=== PATIENT | female | born 1935 | race Caucasian/White ===

== ENCOUNTER 2019-05-26 07:53 | Observation (INO) | payer MEDICARE, MEDICAID, SELFPAY ==
[2019-05-26] VITALS (9 sets, daily range): BP systolic 138–180; BP diastolic 74–110; PULSE 66–98; RESP 16–22; TEMP 36.3–37.1; O2SAT 94–98; BMI 25.7
--- NOTE | 2019-05-26 08:19 | ED_ITS ---
Documented by User: RISHI Brothers 05/26/19 14:42 HPI - Neuro Symptoms/Deficit General: Chief Complaint: General Medical Stated Complaint: DONT FEEL RIGHT Time Seen by Provider: 05/26/19 08:02 Source: patient and family Mode of arrival: ambulatory Limitations: no limitations History of Present Illness: HPI Narrative: Patient is an 83-year-old female who presents to ED today along with her daughter for complaints of not feeling right ; daughter states around 730 this morning she received a phone call from her mother and reported while on the phone and that her voice sounded odd and a little slurred; patient told daughter that she had trouble putting on her pants which is abnormal for her; she immediately came and grabbed patient and brought her to the ED; it is unknown when symptoms started; upon arrival to the ED daughter again feels patient's speech is slightly slurred and feels she may have some left-sided facial drooping; patient seems convinced that her symptoms are related to a recent change in her diltiazem pill-states the pharmacy was out of her white caps and thus placed her on a color-coded tablet Associated symptoms: Deny chest pain, headache(s), nausea, syncope or vomiting Review of Systems Const: Denies: fever, chills or body aches Eyes: Denies: change in vision or blurry vision Card: Denies: chest pain, palpitations, irregular heart rhythm, edema, lightheadedness, syncope or pre-syncope Resp: Denies: shortness of breath, productive cough, non-productive cough, wheezing, pain on inspiration, change in phlegm color, coughing up blood or chest congestion GI: Denies: abdominal pain, nausea, vomiting or diarrhea : Denies: flank pain, difficulty urinating, urinary frequency, urinary urgency or urinary hesitancy Musc: Denies: neck pain or back pain Skin/Breast: Denies: rash Neuro: Reports: other (generalized weakness ); Denies: headache, numbness in extremities or changes in sensation PFSH ED PFSH: Statuses (acute, chronic, etc) shown below reflect problem list status as previously entered and may not be historically accurate Social History Smoking and tobacco status: never smoked NIH stroke score NIHSS: Level Of Consciousness - 1a: 0 Level Of Consciousness Questions - 1b: Both Correct Level Of Consciousness Commands - 1c: Both Correct Best Gaze - 2: Normal Visual [place] - 3: No Visual Loss Facial Palsy - 4: Minor Paralysis Motor Arm Right - 5: No Drift Motor Arm Left - 5: No Drift Motor Leg Right - 6: No Drift Motor Leg Left - 6: Drift Limb Ataxia - 7: Absent Sensory - 8: Normal Best Language - 9: No Aphasia Dysarthia - 10: Mild/Moderate Dysarthia Extinction And Inattention - 11: 0 Score: Total Score: 3 Physical Exam Const: COMMON NORMALS: no apparent distress, average body habitus, oriented x3, no limitations, healthy appearing, alert and well nourished GENERAL APPEARANCE: cooperative ORIENTATION/CONSCIOUSNESS: Yes oriented to person, Yes oriented to place and Yes oriented to time HENMT: COMMON NORMALS: normocephalic and head/scalp atraumatic HEAD & SCALP: normocephalic and atraumatic Eye: COMMON NORMALS: PERRL, EOMs intact bilaterally and conjunctivae normal CONJUNCTIVA: Yes conjunctivae normal PUPIL: Yes PERRL Neck/C-Spine: COMMON NORMALS: no meningeal signs Resp: COMMON NORMALS: normal respiratory effort and clear to auscultation bilaterally AUSCULTATION: clear to auscultation bilaterally Cardio: COMMON NORMALS: regular rate RATE: regular rate RHYTHM: abnormal rhythm irregularly irregular Neuro: KATE COMA SCALE: document GCS findings [place] coma scale eye opening: Spontaneous Kate coma scale verbal response: Orientated [place] coma scale motor response: Obey commands Kate coma scale total score: 15 COMMON NORMALS: oriented x3 and no sensory deficits noted SENSORIUM/ORIENTATION: Yes alert, Yes oriented to person, Yes oriented to place and Yes oriented to time MENINGEAL SIGNS: Yes no meningeal signs SPEECH: abnormal speech GAIT: Yes normal gait Course ED course: After initial assessment of patient, I elected to call a stroke alert based on her slurred speech, minor left facial drooping, and L LE weakness. Dr. Gan made aware and pt was taken straight to CT. Dr. Lockhart contacted ED after hearing the alert and I spoke to her directly. I did accidentally score pt at a NIH of 12 however I meant a score of 3. Dr. Lockhart came and spoke to Dr. Gan and recommended we call off stroke alert as we do not have a time of onset. Vital Signs: Vital signs: Vital Signs Temperature 98.1 F 05/26/19 12:44 Pulse Rate 80 05/26/19 12:44 Respiratory Rate 16 05/26/19 12:44 Blood Pressure 158/83 05/26/19 12:44 Pulse Oximetry 97 05/26/19 12:44 MDM - Neuro Symptoms/Deficit Lab Data: Labs: Lab Results 05/26/19 05/26/19 05/26/19 Range/Units 08:18 08:28 08:28 WBC 6.2 (4.0-10.0) 10^3/ uL RBC 5.11 (4.1-5.3) 10^6/u L Hgb 13.2 (11.5-15.3) g/dL Hct 44.1 (37.0-47.0) % MCV 86.3 (81-99) fL MCH 25.8 L (28.0-34.0) pg MCHC 29.9 L (30.0-36.0) g/dL RDW 14.6 (12.1-15.1) % Plt Count 214 (130-400) 10^3/c mm MPV 10.8 H (7.4-10.4) fL Neut % (Auto) 54.7 % Lymph % (Auto) 33.0 % [place] % (Auto) 9.1 % Eos % (Auto) 2.3 % Baso % (Auto) 0.6 % Neut # (Auto) 3.4 (1.8-7.7) 10^3/u L Lymph # (Auto) 2.0 (0.8-4.8) 10^3/u L [place] # (Auto) 0.6 (0.2-0.9) 10^3/u L Eos # (Auto) 0.1 (0.0-0.8) 10^3/u L Baso # (Auto) 0.0 (0.0-0.1) 10^3/u L Nucleated RBC % (a uto) 0 % Nucleated RBCs # 0.0 /100WBC PT (10.5-13.3) SECO NDS INR (0.8-1.2) APTT (23.9-36.7) SECO NDS Sodium 142 (136-145) mmol/L Potassium 3.7 (3.5-5.1) mmol/L Chloride 105 (98-107) mmol/L Carbon Dioxide 24 (22-29) mmol/L Anion Gap 16.7 (5-19) BUN 21 (8-23) mg/dL Creatinine 0.8 (0.5-0.9) mg/dL Glucose 116 H (74-106) mg/dL POC Glucose 107 (70-110) mg/dL Calcium 10.7 H (8.5-10.5) mg/dL Magnesium 2.4 H (1.7-2.3) mg/dL Total Bilirubin 0.4 (0.15-1.2) mg/dL AST 19 (0-32) U/L ALT 14 (0-33) U/L Alkaline Phosphata se 124 H (35-105) IU/L Troponin T Baselin e (0-10) ng/mL Troponin T 120 Min [place] (0-10) ng/mL Delta Troponin T (0-10) ABS# Total Protein 8.0 (6.6-8.7) g/dL Albumin 4.6 (3.5-5.2) g/dL Globulin 3.4 (1.3-4.6) g/dL Urine Color (Yellow) Urine Appearance (CLEAR) Urine pH (5-7) Ur Specific Gravit y (1.005-1.030) Urine Protein (Negative) Urine Glucose (UA) (Normal) Urine Ketones (Negative) Urine Occult Blood (Negative) Urine Nitrate (Negative) Urine Bilirubin (NEGATIVE) Urine Urobilinogen (Negative) mg/dL Ur Leukocyte Windy ase (Negative) 05/26/19 05/26/19 05/26/19 Range/Units 08:28 08:28 08:50 WBC (4.0-10.0) 10^3/ uL RBC (4.1-5.3) 10^6/u L Hgb (11.5-15.3) g/dL Hct (37.0-47.0) % MCV (81-99) fL MCH (28.0-34.0) pg MCHC (30.0-36.0) g/dL RDW (12.1-15.1) % Plt Count (130-400) 10^3/c mm MPV (7.4-10.4) fL Neut % (Auto) % Lymph % (Auto) % [place] % (Auto) % Eos % (Auto) % Baso % (Auto) % Neut # (Auto) (1.8-7.7) 10^3/u L Lymph # (Auto) (0.8-4.8) 10^3/u L [place] # (Auto) (0.2-0.9) 10^3/u L Eos # (Auto) (0.0-0.8) 10^3/u L Baso # (Auto) (0.0-0.1) 10^3/u L Nucleated RBC % (a uto) % Nucleated RBCs # /100WBC PT 14.50 H (10.5-13.3) SECO NDS INR 1.09 (0.8-1.2) APTT 28.5 (23.9-36.7) SECO NDS Sodium (136-145) mmol/L Potassium (3.5-5.1) mmol/L Chloride (98-107) mmol/L Carbon Dioxide (22-29) mmol/L Anion Gap (5-19) BUN (8-23) mg/dL Creatinine (0.5-0.9) mg/dL Glucose (74-106) mg/dL POC Glucose (70-110) mg/dL Calcium (8.5-10.5) mg/dL Magnesium (1.7-2.3) mg/dL Total Bilirubin (0.15-1.2) mg/dL AST (0-32) U/L ALT (0-33) U/L Alkaline Phosphata se (35-105) IU/L Troponin T Baselin e 24 H (0-10) ng/mL Troponin T 120 Min [place] (0-10) ng/mL Delta Troponin T (0-10) ABS# Total Protein (6.6-8.7) g/dL Albumin (3.5-5.2) g/dL Globulin (1.3-4.6) g/dL Urine Color Straw (Yellow) Urine Appearance Clear (CLEAR) Urine pH 7 (5-7) Ur Specific Gravit y 1.005 (1.005-1.030) Urine Protein Neg (Negative) Urine Glucose (UA) Norm (Normal) Urine Ketones Negative (Negative) Urine Occult Blood Neg (Negative) Urine Nitrate Negative (Negative) Urine Bilirubin Neg (NEGATIVE) Urine Urobilinogen Norm (Negative) mg/dL Ur Leukocyte Windy ase Negative (Negative) 05/26/19 Range/Units 10:30 WBC (4.0-10.0) 10^3/ uL RBC (4.1-5.3) 10^6/u L Hgb (11.5-15.3) g/dL Hct (37.0-47.0) % MCV (81-99) fL MCH (28.0-34.0) pg MCHC (30.0-36.0) g/dL RDW (12.1-15.1) % Plt Count (130-400) 10^3/c mm MPV (7.4-10.4) fL Neut % (Auto) % Lymph % (Auto) % [place] % (Auto) % Eos % (Auto) % Baso % (Auto) % Neut # (Auto) (1.8-7.7) 10^3/u L Lymph # (Auto) (0.8-4.8) 10^3/u L [place] # (Auto) (0.2-0.9) 10^3/u L Eos # (Auto) (0.0-0.8) 10^3/u L Baso # (Auto) (0.0-0.1) 10^3/u L Nucleated RBC % (a uto) % Nucleated RBCs # /100WBC PT (10.5-13.3) SECO NDS INR (0.8-1.2) APTT (23.9-36.7) SECO NDS Sodium (136-145) mmol/L Potassium (3.5-5.1) mmol/L Chloride (98-107) mmol/L Carbon Dioxide (22-29) mmol/L Anion Gap (5-19) BUN (8-23) mg/dL Creatinine (0.5-0.9) mg/dL Glucose (74-106) mg/dL POC Glucose (70-110) mg/dL Calcium (8.5-10.5) mg/dL Magnesium (1.7-2.3) mg/dL Total Bilirubin (0.15-1.2) mg/dL AST (0-32) U/L ALT (0-33) U/L Alkaline Phosphata se (35-105) IU/L Troponin T Baselin e (0-10) ng/mL Troponin T 120 Min [place] 22.71 H (0-10) ng/mL Delta Troponin T -1.29 L (0-10) ABS# Total Protein (6.6-8.7) g/dL Albumin (3.5-5.2) g/dL Globulin (1.3-4.6) g/dL Urine Color (Yellow) Urine Appearance (CLEAR) Urine pH (5-7) Ur Specific Gravit y (1.005-1.030) Urine Protein (Negative) Urine Glucose (UA) (Normal) Urine Ketones (Negative) Urine Occult Blood (Negative) Urine Nitrate (Negative) Urine Bilirubin (NEGATIVE) Urine Urobilinogen (Negative) mg/dL Ur Leukocyte Windy ase (Negative) Imaging Data^: CT Head: Radiologist's impression: [place] [address] CT Scan Report Signed Patient: Cristel Keating Unit #: [id number] : 1935 Age/Sex: 83 / F ADM Date: 05/26/19 Loc: ER Room/Bed: Attending Dr: Ordering Provider/Ordering MD: Abbey Salazar Date of Service: 05/26/19 Procedure(s): CT head wo con* [id number] Accession Number(s): [id number] Report Number: [id number] WS: [id number] CT scan of the head, 05/26/2019 Clinical Data: neurologic symptoms Comparison: CT head, 07/26/2017 DLP: 756.52 mGy-cm All CT scans at [facility] use at least one of these dose optimization techniques: automated exposure control; mA and/or kV adjustment per patient size (includes targeted exams where dose is matched to clinical indication); or iterative reconstruction. Findings: The ventricular system is widely dilated without shift. 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 No recent infarct or hemorrhage is seen. Calcification of the cavernous carotid arteries is present. There are no abnormal intracerebral masses. The cerebellum and brainstem are not remarkable. Bony windows of the skull and skull base show no fractures or erosions. The mastoid air cells, internal auditory canals, sella turcica, intraorbital contents, and paranasal sinuses are unremarkable. CT/CT head wo con* [id number] Impression: 1. Negative for recent infarct or hemorrhage. 2. 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 Dictated By: Agueda Will MD Signed By: Agueda Will MD Signed Date/Time: 05/26/19 0846 DD/ 0841 CXR: Radiologist's impression: [place] [address] XRay Report Signed Patient: Cristel Keating Unit #: [id number] : 1935 Acct#:[id number] Age/Sex: 83 / F ADM Date: 05/26/19 Loc: ER Room/Bed: Attending Dr: Ordering Provider/Ordering MD: Abbey Salazar Date of Service: 05/26/19 Procedure(s): XR chest 1V portable [id number] Accession Number(s): [id number] Report Number: [id number] WS: [id number] Portable AP upright chest, 05/26/2019 Clinical Data: cough/congestion Comparison: PA and lateral chest, 04/22/2019. Findings: No nodules, masses or effusions are seen. The heart is normal. The pulmonary vascularity is not increased. No pneumonia or pneumothorax is seen. The aortic arch and descending aorta are tortuous. There is a dextroscoliosis of the thoracic spine. A left shoulder prosthesis is in position. XR/XR chest 1V portable [id number] Impression: Atherosclerosis. Dictated By: Agueda Will MD Signed By: Agueda Will MD Signed Date/Time: 05/26/19906 DD/ 09 CTA head/neck: Radiologist's impression: [address] [address] [address] Scan Report Signed Patient: Cristel Keating Unit #: [id number] : 1935 Age/Sex: 83 / F ADM Date: 05/26/19 Loc: ER Room/Bed: Attending Dr: Ordering Provider/Ordering MD: Abbey Salazar Date of Service: 05/26/19 Procedure(s): CT angio headneck* [id number] Accession Number(s): [id number] Report Number: [id number] WS: [id number] CTA scan of the head and neck. Additional two-dimensional coronal and sagittal reconstruction along with MIP images was performed. 05/26/2019 Clinical Data: stroke like symptoms Comparison: CT head, 05/26/2019 DLP: [address] scans at [facility] use at least one of these dose optimization techniques: automated exposure control; mA and/or kV adjustment per patient size (includes targeted exams where dose is matched to clinical indication); or iterative reconstruction. Findings: The carotid arteries bifurcate normally into the internal carotid arteries. There is no lymphadenopathy within the neck. The intracerebral circulation shows that the internal carotid arteries bifurcate into the anterior and middle cerebral arteries. The basilar arterial system is normal. No aneurysms are seen. 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 The bones of the cervical spine and skull demonstrate no erosions. The intraorbital contents, paranasal sinuses, internal auditory canals and sella turcica are normal. The parotid glands are normal. The parapharyngeal areas are unremarkable. The larynx is symmetrical. The thyroid gland shows normal enhancement with a calcification in the central portion of the right thyroid lobe. CT/CT angio headneck* [id number] Impression: 1. Negative for carotid or vertebral artery occlusion or stenoses. 2. Normal intracranial circulation. 3. 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 Dictated By: Agueda Will MD Signed By: Agueda Will MD Signed Date/Time: 05/26/19 1050 DD/ 1043 Discharge Plan Discharge Patient Disposition: Admitted As Inpatient Admit Provider: Kandace Blanco Clinical Impression: Acute CVA (cerebrovascular accident) Condition: Fair Discharge Date/Time: 05/26/19 12:28 Coding Level of Care Code ED Central Sterilization Technician for Chg Fwd Exam Problem Focused Documented by User: Odell Gan DO 05/26/19 11:17 HPI - Neuro Symptoms/Deficit General: Chief Complaint: General Medical Stated Complaint: DONT FEEL RIGHT Time Seen by Provider: 05/26/19 08:02 PFSH ED PFSH: Statuses (acute, chronic, etc) shown below reflect problem list status as previously entered and may not be historically accurate Social History Smoking and tobacco status: never smoked Course Vital Signs: Vital signs: Vital Signs Temperature 98.1 F 05/26/19 12:44 Pulse Rate 80 05/26/19 12:44 Respiratory Rate 16 05/26/19 12:44 Blood Pressure 158/83 05/26/19 12:44 Pulse Oximetry 97 05/26/19 12:44 MDM - Neuro Symptoms/Deficit Lab Data: Labs: Lab Results 05/26/19 05/26/19 05/26/19 Range/Units 08:18 08:28 08:28 WBC 6.2 (4.0-10.0) 10^3/ uL RBC 5.11 (4.1-5.3) 10^6/u L Hgb 13.2 (11.5-15.3) g/dL Hct 44.1 (37.0-47.0) % MCV 86.3 (81-99) fL MCH 25.8 L (28.0-34.0) pg MCHC 29.9 L (30.0-36.0) g/dL RDW 14.6 (12.1-15.1) % Plt Count 214 (130-400) 10^3/c mm MPV 10.8 H (7.4-10.4) fL Neut % (Auto) 54.7 % Lymph % (Auto) 33.0 % [place] % (Auto) 9.1 % Eos % (Auto) 2.3 % Baso % (Auto) 0.6 % Neut # (Auto) 3.4 (1.8-7.7) 10^3/u L Lymph # (Auto) 2.0 (0.8-4.8) 10^3/u L [place] # (Auto) 0.6 (0.2-0.9) 10^3/u L Eos # (Auto) 0.1 (0.0-0.8) 10^3/u L Baso # (Auto) 0.0 (0.0-0.1) 10^3/u L Nucleated RBC % (a uto) 0 % Nucleated RBCs # 0.0 /100WBC PT (10.5-13.3) SECO NDS INR (0.8-1.2) APTT (23.9-36.7) SECO NDS Sodium 142 (136-145) mmol/L Potassium 3.7 (3.5-5.1) mmol/L Chloride 105 (98-107) mmol/L Carbon Dioxide 24 (22-29) mmol/L Anion Gap 16.7 (5-19) BUN 21 (8-23) mg/dL Creatinine 0.8 (0.5-0.9) mg/dL Glucose 116 H (74-106) mg/dL POC Glucose 107 (70-110) mg/dL Calcium 10.7 H (8.5-10.5) mg/dL Magnesium 2.4 H (1.7-2.3) mg/dL Total Bilirubin 0.4 (0.15-1.2) mg/dL AST 19 (0-32) U/L ALT 14 (0-33) U/L Alkaline Phosphata se 124 H (35-105) IU/L Troponin T Baselin e (0-10) ng/mL Troponin T 120 Min [place] (0-10) ng/mL Delta Troponin T (0-10) ABS# Total Protein 8.0 (6.6-8.7) g/dL Albumin 4.6 (3.5-5.2) g/dL Globulin 3.4 (1.3-4.6) g/dL Urine Color (Yellow) Urine Appearance (CLEAR) Urine pH (5-7) Ur Specific Gravit y (1.005-1.030) Urine Protein (Negative) Urine Glucose (UA) (Normal) Urine Ketones (Negative) Urine Occult Blood (Negative) Urine Nitrate (Negative) Urine Bilirubin (NEGATIVE) Urine Urobilinogen (Negative) mg/dL Ur Leukocyte Windy ase (Negative) 05/26/19 05/26/19 05/26/19 Range/Units 08:28 08:28 08:50 WBC (4.0-10.0) 10^3/ uL RBC (4.1-5.3) 10^6/u L Hgb (11.5-15.3) g/dL Hct (37.0-47.0) % MCV (81-99) fL MCH (28.0-34.0) pg MCHC (30.0-36.0) g/dL RDW (12.1-15.1) % Plt Count (130-400) 10^3/c mm MPV (7.4-10.4) fL Neut % (Auto) % Lymph % (Auto) % [place] % (Auto) % Eos % (Auto) % Baso % (Auto) % Neut # (Auto) (1.8-7.7) 10^3/u L Lymph # (Auto) (0.8-4.8) 10^3/u L [place] # (Auto) (0.2-0.9) 10^3/u L Eos # (Auto) (0.0-0.8) 10^3/u L Baso # (Auto) (0.0-0.1) 10^3/u L Nucleated RBC % (a uto) % Nucleated RBCs # /100WBC PT 14.50 H (10.5-13.3) SECO NDS INR 1.09 (0.8-1.2) APTT 28.5 (23.9-36.7) SECO NDS Sodium (136-145) mmol/L Potassium (3.5-5.1) mmol/L Chloride (98-107) mmol/L Carbon Dioxide (22-29) mmol/L Anion Gap (5-19) BUN (8-23) mg/dL Creatinine (0.5-0.9) mg/dL Glucose (74-106) mg/dL POC Glucose (70-110) mg/dL Calcium (8.5-10.5) mg/dL Magnesium (1.7-2.3) mg/dL Total Bilirubin (0.15-1.2) mg/dL AST (0-32) U/L ALT (0-33) U/L Alkaline Phosphata se (35-105) IU/L Troponin T Baselin e 24 H (0-10) ng/mL Troponin T 120 Min [place] (0-10) ng/mL Delta Troponin T (0-10) ABS# Total Protein (6.6-8.7) g/dL Albumin (3.5-5.2) g/dL Globulin (1.3-4.6) g/dL Urine Color Straw (Yellow) Urine Appearance Clear (CLEAR) Urine pH 7 (5-7) Ur Specific Gravit y 1.005 (1.005-1.030) Urine Protein Neg (Negative) Urine Glucose (UA) Norm (Normal) Urine Ketones Negative (Negative) Urine Occult Blood Neg (Negative) Urine Nitrate Negative (Negative) Urine Bilirubin Neg (NEGATIVE) Urine Urobilinogen Norm (Negative) mg/dL Ur Leukocyte Windy ase Negative (Negative) 05/26/19 Range/Units 10:30 WBC (4.0-10.0) 10^3/ uL RBC (4.1-5.3) 10^6/u L Hgb (11.5-15.3) g/dL Hct (37.0-47.0) % MCV (81-99) fL MCH (28.0-34.0) pg MCHC (30.0-36.0) g/dL RDW (12.1-15.1) % Plt Count (130-400) 10^3/c mm MPV (7.4-10.4) fL Neut % (Auto) % Lymph % (Auto) % [place] % (Auto) % Eos % (Auto) % Baso % (Auto) % Neut # (Auto) (1.8-7.7) 10^3/u L Lymph # (Auto) (0.8-4.8) 10^3/u L [place] # (Auto) (0.2-0.9) 10^3/u L Eos # (Auto) (0.0-0.8) 10^3/u L Baso # (Auto) (0.0-0.1) 10^3/u L Nucleated RBC % (a uto) % Nucleated RBCs # /100WBC PT (10.5-13.3) SECO NDS INR (0.8-1.2) APTT (23.9-36.7) SECO NDS Sodium (136-145) mmol/L Potassium (3.5-5.1) mmol/L Chloride (98-107) mmol/L Carbon Dioxide (22-29) mmol/L Anion Gap (5-19) BUN (8-23) mg/dL Creatinine (0.5-0.9) mg/dL Glucose (74-106) mg/dL POC Glucose (70-110) mg/dL Calcium (8.5-10.5) mg/dL Magnesium (1.7-2.3) mg/dL Total Bilirubin (0.15-1.2) mg/dL AST (0-32) U/L ALT (0-33) U/L Alkaline Phosphata se (35-105) IU/L Troponin T Baselin e (0-10) ng/mL Troponin T 120 Min [place] 22.71 H (0-10) ng/mL Delta Troponin T -1.29 L (0-10) ABS# Total Protein (6.6-8.7) g/dL Albumin (3.5-5.2) g/dL Globulin (1.3-4.6) g/dL Urine Color (Yellow) Urine Appearance (CLEAR) Urine pH (5-7) Ur Specific Gravit y (1.005-1.030) Urine Protein (Negative) Urine Glucose (UA) (Normal) Urine Ketones (Negative) Urine Occult Blood (Negative) Urine Nitrate (Negative) Urine Bilirubin (NEGATIVE) Urine Urobilinogen (Negative) mg/dL Ur Leukocyte Windy ase (Negative) Discharge Plan Discharge Patient Disposition: Admitted As Inpatient Admit Provider: Kandace Blanco Clinical Impression: Acute CVA (cerebrovascular accident) Condition: Fair Discharge Date/Time: 05/26/19 12:28 Coding Level of Care Code ED Central Sterilization Technician for Románg Fwd Exam Problem Focused
--- NOTE | 2019-05-26 08:24 | PC.NURSE ---
EkG done at 0822 and shown to ER doctor
--- NOTE | 2019-05-26 08:33 | PC.NURSE ---
please see stroke alert flowsheet for further documentation
--- NOTE | 2019-05-26 08:36 | CT_ITS ---
WS: [id number] CT scan of the head, 05/26/2019 Clinical Data: neurologic symptoms Comparison: CT head, 07/26/2017 DLP: 756.52 mGy-cm All CT scans at [facility] use at least one of these dose optimization techniques: automated exposure control; mA and/or kV adjustment per patient size (includes targeted e xams where dose is matched to clinical indication); or iterative reconstruction. Findings: The ventricular system is widely dilated without shift. There is a 2.4 cm calcified pineal gland unch anged. No recent infarct or hemorrhage is seen. Calcification of the cavernous carotid arteries is pr esent. There are no abnormal intracerebral masses. The cerebellum and brainstem are not remarkable. Bony windows of the skull and skull base show no fractures or erosions. The mastoid air cells, international logistics manager al auditory canals, sella turcica, intraorbital contents, and paranasal sinuses are unremarkable. CT/CT head wo con* [id number] Impression: 1. Negative for recent infarct or hemorrhage. 2. 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
--- NOTE | 2019-05-26 08:36 | XR_ITS ---
WS: [id number] Portable AP upright chest, 05/26/2019 Clinical Data: cough/congestion Comparison: PA and lateral chest, 04/22/2019. Findings: No nodules, masses or effusions are seen. The heart is normal. The pulmonary vascularity is not increased. No pneumonia or pneumothorax is seen. The aortic arch and descending aorta are tortuo us. There is a dextroscoliosis of the thoracic spine. A left shoulder prosthesis is in position. XR/XR chest 1V portable [id number] Impression: Atherosclerosis.
--- NOTE | 2019-05-26 08:37 | ECG_ITS ---
Measurements Intervals [place] Rate: 73 P: RI: 0 QRS: -35 QRSD: 82 T: 12 QT: 373 QTc: 413 Probable aTRIAL FIBRILLATION; significant baseline artifact LEFT AXIS DEVIATION [QRS AXIS < -30] SEPTAL MYOCARDIAL INFARCTION , OF INDETERMINATE AGE [40+ ms Q WAVE IN V1/V2] INFERIOR MYOCARDIAL INFARCTION , OF INDETERMINATE AGE [40+ ms Q WAVE AND/OR ST/T ABNORMALITY IN II/aVF] Compared to ECG 04/22/2019 11:38:41 Myocardial infarct finding now present ST (T wave) deviation no longer present Electronically Signed On 05-26-2019 11:34:31 BREAKER LAYER by Shant Lopez M.D. [email or web address]
[2019-05-26 08:42] LABS: Basophils % 0.6 %; Eosinophils # 0.1 10^3/uL (0.0-0.8); Eosinophils % 2.3 %; Hematocrit 44.1 % (37.0-47.0); Hemoglobin 13.2 g/dL (11.5-15.3); Mean Corpuscular HGB Conc 29.9 g/dL (30.0-36.0); Mean Corpuscular Hemoglobin 25.8 pg (28.0-34.0); Mean Corpuscular Volume 86.3 fL (81-99); Mean Platelet Volume 10.8 fL (7.4-10.4); Monocytes # 0.6 10^3/uL (0.2-0.9); Monocytes % 9.1 %; Neutrophils # 3.4 10^3/uL (1.8-7.7); Neutrophils % 54.7 %; Nucleated Red Blood Cells % 0 %; Platelet Count 214 10^3/cmm (130-400); Red Blood Count 5.11 10^6/uL (4.1-5.3); Red Cell Distribution Width 14.6 % (12.1-15.1); White Blood Count 6.2 10^3/uL (4.0-10.0)
[2019-05-26 08:51] LABS: INR 1.09 (0.8-1.2)
[2019-05-26 08:52] LABS: Partial Thromboplastin Time 28.5 SECONDS (23.9-36.7)
--- NOTE | 2019-05-26 08:55 | P.PNCC_ITS ---
Stroke Alert Activation ED Arrival Date: 05/26/19 Other Last Known Well Infomation: Stroke alert was called for this 83-year-old woman who has no history of stroke. I talked with Abbey Salazar, who evaluated the patient on arrival. She reported an NIH stroke scale score of 13 but described minimal somatic weakness on the right side, trace of facial weakness and trace of slurred speech which would correlate more with a stroke scale score of 2-3. She was not sure of time of onset as the patient called her daughter at 30 complaining of slurred speech. She was sent for a CT scan of the head, which I reviewed and which was unremarkable. Not hearing further from the emergency department, I went to the emergency room where Dr. Maynard reported that he had seen the patient and that her findings were not significant and her time of onset was unknown. He did not realize that he needed to update me on that information and I apprised him of the fact that if the patient is not a TPA candidate based upon ER physician assessment, the stroke alert should be called off and the stroke physician should be apprised. Stroke Alert Data/Treatment tPA Contraindication: tPA Contraindication: Treatment not indcated and Medical contraindication Other Information: Outside of the window for TPA. Stroke scale score too low to consider thrombectomy. Critical Care Time Critical Care Time: less than 30 mins Coding Level of Care Code Acute Clamp Operator for [facility] Time Spent (min) 15
[2019-05-26 08:58] LABS: Troponin(5th) Baseline 24 ng/mL (0-10)
[2019-05-26 08:59] LABS: Add Urine Microscopic? NO
[2019-05-26 09:07] LABS: Bilirubin Urine Neg (NEGATIVE); Blood Urine Neg (Negative); Glucose Urine UA Norm (Normal); Ketones Urine Negative (Negative); Leukocyte Esterase Urine Negative (Negative); Nitrate Urine Negative (Negative); Protein Urine Neg (Negative); Specific Gravity, Urine 1.005 (1.005-1.030); Urine Appearance Clear (CLEAR); Urine Color Straw (Yellow); Urobilinogen Urine Norm (Negative); pH Urine 7 (5-7)
[2019-05-26 09:13] LABS: Alanine Aminotransferase 14 U/L (0-33); Albumin Level 4.6 g/dL (3.5-5.2); Alkaline Phosphatase 124 IU/L (35-105); Anion Gap 16.7 (5-19); Aspartate Amino Transferase 19 U/L (0-32); Blood Urea Nitrogen 21 mg/dL (8-23); Calcium 10.7 mg/dL (8.5-10.5); Carbon Dioxide 24 mmol/L (22-29); Chloride 105 mmol/L (98-107); Globulin 3.4 g/dL (1.3-4.6); Glucose 116 mg/dL (74-106); Magnesium 2.4 mg/dL (1.7-2.3); Potassium 3.7 mmol/L (3.5-5.1); Sodium 142 mmol/L (136-145); Total Bilirubin 0.4 mg/dL (0.15-1.2)
--- NOTE | 2019-05-26 09:16 | CT_ITS ---
WS: [id number] CTA scan of the head and neck. Additional two-dimensional coronal and sagittal reconstruction along w ith MIP images was performed. 05/26/2019 Clinical Data: stroke like symptoms Comparison: CT head, 05/26/2019 DLP: 1894.[address] scans at [facility] use at least one of these dose optimization techniques: automat ed exposure control; mA and/or kV adjustment per patient size (includes targeted exams where dose is matched to clinical indication); or iterative reconstruction. Findings: The carotid arteries bifurcate normally into the internal carotid arteries. There is no lymphadenopat hy within the neck. The intracerebral circulation shows that the internal carotid arteries bifurcate into the anterior and middle cerebral arteries. The basilar arterial system is normal. No aneurysms a re seen. 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 The bones of the cervical spine and skull demonstrate no erosions. The intraorbital contents, paranasal sinuses, internal auditory canals and sella turcica are normal. The parotid glands are normal. The parapharyngeal areas are unremarkable. The larynx is symmetrical. The thyroid gland shows normal enhancement with a calcification in the central portion o f the right thyroid lobe. CT/CT angio headneck* [id number] Impression: 1. Negative for carotid or vertebral artery occlusion or stenoses. 2. Normal intracranial circulation. 3. 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
[2019-05-26] MEDS: iohexol 350 mg/mL 100 mL Btl IV (10:31)
--- NOTE | 2019-05-26 10:37 | ECG_ITS ---
Measurements Intervals [place] Rate: 83 P: MO: 0 QRS: -23 QRSD: 86 T: 46 QT: 367 QTc: 432 ATRIAL FIBRILLATION SEPTAL MYOCARDIAL INFARCTION , PROBABLY OLD [40+ ms Q WAVE IN V1/V2] Compared to ECG 05/26/2019 08:25:46 Left-axis deviation no longer present Myocardial infarct finding still present Electronically Signed On 05-26-2019 17:36:50 VALUE ANALYST by Shant Lopez M.D. [email or web address]
[2019-05-26 11:03] LABS: Troponin 5 2HR 22.71 ng/mL (0-10)
[2019-05-26 11:08] LABS: Troponin 5 2HR Delta -1.29 ABS# (0-10)
[2019-05-26] MEDS: sodium chloride 0.9% 500 ML 999 ML IV (12:57)
[2019-05-26 13:03] LABS: Glucose Point of Care 107 mg/dL (70-110)
--- NOTE | 2019-05-26 13:49 | PM.HP ---
Providers/Chief Complaint Admitting Physician: Kandace Blanco MD Primary Care Provider: Dr. Arias Chief Complaint: CVA History of Present Illness Cristel Keating is a 83 year old female that presented to the emergency department today due to concern for confusion and left-sided facial droop. Unknown last known well, as patient's daughter was only called this morning with the concern. Patient was seen and evaluated in the emergency department noted to have an NIH of 3 with unknown last known well, therefore was not a TPA candidate. Patient reports that she has a history of atrial fibrillation and is only agreed to take baby aspirin in the past. Patient reports that she recently had her cardizem filled by another pharmacy and it was a different color than the medication that she took previously. Patient reports that this episode is secondary to that event. She reported that she can only take Mylan brand Cardizem 90 mg 3 times a day. Her new prescription it was a different color and not white-colored tablets therefore she is refusing to take the medication any further. Discussed with patient and her daughter that this is not likely the cause of this event, likely due to underlying atrial fibrillation along with other risk factors including hypertension. Review of Systems Const: Denies: fever or chills Eyes: Denies: change in vision ENMT: Denies: nasal congestion Card: Denies: chest pain, palpitations or edema Resp: Denies: shortness of breath, productive cough or coughing up blood GI: Denies: abdominal pain, nausea, vomiting, diarrhea, constipation, blood in stool or black tarry stool : Denies: painful urination or blood in urine Musc: Denies: extremity pain or muscle cramps Skin/Breast: Denies: rash or new lesion Neuro: Reports: weakness in extremities, confusion and slurred speech; Denies: headache or dizziness Psych: Denies: anxiety or depression Endo: Denies: excessive urination or hot flashes Niko/Lymph: Denies: easy bruising or easy bleeding Medications/Allergies Home Medications Medication Instructions Recorded Confirmed Last Taken Type aspirin 81 mg PO DAILY 05/26/19 05/26/19 05/26/19 History diltiazem HCl 90 mg PO TID 05/26/19 05/26/19 05/26/19 History olmesartan [Benicar] 40 mg PO DAILY 05/26/19 05/26/19 05/26/19 History Allergies Allergy/AdvReac Type Severity Reaction Status Date / Time No Known Allergies Allergy Verified 05/26/19 08:03 PFSH Acute PFSH: Statuses (acute, chronic, etc) shown below reflect problem list status as previously entered and may not be historically accurate Medical History (Updated 05/26/19 @ 14:57 by Kandace Blanco DO) Atrial fibrillation (Acute) Hypertension (Acute) Surgical History (Updated 05/26/19 @ 14:57 by Kandace Blanco DO) H/O shoulder surgery (Acute) Left History of hip surgery (Acute) Left Family History (Updated 05/26/19 @ 14:58 by Kandace Blanco DO) Mother Hypertension Father Lung disease Social History (Updated 05/26/19 @ 14:58 by Kandace Blanco DO) Smoking and tobacco status: never smoked Alcohol intake: never Substance/Drug Use: never Vitals/I&O/Wt Last Vital Signs Temp 98.1 F 05/26/19 12:44 Pulse 80 05/26/19 12:44 Resp 16 05/26/19 12:44 BP 158/83 05/26/19 12:44 Pulse Ox 97 05/26/19 12:44 Weight last 48 hrs Weight 70.307 kg Physical Exam Const: COMMON NORMALS: oriented x3 and alert GENERAL APPEARANCE: cooperative ORIENTATION/CONSCIOUSNESS: Yes awake, Yes oriented to person, Yes oriented to place and Yes oriented to time HENMT: COMMON NORMALS: normocephalic and head/scalp atraumatic HEAD & SCALP: normocephalic and atraumatic Eye: COMMON NORMALS: PERRL PUPIL: Yes PERRL Neck/C-Spine: COMMON NORMALS: supple GENERAL: Yes normal visual inspection Resp: COMMON NORMALS: normal respiratory effort and clear to auscultation bilaterally EFFORT & INSPECTION: Yes able to speak in complete sentences AUSCULTATION: clear to auscultation bilaterally, no rhonchi and no wheezes Cardio: OTHER: Irregularly irregular GI: COMMON NORMALS: soft to palpation and non-tender INSPECTION: No abdominal distension AUSCULTATION: Yes normoactive bowel sounds PALPATION: Yes soft Back/Pelvis: COMMON NORMALS: no CVA tenderness Extremity: COMMON NORMALS: no clubbing, cyanosis or edema and no calf tenderness Neuro: COMMON NORMALS: oriented x3 and moves all extremities SENSORIUM/ORIENTATION: Yes alert, Yes oriented to person, Yes oriented to place and Yes oriented to time SPEECH: speech normal OTHER: Extraocular muscles intact, minimal facial droop on the left, normal sensation bilaterally, normal strength in the upper and lower extremities bilaterally. Patient does have decreased range of motion in the left shoulder due to prior surgery, strength within normal limits. Speech is clear and appropriate Psych: COMMON NORMALS: mental status grossly normal and cooperative Skin: COMMON NORMALS: no rashes or lesions noted GENERAL SKIN EXAM: no rashes or lesions noted Data : 05/26/19 08:28 05/26/19 08:28 CT Head: Radiologist's impression: Impression: 1. Negative for recent infarct or hemorrhage. 2. 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 Other Imaging: Radiologist's impression: CTA Head and Neck Findings: The carotid arteries bifurcate normally into the internal carotid arteries. There is no lymphadenopathy within the neck. The intracerebral circulation shows that the internal carotid arteries bifurcate into the anterior and middle cerebral arteries. The basilar arterial system is normal. No aneurysms are seen. 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 The bones of the cervical spine and skull demonstrate no erosions. The intraorbital contents, paranasal sinuses, internal auditory canals and sella turcica are normal. The parotid glands are normal. The parapharyngeal areas are unremarkable. The larynx is symmetrical. The thyroid gland shows normal enhancement with a calcification in the central portion of the right thyroid lobe. CT/CT angio headneck* [id number] Impression: 1. Negative for carotid or vertebral artery occlusion or stenoses. 2. Normal intracranial circulation. 3. 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 CXR: Radiologist's impression: Impression: Atherosclerosis. EKG 1: My Interpretation: atrial fibrillation with a rate of 73bpm A&P Assessment and plan (1) Acute CVA (cerebrovascular accident): Patient with underlying atrial fibrillation, however she did declines any anticoagulation. She has been on baby aspirin in the past and previously had declined full-strength aspirin. After much discussion she is agreeable to aspirin 325 mg daily but declines any further anticoagulation. Observation with telemetry Physical therapy, occupational therapy and speech therapy ordered We will check A1c We will check lipid panel Started on atorvastatin daily CT head and CTA of the head and neck performed as above Echocardiogram ordered for further evaluation and treatment Patient was not a TPA candidate due to low NIH and unknown last known well time Status: Acute Code(s): I63.9 - Cerebral infarction, unspecified (2) Hypertension: On home Benicar, will restart tomorrow to allow permissive hypertension Also on Cardizem at home Status: Acute Code(s): I10 - Essential (primary) hypertension (3) Atrial fibrillation: Rate controlled atrial fibrillation. Patient has refused anticoagulation in the past and continues to refuse at this time. She was previously only on aspirin 81 mg daily, now after much discussion she agrees to taking 325 mg aspirin daily but declines any further anticoagulation. Discussed with patient the risk and benefit of anticoagulation including risk of stroke, she verbalized understanding. Patient has been on Cardizem plain 90 mg every 8 hours for several years, she reports that she can only take a specific senior cytogenetics laboratory director brand, Mylan, only taking white tablets. She reported that she recently was given a different brand of this medication that was a different color and it has contributed to her symptoms. Have called and discussed with pharmacy as well as outpatient pharmacy and they have also called many other pharmacies in the area, unable to order the specific brand in color at this time. We will continue to discuss this with patient. Would recommend extended release Cardizem, however she has declined in the past. 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 Expected stay less than 2 midnights Coding Level of Care Code Acute Skidder Loader for [facility] Fw Exam Problem Focused Diagnoses Acute CVA (cerebrovascular accident) I63.9 Hypertension I10 Atrial fibrillation I48.91
[2019-05-26] MEDS: dilTIAZem 60 mg Tablet 90 MG PO ×2 (14:34→23:49)
--- NOTE | 2019-05-26 14:55 | USCV_ITS ---
Cristel Keating Age: 83 Gender: F : 1935 Exam Date: 05/26/2019 16:05 Ordering Phys: Odell Gan DO Technologist: Edith Griffiths [place] [facility] [place]: CVA BP: 158 / 83 HR: 74 Rhythm: Sinus Technical Quality: Adequate MEASUREMENTS (Male / Female) Normal Values 2D ECHO LV Diastolic Diameter PLAX 3.6 cm 4.2 - 5.9 / 3.9 - 5.3 cm LV Systolic Diameter PLAX 1.7 cm LV Chamber Size 3.2 cm IVS Diastolic Thickness 1.0 cm 0.6 - 1.0 / 0.6 - 0.9 cm IVS Systolic Thickness 1.3 cm LVPW Diastolic Thickness 0.8 cm 0.6 - 1.0 / 0.6 - 0.9 cm LVPW Systolic Thickness 1.4 cm RV Chamber Size 1.8 cm LVOT Diameter 1.7 cm LV Ejection Fraction 2D Teich 84.0 % LV Ejection Fraction MOD 2C 72.4 % LV Ejection Fraction 2C AL 78.3 % LA Diameter 6.0 cm LA Width 3.3 cm LA Height 5.8 cm RA Width 3.1 cm RA Height 6.2 cm Aorta at Sinotubular Diameter 2.0 cm M-MODE LV Diastolic Diameter MM 4.7 cm 4.2 - 5.9 / 3.9 - 5.3 cm LV Systolic Diameter MM 2.9 cm LV Ejection Fraction MM Teich 67.6 % IVS Diastolic Thickness MM 0.9 cm 0.6 - 1.0 / 0.6 - 0.9 cm IVS Systolic Thickness MM 1.2 cm LVPW Diastolic Thickness MM 0.9 cm 0.6 - 1.0 / 0.6 - 0.9 cm LVPW Systolic Thickness MM 1.8 cm RV Diastolic Diameter MM 1.5 cm Aortic Annulus Diameter 3.2 cm LA Ao Ratio MM 1.9 MV E Point Septal Separation 0.3 cm DOPPLER AV Peak Velocity 147.0 cm/s LVOT Peak Velocity 84.0 cm/s AV Area Cont Eq vti 1.1 cm squared AV Area Cont Eq pk 1.2 cm squared MV Area PHT 3.9 cm squared MV E' Velocity 11.0 cm/s Mitral E to MV E' Ratio 9.5 Mitral E to LV E' Lateral Ratio 8.6 Mitral E to LV E' Septal Ratio 10.7 TR Peak Velocity 263.0 cm/s TR Peak Gradient 27.6 mmHg TR Mean Velocity 214.9 cm/s TR Mean Gradient 19.0 mmHg TR Velocity Time Integral 84.2 cm TV Peak E Velocity 82.0 cm/s Right Atrial Pressure 8.0 mmHg Pulmonary Artery Systolic Pressu 35.7 mmHg PV Peak Velocity 78.0 cm/s RV Acceleration Time 0.1 s RV Ejection Time 0.3 s RV AcT/ET 0.2 FINDINGS Left Ventricle Normal left ventricular size, systolic function and wall thickness, with no regional wall motion abnormalities. Grade I/IV diastolic dysfunction (abnormal relaxation filling pattern), normal to mildly elevated filling pressures. Grade I/IV diastolic dysfunction (abnormal relaxation filling pattern), normal to mildly elevated filling pressures. Left ventricular ejection fraction is estimated at 65 %. Right Ventricle Normal right ventricular size and systolic function. Mild pulmonary hypertension, RVSP 35.7 mmHg. Right Atrium Moderately increased right atrial size. Left Atrium Severely increased left atrial size. Mitral Valve Structurally normal mitral valve. Mild mitral valve regurgitation. Aortic Valve Structurally normal trileaflet aortic valve. Mild aortic valve calcification. Mild aortic valve stenosis, mean gradient 4.3 mmHg, CARYN 1.1 cm squared. Tricuspid Valve Structurally normal tricuspid valve. Mild tricuspid valve regurgitation. Pulmonic Valve Pulmonic valve not well visualized. Pericardium Normal pericardium without effusion. Aorta Normal ascending aorta dimension. CONCLUSIONS Normal left ventricular size, systolic function and wall thickness, with no regional wall motion abnormalities. Grade I/IV diastolic dysfunction (abnormal relaxation filling pattern), normal to mildly elevated filling pressures. Grade I/IV diastolic dysfunction (abnormal relaxation filling pattern), normal to mildly elevated filling pressures. Left ventricular ejection fraction is estimated at 65 %. Normal right ventricular size and systolic function. Mild pulmonary hypertension, RVSP 35.7 mmHg. Moderately increased right atrial size. Severely increased left atrial size. Structurally normal mitral valve. Mild mitral valve regurgitation. Structurally normal trileaflet aortic valve. Mild aortic valve calcification. Mild aortic valve stenosis, mean gradient 4.3 mmHg, CARYN 1.[address] Shant Lopez MD (Electronically Signed) Final Date: 26 May 2019 17:17 S
[2019-05-26 15:05] LABS: Troponin 5 6HR 22.68 ng/L (0-10)
[2019-05-26 15:08] LABS: Troponin 5 6HR Delta -1.32 ng/L (0-12)
[2019-05-26 16:14] LABS: Thyroid Stimulating Hormone 0.61 uIU/mL (0.27-4.20)
[2019-05-26] MEDS: atorvastatin 40 mg Tablet 20 MG PO (21:05)
[2019-05-26] MEDS: enoxaparin 40 mg/0.4 mL Syringe SUBCUT (21:06)
[2019-05-27] VITALS (8 sets, daily range): BP systolic 138–165; BP diastolic 79–92; PULSE 52–88; RESP 17–20; TEMP 36.4–36.9; O2SAT 94–98
[2019-05-27 05:43] LABS: Cholesterol 189 mg/dL (0-200); HDL Cholesterol 43 mg/dL (60-100); LDL Cholesterol Calculated 130 mg/dL (50-129); LDL HDL Ratio 3.02 RATIO (0.00-3.22); Triglycerides 78 mg/dL (0-150)
[2019-05-27 05:45] LABS: Estmated Average Glucose 120; Hemoglobin A1C 5.8 % (4.0-6.0)
[2019-05-27] MEDS: dilTIAZem 60 mg Tablet 90 MG PO (06:45)
--- NOTE | 2019-05-27 10:05 | PC.NURSE ---
Patient refused to take Aspirin and Losartan, stating that her Aspirin wasn't the same size or color that she is used to taking at home. This nurse attempted to crush Aspirin and administer through applesauce, however patient states she still will not take it. She requested for her daughter to bring her medications from home, stating that she feels safer taking her own medications. Dr. Blanco notified by Ambrosio Barney RN at 1006.
--- NOTE | 2019-05-27 10:11 | P.DS_ITS ---
Discharge Providers Date of Admission: 05/26/19 11:14 Date of Discharge: 05/27/19 Attending Provider at Admission: Kandace Blanco MD Attending Provider at Discharge: Kandace Blanco MD Diagnoses at Discharge Discharge Diagnosis (1) Acute CVA (cerebrovascular accident): Status: Acute Problem details: With improved left-sided weakness and facial droop. Patient reports her symptoms are secondary to her change in parking officer of her diltiazem. Discussed with patient that she has known atrial fibrillation and refuses to take anticoagulation, would recommend at least a full-strength aspirin of which she is refused during her hospital stay. Patient refuses anything more than full-strength aspirin will start on atorvastatin, continue on full-strength aspirin CTA of the head performed on admission, NIH of 3 on admission. Not a candidate for thrombectomy due to low NIH. (2) Hypertension: Status: Acute Problem details: Continue on home Benicar and diltiazem (3) Atrial fibrillation: Status: Acute Problem details: Rate controlled Continue on diltiazem. Patient refuses to take certain manufacturers of Cardizem. She has been doing well with Teva brand diltiazem 30mg, 3 tabs q8H since admission Recommended anticoagulation but she refused anything other than full-strength aspirin. She had previously only been on 81 mg aspirin Reason for Visit Reason for Visit: Reason For Visit: CVA Hospital Course Hospital Course: Patient was seen and evaluated in the emergency department had concern for CVA with left-sided weakness, confusion and left-sided facial droop. Patient symptoms gradually improved and her NIH in the ER was 3. She was noted candidate for TPA as she had an unknown last known well time. She was not a candidate for thrombectomy due to low NIH. Patient has atrial fibrillation that is known, rate controlled on diltiazem, however she reported recent change in the color of her medication and reported that this contributed to her event. Called and discussed with pharmacy as well as with her primary care provider. She was on TEVA brand diltiazem 30 mg tabs, 3 tablets 3 times a day while she was hospitalized and did well with this medication. Recommended for her to be on further anticoagulation but she refused and stated that she would be willing to take full-strength aspirin rather than baby aspirin. On date of discharge she denied any chest pain, no shortness of breath, no abdominal pain. Daughter at bedside reported that her speech seemed to be back to normal, continue to mild facial droop on the left Discharge Summary: Discharge to home with daughter Recommend increasing to full strength aspirin Patient discharged with TEVA brand diltiazem 30mg tablets, 3 tablets q8hr Physical Exam Const: COMMON NORMALS: oriented x3 and alert GENERAL APPEARANCE: cooperative ORIENTATION/CONSCIOUSNESS: Yes awake, Yes oriented to person, Yes oriented to place and Yes oriented to time HENMT: COMMON NORMALS: normocephalic and head/scalp atraumatic HEAD & SCALP: normocephalic and atraumatic Eye: COMMON NORMALS: PERRL PUPIL: Yes PERRL Neck/C-Spine: COMMON NORMALS: supple GENERAL: Yes normal visual inspection Resp: COMMON NORMALS: normal respiratory effort and clear to auscultation bilaterally EFFORT & INSPECTION: Yes able to speak in complete sentences AUSCULTATION: clear to auscultation bilaterally, no rhonchi and no wheezes Cardio: OTHER: Irregularly irregular GI: COMMON NORMALS: soft to palpation and non-tender INSPECTION: No abdominal distension AUSCULTATION: Yes normoactive bowel sounds PALPATION: Yes soft : COMMON NORMALS: Yes no CVA tenderness BLADDER/KIDNEY EXAM: Yes no CVA tenderness Back/Pelvis: COMMON NORMALS: no CVA tenderness Extremity: COMMON NORMALS: no clubbing, cyanosis or edema and no calf tenderness Neuro: COMMON NORMALS: oriented x3 and moves all extremities SENSORIUM/ORIENTATION: Yes alert, Yes oriented to person, Yes oriented to place and Yes oriented to time SPEECH: speech normal OTHER: Extraocular muscles intact, minimal facial droop on the left, normal sensation bilaterally, normal strength in the upper and lower extremities bilaterally. Patient does have decreased range of motion in the left shoulder due to prior surgery, strength within normal limits. Speech is clear and appropriate Psych: COMMON NORMALS: mental status grossly normal and cooperative Skin: COMMON NORMALS: no rashes or lesions noted GENERAL SKIN EXAM: no rashes or lesions noted Discharge Data Data Completed and Pending: Completed Studies During Hospitalization Category Date Time Status CT angio headneck * [id number] Urge nt Cat Scan 05/26/19 09:[address] head wo con* [id number] Urgent Cat Scan 05/26/19 08:36 Completed XR chest 1V johanne ble [id number] Urgent Exams 05/26/19 08:36 Completed CV echo complete* [id number] Routine Ultrasound 05/26/19 14:55 Completed Labs from last 24 hours 05/27/19 05/27/19 05/26/19 04:55 04:55 14:26 POC Glucose Estimat Average Gl ucose 120 Hemoglobin A1c 5.8 Troponin I 6 Hour Troponin I Hi Sens Del Troponin T 120 Min karime Delta Troponin T Triglycerides 78 Cholesterol 189 LDL Cholesterol, C alc 130 H HDL Cholesterol 43 L LDL/HDL Ratio 3.02 Cholesterol/HDL Ra linda 4.40 TSH 0.61 05/26/19 05/26/19 05/26/19 14:26 10:30 08:18 POC Glucose 107 Estimat Average Gl ucose Hemoglobin A1c Troponin I 6 Hour 22.68 H Troponin I Hi Sens Del -1.32 L Troponin T 120 Min karime 22.71 H Delta Troponin T -1.29 L Triglycerides Cholesterol LDL Cholesterol, C alc HDL Cholesterol LDL/HDL Ratio Cholesterol/HDL Ra lidna TSH Vitals: Last Vital Signs Temp 98.3 F 05/27/19 08:56 Pulse 75 05/27/19 08:56 Resp 17 05/27/19 08:56 BP 147/85 05/27/19 08:56 Pulse Ox 95 05/27/19 08:56 Discharge Plan Discharge Patient Disposition: Home, Self-Care Condition: Stable Prescriptions: New atorvastatin 40 mg Tablet 20 mg PO BEDTIME 30 Days Qty: 30 RF: 0 aspirin 325 mg Tablet,Delayed Release (Dr/Ec) 325 mg PO DAILY 30 Days Qty: 30 RF: 0 diltiazem HCl 30 mg tablet 90 mg PO Q8H 30 Days Qty: 270 RF: 0 Continued Benicar 40 mg tablet 40 mg PO DAILY RF: 0 Discontinued aspirin 81 mg Tablet,Chewable 81 mg PO DAILY RF: 0 diltiazem HCl 90 mg Tablet 90 mg PO TID RF: 0 Discharge Orders: Discharge Order (Routine); Ordered 05/27/19 Ordered By: Kandace Blanco Referrals: Jennifer Lockhart MD [Physician] - 2 weeks (CVA) Grant Arias MD [Physician] - 1-3 days Discharge Diet: Advance as tolerated and Low Cholesterol Discharge Activity: Increase activity as tolerated Activity Restrictions/Additional Instructions: Increase activity as tolerated Recommend stopping baby aspirin and starting on aspirin 325 mg daily Recommended stronger dose anticoagulation, however patient is not comfortable with this. Continue further discussion with primary care provider. Continue on diltiazem 90 mg 3 times a day Follow-up with primary care provider in 3 to 5 days Follow-up with neurology in 2 weeks Discharge Attestations Time Spent in Discharge Care*: greater than 30 min Quality Metrics Clinical Quality Measures During this hospital stay, did patient experience: Stroke Contraindication to Antithrombotic: Drug declined by patient Contraindication to Anticoagulation: Drug declined by patient Contraindication to Statin: Statin prescribed Coding Level of Care Code Acute Deli/Bakery Associate for Chg Fwd Diagnoses Acute CVA (cerebrovascular accident) I63.9 Hypertension I10 Atrial fibrillation I48.91
--- NOTE | 2019-05-27 12:49 | PC.CHAP ---
Pastoral Care Encounter/Spiritual Assessment Type of Contact [] Declined railroad commissioner visit [] Patient/Family/Request visit [] Outpatient visit [] Follow-up visit [] Physician referral [] Code/Alert [x] Routine visit [] Staff referral [] Actively dying [] Patient sleeping [] Family support [] [] Out of room [] Palliative care [] [] Receiving care in room [] Pre-surgical visit [] Trauma [] Long length of stay [] ICU visit [] Other: Relational/Emotional Strength [] Patient feels connected with others/family/visitors/staff [] Distress [] Loneliness/isolation [] Abandonment Spirituality of Patient [x] Person of Lorna [] Attends Druze of their Lorna [] Believes in Prayer [] Reads Bible or Latter Day materials [] There are Spiritual issues to be addressed Conduit Helper Interventions [x] Prayer [x] Active listening [x] Non-anxious presence [] Spiritual/emotional support [] Crisis/trauma care [] Spiritual counseling [] Bereavement support [] Provided bereavement packet [] Provided Bible/devotional materials [] Provided toy/stuffed animal, coloring book to patient or family member [] Provided Communion [] Anointing/Higginson [] Salvation [x] Completed spiritual assessment [] Other: Impact on Illness or Injury [] Angry [] Fearful [] Anxious [] Often cries [] Exhaustion [] Unable to work [] Unable to attend quaker [] Unable to walk/stand [] Unable to read [] Unable to drive [] Unable to eat/drink [] Unable to sleep [] Unable to be with family [] Patient intubated [] Other: Summary patient going home feeling much betteer one visitor Pastoral Care Encounter/Spiritual Assessment Type of Contact [] Declined railroad commissioner visit [] Patient/Family/Request visit [] Outpatient visit [] Follow-up visit [] Physician referral [] Code/Alert [x] Routine visit [] Staff referral [] Actively dying [] Patient sleeping [] Family support [] [] Out of room [] Palliative care [] [] Receiving care in room [] Pre-surgical visit [] Trauma [] Long length of stay [] ICU visit [] Other: Relational/Emotional Strength [x] Patient feels connected with others/family/visitors/staff [] Distress [] Loneliness/isolation [] Abandonment Spirituality of Patient [x] Person of Lorna [] Attends Druze of their Lorna [] Believes in Prayer [] Reads Bible or Latter Day materials [] There are Spiritual issues to be addressed Conduit Helper Interventions [x] Prayer [x] Active listening [x] Non-anxious presence [] Spiritual/emotional support [] Crisis/trauma care [] Spiritual counseling [] Bereavement support [] Provided bereavement packet [] Provided Bible/devotional materials [] Provided toy/stuffed animal, coloring book to patient or family member [] Provided Communion [] Anointing/Higginson [] Salvation [x] Completed spiritual assessment [] Other: Impact on Illness or Injury [] Angry [] Fearful [] Anxious [] Often cries [] Exhaustion [] Unable to work [] Unable to attend quaker [] Unable to walk/stand [] Unable to read [] Unable to drive [] Unable to eat/drink [] Unable to sleep [] Unable to be with family [] Patient intubated [] Other: Summary patient feeling better on way home one visitor Time spent with pat 10 min
--- NOTE | 2019-05-27 15:03 | PC.NURSE ---
Refused bath and bed change, discharge 1400 hrs approx
== END 2019-05-27 13:45 | disposition home or self-care (01) ==
LOC: ER 11:13 → MEDSURG 12:09
PROVIDERS: Physician Assistant; Admitting Provider Family Medicine; Emergency Provider Family Medicine; Visit Provider Family Medicine
DX: I63.9 Cerebral infarction, unspecified (principal); R29.703 NIHSS score 3; I10 Essential (primary) hypertension; I48.91 Unspecified atrial fibrillation; Z66 Do not resuscitate; Z82.49 Family history of ischemic heart disease and other diseases of the circulatory system
CPT/HCPCS: 12345; 36415; 36416; 70450; 70496; 70498; 71045; 80053; 80061; 81003; 82962; 83036; 83735; 84443; 84484; 85025; 85610; 85730; 92522; 92610; 93005; 93306; 96105; 96372; 97110; 97162; 99283; 99285; G0378; J1650; J7040; Q9967

== ENCOUNTER 2020-04-19 23:17 | Emergency (ER) | payer MEDICARE, MEDICAID, SELFPAY ==
[2020-04-19 23:18] VITALS: BP 165/101; PULSE 60; RESP 18; TEMP 37.1; O2SAT 95; BMI 25.0
--- NOTE | 2020-04-19 23:27 | CTR_ITS ---
PROCEDURE INFORMATION: Exam: CT Head Without Contrast Exam date and time: 04/19/2020 11:32 PM Age: 84 years old Clinical indication: Altered mental status/memory loss; Additional info: AMS TECHNIQUE: Imaging protocol: Computed tomography of the head without contrast. Radiation optimization: All CT scans at this facility use at least one of these dose optimization techniques: automated exposure control; mA and/or kV adjustment per patient size (includes targeted exams where dose is matched to clinical indication); or iterative reconstruction. COMPARISON: 1. CT head wo con* [id number] 05/26/2019 8:[address] head wo con* [id number] 07/26/2017 1:58:48 PM RADIATION DOSE METRICS: Total DLP (mGy-cm): 1627.39 FINDINGS: Limitations: Study is somewhat limited by patient motion. 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 There is mild cortical atrophy. Low-density changes in the white matter are consistent with nonspecific small vessel chronic ischemic change. There is no intracranial mass, hemorrhage or edema. Cerebral ventricles: No ventriculomegaly. Bones/joints: Unremarkable. No acute fracture. Paranasal sinuses: Visualized sinuses are unremarkable. No fluid levels. Mastoid air cells: Visualized mastoid air cells are well aerated. Soft tissues: Unremarkable. CT/CT head wo con* [id number] IMPRESSION: 1. 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 2. No acute intracranial finding 3. No significant change from previous. Radiation Dose CTDIVOL = (mGy): DLP = 1627.39 (mGy-cm)
--- NOTE | 2020-04-19 23:27 | XRR_ITS ---
PROCEDURE INFORMATION: Exam: XR Chest, 1 View Exam date and time: 04/19/2020 11:32 PM Age: 84 years old Clinical indication: Shortness of breath; Additional info: SOB TECHNIQUE: Imaging protocol: XR of the chest Views: 1 view. COMPARISON: CR XR chest 1V portable [id number] 05/26/2019 9:00 AM FINDINGS: Lungs: There are small calcified granuloma at the left apex. No focal infiltrate is identified. Pleural space: Unremarkable. No pleural effusion. No pneumothorax. Heart/Mediastinum: There is moderate cardiomegaly. Bones/joints: Unremarkable. XR/XR chest 1V portable [id number] IMPRESSION: 1. No acute infiltrate. 2. Moderate cardiomegaly.
--- NOTE | 2020-04-19 23:28 | ECG_ITS ---
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 Measurements Intervals [place] Rate: 59 P: [place]: QRS: -44 QRSD: 86 T: 38 QT: 383 QTc: 382 Interpretive Statements ATRIAL FIBRILLATION WITH SLOW VENTRICULAR RESPONSE LEFT AXIS DEVIATION [QRS AXIS < -30] SEPTAL MYOCARDIAL INFARCTION , OF INDETERMINATE AGE [40+ ms Q WAVE IN V1/V2] Compared to ECG 05/26/2019 10:44:16 Left-axis deviation now present Myocardial infarct finding still present Electronically Signed On 04-20-2020 17:53:16 BEREAVEMENT COORDINATOR by Demetrius Nuno M.D. [id number]
--- NOTE | 2020-04-19 23:28 | PC.NURSE ---
EKG done at 2328 and shown to ER doctor
--- NOTE | 2020-04-19 23:30 | ED_ITS ---
HPI - Altered Mental Status General: Chief Complaint: Altered Mental Status Stated Complaint: ams Time Seen by Provider: 04/19/20 23:18 Source: patient and EMS Mode of arrival: EMS Limitations: no limitations History of Present Illness: HPI narrative: 84-year-old female is here with EMS for confusion. Daughter states she is been having some confusion all day. Patient here is able to tell me the year and her name answer most questions appropriately but does not know her birthday and has some slight confusion. She denies any pain anywhere denies any worsening improving factors. Associated symptoms: Deny depression Review of Systems Const: Denies: fever(s), chills, body aches or change in appetite Eyes: Denies: blurry vision or eye discomfort ENMT: Denies: throat pain or dental pain Card: Denies: chest pain Resp: Denies: dyspnea GI: Denies: abdominal pain, nausea, vomiting or diarrhea : Denies: dysuria Musc: Denies: neck pain or back pain Skin/Breast: Denies: rash Neuro: Reports: confusion; Denies: headache(s) Psych: Denies: depression Niko/Lymph: Denies: easy bruising All/Imm: Denies: urticaria PFSH ED PFSH: Medical History Atrial fibrillation Rate controlled Continue on diltiazem. Patient refuses to take certain manufacturers of Cardizem. She has been doing well with Teva brand diltiazem 30mg, 3 tabs q8H since admission Recommended anticoagulation but she refused anything other than full-strength aspirin. She had previously only been on 81 mg aspirin Hypertension Continue on home Benicar and diltiazem Surgical History H/O shoulder surgery Left History of hip surgery Left Family History Mother Hypertension Father Lung disease Social History Smoking and tobacco status: never smoked Alcohol intake: never Physical Exam Const: COMMON NORMALS: no acute distress, patient oriented x3 and healthy appearing HENMT: COMMON NORMALS: normocephalic and atraumatic HEAD & SCALP: normocephalic and atraumatic Eye: COMMON NORMALS: Equal, round and reactive pupils present and EOMs intact bilaterally PUPIL: Yes Equal, round and reactive pupils present Neck/C-Spine: COMMON NORMALS: full ROM and supple Chest: COMMONS NORMALS: normal inspection of the chest and normal palpation of entire chest wall Resp: COMMON NORMALS: normal respiratory effort, No retractions, No use of accessory muscles and clear to auscultation bilaterally AUSCULTATION: clear to auscultation bilaterally Cardio: COMMON NORMALS: regular rate, regular rhythm and No murmurs present (Cardio) RATE: regular rate RHYTHM: regular rhythm GI: COMMON NORMALS: Normal to inspection, nondistended, normoactive bowel sounds present, Soft to palpation, non-tender and no masses PALPATION: Yes Soft to palpation Extremity: COMMON NORMALS: normal to inspection and full ROM Neuro: COMMON NORMALS: patient oriented x3, moves all extremities and no focal motor deficits Psych: COMMON NORMALS: mental status grossly normal and cooperative THOUGHT PROCESS: confused Skin: COMMON NORMALS: no rashes or lesions noted and no wounds GENERAL SKIN EXAM: no rashes or lesions noted Course Vital Signs: Vital signs: Vital Signs Temperature 98.8 F 04/19/20 23:18 Pulse Rate 87 04/20/20 02:21 Respiratory Rate 16 04/20/20 02:21 Blood Pressure 137/76 04/20/20 02:21 Pulse Oximetry 98 04/20/20 02:21 MDM - Altered Mental Status MDM Narrative: Medical decision making narrative: Patient presents here with some slight confusion. She is able answer all my questions appropriately here and was able to ambulate without any difficulties. Patient's head CT and blood work are normal. I feel she is stable for discharge at this time. She has no signs of an acute stroke. Patient is to return if worsening. Lab Data: Labs: Lab Results 04/19/20 04/19/20 04/19/20 Range/Units 23:19 23:19 23:19 WBC 7.4 (4.0-10.0) 10^3/ uL RBC 4.91 (4.1-5.3) 10^6/u L Hgb 12.7 (11.5-15.3) g/dL Hct 41.3 (37.0-47.0) % MCV 84.1 (81-99) fL MCH 25.9 L (28.0-34.0) pg MCHC 30.8 (30.0-36.0) g/dL RDW 14.5 (12.1-15.1) % Plt Count 200 (130-400) 10^3/c mm MPV 10.9 H (7.4-10.4) fL Neut % (Auto) 72.7 % Lymph % (Auto) 18.6 % [place]morton % (Auto) 6.9 % Eos % (Auto) 1.0 % Baso % (Auto) 0.5 % Neut # (Auto) 5.34 (1.8-7.7) 10^3/u L Lymph # (Auto) 1.4 (0.8-4.8) 10^3/u L [place]morton # (Auto) 0.5 (0.2-0.9) 10^3/u L Eos # (Auto) 0.1 (0.0-0.8) 10^3/u L Baso # (Auto) 0.0 (0.0-0.1) 10^3/u L Nucleated RBC % (a uto) 0 % Nucleated RBCs # 0.0 /100WBC PT 13.70 (12.1-14.9) SECO NDS INR 1.02 (0.8-1.2) Sodium 142 (136-145) mmol/L Potassium 3.8 (3.5-5.1) mmol/L Chloride 107 (98-107) mmol/L Carbon Dioxide 26 (22-29) mmol/L Anion Gap 12.8 (5-19) BUN 16 (8-23) mg/dL Creatinine 0.9 (0.5-0.9) mg/dL GFR Calculation Not Reportable Glucose 136 H (65-115) mg/dL Calculated Osmolal ity 297 H (285-295) mOsm/k g Calcium 9.8 (8.5-10.5) mg/dL Total Bilirubin 0.5 (0.15-1.2) mg/dL AST 18 (0-32) U/L ALT 13 (0-33) U/L Alkaline Phosphata se 127 H (35-105) IU/L Total Protein 7.4 (6.6-8.7) g/dL Albumin 4.5 (3.5-5.2) g/dL Globulin 2.9 (1.3-4.6) g/dL Urine Color (Yellow) Urine Appearance (CLEAR) Urine pH (5-7) Ur Specific Gravit y (1.005-1.030) Urine Protein (Negative) Urine Glucose (UA) (Normal) Urine Ketones (Negative) Urine Blood (Negative) Urine Nitrate (Negative) Urine Bilirubin (Negative) Urine Urobilinogen (Negative) mg/dL Ur Leukocyte Windy ase (Negative) 04/20/20 Range/Units 00:12 WBC (4.0-10.0) 10^3/ uL RBC (4.1-5.3) 10^6/u L Hgb (11.5-15.3) g/dL Hct (37.0-47.0) % MCV (81-99) fL MCH (28.0-34.0) pg MCHC (30.0-36.0) g/dL RDW (12.1-15.1) % Plt Count (130-400) 10^3/c mm MPV (7.4-10.4) fL Neut % (Auto) % Lymph % (Auto) % Throckmort[place] % (Auto) % Eos % (Auto) % Baso % (Auto) % Neut # (Auto) (1.8-7.7) 10^3/u L Lymph # (Auto) (0.8-4.8) 10^3/u L Th[place]morton # (Auto) (0.2-0.9) 10^3/u L Eos # (Auto) (0.0-0.8) 10^3/u L Baso # (Auto) (0.0-0.1) 10^3/u L Nucleated RBC % (a uto) % Nucleated RBCs # /100WBC PT (12.1-14.9) SECO NDS INR (0.8-1.2) Sodium (136-145) mmol/L Potassium (3.5-5.1) mmol/L Chloride (98-107) mmol/L Carbon Dioxide (22-29) mmol/L Anion Gap (5-19) BUN (8-23) mg/dL Creatinine (0.5-0.9) mg/dL GFR Calculation Glucose (65-115) mg/dL Calculated Osmolal ity (285-295) mOsm/k g Calcium (8.5-10.5) mg/dL Total Bilirubin (0.15-1.2) mg/dL AST (0-32) U/L ALT (0-33) U/L Alkaline Phosphata se (35-105) IU/L Total Protein (6.6-8.7) g/dL Albumin (3.5-5.2) g/dL Globulin (1.3-4.6) g/dL Urine Color Yellow (Yellow) Urine Appearance Clear (CLEAR) Urine pH 6 (5-7) Ur Specific Gravit y 1.020 (1.005-1.030) Urine Protein Neg (Negative) Urine Glucose (UA) Norm (Normal) Urine Ketones Negative (Negative) Urine Blood Neg (Negative) Urine Nitrate Negative (Negative) Urine Bilirubin Neg (Negative) Urine Urobilinogen Norm (Negative) mg/dL Ur Leukocyte Windy ase Negative (Negative) Imaging Data^: CXR: Attestation: I personally reviewed and interpreted this imaging study as follows: My impression: no acute abnormalities CT Head: Radiologist's impression: [address] [address] [address] Scan Report Signed Patient: Cristel Keating Unit #: [id number] : 1935 Age/Sex: 84 / F ADM Date: 04/19/20 Loc: ER Room/Bed: Attending Dr: Ordering Provider/Ordering MD: Abhay Qiu MD Date of Service: 04/19/20 Procedure(s): CT head wo con* [id number] Accession Number(s): [id number] Report Number: [id number] PROCEDURE INFORMATION: Exam: CT Head Without Contrast Exam date and time: 04/19/2020 11:32 PM Age: 84 years old Clinical indication: Altered mental status/memory loss; Additional info: AMS TECHNIQUE: Imaging protocol: Computed tomography of the head without contrast. Radiation optimization: All CT scans at this facility use at least one of these dose optimization techniques: automated exposure control; mA and/or kV adjustment per patient size (includes targeted exams where dose is matched to clinical indication); or iterative reconstruction. COMPARISON: 1. CT head wo con* [id number] 05/26/2019 8:[address] head wo con* [id number] 07/26/2017 1:58:48 PM RADIATION DOSE METRICS: Total DLP (mGy-cm): 1627.39 FINDINGS: Limitations: Study is somewhat limited by patient motion. 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 There is mild cortical atrophy. Low-density changes in the white matter are consistent with nonspecific small vessel chronic ischemic change. There is no intracranial mass, hemorrhage or edema. Cerebral ventricles: No ventriculomegaly. Bones/joints: Unremarkable. No acute fracture. Paranasal sinuses: Visualized sinuses are unremarkable. No fluid levels. Mastoid air cells: Visualized mastoid air cells are well aerated. Soft tissues: Unremarkable. CT/CT head wo con* [id number] IMPRESSION: 1. 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 2. No acute intracranial finding 3. No significant change from previous. EKG Data^: EKG 1: Attestation: I personally reviewed and interpreted this EKG as follows: EKG interpretation date: 04/19/20 EKG interpretation time: 23:23 Interpretation: afib hr [address] or t wave abnormalities qrs 86 qtc 383 Discharge Plan Discharge Patient Disposition: Home Clinical Impression: Confusion Condition: Stable Prescriptions: No Action diltiazem HCl 30 mg Tablet 30 mg PO TID RF: 0 Benicar 40 mg Tablet 40 mg PO DAILY RF: 0 Discharge Orders: Discharge ED (Routine); Ordered 04/20/20 Ordered By: Abhay Qiu Referrals: Grant Arias MD [Primary Care Provider] - 1-3 days Discharge Diet: Advance as tolerated Discharge Activity: Resume usual activity Patient Instructions: Confusion Coding Level of Care Code ED Diamond Cleaner for Chg Fwd Exam Comprehensive
[2020-04-19 23:32] LABS: Basophils % 0.5 %; Eosinophils # 0.1 10^3/uL (0.0-0.8); Hematocrit 41.3 % (37.0-47.0); Hemoglobin 12.7 g/dL (11.5-15.3); Lymphocytes # 1.4 10^3/uL (0.8-4.8); Lymphocytes % 18.6 %; Mean Corpuscular HGB Conc 30.8 g/dL (30.0-36.0); Mean Corpuscular Hemoglobin 25.9 pg (28.0-34.0); Mean Corpuscular Volume 84.1 fL (81-99); Mean Platelet Volume 10.9 fL (7.4-10.4); Monocytes # 0.5 10^3/uL (0.2-0.9); Monocytes % 6.9 %; Neutrophils # 5.34 10^3/uL (1.8-7.7); Neutrophils % 72.7 %; Nucleated Red Blood Cells % 0 %; Platelet Count 200 10^3/cmm (130-400); Red Blood Count 4.91 10^6/uL (4.1-5.3); Red Cell Distribution Width 14.5 % (12.1-15.1); White Blood Count 7.4 10^3/uL (4.0-10.0)
[2020-04-19 23:42] LABS: INR 1.02 (0.8-1.2)
[2020-04-19 23:52] LABS: Alanine Aminotransferase 13 U/L (0-33); Albumin Level 4.5 g/dL (3.5-5.2); Alkaline Phosphatase 127 IU/L (35-105); Anion Gap 12.8 (5-19); Aspartate Amino Transferase 18 U/L (0-32); Blood Urea Nitrogen 16 mg/dL (8-23); Calcium 9.8 mg/dL (8.5-10.5); Carbon Dioxide 26 mmol/L (22-29); Chloride 107 mmol/L (98-107); Globulin 2.9 g/dL (1.3-4.6); Glucose 136 mg/dL (65-115); Osmolality Calculated 297 mOsm/kg (285-295); Potassium 3.8 mmol/L (3.5-5.1); Sodium 142 mmol/L (136-145); Total Bilirubin 0.5 mg/dL (0.15-1.2); Total Protein 7.4 g/dL (6.6-8.7)
[2020-04-20 00:36] LABS: Add Urine Microscopic? NO
[2020-04-20 00:43] LABS: Bilirubin Urine Neg (Negative); Blood Urine Neg (Negative); Glucose Urine UA Norm (Normal); Ketones Urine Negative (Negative); Leukocyte Esterase Urine Negative (Negative); Nitrate Urine Negative (Negative); Protein Urine Neg (Negative); Urine Appearance Clear (CLEAR); Urine Color Yellow (Yellow); Urobilinogen Urine Norm (Negative); pH Urine 6 (5-7)
[2020-04-20] MEDS: labetalol 5 mg/mL SDV 20mL 10 MG IVP (01:09)
[2020-04-20 02:21] VITALS: BP 137/76; PULSE 87; RESP 16; O2SAT 98
== END 2020-04-20 02:22 | disposition home or self-care (01) ==
PROVIDERS: Emergency Provider Emergency Medicine; PCP Family Medicine
DX: R41.0 Disorientation, unspecified (principal); I48.91 Unspecified atrial fibrillation; I10 Essential (primary) hypertension
CPT/HCPCS: 12345; 70450; 71045; 80053; 81003; 85025; 85610; 93005; 96374; 99282; 99283; J3490

== ENCOUNTER 2020-08-14 02:36 | Observation (INO) | payer MEDICARE, MEDICAID, SELFPAY ==
[2020-08-14] VITALS (17 sets, daily range): BP systolic 103–179; BP diastolic 71–117; PULSE 72–99; RESP 16–22; TEMP 36.6–37.8; O2SAT 93–98; BMI 25.0
--- NOTE | 2020-08-14 02:49 | XRR_ITS ---
PROCEDURE INFORMATION: Exam: XR Left Hip Exam date and time: 08/14/2020 2:58 AM Age: 84 years old Clinical indication: Pain and injury or trauma; Fall; Blunt trauma (contusions or hematomas); Hip pain; Left hip; Injury date: 08/14/20; Prior surgery; Additional info: Fall, left hip pain TECHNIQUE: Imaging protocol: XR Left hip. Views: 2 or 3 views hip with pelvis when performed. COMPARISON: CR Hip 2-3v LEFT wwo Pelv* [id number] 04/26/2016 10:26 AM FINDINGS: Bones/joints: There is a nondisplaced fracture through the left inferior pubic ramus. A total left hip prosthesis projects in satisfactory position. Soft tissues: Unremarkable. XR/XR hip LT 2-3V wo/w pel* [id number] IMPRESSION: Nondisplaced fracture of the left inferior pubic ramus.
--- NOTE | 2020-08-14 02:49 | XRR_ITS ---
PROCEDURE INFORMATION: Exam: XR Chest Exam date and time: 08/14/2020 2:58 AM Age: 84 years old Clinical indication: Injury or trauma; Fall; Other: Confusion; Blunt trauma (contusions or hematomas); Injury date: 08/14/20; Prior surgery; Surgery type: Left hip TECHNIQUE: Imaging protocol: XR of the chest. Views: 1 view. COMPARISON: CR XR chest 1V portable [id number] 04/19/2020 11:34 PM FINDINGS: Lungs: There is a tiny benign calcified granuloma in the right base. Otherwise lungs are clear with no pneumonia. Pleural spaces: Unremarkable. No pleural effusion. No pneumothorax. Heart/Mediastinum: The cardiac silhouette is enlarged but unchanged. Bones/joints: A left shoulder prosthesis projects in satisfactory position. XR/XR chest 1V portable [id number] IMPRESSION: 1. Stable cardiomegaly. 2. No acute abnormality.
--- NOTE | 2020-08-14 02:50 | ECG_ITS ---
[facility] Test Date: 2020-08-14 Pat Name: Cristel Keating Department: Room: Gender: Female Home Based Assistant: : 1935 Requested By: Shavon Wilkins Order Number: [id number] Reading MD: SÁNCHEZ TAPIA Measurements Intervals [place] Rate: 59 P: SC: QRS: -27 QRSD: 87 T: 55 QT: 402 QTc: 398 Interpretive Statements ATRIAL FIBRILLATION WITH SLOW VENTRICULAR RESPONSE BORDERLINE LEFT AXIS DEVIATION [QRS AXIS < -20] POSSIBLE RIGHT VENTRICULAR CONDUCTION DELAY [RSR (QR) IN V1/V2] NONSPECIFIC T-WAVE ABNORMALITY ABNORMAL RHYTHM ECG Compared to ECG 04/19/2020 23:23:50 T-wave abnormality now present Myocardial infarct finding no longer present Electronically Signed On 08-14-2020 23:43:35 CDT by SÁNCHEZ TAPIA [email or web address]
--- NOTE | 2020-08-14 02:50 | ED_ITS ---
Documented by User: Shavon Wilkins EFREN De Luna 08/14/20 03:46 HPI - Fall General: Chief Complaint: Fall Stated Complaint: FALL/HIP PAIN/Confusion Time Seen by Provider: 08/14/20 02:41 Source: patient, family (daughter) and EMS Mode of arrival: EMS Limitations: no limitations History of Present Illness: HPI Narrative: 84-year-old female patient presents to the emergency department via EMS due to fall. She reports was walking to the bathroom at approximately 1 AM when she feels she may have slipped, she reports was going to the bathroom, was on her way back to her bedroom when she lost her balance and fell on her bottom. She reports called her daughter who came to the house, she is complaining of left hip pain upon exam. Daughter reports previous left shoulder replacement and is wanting her checked out. She has not ambulated since the fall. She has history of left hip replacement. She did not hit her head or lose consciousness. She is able to recall the event. She denies chest pain shortness of breath upon exam. Her daughter reports concern of increased confusion x2 days. She states has noticed that her mother is having difficulty with placing pills in her pillbox, and wants her checked out due to increased confusion. She reports small tasks she is having difficulty doing, she reports her thought process is slower and sometimes difficult. She denies history of dementia, has experienced episodes of similar confusion in the past. Primary care provider is Dr. Arias. She is concerned she may have had a stroke or may have UTI. Ms. Keating reports she is able to ambulate in her own home without assistive devices, is able to cook and clean without difficulty. She reports has a walker at home but does not use it. She lives independently. Her daughter does check on her often. She has history of atrial fibrillation, anticoagulated with aspirin. Atrial fibrillation is monitored with [facility] cardiology. complaint: fall Fall from: standing Fall witnessed: no Place fall occurred: home Loss of consciousness: None Prolonged down time: no Symptoms prior to fall: none Context: tripped/slipped Location of injury: other (She reports left hip pain, denies further pain/injury) Associated symptoms-after fall: Reports confusion; Denies abdominal pain, chest pain, difficulty walking, headache(s) or neck pain Review of Systems General: Reports: 10 or more systems reviewed and unremarkable except in HPI and below Const: Denies: fever(s), chills or diaphoresis Eyes: Denies: blurry vision or eye redness ENMT: Denies: throat pain, dental pain or disequilibrium Card: Denies: chest pain, palpitations or irregular heart rhythm Resp: Denies: dyspnea, productive cough, non-productive cough or wheezing GI: Denies: abdominal pain, nausea or vomiting : Denies: difficulty voiding or dysuria Musc: Reports: joint pain; Denies: neck pain, back pain or joint warmth Skin/Breast: Denies: rash or pruritus Neuro: Reports: confusion; Denies: headache(s), numbness in extremities or difficulty walking Psych: Denies: anxiety or depression Niko/Lymph: Denies: easy bruising PFSH ED PFSH: Medical History Atrial fibrillation Rate controlled Continue on diltiazem. Patient refuses to take certain manufacturers of Cardizem. She has been doing well with Teva brand diltiazem 30mg, 3 tabs q8H since admission Recommended anticoagulation but she refused anything other than full-strength aspirin. She had previously only been on 81 mg aspirin Hypertension Continue on home Benicar and diltiazem Surgical History H/O shoulder surgery Left History of hip surgery Left Family History Mother Hypertension Father Lung disease Social History Smoking and tobacco status: never smoked Alcohol intake: never Physical Exam Const: COMMON NORMALS: no acute distress, patient oriented x3, healthy appearing, alert and well nourished GENERAL APPEARANCE: cooperative, comfortable, well kempt, well developed, frail appearing and well hydrated; not ill appearing NUTRITIONAL APPEARANCE: thin ORIENTATION/CONSCIOUSNESS: Yes awake, Yes oriented to person, Yes oriented to place and Yes oriented to time HENMT: COMMON NORMALS: normocephalic, atraumatic, Normal external nose present and moist oral mucous membranes HEAD & SCALP: normal to inspection, normocephalic and atraumatic FACE & SINUS: normal facial exam, sinuses nontender and face symmetric NOSE: Normal external nose present MOUTH: Normal oral and palatal mucosa present, lip normal and tongue normal THROAT: posterior oropharynx normal, tonsils normal and uvula midline Eye: COMMON NORMALS: Equal, round and reactive pupils present and EOMs intact bilaterally GENERAL EYE: appearance normal, both eyes and all related structures PUPIL: Yes Equal, round and reactive pupils present Neck/C-Spine: COMMON NORMALS: full ROM and no lymphadenopathy GENERAL: Yes normal visual inspection and Yes trachea midline CERVICAL SPINE: Yes cervical ROM normal, No pain with cervical ROM, No Cervical spine tenderness, No Paracerv ical muscle tenderness and No Paracervical spasm Lymph: LYMPHATIC: no lymphadenopathy noted Chest: COMMONS NORMALS: normal inspection of the chest and normal palpation of entire chest wall CHEST: No localized rib tenderness with anteroposterior compression Resp: COMMON NORMALS: normal respiratory effort, No retractions, No use of accessory muscles and clear to auscultation bilaterally EFFORT & INSPECTION: Yes able to speak in complete sentences, No labored and No audible wheezes AUSCULTATION: clear to auscultation bilaterally Cardio: COMMON NORMALS: regular rate, regular rhythm, S1 normal heart sound present, S2 normal heart sound present and Peripheral pulses 2+ throughout RATE: regular rate RHYTHM: regular rhythm HEART SOUNDS: S1 normal heart sound present and S2 normal heart sound present PERIPHERAL PULSES: Peripheral pulses 2+ throughout GI: COMMON NORMALS: Normal to inspection, nondistended, normoactive bowel sounds present, Soft to palpation and non-tender INSPECTION: Yes normal to inspection, No abdominal wall ecchymosis, No abdominal distension and No central obesity PALPATION: Yes Soft to palpation : COMMON NORMALS: Yes no CVA tenderness BLADDER/KIDNEY EXAM: Yes no CVA tenderness Back/Pelvis: COMMON NORMALS: no CVA tenderness, thoracic and lumbar spine normal to inspection, no thoracic nor lumbar tenderness, thoraco-lumbar ROM normal and straight leg raise negative bilaterally Extremity: COMMON NORMALS: normal to inspection, capillary refill normal, no clubbing, cyanosis or edema and no pedal edema GENERAL: Yes normal exam except as noted LEFT LOWER EXTREMITY: Yes hip joint Left hip: Yes inspection (normal), Yes palpation (lateral/posterior tenderness, not externally rotated), Yes ROM (Able to lift left leg off the bed w/o difficulty or reproduction of pain) and Yes neurovascular exam (distally intact) OTHER: Not able to reproduce pain to the bilateral upper extremities, limited range of motion/adduction of the left shoulder which is chronic. Neuro: KATE COMA SCALE: document GCS findings Kate coma scale eye opening: Spontaneous [place] coma scale verbal response: Orientated Kate coma scale motor response: Obey commands [place] coma scale total score: 15 COMMON NORMALS: patient oriented x3 and no focal motor deficits SENSORIUM/ORIENTATION: Yes alert, Yes oriented to person, Yes oriented to place and Yes oriented to time SPEECH: speech normal MOTOR EXAM: 5/5 motor strength present throughout Psych: COMMON NORMALS: mental status grossly normal, Normal thought process pr esent, cooperative, normal affect, speech normal and activity/motor behavior normal APPEARANCE: Yes grossly normal and Yes well kempt ATTITUDE: Yes calm ACTIVITY/MOTOR BEHAVIOR: Yes appropriate eye contact SPEECH: Yes normal speech THOUGHT PROCESS: Normal thought process present INSIGHT: Good insight present (Psych) JUDGEMENT: Good judgement present (Psych) Skin: COMMON NORMALS: no rashes or lesions noted, no wounds, turgor normal, no petechiae and no mottling GENERAL SKIN EXAM: no rashes or lesions noted, elasticity normal and turgor normal Course Vital Signs: Vital signs: Vital Signs Temperature 98.3 F 08/14/20 02:37 Pulse Rate 87 08/14/20 05:23 Respiratory Rate 18 08/14/20 05:23 Blood Pressure 145/79 08/14/20 05:23 Pulse Oximetry 94 08/14/20 05:23 MDM - Fall Lab Data: Labs: Lab Results 08/14/20 08/14/20 08/14/20 Range/Units 02:55 02:55 03:52 WBC 6.2 (4.0-10.0) 10^3/ uL RBC 4.99 (4.1-5.3) 10^6/u L Hgb 13.3 (11.5-15.3) g/dL Hct 42.3 (37.0-47.0) % MCV 84.8 (81-99) fL MCH 26.7 L (28.0-34.0) pg MCHC 31.4 (30.0-36.0) g/dL RDW 13.5 (12.1-15.1) % Plt Count 202 (130-400) 10^3/c mm MPV 11.0 H (7.4-10.4) fL Neut % (Auto) 58.9 % Lymph % (Auto) 29.4 % Nye % (Auto) 6.9 % Eos % (Auto) 2.4 % Baso % (Auto) 0.6 % Neut # (Auto) 3.66 (1.8-7.7) 10^3/u L Lymph # (Auto) 1.8 (0.8-4.8) 10^3/u L Nye # (Auto) 0.4 (0.2-0.9) 10^3/u L Eos # (Auto) 0.2 (0.0-0.8) 10^3/u L Baso # (Auto) 0.0 (0.0-0.1) 10^3/u L Nucleated RBC % (a uto) 0 % Nucleated RBCs # 0.0 /100WBC Sodium 140 (136-145) mmol/L Potassium 3.6 (3.5-5.1) mmol/L Chloride 106 (98-107) mmol/L Carbon Dioxide 26 (22-29) mmol/L Anion Gap 11.6 (5-19) BUN 22 (8-23) mg/dL Creatinine 0.8 (0.5-0.9) mg/dL GFR Calculation Not Reportable Glucose 108 (65-115) mg/dL Calculated Osmolal ity 294 (285-295) mOsm/k g Calcium 9.3 (8.5-10.5) mg/dL Total Bilirubin 0.4 (0.15-1.2) mg/dL AST 22 (0-32) U/L ALT 21 (0-33) U/L Alkaline Phosphata se 109 H (35-105) IU/L Total Protein 6.7 (6.6-8.7) g/dL Albumin 4.1 (3.5-5.2) g/dL Globulin 2.6 (1.3-4.6) g/dL Urine Color Yellow (Yellow) Urine Appearance Clear (CLEAR) Urine pH 7 (5-7) Ur Specific Gravit y 1.010 (1.005-1.030) Urine Protein Neg (Negative) Urine Glucose (UA) Norm (Normal) Urine Ketones Negative (Negative) Urine Blood Neg (Negative) Urine Nitrate Negative (Negative) Urine Bilirubin Neg (Negative) Urine Urobilinogen Norm (Negative) mg/dL Ur Leukocyte Windy ase Negative (Negative) Imaging Data^: Xray Ortho: My impression: Left hip prosthesis intact, no change from x-ray completed 04/26/2016, no acute fracture identified Discharge Plan Discharge Patient Disposition: Placed in Observation Clinical Impression: Transient confusion Closed fracture of left inferior pubic ramus Qualifiers: Encounter type: initial encounter Qualified Code(s): S32.592A - Other specified fracture of left pubis, initial encounter for closed fracture Fall Qualifiers: Encounter type: initial encounter Qualified Code(s): W19.XXXA - Unspecified fall, initial encounter Contusion of hip Qualifiers: Encounter type: initial encounter Laterality: left Qualified Code(s): S70.02XA - Contusion of left hip, initial encounter Discharge Diet: Usual diet Discharge Activity: Resume usual activity Sign Out Sign Out Data: Patient Sign Out occurred on 08/14/20 at 04:25. Patient's care was discussed, and care was transferred from EFREN Ruiz to Kenneth Faye MD. Sign Out Comment: Transfer of care to supervising physician, urinalysis, left femur series, lumbar spine series pending. Patient was not able to ambulate due to left lower extremity pain, left thigh. Tylenol was administered for pain. Last updated by Shavon De Luna ARNP at 08/14/20 03:47 Coding Level of Care Code ED Rougher For Cement for Chg Fwd Exam Comprehensive Documented by User: Kenneth Faye MD 08/14/20 05:44 HPI - Fall General: Chief Complaint: Fall Stated Complaint: FALL/HIP PAIN/Confusion Time Seen by Provider: 08/14/20 02:41 [facility] ED PFSH: Medical History Atrial fibrillation Rate controlled Continue on diltiazem. Patient refuses to take certain manufacturers of Cardizem. She has been doing well with Teva brand diltiazem 30mg, 3 tabs q8H since admission Recommended anticoagulation but she refused anything other than full-strength aspirin. She had previously only been on 81 mg aspirin Hypertension Continue on home Benicar and diltiazem Surgical History H/O shoulder surgery Left History of hip surgery Left Family History Mother Hypertension Father Lung disease Social History Smoking and tobacco status: never smoked Alcohol intake: never Course Vital Signs: Vital signs: Vital Signs Temperature 98.3 F 08/14/20 02:37 Pulse Rate 87 08/14/20 05:23 Respiratory Rate 18 08/14/20 05:23 Blood Pressure 145/79 08/14/20 05:23 Pulse Oximetry 94 08/14/20 05:23 MDM - Fall MDM Narrative: Medical decision making narrative: 0540: d/w dr. macdonald. will observe pt to med surg floor Lab Data: Labs: Lab Results 08/14/20 08/14/20 08/14/20 Range/Units 02:55 02:55 03:52 WBC 6.2 (4.0-10.0) 10^3/ uL RBC 4.99 (4.1-5.3) 10^6/u L Hgb 13.3 (11.5-15.3) g/dL Hct 42.3 (37.0-47.0) % MCV 84.8 (81-99) fL MCH 26.7 L (28.0-34.0) pg MCHC 31.4 (30.0-36.0) g/dL RDW 13.5 (12.1-15.1) % Plt Count 202 (130-400) 10^3/c mm MPV 11.0 H (7.4-10.4) fL Neut % (Auto) 58.9 % Lymph % (Auto) 29.4 % Nye % (Auto) 6.9 % Eos % (Auto) 2.4 % Baso % (Auto) 0.6 % Neut # (Auto) 3.66 (1.8-7.7) 10^3/u L Lymph # (Auto) 1.8 (0.8-4.8) 10^3/u L Nye # (Auto) 0.4 (0.2-0.9) 10^3/u L Eos # (Auto) 0.2 (0.0-0.8) 10^3/u L Baso # (Auto) 0.0 (0.0-0.1) 10^3/u L Nucleated RBC % (a uto) 0 % Nucleated RBCs # 0.0 /100WBC Sodium 140 (136-145) mmol/L Potassium 3.6 (3.5-5.1) mmol/L Chloride 106 (98-107) mmol/L Carbon Dioxide 26 (22-29) mmol/L Anion Gap 11.6 (5-19) BUN 22 (8-23) mg/dL Creatinine 0.8 (0.5-0.9) mg/dL GFR Calculation Not Reportable Glucose 108 (65-115) mg/dL Calculated Osmolal ity 294 (285-295) mOsm/k g Calcium 9.3 (8.5-10.5) mg/dL Total Bilirubin 0.4 (0.15-1.2) mg/dL AST 22 (0-32) U/L ALT 21 (0-33) U/L Alkaline Phosphata se 109 H (35-105) IU/L Total Protein 6.7 (6.6-8.7) g/dL Albumin 4.1 (3.5-5.2) g/dL Globulin 2.6 (1.3-4.6) g/dL Urine Color Yellow (Yellow) Urine Appearance Clear (CLEAR) Urine pH 7 (5-7) Ur Specific Gravit y 1.010 (1.005-1.030) Urine Protein Neg (Negative) Urine Glucose (UA) Norm (Normal) Urine Ketones Negative (Negative) Urine Blood Neg (Negative) Urine Nitrate Negative (Negative) Urine Bilirubin Neg (Negative) Urine Urobilinogen Norm (Negative) mg/dL Ur Leukocyte Windy ase Negative (Negative) Imaging Data^: Xray Ortho: Attestation: I personally reviewed and interpreted this imaging study as follows: My impression: Closed nondisplaced inferior pubic ramus fracture on the left. Left hip replacement appears normal.Left hip and left femur appear normal. Lumbar spine shows degenerative changes and possible compression fracture of L5 but patient has no pain over that area. Osteoporosis CT Head: Radiologist's impression: Cristel Keating 84 F [address] [address] [address] Scan Report Signed Patient: Ricardo Keating #: [id number] : 1935cct#:[id number] Age/Sex: 84 / FADM Date: 08/14/20 Loc: ERRoom/Bed: Attending Dr: Ordering Provider/Ordering MD: Shavon De Luna Date of Service: 08/14/20 Procedure(s): CT head wo con* [id number] Accession Number(s): [id number] Report Number: [id number] PROCEDURE INFORMATION: Exam: CT Head Without Contrast Exam date and time: 08/14/2020 2:58 AM Age: 84 years old Clinical indication: Injury or trauma; Fall; Blunt trauma (contusions or hematomas); Additional info: Confusion, fall TECHNIQUE: Imaging protocol: Computed tomography of the head without contrast. Radiation optimization: All CT scans at this facility use at least one of these dose optimization techniques: automated exposure control; mA and/or kV adjustment per patient size (includes targeted exams where dose is matched to clinical indication); or iterative reconstruction. COMPARISON: CT head wo con* [id number] 04/19/2020 11:39 PM RADIATION DOSE METRICS: Total DLP (mGy-cm): 852.33 FINDINGS: Brain: There is mild parenchymal atrophy and chronic small vessel disease. No acute infarct or hemorrhage. 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 Cerebral ventricles: No ventriculomegaly. Bones/joints: No calvarial or skull base fracture. Paranasal sinuses: Paranasal sinuses are clear. No air-fluid level. Mastoid air cells: Visualized mastoid air cells are clear. Soft tissues: Unremarkable. Other findings: The CT/CT head wo con* [id number] IMPRESSION: 1. No acute infarct or hemorrhage. 2. No calvarial or skull base fracture. 3. Mild parenchymal atrophy and chronic small vessel disease. 4. 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 Radiation Dose CTDIVOL = (mGy): DLP = 852.33 (mGy-cm) Dictated By:Pelon Acosta Signed By:Pelon AcostaSiwang Date/Time:08/14/20 0350 CXR: My impression: Chest x-ray shows nothing acute. Previous left shoulder replacement EKG Data^: EKG 1: Attestation: I personally reviewed and interpreted this EKG as follows: EKG interpretation date: 08/14/20 EKG interpretation time: 03:10 Prior EKG tracings: not available for review Interpretation: ;,Atrial fibrillation rate controlled with heart rate of 59, nonspecific ST-T changes, normal T waves, no P waves, normal QRS, normal QT interval, mild left axis, impression atrial fibrillation rate controlled with mild left axis and nonspecific ST-T changes Discharge Plan Discharge Patient Disposition: Placed in Observation Clinical Impression: Transient confusion Closed fracture of left inferior pubic ramus Qualifiers: Encounter type: initial encounter Qualified Code(s): S32.592A - Other specified fracture of left pubis, initial encounter for closed fracture Fall Qualifiers: Encounter type: initial encounter Qualified Code(s): W19.XXXA - Unspecified fall, initial encounter Contusion of hip Qualifiers: Encounter type: initial encounter Laterality: left Qualified Code(s): S70.02XA - Contusion of left hip, initial encounter Discharge Diet: Usual diet Discharge Activity: Resume usual activity Sign Out Sign Out Data: Patient Sign Out occurred on 08/14/20 at 04:25. Patient's care was discussed, and care was transferred from EFREN Ruiz to Kenneth Faye MD. Sign Out Comment: Transfer of care to supervising physician, urinalysis, left femur series, lumbar spine series pending. Patient was not able to ambulate due to left lower extremity pain, left thigh. Tylenol was administered for pain. Last updated by Shavon De Luna ARNP at 08/14/20 03:47 Coding Level of Care Code ED Rougher For Cement for Chg Fwd Exam Comprehensive
[2020-08-14 03:11] LABS: Basophils % 0.6 %; Eosinophils # 0.2 10^3/uL (0.0-0.8); Eosinophils % 2.4 %; Hematocrit 42.3 % (37.0-47.0); Hemoglobin 13.3 g/dL (11.5-15.3); Lymphocytes # 1.8 10^3/uL (0.8-4.8); Lymphocytes % 29.4 %; Mean Corpuscular HGB Conc 31.4 g/dL (30.0-36.0); Mean Corpuscular Hemoglobin 26.7 pg (28.0-34.0); Mean Corpuscular Volume 84.8 fL (81-99); Monocytes # 0.4 10^3/uL (0.2-0.9); Monocytes % 6.9 %; Neutrophils # 3.66 10^3/uL (1.8-7.7); Neutrophils % 58.9 %; Nucleated Red Blood Cells % 0 %; Platelet Count 202 10^3/cmm (130-400); Red Blood Count 4.99 10^6/uL (4.1-5.3); Red Cell Distribution Width 13.5 % (12.1-15.1); White Blood Count 6.2 10^3/uL (4.0-10.0)
[2020-08-14 03:22] LABS: Alanine Aminotransferase 21 U/L (0-33); Albumin Level 4.1 g/dL (3.5-5.2); Alkaline Phosphatase 109 IU/L (35-105); Anion Gap 11.6 (5-19); Aspartate Amino Transferase 22 U/L (0-32); Blood Urea Nitrogen 22 mg/dL (8-23); Calcium 9.3 mg/dL (8.5-10.5); Carbon Dioxide 26 mmol/L (22-29); Chloride 106 mmol/L (98-107); Creatinine Clr Calc Pharmacy 50.7532; Globulin 2.6 g/dL (1.3-4.6); Glucose 108 mg/dL (65-115); Osmolality Calculated 294 mOsm/kg (285-295); Potassium 3.6 mmol/L (3.5-5.1); Sodium 140 mmol/L (136-145); Total Bilirubin 0.4 mg/dL (0.15-1.2); Total Protein 6.7 g/dL (6.6-8.7)
--- NOTE | 2020-08-14 03:44 | XRR_ITS ---
PROCEDURE INFORMATION: Exam: XR Spine; Lumbar Exam date and time: 08/14/2020 6:12 AM Age: 84 years old Clinical indication: Pain and injury or trauma; Fall; Patient status: Conscious; Pain: Left hip, low back pain; Injury date: 08/14/20; Prior surgery; Additional info: Lbp S/P fall TECHNIQUE: Imaging protocol: XR of the spine. Exam focused on the lumbar spine. Views: 1 view. 1 view. COMPARISON: No relevant prior studies available. FINDINGS: Bones/joints: A single AP view of the lumbar spine shows chronic degenerative changes with osteophytes and sclerosis and facet joint narrowing and hypertrophy. No obvious fractures are seen in the AP projection. Soft tissues: Normal. XR/XR lumbar spine 1V [id number] IMPRESSION: Degenerative disease. There are no obvious fractures identified in the AP projection of the lumbar spine.
--- NOTE | 2020-08-14 03:44 | XRR_ITS ---
PROCEDURE INFORMATION: Exam: XR Left Femur Exam date and time: 08/14/2020 5:01 AM Age: 84 years old Clinical indication: Pain and injury or trauma; Fall; Blunt trauma; Thigh or upper leg; Injury date: 08/14/20; Prior surgery; Surgery type: Left hip; Additional info: Left femur pain S/P fall TECHNIQUE: Imaging protocol: XR Left femur. Views: 2 views. COMPARISON: CR Femur 2 views LEFT* [id number] 04/26/2016 10:24 AM FINDINGS: Bones/joints: A total left hip prosthesis projects in satisfactory position. There is a nondisplaced fracture of the left inferior pubic ramus. No left femur fractures are seen. Soft tissues: Unremarkable. XR/XR femur LT min 2V* [id number] IMPRESSION: 1. Nondisplaced left inferior pubic ramus fracture. 2. The left femur appears intact.
[2020-08-14 03:59] LABS: Add Urine Microscopic? NO; Charge for UA Resulting for Rev
[2020-08-14 04:00] LABS: Bilirubin Urine Neg (Negative); Blood Urine Neg (Negative); Glucose Urine UA Norm (Normal); Ketones Urine Negative (Negative); Leukocyte Esterase Urine Negative (Negative); Nitrate Urine Negative (Negative); Protein Urine Neg (Negative); Urine Appearance Clear (CLEAR); Urine Color Yellow (Yellow); Urobilinogen Urine Norm (Negative); pH Urine 7 (5-7)
[2020-08-14] MEDS: acetaminophen 325 mg Tablet 650 MG PO (04:00)
[2020-08-14] MEDS: HYDROmorphone 1 mg/mL INJ 1 mL 0.5 MG IVP ×2 (04:18→05:48)
--- NOTE | 2020-08-14 05:52 | P.HP_ITS ---
Providers/Chief Complaint Primary Care Provider: Grant Arias MD Chief Complaint: FALL/ HIP PAIN History of Present Illness Cristel Keating is a 84 year old female with past medical history of atrial fibrillation, hypertension, probable dementia, prior falls resulting in hip fracture who was brought to emergency room by her family due to another fall early this morning. The patient fell on the way back from bathroom. She lost her balance in area covered with a rug. No head trauma. No loss of consciousness before or after. She developed left sided pelvic pain. There is no official report but according to ER physician the patient sustained left inferior pubic ramus fracture. CT of the head showed no acute findings. She has atrophy and small vessel disease. The daughter mentions increased forgetfulness, confusion for last several months. The patient denies chest pain, palpitations, focal muscle weakness, problems w ith speech, nausea or vomiting, dysuria, shortness of breath or cough. Review of Systems General: Reports: 10 or more systems reviewed and unremarkable except in HPI and below Medications/Allergies Home Medications Medication Instructions Recorded Confirmed Last Taken Type diltiazem HCl 30 mg PO TID 04/19/20 04/19/20 Unknown History olmesartan [Benicar] 40 mg PO DAILY 04/19/20 04/19/20 Unknown History Allergies Allergy/AdvReac Type Severity Reaction Status Date / Time No Known Allergies Allergy Verified 05/26/19 08:03 PFSH Acute PFSH: Medical History Atrial fibrillation Rate controlled Continue on diltiazem. Patient refuses to take certain manufacturers of Cardizem. She has been doing well with Teva brand diltiazem 30mg, 3 tabs q8H since admission Recommended anticoagulation but she refused anything other than full-strength aspirin. She had previously only been on 81 mg aspirin Hypertension Continue on home Benicar and diltiazem Surgical History H/O shoulder surgery Left History of hip surgery Left Family History Mother Hypertension Father Lung disease Social History Smoking and tobacco status: never smoked Alcohol intake: never Vitals/I&O/Wt Last Vital Signs Temp 98.3 F 08/14/20 02:37 Pulse 97 08/14/20 05:48 Resp 19 H 08/14/20 05:48 BP 179/117 08/14/20 05:48 Pulse Ox 97 08/14/20 05:48 Weight last 48 hrs Weight 68.039 kg Physical Exam Narrative: EXAM NARRATIVE: Patient is awake and alert. In mild to moderate distress secondary to pain. Speech is scant but there is no dysarthria or aphasia. Appropriate mood. Follows instructions appropriately Skin is warm and dry. Moist mucous membranes Eyes PERRL, extraocular muscles are intact No facial asymmetry No focal weakness, moves all extremities Lungs are clear bilaterally. No respiratory distress Heart S1, S2, irregular Abdomen soft, nontender, bowel sounds are present Extremities no calf tenderness or cyanosis. Normal capillary refill Data : 08/14/20 02:55 08/14/20 02:55 Other Labs: Laboratory Results WBC 6.2 10^3/uL (4.0-10.0) 08/14/20 02:55 RBC 4.99 10^6/uL (4.1-5.3) 08/14/20 02:55 Hgb 13.3 g/dL (11.5-15.3) 08/14/20 02:55 Hct 42.3 % (37.0-47.0) 08/14/20 02:55 MCV 84.8 fL (81-99) 08/14/20 02:55 MCH 26.7 pg (28.0-34.0) L 08/14/20 02:55 MCHC 31.4 g/dL (30.0-36.0) 08/14/20 02:55 RDW 13.5 % (12.1-15.1) 08/14/20 02:55 Plt Count 202 10^3/cmm (130-400) 08/14/20 02:55 MPV 11.0 fL (7.4-10.4) H 08/14/20 02:55 Neut % (Auto) 58.9 % 08/14/20 02:55 Lymph % (Auto) 29.4 % 08/14/20 02:55 Antelope % (Auto) 6.9 % 08/14/20 02:55 Eos % (Auto) 2.4 % 08/14/20 02:55 Baso % (Auto) 0.6 % 08/14/20 02:55 Neut # (Auto) 3.66 10^3/uL (1.8-7.7) 08/14/20 02:55 Lymph # (Auto) 1.8 10^3/uL (0.8-4.8) 08/14/20 02:55 Antelope # (Auto) 0.4 10^3/uL (0.2-0.9) 08/14/20 02:55 Eos # (Auto) 0.2 10^3/uL (0.0-0.8) 08/14/20 02:55 Baso # (Auto) 0.0 10^3/uL (0.0-0.1) 08/14/20 02:55 Nucleated RBC % (auto) 0 % 08/14/20 02:55 Nucleated RBCs # 0.0 /100WBC 08/14/20 02:55 Sodium 140 mmol/L (136-145) 08/14/20 02:55 Potassium 3.6 mmol/L (3.5-5.1) 08/14/20 02:55 Chloride 106 mmol/L (98-107) 08/14/20 02:55 Carbon Dioxide 26 mmol/L (22-29) 08/14/20 02:55 Anion Gap 11.6 (5-19) 08/14/20 02:55 BUN 22 mg/dL (8-23) 08/14/20 02:55 Creatinine 0.8 mg/dL (0.5-0.9) 08/14/20 02:55 GFR Calculation Not Reportable 08/14/20 02:55 Glucose 108 mg/dL (65-115) 08/14/20 02:55 Calculated Osmolality 294 mOsm/kg (285-295) 08/14/20 02:55 Calcium 9.3 mg/dL (8.5-10.5) 08/14/20 02:55 Total Bilirubin 0.4 mg/dL (0.15-1.2) 08/14/20 02:55 AST 22 U/L (0-32) 08/14/20 02:55 ALT 21 U/L (0-33) 08/14/20 02:55 Alkaline Phosphatase 109 IU/L (35-105) H 04/20/21 02:55 Total Protein 6.7 g/dL (6.6-8.7) 08/14/20 02:55 Albumin 4.1 g/dL (3.5-5.2) 08/14/20 02:55 Globulin 2.6 g/dL (1.3-4.6) 08/14/20 02:55 Urine Color Yellow (Yellow) 08/14/20 03:52 Urine Appearance Clear (CLEAR) 08/14/20 03:52 Urine pH 7 (5-7) 08/14/20 03:52 Ur Specific Virgie 1.010 (1.005-1.030) 08/14/20 03:52 Urine Protein Neg (Negative) 08/14/20 03:52 Urine Glucose (UA) Norm (Normal) 08/14/20 03:52 Urine Ketones Negative (Negative) 08/14/20 03:52 Urine Blood Neg (Negative) 08/14/20 03:52 Urine Nitrate Negative (Negative) 08/14/20 03:52 Urine Bilirubin Neg (Negative) 08/14/20 03:52 Urine Urobilinogen Norm mg/dL (Negative) 08/14/20 03:52 Ur Leukocyte Esterase Negative (Negative) 08/14/20 03:[address] 08/14/20 02:49 IMPRESSION: 1. No acute infarct or hemorrhage. 2. No calvarial or skull base fracture. 3. Mild parenchymal atrophy and chronic small vessel disease. 4. 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 Radiation Dose CTDIVOL = (mGy): DLP = 852.33 (mGy-cm) A&P Additional A&P Information 84-year-old female with past medical history of hypertension, atrial fibrillation, probable dementia, prior falls who was brought to emergency room due to another fall which unfortunately resulted in left inferior pubic ramus fracture. Left inferior pubic ramus fracture. The fall was mechanical in nature. Conservative management. Pain medications. PT OT. Might need placement. Dementia. Does not have official history of dementia but the symptoms are consistent with dementia. We will check her TSH, B12 level. Probably will need a placement due to recurrent falls. Atrial fibrillation. Rate controlled. Continue medications. Hypertension, uncontrolled probably due to the pain. We will try to stabilize her pain. We will resume her home medications. Will order as needed medications. CODE STATUS. Full code according to her daughter. DVT prophylaxis. Teds and SCDs, Lovenox. The plan of care was discussed with the patient and her daughter. They verbalized understanding and agreement. Attestations Medical Necessity Statement*: Observation Coding Level of Care Code Acute Old Coin Dealer for Calderon Delaney
--- NOTE | 2020-08-14 07:45 | PM.PN ---
Subjective Subjective: Interval history: History and physical was reviewed in detail. Patient reports she fell because she slipped, but really can't give me specific details regarding the event. She does report she has left hip pain. Medications: Reviewed: Yes Vitals/I&O/Wt Last Vital Signs Temp 97.9 F 08/14/20 06:46 Pulse 87 08/14/20 06:47 Resp 18 08/14/20 06:47 BP 157/92 08/14/20 06:47 Pulse Ox 96 08/14/20 06:47 Weight last 48 hrs Weight 68.039 kg Physical Exam Narrative: EXAM NARRATIVE: General exam is no apparent distress Cardiovascular irregular, irregular with a 2/6 systolic murmur Lungs clear Abdomen is soft nontender with positive bowel sounds Extremities no cyanosis clubbing or edema. Perfusion intact distally. Significant pain with any movement of the left lower extremity. Urinary Catheter Management^: Raymond: Cath Placed During This Visit: yes Reason for Continuing Indwelling Catheter: Acute Urinary Retention or Obstruction Urinary Catheter Date of Insertion: 08/14/20 Urinary Catheter Time of Insertion: 06:20 Data : 08/14/20 02:55 08/14/20 02:55 A&P Assessment and plan (1) Fall: Mechanical fall per patient's limited description but she doesn't seem to be able to remember all of the events relating to it. Placed on telemetry secondary to history of atrial fibrillation/arrhythmia Status: Acute Qualifiers: Encounter type: initial encounter Qualified Code(s): W19.XXXA - Unspecified fall, initial encounter (2) Closed fracture of left inferior pubic ramus: Physical therapy evaluation She appears to have some significant discomfort this morning, and I suspect she will need rehabilitation placement. Ketorolac for pain Add OxyIR as needed. Discussed with patient. Await final x-ray reports from radiology Status: Acute Qualifiers: Encounter type: initial encounter Qualified Code(s): S32.592A - Other specified fracture of left pubis, initial encounter for closed fracture (3) Transient confusion: Per description when patient came in daughter has been concerned in the last month or so regarding confusion. On my evaluation short-term recall poor, no focal deficits, long-term recall excellent. I suspect she has mild to moderate dementia. Check B12 and folate. CT head has been performed and no acute changes. Status: Acute (4) Hypertension: Continue home medications Reconcile home medication list Status: Acute (5) Acute CVA (cerebrovascular accident): Continue aspirin 81 mg daily. This is all the patient will take currently. Status: Acute (6) Atrial fibrillation: Rate controlled Continue diltiazem, medicine reconciliation to determine exact dose Note that she had echocardiogram 2019 demonstrating 1/4 diastolic dysfunction, normal LV function, mild pulmonary hypertension, increased left atrial size, mild mitral regurgitation, mild aortic valve stenosis with valve area of 1.1 Telemetry secondary to fall, history of cardiac arrhythmia Status: Acute Additional A&P Information Constipation. Colace started Full code Lovenox for DVT prophylaxis Attestations Medical Necessity Statement*: Needs continued hospitalization for physical therapy evaluation and likely placement. Coding Level of Care Code Acute Tennis Camp Instructor for Calderon Fwd Diagnoses Fall W19.XXXA Encounter type: initial encounter Closed fracture of left inferior pubic ramus S32.592A Encounter type: initial encounter Transient confusion R41.0 Hypertension I10 Acute CVA (cerebrovascular accident) I63.9 Atrial fibrillation I48.91
[2020-08-14 08:28] LABS: Thyroid Stimulating Hormone 4.97 uIU/mL (0.27-4.20); Vitamin B12 442 pg/mL (232-1245)
[2020-08-14] MEDS: oxyCODONE 5 mg IR Tab/Cap PO (09:02)
[2020-08-14] MEDS: losartan 50 mg Tablet 100 MG PO (09:03)
[2020-08-14] MEDS: docusate sodium 100 mg Capsule PO (09:04)
[2020-08-14] MEDS: enoxaparin 30 mg/0.3 mL Syringe SUBCUT (09:04)
[2020-08-14] MEDS: dilTIAZem 30 mg Tablet PO (09:04)
[2020-08-14] MEDS: aspirin 81 mg EC Tablet PO (09:04)
[2020-08-14] MEDS: ketorolac 30 mg/mL INJ 15 MG IVP (10:05)
--- NOTE | 2020-08-14 12:05 | PC.OT ---
OT note: Attempted OT but pt in high level of pain and declined at this time. Pt's nurse reported pt cannot have more pain medication until this afternoon. Will attempt again later as able.
[2020-08-14] MEDS: dilTIAZem 60 mg Tablet PO (12:28)
[2020-08-14] MEDS: dilTIAZem 60 mg Tablet 90 MG PO ×2 (15:59→22:35)
[2020-08-14] MEDS: morphine 4 mg/mL SDV 1 mL 1 MG IVP (16:20)
--- NOTE | 2020-08-14 16:27 | PC.NURSE ---
Patient is c/o increased pain generalized per her movements and FLACC is 8/10 at this time. Patient is agitated during Morphine administration, stating that everything hurts . When I inquired about the location, she doesn't answer. Morphine administered with no complaint. IV to right AC is patent and flushing well. Patient denies further concerns.
--- NOTE | 2020-08-14 17:11 | PC.OT ---
OT note: Attempted evaluation again. Pt declined and was noted to be confused. Pt noted to be slid down in bed and when PT and OT assisted with pulling pt up in bed and adjust bed so she could eat dinner she became upset and told therapists to leave room. Will attempt again tomorrow as able. Nursing given report of this.
--- NOTE | 2020-08-14 17:44 | PC.PT ---
Patient had received all pain medicines possible, this therapist and occupational therapist been approximately 20 minutes trying to convince patient to participate with treatment and out of bed with our assistance; unable to make any progress with this, patient would not agreed to attempt out of bed with our assistance, despite patient education, and need for evaluations to be able to go to [facility]; patient very anxious, talked with nursing afterwards recommending antianxiety medicines, and will discuss same with physician; patient dementia Interferes with understanding need of participation, and need of activity to avoid increasing weakness and pneumonia blood clots etc., which were all discussed with patient as well; will reattempt tomorrow, hoping for improvements then
[2020-08-15] VITALS (12 sets, daily range): BP systolic 132–160; BP diastolic 75–86; PULSE 80–105; RESP 17–19; TEMP 36.3–37.7; O2SAT 90–94
[2020-08-15] MEDS: morphine 4 mg/mL SDV 1 mL 1 MG IVP ×2 (01:45→17:15)
[2020-08-15] MEDS: enoxaparin 30 mg/0.3 mL Syringe SUBCUT (06:04)
[2020-08-15] MEDS: aspirin 81 mg EC Tablet PO (08:50)
[2020-08-15] MEDS: losartan 50 mg Tablet 100 MG PO (08:50)
[2020-08-15] MEDS: dilTIAZem 60 mg Tablet 90 MG PO ×3 (08:53→20:29)
[2020-08-15] MEDS: LORazepam 0.5 mg Tablet 0.25 MG PO (08:54)
[2020-08-15] MEDS: oxyCODONE 5 mg IR Tab/Cap PO (08:54)
--- NOTE | 2020-08-15 10:29 | PC.CHAP ---
Pastoral Care Encounter/Spiritual Assessment Type of Contact [] Declined equipment maintenance supervisor visit [] Patient/Family/Request visit [] Outpatient visit [] Follow-up visit [] Physician referral [] Code/Alert [x] Routine visit [] Staff referral [] Actively dying [] Patient sleeping [] Family support [] [] Out of room [] Palliative care [] [] Receiving care in room [] Pre-surgical visit [] Trauma [] Long length of stay [] ICU visit [] Other: Relational/Emotional Strength [x] Patient feels connected with others/family/visitors/staff [] Distress [] Loneliness/isolation [] Abandonment Spirituality of Patient [x] Person of Lorna x[] Attends Spiritism of their Lorna [x] Believes in Prayer [] Reads Bible or Gnosticist materials [] There are Spiritual issues to be addressed Flamer After Lasting Interventions [x] Prayer [x] Active listening [x] Non-anxious presence [x Spiritual/emotional support [] Crisis/trauma care [] Spiritual counseling [] Bereavement support [] Provided bereavement packet [] Provided Bible/devotional materials [] Provided toy/stuffed animal, coloring book to patient or family member [] Provided Communion [] Anointing/Opp [] Salvation [x] Completed spiritual assessment [] Other: Impact on Illness or Injury [] Angry [] Fearful [] Anxious [] Often cries [] Exhaustion [] Unable to work [] Unable to attend mormonism [] Unable to walk/stand [] Unable to read [] Unable to drive [] Unable to eat/drink [] Unable to sleep [] Unable to be with family [] Patient intubated [] Other: Summary Time spent with patient 15 min
--- NOTE | 2020-08-15 10:45 | P.PN_ITS ---
Subjective Subjective: Interval history: Cristel has still had quite a bit of pain. She required some IV pain medication. It has complicated her ability to work with physical therapy. Medications: Reviewed: Yes Vitals/I&O/Wt Last Vital Signs Temp 98.6 F 08/15/20 07:38 Pulse 102 H 08/15/20 07:38 Resp 17 08/15/20 08:54 BP 149/84 08/15/20 08:50 Pulse Ox 94 08/15/20 07:38 08/14/20 08/15/20 08/15/20 22:59 06:59 14:59 Intake Total 100 / 100 Output Total 800 / 800 Balance -700 / -700 Weight last 48 hrs Weight 68.039 kg Physical Exam Narrative: EXAM NARRATIVE: General exam is no apparent distress Cardiovascular irregular, irregular with a 2/6 systolic murmur Lungs clear Abdomen is soft nontender with positive bowel sounds Extremities no cyanosis clubbing or edema. Still with pain when moving left lower extremity Urinary Catheter Management^: Raymond: Cath Placed During This Visit: yes Reason for Continuing Indwelling Catheter: Other Urinary Catheter Date of Insertion: 08/14/20 Urinary Catheter Time of Insertion: 06:20 Data : 08/14/20 02:55 08/14/20 02:55 A&P Assessment and plan (1) Fall: Mechanical fall per patient's limited description but she doesn't seem to be able to remember all of the events relating to it. Placed on telemetry secondary to history of atrial fibrillation/arrhythmia. Atrial fibrillation noted as expected. No significant pauses. Status: Acute Qualifiers: Encounter type: initial encounter Qualified Code(s): W19.XXXA - Unspecified fall, initial encounter (2) Closed fracture of left inferior pubic ramus: Awaiting complete physical therapy evaluation. This is been complicated secondary to her significant pain. Continue OxyIR as needed for pain Morphine for breakthrough pain Ativan for anxiety related to pain Status: Acute Qualifiers: Encounter type: initial encounter Qualified Code(s): S32.592A - Other specified fracture of left pubis, initial encounter for closed fracture (3) Transient confusion: Per description when patient came in daughter has been concerned in the last month or so regarding confusion. On my evaluation short-term recall poor, no focal deficits, long-term recall excellent. I suspect she has mild to moderate dementia. B12 and folate levels are near normal. CT head has been performed and no acute changes. Status: Acute (4) Hypertension: Continue home medications Reconcile home medication list Status: Acute (5) Acute CVA (cerebrovascular accident): Continue aspirin 81 mg daily. This is all the patient will take curren tly. Status: Acute (6) Atrial fibrillation: Rate controlled Continue diltiazem Note that she had echocardiogram 2019 demonstrating 1/4 diastolic dysfunction, normal LV function, mild pulmonary hypertension, increased left atrial size, mild mitral regurgitation, mild aortic valve stenosis with valve area of 1.1 Telemetry secondary to fall, history of cardiac arrhythmia Status: Acute Additional A&P Information Constipation. Change to docusate so medicine can be crushed Full code Lovenox for DVT prophylaxis Attestations Medical Necessity Statement*: Needs continued observation in the hospital pending placement after therapy evaluation. Coding Level of Care Code Acute Screw Machine Operator Single Spindle for Chg Fwd Diagnoses Fall W19.XXXA Encounter type: initial encounter Closed fracture of left inferior pubic ramus S32.592A Encounter type: initial encounter Transient confusion R41.0 Hypertension I10 Acute CVA (cerebrovascular accident) I63.9 Atrial fibrillation I48.91
[2020-08-15] MEDS: sennosides-docusate Tablet 1 TAB PO (17:15)
[2020-08-16] VITALS (9 sets, daily range): BP systolic 123–148; BP diastolic 83–92; PULSE 82–100; RESP 16–20; TEMP 36.4–37.4; O2SAT 90–94
[2020-08-16] MEDS: enoxaparin 30 mg/0.3 mL Syringe SUBCUT (05:46)
[2020-08-16 06:12] LABS: Basophils # 0.1 10^3/uL (0.0-0.1); Basophils % 0.8 %; Eosinophils # 0.2 10^3/uL (0.0-0.8); Eosinophils % 2.6 %; Hematocrit 43.1 % (37.0-47.0); Hemoglobin 13.2 g/dL (11.5-15.3); Lymphocytes # 1.4 10^3/uL (0.8-4.8); Mean Corpuscular HGB Conc 30.6 g/dL (30.0-36.0); Mean Corpuscular Hemoglobin 26.4 pg (28.0-34.0); Mean Corpuscular Volume 86.2 fL (81-99); Mean Platelet Volume 11.6 fL (7.4-10.4); Monocytes # 0.8 10^3/uL (0.2-0.9); Monocytes % 8.8 %; Neutrophils # 6.32 10^3/uL (1.8-7.7); Neutrophils % 71.5 %; Nucleated Red Blood Cells % 0 %; Platelet Count 177 10^3/cmm (130-400); Red Cell Distribution Width 13.6 % (12.1-15.1); White Blood Count 8.8 10^3/uL (4.0-10.0)
[2020-08-16 06:40] LABS: Alanine Aminotransferase 16 U/L (0-33); Albumin Level 3.9 g/dL (3.5-5.2); Alkaline Phosphatase 97 IU/L (35-105); Anion Gap 14.6 (5-19); Aspartate Amino Transferase 19 U/L (0-32); Blood Urea Nitrogen 26 mg/dL (8-23); Carbon Dioxide 24 mmol/L (22-29); Chloride 104 mmol/L (98-107); Creatinine Clr Calc Pharmacy 50.7532; Globulin 2.7 g/dL (1.3-4.6); Glucose 104 mg/dL (65-115); Osmolality Calculated 293 mOsm/kg (285-295); Potassium 3.6 mmol/L (3.5-5.1); Sodium 139 mmol/L (136-145); Total Bilirubin 0.9 mg/dL (0.15-1.2); Total Protein 6.6 g/dL (6.6-8.7)
[2020-08-16] MEDS: losartan 50 mg Tablet 100 MG PO (08:56)
[2020-08-16] MEDS: dilTIAZem 60 mg Tablet 90 MG PO ×3 (08:57→21:27)
[2020-08-16] MEDS: sennosides-docusate Tablet 1 TAB PO ×2 (08:57→18:26)
[2020-08-16] MEDS: aspirin 81 mg EC Tablet PO (08:57)
[2020-08-16] MEDS: LORazepam 0.5 mg Tablet 0.25 MG PO (10:07)
[2020-08-16] MEDS: oxyCODONE 5 mg IR Tab/Cap PO (10:07)
--- NOTE | 2020-08-16 14:59 | PM.PN ---
Subjective Subjective: Interval history: Cristel reports she feels little bit better today. Less pain in her leg. Medications: Reviewed: Yes Vitals/I&O/Wt Last Vital Signs Temp 97.6 F 08/16/20 11:30 Pulse 82 08/16/20 11:30 Resp 18 08/16/20 11:30 BP 123/84 08/16/20 11:30 Pulse Ox 90 08/16/20 11:30 08/15/20 08/16/20 08/16/20 22:59 06:59 14:59 Intake Total 120 / 240 120 / 120 Output Total 450 / 450 200 / 650 Balance -330 / -210 -200 / -410 120 / 120 Physical Exam Narrative: EXAM NARRATIVE: General exam is no apparent distress Cardiovascular irregular, irregular with a 2/6 systolic murmur Lungs clear Abdomen is soft nontender with positive bowel sounds Extremities no cyanosis clubbing or edema. Less pain with movement of her left lower extremity Urinary Catheter Management^: Raymond: Cath Placed During This Visit: yes Reason for Continuing Indwelling Catheter: Other Urinary Catheter Date of Insertion: 08/14/20 Urinary Catheter Time of Insertion: 06:20 Data : 08/16/20 05:19 08/16/20 05:19 A&P Assessment and plan (1) Fall: Mechanical fall per patient's limited description but she doesn't seem to be able to remember all of the events relating to it. Placed on telemetry secondary to history of atrial fibrillation/arrhythmia. Atrial fibrillation noted as expected. No significant pauses. Status: Acute Qualifiers: Encounter type: initial encounter Qualified Code(s): W19.XXXA - Unspecified fall, initial encounter (2) Closed fracture of left inferior pubic ramus: She was able to work with therapy yesterday Continue OxyIR as needed for pain Morphine for breakthrough pain Ativan for anxiety related to pain Plan discharge to skilled facility when accepted Status: Acute Qualifiers: Encounter type: initial encounter Qualified Code(s): S32.592A - Other specified fracture of left pubis, initial encounter for closed fracture (3) Transient confusion: Per description when patient came in daughter has been concerned in the last month or so regarding confusion. On my evaluation short-term recall poor, no focal deficits, long-term recall excellent. I suspect she has mild to moderate dementia. B12 and folate levels are near normal. CT head has been performed and no acute changes. Status: Acute (4) Hypertension: Continue home medications Reconcile home medication list Status: Acute (5) Acute CVA (cerebrovascular accident): Continue aspirin 81 mg daily. This is all the patient will take currently. Status: Acute (6) Atrial fibrillation: Rate controlled Continue diltiazem Note that she had echocardiogram 2019 demonstrating 1/4 diastolic dysfunction, normal LV function, mild pulmonary hypertension, increased left atrial size, mild mitral regurgitation, mild aortic valve stenosis with valve area of 1.1 Telemetry secondary to fall, history of cardiac arrhythmia Status: Acute Additional A&P Information Constipation. Change to docusate so medicine can be crushed Full code Lovenox for DVT prophylaxis Attestations Medical Necessity Statement*: Awaiting skilled placement Coding Level of Care Code Acute Fire Protection Designer for Chg Fwd Diagnoses Fall W19.XXXA Encounter type: initial encounter Closed fracture of left inferior pubic ramus S32.592A Encounter type: initial encounter Transient confusion R41.0 Hypertension I10 Acute CVA (cerebrovascular accident) I63.9 Atrial fibrillation I48.91
[2020-08-17] VITALS (7 sets, daily range): BP systolic 123–144; BP diastolic 81–97; PULSE 79–98; RESP 18; TEMP 36.6–37; O2SAT 95–96
[2020-08-17] MEDS: enoxaparin 30 mg/0.3 mL Syringe SUBCUT (06:03)
[2020-08-17] MEDS: losartan 50 mg Tablet 100 MG PO (08:21)
[2020-08-17] MEDS: sennosides-docusate Tablet 1 TAB PO (08:22)
[2020-08-17] MEDS: LORazepam 0.5 mg Tablet 0.25 MG PO (08:22)
[2020-08-17] MEDS: aspirin 81 mg EC Tablet PO (08:22)
[2020-08-17] MEDS: dilTIAZem 60 mg Tablet 90 MG PO (08:26)
--- NOTE | 2020-08-17 08:35 | P.DS_ITS ---
Discharge Providers Date of Admission: 08/14/20 05:40 Date of Discharge: August 17, 2020 Attending Provider at Admission: Roman Rasheed Attending Provider at Discharge: René Vega MD Primary Care Provider: Grant Arias MD Diagnoses at Discharge Discharge Diagnosis (1) Fall: Status: Acute Qualifiers: Encounter type: initial encounter Qualified Code(s): W19.XXXA - Unspecified fall, initial encounter (2) Closed fracture of left inferior pubic ramus: Status: Acute Qualifiers: Encounter type: initial encounter Qualified Code(s): S32.592A - Other specified fracture of left pubis, initial encounter for closed fracture (3) Transient confusion: Status: Acute (4) Hypertension: Status: Acute Permanent problem details: Continue on home Benicar and diltiazem (5) Acute CVA (cerebrovascular accident): Status: Acute Permanent problem details: Currently taking only aspirin and has stopped her statin. She reports she does not believe she had a stroke at her previous hospital stay and is not amenable to medication changes regarding this. (6) Atrial fibrillation: Status: Acute Reason for Visit Reason for Visit: FALL/ HIP PAIN Hospital Course Hospital Course Cristel is an 84-year-old white female who presented to the hospital with history of mechanical fall, sustaining a left inferior pubic rami fracture. She was in significant pain, and could not walk on her own and was therefore placed in the hospital under observation. Physical therapy attempted to work with the patient the next day but she was in too much discomfort. She was able to progress some with therapy, and it was determined she would need to skilled treatment to eventually go back home. It was also identified in the hospital that she has at least mild to moderate dementia. B12, folate level were checked and not significantly abnormal. CT head had no acute changes. By August 17 she was ready for discharge to skilled care for continued rehabilitation. She does have underlying atrial fibrillation, controlled on her current medicine regimen. She refuses to take anticoagulation, and will only take antiplatelet(aspirin) Physical Exam Narrative: EXAM NARRATIVE: General exam no apparent distress Cardiovascular irregular, irregular without murmur Lungs clear Abdomen is soft with positive bowel sounds Extremities no cyanosis clubbing or edema Urinary Catheter Management^: Raymond: Cath Placed During This Visit: yes Reason for Continuing Indwelling Catheter: Other Urinary Catheter Date of Insertion: 08/14/20 Urinary Catheter Time of Insertion: 06:20 Discharge Data Data Completed and Pending: Completed Studies During Hospitalization Category Date Time Status CT head wo con* 7 0450 Urgent Cat Scan 08/14/20 02:49 Completed XR chest 1V johanne ble [id number] Stat Exams 08/14/20 02:49 Completed XR femur LT min 2 V* [id number] Urgent Exams 08/14/20 03:44 Completed XR hip LT 2-3V wo /w pel* [id number] Urge nt Exams 08/14/20 02:49 Completed XR lumbar spine 1 V [id number] Urgent Exams 08/14/20 03:44 Completed Vitals: Last Vital Signs Temp 97.8 F 08/17/20 07:31 Pulse 90 08/17/20 07:31 Resp 18 08/17/20 07:31 BP 137/97 08/17/20 08:21 Pulse Ox 96 08/17/20 07:31 Discharge Plan Discharge Patient Disposition: Xfer SNF Condition: Stable Prescriptions: New lorazepam 0.5 mg Tablet 0.25 mg PO TID PRN (Reason: Anxiety) Qty: 20 RF: 0 oxycodone 5 mg Tablet 5 mg PO Q6H PRN (Reason: Moderate Pain) Qty: 20 RF: 0 acetaminophen 325 mg Tablet 650 mg PO Q6H PRN (Reason: Mild/Mod Pain Or Temp >/= 101) Qty: 30 RF: 0 sennosides-docusate sodium [Stool Softener-Laxative] 8.6-50 mg Tablet 1 tab PO BID Qty: 60 RF: 0 Continued diltiazem HCl 30 mg Tablet 90 mg PO TID RF: 0 olmesartan [Benicar] 40 mg Tablet 40 mg PO DAILY RF: 0 aspirin 81 mg Tablet,Chewable 81 mg PO DAILY RF: 0 Discharge Orders: Discharge Order (Routine); Ordered 08/17/20 Ordered By: René Vega Referrals: Grant Arias MD [Primary Care Provider] - 4-7 days Discharge Diet: Usual diet Discharge Activity: Increase activity as tolerated Patient Instructions: Confusion, Fall Prevention (ED), Opioid Safety Activity Restrictions/Additional Instructions: Follow-up with primary care provider at long term facility 3 to 5 days PT and OT services at long term facility Take all medicine as prescribed Please remove patient's Raymond prior to discharge Discharge Attestations Time Spent in Discharge Care*: greater than 30 min Quality Metrics Clinical Quality Measures During this hospital stay, did patient experience: None Coding Level of Care Code Acute Chg FW DC note Diagnoses Fall W19.XXXA Encounter type: initial encounter Closed fracture of left inferior pubic ramus S32.592A Encounter type: initial encounter Transient confusion R41.0 Hypertension I10 Acute CVA (cerebrovascular accident) I63.9 Atrial fibrillation I48.91
--- NOTE | 2020-08-17 08:40 | PC.NURSE ---
Attempted to remove patient's Raymond Catheter at this time. Patient states, Can you wait until I am done with breakfast? Explained to patient that I would be back in after she was finished with breakfast.
--- NOTE | 2020-08-17 09:26 | PC.NURSE ---
Report called to Inocencia at [facility] at this time.
--- NOTE | 2020-08-17 12:43 | PC.NURSE ---
Patient wheel chaired to transport vehicle at this time. Patient is alert to self. Patient's daughter was here and brought patient clothes to take to [facility] with her.
== END 2020-08-17 12:10 | disposition skilled nursing facility (03) ==
LOC: ER 05:41 → MEDSURG 06:15
PROVIDERS: Nurse Practitioner Family; Admitting Provider Internal Medicine; Emergency Provider Family Medicine; PCP Family Medicine; Visit Provider Internal Medicine
DX: S32.592A Other specified fracture of left pubis, initial encounter for closed fracture (principal); W19.XXXA Unspecified fall, initial encounter; R41.0 Disorientation, unspecified; I10 Essential (primary) hypertension; I63.9 Cerebral infarction, unspecified; I48.91 Unspecified atrial fibrillation; Z91.81 History of falling
CPT/HCPCS: 36415; 51702; 70450; 71045; 72020; 72100; 73502; 73552; 80053; 81003; 82607; 84443; 85025; 93005; 96372; 96374; 96375; 96376; 97116; 97161; 97166; 97530; 97535; 99285; G0378; J1170; J1650; J1885; J2270

== ENCOUNTER 2020-09-13 09:50 | Emergency (ER) | payer MEDICARE, MEDICAID, SELFPAY ==
[2020-09-13 09:53] VITALS: BP 148/85; PULSE 95; RESP 20; TEMP 36.4; O2SAT 96; BMI 23.7
--- NOTE | 2020-09-13 10:04 | W.ED.CHESTPA ---
HPI - Chest Pain General: Chief Complaint: Chest Pain Stated Complaint: CHEST PAIN Time Seen by Provider: 09/13/20 09:51 History of Present Illness: HPI narrative: 85-year-old female presents emergency room with a couple of complaints earlier today she had some left-sided chest pain that spine and spontaneously resolved. He denies taking any nitro the ER crew offered her aspirin but she refused that as well in addition to that she has been constipated last few weeks.In July the patient had a fall and had a left inferior pubic rami fracture. She was briefly hospitalized and then discharged to the long-term. Fall was thought to be mechanical. She also has noted that that time to have a history of atrial fibrillation. During hospitalization when there was some mild cognitive difficulties which according to discharge summary was transient although there are comments in the discharge from it she has some mild to moderate dementia. On arrival here she is pleasantly confused MD complaint: chest pain Pertinent past history: other (afib) Onset (ago): unknown Timing of current episode: episodic Onset: during rest Pain location: left chest Pain radiation: left arm Severity: mild Quality: tightness and heaviness Relieving factors: nothing Exacerbating factors: nothing Associated symptoms: Deny abdominal pain, diaphoresis, dyspnea, fever(s), leg edema, nausea, palpitations, sense of impending doom, syncope or vomiting Treatment prior to arrival: none Review of Systems Const: Denies: fever(s) or diaphoresis Card: Denies: palpitations or syncope Resp: Denies: dyspnea GI: Denies: abdominal pain, nausea or vomiting [facility] ED PFSH: Medical History Atrial fibrillation Hypertension Continue on home Benicar and diltiazem Surgical History H/O shoulder surgery Left History of hip surgery Left Family History Mother Hypertension Father Lung disease Social History Smoking and tobacco status: never smoked Alcohol intake: never Physical Exam Const: COMMON NORMALS: no acute distress GENERAL APPEARANCE: cooperative and comfortable ORIENTATION/CONSCIOUSNESS: Yes awake, Yes oriented to person, Yes oriented to place and Yes oriented to time HENMT: COMMON NORMALS: normocephalic, atraumatic and hearing grossly normal bilaterally HEAD & SCALP: normocephalic and atraumatic Neck/C-Spine: COMMON NORMALS: full ROM, no lymphadenopathy, supple and no JVD Resp: COMMON NORMALS: normal respiratory effort, No retractions, No use of accessory muscles and clear to auscultation bilaterally AUSCULTATION: clear to auscultation bilaterally Cardio: COMMON NORMALS: no JVD, regular rate, regular rhythm and No murmurs present (Cardio) RATE: regular rate RHYTHM: regular rhythm GI: COMMON NORMALS: Soft to palpation and No hepatosplenomegaly present AUSCULTATION: Yes normoactive bowel sounds PALPATION: Yes Soft to palpation, No Tenderness to palpation present (GI), No Guarding due to palpation present (GI) and Yes No hepatosplenomegaly present Extremity: COMMON NORMALS: normal to inspection, capillary refill normal, no clubbing, cyanosis or edema, no calf tenderness and no pedal edema Neuro: SENSORIUM/ORIENTATION: Yes oriented to person, Yes oriented to place and Yes oriented to time Skin: COMMON NORMALS: no rashes or lesions noted GENERAL SKIN EXAM: no rashes or lesions noted Course Vital Signs: Vital signs: Vital Signs Temperature 97.6 F 09/13/20 09:53 Pulse Rate 78 09/13/20 13:43 Respiratory Rate 18 09/13/20 12:50 Blood Pressure 151/100 09/13/20 12:05 Pulse Oximetry 96 09/13/20 12:05 MDM - Chest Pain MDM Narrative: Medical decision making narrative: Serial enzymes negative. We will go and discharge the patient home. Mag citrate as needed, return to the ER if has further problems. Lab Data: Attestation: I reviewed the patient's lab results. Labs: Lab Results 09/13/20 09/13/20 09/13/20 Range/Units 10:15 10:15 10:15 WBC 7.7 (4.0-10.0) 10^3/ uL RBC 5.01 (4.1-5.3) 10^6/u L Hgb 13.0 (11.5-15.3) g/dL Hct 41.6 (37.0-47.0) % MCV 83.0 (81-99) fL MCH 25.9 L (28.0-34.0) pg MCHC 31.3 (30.0-36.0) g/dL RDW 13.3 (12.1-15.1) % Plt Count 283 (130-400) 10^3/c mm MPV 11.7 H (7.4-10.4) fL Neut % (Auto) 70.6 % Lymph % (Auto) 17.7 % [place] % (Auto) 7.9 % Eos % (Auto) 2.7 % Baso % (Auto) 0.8 % Neut # (Auto) 5.42 (1.8-7.7) 10^3/u L Lymph # (Auto) 1.4 (0.8-4.8) 10^3/u L [place] # (Auto) 0.6 (0.2-0.9) 10^3/u L Eos # (Auto) 0.2 (0.0-0.8) 10^3/u L Baso # (Auto) 0.1 (0.0-0.1) 10^3/u L Nucleated RBC % (a uto) 0 % Nucleated RBCs # 0.0 /100WBC Sodium 141 (136-145) mmol/L Potassium 3.8 (3.5-5.1) mmol/L Chloride 103 (98-107) mmol/L Carbon Dioxide 25 (22-29) mmol/L Anion Gap 16.8 (5-19) BUN 11 (8-23) mg/dL Creatinine 0.8 (0.5-0.9) mg/dL GFR Calculation Not Reportable Glucose 107 (65-115) mg/dL Calculated Osmolal ity 292 (285-295) mOsm/k g Calcium 9.5 (8.5-10.5) mg/dL Total Bilirubin 0.5 (0.15-1.2) mg/dL AST 21 (0-32) U/L ALT 12 (0-33) U/L Alkaline Phosphata se 206 H (35-105) IU/L Troponin T Baselin e 26 H (0-10) ng/L Troponin T 120 Min [place] (0-10) ng/L Delta Troponin T (0-10) ABS# Total Protein 7.0 (6.6-8.7) g/dL Albumin 4.2 (3.5-5.2) g/dL Globulin 2.8 (1.3-4.6) g/dL 09/13/20 Range/Units 12:12 WBC (4.0-10.0) 10^3/ uL RBC (4.1-5.3) 10^6/u L Hgb (11.5-15.3) g/dL Hct (37.0-47.0) % MCV (81-99) fL MCH (28.0-34.0) pg MCHC (30.0-36.0) g/dL RDW (12.1-15.1) % Plt Count (130-400) 10^3/c mm MPV (7.4-10.4) fL Neut % (Auto) % Lymph % (Auto) % [place] % (Auto) % Eos % (Auto) % Baso % (Auto) % Neut # (Auto) (1.8-7.7) 10^3/u L Lymph # (Auto) (0.8-4.8) 10^3/u L [place] # (Auto) (0.2-0.9) 10^3/u L Eos # (Auto) (0.0-0.8) 10^3/u L Baso # (Auto) (0.0-0.1) 10^3/u L Nucleated RBC % (a uto) % Nucleated RBCs # /100WBC Sodium (136-145) mmol/L Potassium (3.5-5.1) mmol/L Chloride (98-107) mmol/L Carbon Dioxide (22-29) mmol/L Anion Gap (5-19) BUN (8-23) mg/dL Creatinine (0.5-0.9) mg/dL GFR Calculation Glucose (65-115) mg/dL Calculated Osmolal ity (285-295) mOsm/k g Calcium (8.5-10.5) mg/dL Total Bilirubin (0.15-1.2) mg/dL AST (0-32) U/L ALT (0-33) U/L Alkaline Phosphata se (35-105) IU/L Troponin T Baselin e (0-10) ng/L Troponin T 120 Min [place] 20.86 H (0-10) ng/L Delta Troponin T -5.14 L (0-10) ABS# Total Protein (6.6-8.7) g/dL Albumin (3.5-5.2) g/dL Globulin (1.3-4.6) g/dL Discharge Plan Discharge Patient Disposition: Home Clinical Impression: Atypical chest pain, Constipation Condition: Stable Prescriptions: New magnesium citrate Solution 150 ml PO BID PRN (Reason: constipation) Qty: 296 RF: 0 No Action diltiazem HCl 30 mg Tablet 90 mg PO BID@,15 RF: 0 olmesartan [Benicar] 40 mg Tablet 40 mg PO DAILY@0900 RF: 0 aspirin 81 mg Tablet,Chewable 81 mg PO DAILY@0900 RF: 0 acetaminophen 325 mg Tablet 650 mg PO Q6H PRN (Reason: Mild/Mod Pain Or Temp >/= 101) Qty: 30 RF: 0 lorazepam 0.5 mg Tablet 0.25 mg PO TID PRN (Reason: Anxiety) Qty: 20 RF: 0 oxycodone 5 mg Tablet 5 mg PO Q6H PRN (Reason: Moderate Pain) Qty: 20 RF: 0 Stool Softener-Laxative 8.6-50 mg tablet 1 tab PO BID@ RF: 0 Discharge Orders: Discharge ED (Routine); Ordered 09/13/20 Ordered By: Willem Aguilera Referrals: Grant Arias MD [Primary Care Provider] - Discharge Diet: Usual diet Discharge Activity: Resume usual activity Patient Instructions: Opioid Safety Coding Level of Care Code ED National Secretary for Calderon Delaney
--- NOTE | 2020-09-13 10:13 | XRR_ITS ---
PROCEDURE INFORMATION: Exam: XR Chest Exam date and time: 09/13/2020 10:15 AM Age: 85 years old Clinical indication: Chest pressure; Patient HX: Minor chest pain x 2 weeks; Additional info: Atypical chest pain TECHNIQUE: Imaging protocol: XR of the chest. Views: 1 view. COMPARISON: CR XR chest 1V portable [id number] 08/14/2020 3:10 AM FINDINGS: Lungs: No pneumonia or pulmonary edema. Pleural spaces: No pleural effusion or pneumothorax. Heart/Mediastinum: The cardiac silhouette is not enlarged. The mediastinal contours are normal. Bones/joints: Prior left shoulder arthroplasty. No acute osseous abnormality. XR/XR chest 1V portable [id number] IMPRESSION: No acute abnormality.
--- NOTE | 2020-09-13 10:13 | ECG_ITS ---
[facility] Test Date: 2020-09-13 Pat Name: Cristel Keating Department: Room: Gender: Female [employer]: : 1935 Requested By: Willem Dumont Order Number: [id number] Moises MD: Krysten Mack M.D. Measurements Intervals Mccune Rate: 78 P: IN: QRS: -48 QRSD: 79 T: 26 QT: 368 QTc: 421 Interpretive Statements ATRIAL FIBRILLATION MARKED LEFT AXIS DEVIATION [QRS AXIS < -30] POSSIBLE RIGHT VENTRICULAR CONDUCTION DELAY [RSR (QR) IN V1/V2] SEPTAL MYOCARDIAL INFARCTION [40+ ms Q WAVE IN V1/V2], PROBABLY OLD Compared to ECG 08/14/2020 03:08:59 Myocardial infarct finding now present T-wave abnormality no longer present Electronically Signed On 09-13-2020 23:47:03 CDT by Krysten Mack M.D. [id number] f
[2020-09-13 10:22] LABS: Basophils # 0.1 10^3/uL (0.0-0.1); Basophils % 0.8 %; Eosinophils # 0.2 10^3/uL (0.0-0.8); Eosinophils % 2.7 %; Hematocrit 41.6 % (37.0-47.0); Lymphocytes # 1.4 10^3/uL (0.8-4.8); Lymphocytes % 17.7 %; Mean Corpuscular HGB Conc 31.3 g/dL (30.0-36.0); Mean Corpuscular Hemoglobin 25.9 pg (28.0-34.0); Mean Platelet Volume 11.7 fL (7.4-10.4); Monocytes # 0.6 10^3/uL (0.2-0.9); Monocytes % 7.9 %; Neutrophils # 5.42 10^3/uL (1.8-7.7); Neutrophils % 70.6 %; Nucleated Red Blood Cells % 0 %; Platelet Count 283 10^3/cmm (130-400); Red Blood Count 5.01 10^6/uL (4.1-5.3); Red Cell Distribution Width 13.3 % (12.1-15.1); White Blood Count 7.7 10^3/uL (4.0-10.0)
[2020-09-13 10:41] LABS: Alanine Aminotransferase 12 U/L (0-33); Albumin Level 4.2 g/dL (3.5-5.2); Alkaline Phosphatase 206 IU/L (35-105); Anion Gap 16.8 (5-19); Aspartate Amino Transferase 21 U/L (0-32); Blood Urea Nitrogen 11 mg/dL (8-23); Calcium 9.5 mg/dL (8.5-10.5); Carbon Dioxide 25 mmol/L (22-29); Chloride 103 mmol/L (98-107); Creatinine Clr Calc Pharmacy 49.1106; Globulin 2.8 g/dL (1.3-4.6); Glucose 107 mg/dL (65-115); Osmolality Calculated 292 mOsm/kg (285-295); Potassium 3.8 mmol/L (3.5-5.1); Sodium 141 mmol/L (136-145); Total Bilirubin 0.5 mg/dL (0.15-1.2)
[2020-09-13 11:28] LABS: Troponin(5th) Baseline 26 ng/L (0-10)
--- NOTE | 2020-09-13 11:29 | XR_ITS ---
WS: [id number] KUB, AP view, 09/13/2020 Clinical Data: abd pain/constipation Comparison: None. Findings: No abnormal intraabdominal masses or calcifications are seen. There is no dilatated small bowel or ev idence of obstruction. There is air in the small bowel and colon. There is a moderate amount of fecal material present. Ther e is a left hip cup arthroplasty. XR/XR KUB portable [id number] Impression: Moderate amount of fecal material throughout colon.
[2020-09-13 12:05] VITALS: BP 151/100; PULSE 88; RESP 18; O2SAT 96
[2020-09-13 12:42] LABS: Troponin 5 2HR 20.86 ng/L (0-10)
[2020-09-13 12:45] LABS: Troponin 5 2HR Delta -5.14 ABS# (0-10)
[2020-09-13 12:50] VITALS: RESP 18
[2020-09-13 12:52] VITALS: PULSE 78
[2020-09-13 13:43] VITALS: PULSE 78
== END 2020-09-13 13:44 | disposition home or self-care (01) ==
PROVIDERS: Emergency Provider Family Medicine; PCP Family Medicine
DX: R07.89 Other chest pain (principal); K59.00 Constipation, unspecified; Z79.82 Long term (current) use of aspirin; I48.91 Unspecified atrial fibrillation; I10 Essential (primary) hypertension
CPT/HCPCS: 36415; 71045; 74018; 80053; 84484; 85025; 93005; 99284

== ENCOUNTER 2020-10-11 15:40 | Emergency (ER) | payer MEDICARE, MEDICAID, SELFPAY ==
[2020-10-11 15:46] VITALS: BP 153/90; PULSE 87; RESP 16; TEMP 35.9; O2SAT 98; BMI 23.5
--- NOTE | 2020-10-11 16:00 | XRR_ITS ---
PROCEDURE INFORMATION: Exam: XR Abdomen Exam date and time: 10/11/2020 4:00 PM Age: 85 years old Clinical indication: Abdominal pain; Patient HX: Diff swallowing, constipation TECHNIQUE: Imaging protocol: XR of the abdomen. Views: Frontal supine view of the abdomen. 1 View. COMPARISON: CR XR KUB portable [id number] 09/13/2020 11:49 AM FINDINGS: Gastrointestinal tract: Moderate stool in the distal colon and rectum. Scattered gas within the remainder of the colon. No small bowel obstruction. Intraperitoneal space: No pneumoperitoneum. Bones/joints: Left hip arthroplasty. XR/XR KUB portable [id number] IMPRESSION: 1. Nonobstructive bowel gas pattern. 2. Stool burden in the distal colon and rectum could indicate constipation in the right clinical setting.
--- NOTE | 2020-10-11 16:00 | W.ED.GENADLT ---
HPI - General Adult General: Chief complaint: General Medical Stated complaint: DIFF SWALLOWING, CONSTIPATION Time Seen by Provider: 10/11/20 15:57 History of Present Illness: HPI narrative: Patient states constipation is not much better she would like get that rechecked. Then she also had some reflux, upper throat after she ate and that is bothering her. Onset (ago): day(s) Location: abdomen Associated symptoms: Deny chest pain, dyspnea, headache(s), nausea, rash or vomiting Review of Systems Const: Denies: fever(s), chills or body aches Eyes: Denies: change in vision or blurry vision ENMT: Denies: throat pain or nasal congestion Card: Denies: chest pain or dyspnea on exertion Resp: Denies: dyspnea, productive cough or non-productive cough GI: Reports: heartburn and constipation; Denies: abdominal pain, nausea or vomiting Musc: Denies: extremity pain Skin/Breast: Denies: rash Neuro: Denies: headache(s) Psych: Denies: anxiety or depression Niko/Lymph: Denies: easy bruising PFSH ED PFSH: Medical History Atrial fibrillation Hypertension Continue on home Benicar and diltiazem Surgical History H/O shoulder surgery Left History of hip surgery Left Family History Mother Hypertension Father Lung disease Social History Smoking and tobacco status: never smoked Alcohol intake: never Physical Exam Const: COMMON NORMALS: no acute distress, average body habitus and patient oriented x3 HENMT: COMMON NORMALS: normocephalic HEAD & SCALP: normal to inspection and normocephalic FACE & SINUS: normal facial exam Eye: COMMON NORMALS: conjunctivae normal GENERAL EYE: appearance normal, both eyes and all related structures CONJUNCTIVA: Yes conjunctivae normal Neck/C-Spine: COMMON NORMALS: no JVD Chest: COMMONS NORMALS: normal inspection of the chest Resp: COMMON NORMALS: normal respiratory effort and clear to auscultation bilaterally AUSCULTATION: clear to auscultation bilaterally Cardio: COMMON NORMALS: no JVD, regular rate and regular rhythm RATE: regular rate RHYTHM: regular rhythm GI: INSPECTION: Yes normal to inspection AUSCULTATION: Yes Hypoactive bowel sounds present PERCUSSION: dullness to percussion Extremity: COMMON NORMALS: normal to inspection and full ROM Neuro: COMMON NORMALS: patient oriented x3 Course Vital Signs: Vital signs: Vital Signs Temperature 96.6 F L 10/11/20 15:46 Pulse Rate 81 10/11/20 17:12 Respiratory Rate 15 10/11/20 17:12 Blood Pressure 153/90 10/11/20 15:46 Pulse Oximetry 99 10/11/20 17:12 MDM - General Adult MDM Narrative: Medical decision making narrative: Patient presents with mild dementia and also complains of constipation and reflux in her throat. Patient states that the medicine she received in for constipation has not helped her very much she feels like she is that having her bowels move is often as normally. She would like to try some different. X-ray reveals constipation GI cocktail is given for reflux which helped tremendously. Patient had no other complaints problems eating courage follow-up primary care provider and have a high-fiber diet. Discharge Plan Discharge Patient Disposition: Home Clinical Impression: Constipation Qualifiers: Constipation type: slow transit constipation Qualified Code(s): K59.01 - Slow transit constipation Acid reflux Qualifiers: Esophagitis presence: without esophagitis Qualified Code(s): K21.9 - Gastro-esophageal reflux disease without esophagitis Condition: Stable Prescriptions: New lactulose 10 gram/15 mL solution 10 g PO DAILY PRN (Reason: constipation) Qty: 473 RF: 0 No Action diltiazem HCl 30 mg Tablet 90 mg PO BID@09,15 RF: 0 olmesartan [Benicar] 40 mg Tablet 40 mg PO DAILY@0900 RF: 0 aspirin 81 mg Tablet,Chewable 81 mg PO DAILY@0900 RF: 0 acetaminophen 325 mg Tablet 650 mg PO Q6H PRN (Reason: Mild/Mod Pain Or Temp >/= 101) Qty: 30 RF: 0 lorazepam 0.5 mg Tablet 0.25 mg PO TID PRN (Reason: Anxiety) Qty: 20 RF: 0 oxycodone 5 mg Tablet 5 mg PO Q6H PRN (Reason: Moderate Pain) Qty: 20 RF: 0 Stool Softener-Laxative 8.6-50 mg tablet 1 tab PO BID@ RF: 0 magnesium citrate Solution 150 ml PO BID PRN (Reason: constipation) Qty: 296 RF: 0 Discharge Orders: Discharge ED (Routine); Ordered 10/11/20 Ordered By: Norbert De La Fuente Referrals: Grant Arias MD [Primary Care Provider] - Discharge Diet: As Directed Discharge Activity: Resume usual activity Patient Instructions: Constipation (ED) Activity Restrictions/Additional Instructions: Follow-up with medical provider as directed. Take medications as prescribed. Return to the ER or your medical provider if condition worsens. Please read and understand discharge instructions. If any questions ask please. Can take [id number] Prilosec for reflux. Increase fiber in the diet. Coding Level of Care Code ED Continuous Pickling Line Pickler for Románg Fwd Exam Comprehensive
[2020-10-11] MEDS: lidocaine 2% viscous 15 ML, aluminum-mag hydrox-simethicon 30 ML, sucralfate oral liq 1 GM PO (16:34)
[2020-10-11 17:12] VITALS: PULSE 81; RESP 15; O2SAT 99
== END 2020-10-11 17:13 | disposition home or self-care (01) ==
PROVIDERS: Emergency Provider Nurse Practitioner Family; PCP Family Medicine
DX: K59.01 Slow transit constipation (principal); K21.9 Gastro-esophageal reflux disease without esophagitis; Z79.82 Long term (current) use of aspirin; I48.91 Unspecified atrial fibrillation; I10 Essential (primary) hypertension
CPT/HCPCS: 74018; 99283

== ENCOUNTER 2020-10-21 20:58 | Emergency (ER) | payer MEDICARE, MEDICAID, SELFPAY ==
[2020-10-21 21:31] VITALS: BP 160/95; PULSE 83; RESP 18; TEMP 36.4; O2SAT 95; BMI 26.6
--- NOTE | 2020-10-21 23:05 | XRR_ITS ---
PROCEDURE INFORMATION: Exam: XR Abdomen Exam date and time: 10/21/2020 11:05 PM Age: 85 years old Clinical indication: Constipation; Prior surgery; Surgery date: 6+ months; Surgery type: Left hip; Additional info: Pain/constipation TECHNIQUE: Imaging protocol: XR of the abdomen. Views: Frontal supine view of the abdomen. 1 View. COMPARISON: CR XR KUB portable [id number] 10/11/2020 4:09 PM FINDINGS: Tubes, catheters and devices: There is left hip replacement with prosthetic components in anatomic alignment. This is not fully included on this examination. Gastrointestinal tract: Bowel gas pattern is unremarkable. Large amount of stool is seen within the colon consistent with clinical diagnosis of constipation but this is less than on 10/11/2020. Bones/joints: There are healing fractures of the left superior and inferior pubic rami. XR/XR KUB portable [id number] IMPRESSION: Findings suggesting constipation.
[2020-10-22] MEDS: lactulose oral liq 20 gm/30 mL UDC PO (00:06)
[2020-10-22] MEDS: magnesium hydroxide 30 mL UDC PO (00:06)
[2020-10-22] MEDS: mineral oil 30 mL UDC PO (00:06)
[2020-10-22 00:12] VITALS: BP 168/84; PULSE 76; RESP 17; O2SAT 99
--- NOTE | 2020-10-22 07:29 | ED_ITS ---
HPI - Abdominal Pain General: Chief Complaint: Abdominal Pain Stated Complaint: CONSTIPATION Time Seen by Provider: 10/21/20 23:29 History of Present Illness: HPI narrative: 85-year-old female with a history of constipation. She states that she has 2 applied quite a bit of abdominal pressure to go. She has had some blood in the last 24 hours with trying to have a bowel movement. Only small amounts. She denies any fever, vomiting, other problems. MD elicited complaint: abdominal pain Pertinent past history: constipation Onset (ago): day(s) Pain Consistency: intermittent Location: Diffuse Severity: moderate Quality: cramping Radiation: none Migration to: no migration Exacerbating factors: bowel movement Associated Symptoms: Reports bloating, change in stool character, constipation, GI cramping and hematochezia (Small amount); Denies anorexia, belching, diarrhea, dysuria, fever(s), hematuria, nausea and vomiting Review of Systems Const: Denies: fever(s) Card: Denies: chest pain Resp: Denies: dyspnea GI: Reports: constipation, bloating, GI cramping, change in stool character and hematochezia (Small amount); Denies: nausea, vomiting, diarrhea or belching : Denies: dysuria or hematuria PFSH ED PFSH: Medical History Atrial fibrillation Hypertension Continue on home Benicar and diltiazem Surgical History H/O shoulder surgery Left History of hip surgery Left Family History Mother Hypertension Father Lung disease Social History Smoking and tobacco status: never smoked Alcohol intake: never Physical Exam Const: GENERAL APPEARANCE: well developed ORIENTATION/CONSCIOUSNESS: Yes oriented to person, Yes oriented to place and Yes oriented to time HENMT: COMMON NORMALS: normocephalic, external ears normal and Normal external nose present HEAD & SCALP: normocephalic FACE & SINUS: normal facial exam NOSE: Normal external nose present and No nasal discharge present EXTERNAL EAR: Yes external ears normal Eye: COMMON NORMALS: Equal, round and reactive pupils present, EOMs intact bilaterally and conjunctivae normal EYELID: eyelids normal CONJUNCTIVA: Yes conjunctivae normal PUPIL: Yes Equal, round and reactive pupils present Neck/C-Spine: GENERAL: No tracheal deviation Chest: COMMONS NORMALS: normal inspection of the chest CHEST: No tenderness Resp: COMMON NORMALS: clear to auscultation bilaterally EFFORT & INSPECTION: No tachypneic, No respiratory distress, No retractions, No uses accessory muscles and No tracheal deviation AUSCULTATION: clear to auscultation bilaterally, no rhonchi, no wheezes and lung sounds not diminished Cardio: COMMON NORMALS: regular rate and regular rhythm RATE: regular rate RHYTHM: regular rhythm HEART SOUNDS: no murmurs PERIPHERAL PULSES: radial pulses present GI: INSPECTION: No abdominal distension AUSCULTATION: No Hyperactive bowel sounds present and No Hypoactive bowel sounds present PALPATION: Yes Tenderness to palpation present (GI) (Mild diffuse tenderness lower belly), No Guarding due to palpation present (GI) and No Rigid due to palpation PERCUSSION: no dullness to percussion and no tympanic to percussion Neuro: SENSORIUM/ORIENTATION: Yes oriented to person, Yes oriented to place and Yes oriented to time Psych: COMMON NORMALS: mental status grossly normal Skin: COMMON NORMALS: no rashes or lesions noted GENERAL SKIN EXAM: no rashes or lesions noted Course Vital Signs: Vital signs: Vital Signs Temperature 97.5 F L 10/21/20 21:31 Pulse Rate 76 10/22/20 00:12 Respiratory Rate 17 10/22/20 00:12 Blood Pressure 168/84 10/22/20 00:12 Pulse Oximetry 99 10/22/20 00:12 MDM - Abdominal Pain MDM Narrative: Medical decision making narrative: Patient shows no active signs of bleeding on exam. She is not on anticoagulants. KUB shows no obstructive pattern, but does show quite a large stool mass in the rectal vault. This is likely impaction. She will be sent home on a mixture of mineral oil, lactulose, and milk of magnesia, along with maintenance MiraLAX. She knows to return for any continued problems. Discharge Plan Discharge Patient Disposition: Home Clinical Impression: Constipation Qualifiers: Constipation type: other constipation type Qualified Code(s): K59.09 - Other constipation Condition: Stable Prescriptions: New Anusol-HC 25 mg suppository 25 mg OH Q12H 5 Days Qty: 10 RF: 0 Purelax 17 gram/dose powder 17 g PO DAILY Qty: 119 RF: 0 No Action lactulose 10 gram/15 mL solution 10 g PO DAILY PRN (Reason: constipation) Qty: 473 RF: 0 diltiazem HCl 30 mg Tablet 90 mg PO BID@09,15 RF: 0 olmesartan [Benicar] 40 mg Tablet 40 mg PO DAILY@0900 RF: 0 aspirin 81 mg Tablet,Chewable 81 mg PO DAILY@0900 RF: 0 acetaminophen 325 mg Tablet 650 mg PO Q6H PRN (Reason: Mild/Mod Pain Or Temp >/= 101) Qty: 30 RF: 0 lorazepam 0.5 mg Tablet 0.25 mg PO TID PRN (Reason: Anxiety) Qty: 20 RF: 0 oxycodone 5 mg Tablet 5 mg PO Q6H PRN (Reason: Moderate Pain) Qty: 20 RF: 0 Stool Softener-Laxative 8.6-50 mg tablet 1 tab PO BID@, RF: 0 magnesium citrate Solution 150 ml PO BID PRN (Reason: constipation) Qty: 296 RF: 0 Discharge Orders: Discharge ED (Routine); Ordered 10/22/20 Ordered By: Torsten Delatorre Referrals: Grant Arias MD [Primary Care Provider] - 4-7 days Discharge Diet: Advance as tolerated Patient Instructions: Constipation (ED) Activity Restrictions/Additional Instructions: Return for fever greater than 100, worsening abdominal pain, mental status changes, any other concerning symptoms. 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
== END 2020-10-22 00:13 | disposition home or self-care (01) ==
PROVIDERS: Emergency Provider Emergency Medicine; PCP Family Medicine
DX: K59.09 Other constipation (principal); Z79.82 Long term (current) use of aspirin; I10 Essential (primary) hypertension
CPT/HCPCS: 74018; 99283

== ENCOUNTER 2021-07-20 00:29 | Inpatient (IN) | payer MEDICARE, MEDICAID, SELFPAY ==
[2021-07-20] VITALS (19 sets, daily range): BP systolic 135–190; BP diastolic 66–126; PULSE 72–107; RESP 16–80; TEMP 36.6–37.7; O2SAT 92–99; BMI 23.3
--- NOTE | 2021-07-20 | USR_ITS ---
PROCEDURE INFORMATION: Exam: US Duplex Bilateral Extracranial Arteries, Carotid Arteries Exam date and time: 07/20/2021 2:06 PM Age: 85 years old Clinical indication: Altered mental status/memory loss; Age related cognitive decline; Additional info: Dizzy TECHNIQUE: Imaging protocol: Real-time Duplex ultrasound scan of the bilateral carotid and vertebral arteries combining nash scale, color Doppler and spectral waveform analysis. Bilateral exam. Exam focused on the carotid arteries. COMPARISON: CT angio headneck* [id number] 05/26/2019 10:25 AM FINDINGS: Right common carotid artery: Unremarkable. No occlusion or stenosis. Waveforms are normal. Right internal carotid artery: Unremarkable. No occlusion or stenosis. Waveforms are normal. Right ICA/CCA ratio: Within normal limits. Right external carotid artery: No stenosis in the origin. Right vertebral artery: Unremarkable. Antegrade flow. Left common carotid artery: Unremarkable. No occlusion or stenosis. Waveforms are normal. Left internal carotid artery: Unremarkable. No occlusion or stenosis. Waveforms are normal. Left ICA/CCA ratio: Within normal limits. Left external carotid artery: No stenosis in the origin. Left vertebral artery: Unremarkable. Antegrade flow. US/CV carotid duplex BI* [id number] IMPRESSION: No carotid arterial stenosis. REFERENCES: SRU CRITERIA. The degree of internal carotid artery stenosis is based on criteria defined by the Society of Radiologists in Ultrasound (SRU). Normal is no stenosis. Mild is less than 50% stenosis. Moderate is 50-69% stenosis. Severe is greater than 69% stenosis to near occlusion. Near occlusion is a markedly narrowed lumen. Total occlusion is no detectable patent lumen.
--- NOTE | 2021-07-20 00:58 | CTR_ITS ---
PROCEDURE INFORMATION: Exam: CT Head Without Contrast Exam date and time: 07/20/2021 1:23 AM Age: 85 years old Clinical indication: Altered mental status/memory loss; Patient HX: AMS. Patient acting confused. Hypertensive. ; Additional info: HTN confusion TECHNIQUE: Imaging protocol: Computed tomography of the head without contrast. Radiation optimization: All CT scans at this facility use at least one of these dose optimization techniques: automated exposure control; mA and/or kV adjustment per patient size (includes targeted exams where dose is matched to clinical indication); or iterative reconstruction. COMPARISON: CT head wo con* [id number] 08/14/2020 3:42 AM RADIATION DOSE METRICS: Total DLP (mGy-cm): 1359.63 FINDINGS: Brain: No acute intracranial hemorrhage or mass effect. There is decreased attenuation in the periventricular white matter, likely from microvascular disease. No definite acute infarct by CT. MRI could be more sensitive/specific for detection, as clinically directed. 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 No significant interval change in appearance. The appearance is nonspecific. Possible etiologies would include calcified pineal neoplasm versus meningioma. Other etiologies not excluded. MRI could further evaluate/characterize, if not already performed. Cerebral ventricles: Ventricle size is normal for age. Paranasal sinuses: Included paranasal sinuses are essentially clear. Mastoid air cells: No significant acute finding. Vasculature: Vascular calcifications in the internal carotid and vertebral basilar systems. Bones/joints: No definite acute skull fracture. Soft tissues: No significant acute finding. CT/CT head wo con* [id number] IMPRESSION: 1. No acute intracranial hemorrhage or mass effect. 2. No definite acute infarct by CT, see above. 3. 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 4. Other findings discussed above.
--- NOTE | 2021-07-20 01:01 | ECG_ITS ---
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 Measurements Intervals O'Brien Rate: 93 P: NC: QRS: -43 QRSD: 91 T: 64 QT: 355 QTc: 442 Interpretive Statements ATRIAL FIBRILLATION LEFT AXIS DEVIATION [QRS AXIS < -30] Compared to ECG 09/13/2020 10:48:14 Myocardial infarct finding no longer present Electronically Signed On 07-20-2021 9:05:35 CDT by Demetrius Nuno M.D. [id number]
[2021-07-20] MEDS: enalaprilat 1.25 mg/mL Inj IVP (01:59)
[2021-07-20] MEDS: metoprolol tartrate 1 mg/1 mL SDV 5 mL 5 MG IVP (02:02)
[2021-07-20 02:04] LABS: Basophils % 0.6 %; Eosinophils # 0.1 10^3/uL (0.0-0.8); Eosinophils % 1.2 %; Hematocrit 42.6 % (37.0-47.0); Hemoglobin 13.1 g/dL (11.5-15.3); Lymphocytes # 1.2 10^3/uL (0.8-4.8); Lymphocytes % 19.1 %; Mean Corpuscular HGB Conc 30.8 g/dL (30.0-36.0); Mean Corpuscular Hemoglobin 25.2 pg (28.0-34.0); Mean Corpuscular Volume 81.9 fl (81-99); Mean Platelet Volume 11.2 fL (7.4-10.4); Monocytes # 0.4 10^3/uL (0.2-0.9); Monocytes % 5.9 %; Neutrophils # 4.66 10^3/uL (1.8-7.7); Neutrophils % 72.6 %; Nucleated Red Blood Cells % 0 %; Platelet Count 206 10^3/cmm (130-400); Red Cell Distribution Width 15.1 % (12.1-15.1); White Blood Count 6.4 10^3/uL (4.0-10.0)
[2021-07-20 02:05] LABS: Add Urine Microscopic? NO; Charge for UA Resulting for Rev
[2021-07-20 02:19] LABS: Bilirubin Urine Neg (Negative); Blood Urine Neg (Negative); Glucose Urine UA Norm (Normal); Ketones Urine Negative (Negative); Leukocyte Esterase Urine Negative (Negative); Nitrate Urine Negative (Negative); Protein Urine Neg (Negative); Sulfosalicylic Acid Urine Negative (Negative); Urine Appearance Clear (CLEAR); Urine Color Yellow (Yellow); Urobilinogen Urine Norm (Negative); pH Urine 8 (5-7)
[2021-07-20 02:22] LABS: Troponin(5th) Baseline 15 ng/L (0-10)
[2021-07-20 02:30] LABS: Alanine Aminotransferase 13 U/L (0-33); Albumin Level 4.6 g/dL (3.5-5.2); Alkaline Phosphatase 120 IU/L (35-105); Anion Gap 13.7 (5-19); Aspartate Amino Transferase 19 U/L (0-32); Blood Urea Nitrogen 22 mg/dL (8-23); Calcium 10.1 mg/dL (8.5-10.5); Carbon Dioxide 26 mmol/L (22-29); Chloride 103 mmol/L (98-107); Globulin 2.7 g/dL (1.3-4.6); Glucose 133 mg/dL (65-115); Magnesium 2.2 mg/dL (1.7-2.3); NT Pro B Type Natriuretic Pept 1651 pg/mL (0-450); Osmolality Calculated 293 mOsm/kg (285-295); Potassium 3.7 mmol/L (3.5-5.1); Sodium 139 mmol/L (136-145); Total Bilirubin 0.3 mg/dL (0.15-1.2); Total Protein 7.3 g/dL (6.6-8.7)
[2021-07-20] MEDS: LORazepam 2 mg/mL INJ 1 mL 0.5 MG IVP (02:41)
--- NOTE | 2021-07-20 02:56 | W.ED.GENADLT ---
HPI - General Adult General: Chief complaint: General Medical Stated complaint: hypertension Time Seen by Provider: 07/20/21 00:42 Source: patient and family History of Present Illness: 85-year-old lady with a history of atrial fibrillation and hypertension. Family notes that blood pressure has been high last evening and this morning. She has had periods of intermittent mild confusion with this. She denies any chest pain or significant shortness of breath. She took an extra half dose of diltiazem around 10:30 PM without any improvement in her blood pressure. On interview, the patient is mildly anxious, fretting over her blood pressure and any changes that may come to her medication. Onset (ago): hour(s) Radiation: non-radiation Quality: other Pain Consistency: other Relieving factors: none Exacerbating factors: none Associated symptoms: Reports confusion (Mild); Deny chest pain, cough, diaphoresis, decreased appetite, dyspnea, fevers/chills, headache(s), nausea, short of breath, syncope or vomiting Treatments prior to arrival: other Review of Systems Const: Denies: fever(s) or diaphoresis Eyes: Denies: change in vision Card: Denies: chest pain or syncope Resp: Denies: dyspnea GI: Denies: nausea or vomiting Musc: Denies: neck pain Neuro: Reports: confusion (Mild); Denies: headache(s) Psych: Reports: anxiety [facility] ED PFSH: Medical History Atrial fibrillation Hypertension Continue on home Benicar and diltiazem Surgical History H/O shoulder surgery Left History of hip surgery Left Family History Mother Hypertension Father Lung disease Social History Smoking and tobacco status: never smoked Alcohol intake: never Physical Exam Const: GENERAL APPEARANCE: cooperative and anxious; not ill appearing NUTRITIONAL APPEARANCE: thin ORIENTATION/CONSCIOUSNESS: Yes awake, Yes oriented to person, Yes oriented to place and Yes oriented to time HENMT: COMMON NORMALS: normocephalic, atraumatic, hearing grossly normal bilaterally and Normal external nose present HEAD & SCALP: normocephalic and atraumatic FACE & SINUS: normal facial exam and face symmetric NOSE: Normal external nose present and Normal nares present Eye: COMMON NORMALS: Equal, round and reactive pupils present and EOMs intact bilaterally PUPIL: Yes Equal, round and reactive pupils present Chest: COMMONS NORMALS: normal inspection of the chest Resp: COMMON NORMALS: normal respiratory effort, No use of accessory muscles and clear to auscultation bilaterally AUSCULTATION: clear to auscultation bilaterally Cardio: COMMON NORMALS: regular rate and Peripheral pulses 2+ throughout RATE: regular rate RHYTHM: abnormal rhythm irregularly irregular PERIPHERAL PULSES: Peripheral pulses 2+ throughout GI: COMMON NORMALS: Normal to inspection, nondistended, normoactive bowel sounds present, Soft to palpation and non-tender PALPATION: Yes Soft to palpation Neuro: SENSORIUM/ORIENTATION: Yes oriented to person, Yes oriented to place and Yes oriented to time CRANIAL NERVES: Yes CN normal except as noted COORDINATION/BALANCE: saazai-vb-itor test normal and mqgi-[id number]-vyhb test normal SPEECH: speech normal GAIT: Yes Unable to assess gait COORDINATION: [id number]-[id number] test normal and jllx-dl-[id number] test normal Skin: COMMON NORMALS: no rashes or lesions noted GENERAL SKIN EXAM: no rashes or lesions noted Course Vital Signs: Vital signs: Vital Signs Temperature 98.1 F 07/20/21 00:36 Pulse Rate 93 07/20/21 01:18 Respiratory Rate 18 07/20/21 01:18 Blood Pressure 176/118 07/20/21 01:18 Pulse Oximetry 96 07/20/21 01:18 [facility] - General Adult Medical Decision Making Patient significantly hypertensive on arrival. 190/110. Currently after medication heart rate is down to 75, blood pressure 150/81. Patient is less anxious. CBC is normal. BMP is normal. First troponin is 15, which is lower than it has been in the past on presentation for her. Head CT shows a stable appearing calcification, and is otherwise unremarkable. With improvement in her pressure and symptoms, she will be allowed home. Lab Data : 07/20/21 01:45 07/20/21 01:[address] 07/20/21 00:58 IMPRESSION: 1. No acute intracranial hemorrhage or mass effect. 2. No definite acute infarct by CT, see above. 3. 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 4. Other findings discussed above. Laboratory Results WBC 6.4 10^3/uL (4.0-10.0) 07/20/21 01:45 RBC 5.20 10^6/uL (4.1-5.3) 07/20/21 01:45 Hgb 13.1 g/dL (11.5-15.3) 07/20/21 01:45 Hct 42.6 % (37.0-47.0) 07/20/21 01:45 MCV 81.9 fl (81-99) 07/20/21 01:45 MCH 25.2 pg (28.0-34.0) L 07/20/21 01:45 MCHC 30.8 g/dL (30.0-36.0) 07/20/21 01:45 RDW 15.1 % (12.1-15.1) 07/20/21 01:45 Plt Count 206 10^3/cmm (130-400) 07/20/21 01:45 MPV 11.2 fL (7.4-10.4) H 07/20/21 01:45 Neut % (Auto) 72.6 % 07/20/21 01:45 Lymph % (Auto) 19.1 % 07/20/21 01:45 [place] % (Auto) 5.9 % 07/20/21 01:45 Eos % (Auto) 1.2 % 07/20/21 01:45 Baso % (Auto) 0.6 % 07/20/21 01:45 Neut # (Auto) 4.66 10^3/uL (1.8-7.7) 07/20/21 01:45 Lymph # (Auto) 1.2 10^3/uL (0.8-4.8) 07/20/21 01:45 [place] # (Auto) 0.4 10^3/uL (0.2-0.9) 07/20/21 01:45 Eos # (Auto) 0.1 10^3/uL (0.0-0.8) 07/20/21 01:45 Baso # (Auto) 0.0 10^3/uL (0.0-0.1) 07/20/21 01:45 Nucleated RBC % (auto) 0 % 07/20/21 01:45 Nucleated RBCs # 0.0 /100WBC 07/20/21 01:45 Sodium 139 mmol/L (136-145) 07/20/21 01:45 Potassium 3.7 mmol/L (3.5-5.1) 07/20/21 01:45 Chloride 103 mmol/L (98-107) 07/20/21 01:45 Carbon Dioxide 26 mmol/L (22-29) 07/20/21 01:45 Anion Gap 13.7 (5-19) 07/20/21 01:45 BUN 22 mg/dL (8-23) 07/20/21 01:45 Creatinine 0.9 mg/dL (0.5-0.9) 07/20/21 01:45 GFR Calculation Not Reportable 07/20/21 01:45 Glucose 133 mg/dL (65-115) H 07/20/21 01:45 Calculated Osmolality 293 mOsm/kg (285-295) 07/20/21 01:45 Calcium 10.1 mg/dL (8.5-10.5) 07/20/21 01:45 Magnesium 2.2 mg/dL (1.7-2.3) 07/20/21 01:45 Total Bilirubin 0.3 mg/dL (0.15-1.2) 07/20/21 01:45 AST 19 U/L (0-32) 07/20/21 01:45 ALT 13 U/L (0-33) 07/20/21 01:45 Alkaline Phosphatase 120 IU/L (35-105) H 07/20/21 01:45 Troponin T Baseline 15 ng/L (0-10) H 07/20/21 01:45 NT-Pro-B Natriuret Pep 1651 pg/mL (0-450) H 07/20/21 01:45 Total Protein 7.3 g/dL (6.6-8.7) 07/20/21 01:45 Albumin 4.6 g/dL (3.5-5.2) 07/20/21 01:45 Globulin 2.7 g/dL (1.3-4.6) 07/20/21 01:45 Urine Color Yellow (Yellow) 07/20/21 01:45 Urine Appearance Clear (CLEAR) 07/20/21 01:45 Urine pH 8 (5-7) H 07/20/21 01:45 Ur Specific [place] 1.010 (1.005-1.030) 07/20/21 01:45 Urine Protein Neg (Negative) 07/20/21 01:45 Urine Glucose (UA) Norm (Normal) 07/20/21 01:45 Urine Ketones Negative (Negative) 07/20/21 01:45 Urine Blood Neg (Negative) 07/20/21 01:45 Urine Nitrate Negative (Negative) 07/20/21 01:45 Urine Bilirubin Neg (Negative) 07/20/21 01:45 Prot Sulfosalicylic Acd Negative (Negative) 07/20/21 01:45 Urine Urobilinogen Norm mg/dL (Negative) 07/20/21 01:45 Ur Leukocyte Esterase Negative (Negative) 07/20/21 01:45 Discharge Plan Discharge Patient Disposition: Home Clinical Impression: Hypertensive urgency Condition: Stable Prescriptions: No Action lactulose 10 gram/15 mL solution 10 g PO DAILY PRN (Reason: constipation) Qty: 473 0RF diltiazem HCl 30 mg Tablet 90 mg PO BID@09,15 0RF olmesartan [Benicar] 40 mg Tablet 40 mg PO DAILY@0900 0RF aspirin 81 mg Tablet,Chewable 81 mg PO DAILY@0900 0RF acetaminophen 325 mg Tablet 650 mg PO Q6H PRN (Reason: Mild/Mod Pain Or Temp >/= 101) Qty: 30 0RF lorazepam 0.5 mg Tablet 0.25 mg PO TID PRN (Reason: Anxiety) Qty: 20 0RF oxycodone 5 mg Tablet 5 mg PO Q6H PRN (Reason: Moderate Pain) Qty: 20 0RF Stool Softener-Laxative 8.6-50 mg tablet 1 tab PO BID@09,21 0RF magnesium citrate Solution 150 ml PO BID PRN (Reason: constipation) Qty: 296 0RF Purelax 17 gram/dose powder 17 g PO DAILY Qty: 119 0RF Discharge Orders: Discharge ED (Routine); Ordered 07/20/21 Ordered By: Torsten Delatorre Referrals: Grant Arias MD [Primary Care Provider] - 4-7 days Discharge Diet: Advance as tolerated Discharge Activity: Increase activity as tolerated Patient Instructions: Hypertension (ED) Activity Restrictions/Additional Instructions: Return for worsening mental status, worsening weakness, inability to control blood pressure, any other concerning symptoms. Take blood pressures twice daily. Report numbers to your physician next week. 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
--- NOTE | 2021-07-20 05:21 | PC.NURSE ---
0340 Pt discharged to home per ERP. Assisted pt getting dress, pt very sleepy and unstable on feet without assist. By the time we got pt to car via WC pt unable to stand on her own and having diff staying awake. The dtr voiced concerns about her mother going home by herself. She felt that she should be admitted that it was not safe for her to go home. Pt was brought back into ER room 16. Dr Delatorre updated and will speak to pt and dtr.
--- NOTE | 2021-07-20 05:51 | P.HP_ITS ---
Providers/Chief Complaint Admitting Physician: Sammy Sesay MD Primary Care Provider: Grant Arias MD Chief Complaint: hypertension History of Present Illness Cristel Keating is a 85 year old female with a past medical history of CVA, hypertension, history of atrial fibrillation not on anticoagulation, who presents to [facility] due to unsteadiness, near falls, and inability to balance herself. Patient has received lorazepam, is a drowsy during my examination she is also received multiple blood pressure medications I was called for evaluation, daughter is at bedside. Patient tells me that she lives by herself, she is able to take care of herself, but early this morning, she was suddenly not able to balance her self, she felt very unsteady on her feet. No facial droop no slurring her words no paresthesias, she does not describe any weakness, more of an unsteadiness. No changes in her vision. No dysuria. No cough. No fevers. She tells me that she has not been feeling well for the last few days. She tells me she does not know why she is not on any blood thinners for her atrial fibrillation. She only takes aspirin 81 at one point she was on aspirin 325 but then her doctor lowered her dose to 81 perhaps due to bleeding risk. Currently alert and oriented to person, to place, not to time, her NIH stroke scale on evaluation was 0, she her blood pressure 170s over 80s, EKG showing atrial fibrillation, saturating in the high 90s on room air. Review of Systems Const: Denies: fever(s) Eyes: Denies: change in vision or blurry vision Resp: Denies: dyspnea, productive cough, non-productive cough or wheezing GI: Denies: abdominal pain, nausea, vomiting or melena : Denies: dysuria Musc: Denies: neck pain or back pain Skin/Breast: Denies: rash Medications/Allergies Home Medications Medication Instructions Recorded Confirmed Last Taken Type diltiazem HCl 30 mg tablet 90 mg PO BID@04/19/20 09/13/20 09/13/20 History olmesartan 40 mg tablet (Benicar) 40 mg PO DAILY@0900 04/19/20 09/13/20 09/13/20 History aspirin 81 mg chewable tablet 81 mg PO DAILY@89908/14/20 09/13/2020/21 History acetaminophen 325 mg tablet 650 mg PO Q6H PRN #30 tab 08/16/20 09/13/20 Unknown Rx lorazepam 0.5 mg tablet 0.25 mg PO TID PRN #20 tab 08/16/20 09/13/20 09/13/20 Rx oxycodone 5 mg tablet 5 mg PO Q6H PRN #20 tab 08/16/20 09/13/20 09/13/20 Rx 1.25 mg TODAY magnesium citrate 150 ml PO BID PRN #296 ml 09/13/20 Unknown Rx sennosides 8.6 mg-docusate sodium 1 tab PO BID@09/13/20 09/13/20 09/13/20 History 50 mg tablet (Stool Softener-Laxative) lactulose 10 gram/15 mL oral 10 g (15 mL) PO DAILY PRN #473 ml 10/11/20 Unknown Rx solution polyethylene glycol 3350 17 17 g PO DAILY #119 g 10/22/20 Unknown Rx gram/dose oral powder (Purelax) Allergies Allergy/AdvReac Type Severity Reaction Status Date / Time No Known Allergies Allergy Verified 05/26/19 08:03 PFSH Acute PFSH: Medical History Atrial fibrillation Hypertension Continue on home Benicar and diltiazem Surgical History H/O shoulder surgery Left History of hip surgery Left Family History Mother Hypertension Father Lung disease Social History Smoking and tobacco status: never smoked Alcohol intake: never Vitals/I&O/Wt Last Vital Signs Temp 98.1 F 07/20/21 00:36 Pulse 72 07/20/21 05:00 Resp 16 07/20/21 05:00 BP 178/98 07/20/21 05:00 Pulse Ox 94 07/20/21 05:00 Weight last 48 hrs Weight 63.503 kg Physical Exam Const: COMMON NORMALS: no acute distress and patient oriented x3 HENMT: COMMON NORMALS: normocephalic HEAD & SCALP: normocephalic Neck/C-Spine: COMMON NORMALS: no JVD Resp: COMMON NORMALS: normal respiratory effort, No retractions, No use of accessory muscles and clear to auscultation bilaterally AUSCULTATION: clear to auscultation bilaterally Cardio: COMMON NORMALS: no JVD, regular rate, regular rhythm, S1 normal heart sound present and S2 normal heart sound present RATE: regular rate RHYTHM: regular rhythm HEART SOUNDS: S1 normal heart sound present and S2 normal heart sound present GI: COMMON NORMALS: Normal to inspection, nondistended, normoactive bowel sounds present, Soft to palpation, non-tender, No hepatosplenomegaly present, no masses and no bruits PALPATION: Yes Soft to palpation and Yes No hepatosplenomegaly present Extremity: COMMON NORMALS: capillary refill normal, no clubbing, cyanosis or edema, no calf tenderness and no pedal edema Neuro: COMMON NORMALS: patient oriented x3, CN's II-XII intact bilaterally, moves all extremities, no focal motor deficits and no sensory deficits noted OTHER: [id number] grossly abnormal, [id number] grossly abnormal, according to nursing staff when they got her up to the side of the bed she was very unsteady Psych: COMMON NORMALS: mental status grossly normal Data : 07/20/21 01:45 07/20/21 01:45 A&P Assessment and plan (1) Hypertensive urgency: Status: Acute (2) Atrial fibrillation: Status: Acute (3) Hypertension: Status: Acute (4) Posterior circulation stroke: Status: Acute Plan Posterior circulation stroke -Patient symptomatology sound highly suspicious for cerebellar stroke -Currently in A. fib -She is suddenly more unsteady on her feet, grossly abnormal [id number] and [id number] -CT of the head negative for acute bleed, negative for acute stroke Plan -Admit to general medical floors -Neurochecks, aspiration precautions, NIH stroke scale -For now continue aspirin 81 mg, statin 40 mg -I have held off on therapeutic anticoagulation, due to risk of hemorrhagic conversion, will wait until MRI is back -Telemetry monitoring -Gentle IV hydration -Allow for permissive hypertension -Treat systolic of greater than 220 diastolic of is greater than 120 -I have ordered a MRI of the brain -Cardiac echo carotid ultrasound -PT OT -Full code -Lovenox for DVT prophylaxis Atrial fibrillation, rate controlled, continue diltiazem Hypertensive urgency, allow for permissive hypertension due to concerns for CVA Patient does take lorazepam, oxycodone at home, this possibly also could be a component of why she is unsteady, will consider cutting back on the dose Attestations Medical Necessity Statement*: Patient requires hospitalization, outpatient with observation for posterior circulation stroke Coding Level of Care Code Acute Poultry Farmer Egg for Calderon Delaney Diagnoses Hypertensive urgency I16.0 Atrial fibrillation I48.91 Hypertension I10 Posterior circulation stroke I63.50
[2021-07-20 06:23] LABS: Troponin 5 6HR 12.98 ng/L (0-10)
--- NOTE | 2021-07-20 06:28 | USCV_ITS ---
Cristel Keating Age: 85 Gender: F : 1935 Exam Date: 07/20/2021 13:54 Ordering Phys: Sammy Sesay MD Technologist: [place] [facility] [place]: chf BP: 134 / 74 HR: 99 Rhythm: Sinus Technical Quality: Adequate MEASUREMENTS (Male / Female) Normal Values 2D ECHO LV Diastolic Diameter PLAX 3.1 cm 4.2 - 5.9 / 3.9 - 5.3 cm LV Systolic Diameter PLAX 1.7 cm IVS Diastolic Thickness 1.1 cm 0.6 - 1.0 / 0.6 - 0.9 cm IVS Systolic Thickness 1.0 cm LVPW Diastolic Thickness 0.9 cm 0.6 - 1.0 / 0.6 - 0.9 cm LVPW Systolic Thickness 1.0 cm LVOT Diameter 2.1 cm LV Ejection Fraction 2D Teich 78.2 % LV Ejection Fraction MOD 2C 72.6 % LV Ejection Fraction 2C AL 71.7 % LA Diameter 4.9 cm M-MODE LV Diastolic Diameter MM 5.2 cm 4.2 - 5.9 / 3.9 - 5.3 cm LV Systolic Diameter MM 3.7 cm LV Ejection Fraction MM Teich 54.9 % IVS Diastolic Thickness MM 0.9 cm 0.6 - 1.0 / 0.6 - 0.9 cm IVS Systolic Thickness MM 1.2 cm LVPW Diastolic Thickness MM 1.3 cm 0.6 - 1.0 / 0.6 - 0.9 cm LVPW Systolic Thickness MM 1.5 cm RV Diastolic Diameter MM 1.4 cm Aortic Annulus Diameter 2.2 cm LA Ao Ratio MM 2.6 MV E Point Septal Separation 0.6 cm DOPPLER AV Peak Velocity 142.7 cm/s LVOT Peak Velocity 80.0 cm/s AV Area Cont Eq vti 2.1 cm squared AV Area Cont Eq pk 2.0 cm squared MV Area PHT 5.1 cm squared Mitral E to A Ratio 3.9 MV E' Velocity 59.0 cm/s Mitral E to MV E' Ratio 8.5 Mitral E to LV E' Lateral Ratio 8.2 Mitral E to LV E' Septal Ratio 8.8 TR Peak Velocity 286.7 cm/s TR Peak Gradient 32.9 mmHg TV Peak E Velocity 98.0 cm/s Right Atrial Pressure 3.0 mmHg Pulmonary Artery Systolic Pressu 35.9 mmHg PV Peak Velocity 85.0 cm/s FINDINGS Left Ventricle Moderately increased left ventricular mass. Mildly increased septal wall thickness. Mildly increased posterior wall thickness. Mildly decreased midwall fractional shortening. Right Ventricle The right ventricle is normal in size and function. Right Atrium The right atrium is normal in size. Left Atrium Severely increased left atrial area. Mitral Valve Structurally normal mitral valve without significant stenosis or prolapse. There is mild mitral regurgitation. Aortic Valve Aortic valve sclerosis with no significant stenosis. There is no aortic regurgitation. Tricuspid Valve Tricuspid valve not well visualized. Mild tricuspid valve regurgitation. Mild to moderate elevation in RV systolic pressure with estimated RV systolic pressure of 50 to 55 mmHg. Pulmonic Valve PV not well visualized No significant PV stenosis. There is trace pulmonic regurgitation. Pericardium Normal pericardium without effusion. Aorta Normal ascending aorta dimension. CONCLUSIONS Moderately increased left ventricular mass. Mildly increased septal wall thickness. Mildly increased posterior wall thickness. Mildly decreased midwall fractional shortening. Severely increased left atrial area. Mild to moderate elevation in RV systolic pressure with estimated RV systolic pressure of 50 to 55 mmHg. There is mild mitral regurgitation. Lefty Mccauley MD (Electronically Signed) Final Date: 21 July 2021 12:27 S
[2021-07-20 06:32] LABS: NT Pro B Type Natriuretic Pept 1998 pg/mL (0-450)
[2021-07-20 06:42] LABS: Troponin 5 6HR Delta -2.02 ng/L (0-12)
[2021-07-20] MEDS: sodium chloride 0.9% 1,000 ML 50 ML IV (06:49)
[2021-07-20] MEDS: enoxaparin 40 mg/0.4 mL Syringe SUBCUT (06:49)
[2021-07-20] MEDS: ondansetron 2 mg/ML SDV 2 mL 4 MG IVP (06:49)
--- NOTE | 2021-07-20 07:01 | ECG_ITS ---
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 Measurements Intervals Bivalve Rate: 78 P: ME: QRS: -44 QRSD: 85 T: 49 QT: 383 QTc: 437 Interpretive Statements ATRIAL FIBRILLATION LEFT AXIS DEVIATION [QRS AXIS < -30] POSSIBLE RIGHT VENTRICULAR CONDUCTION DELAY [RSR (QR) IN V1/V2] Compared to ECG 07/20/2021 01:41:12 No significant changes Electronically Signed On 07-22-2021 9:08:21 CDT by Demetrius Nuno M.D. [email or web address]
[2021-07-20 07:31] LABS: Thyroid Stimulating Hormone 3.75 uIU/mL (0.27-4.20)
[2021-07-20] MEDS: labetalol 5 mg/mL SDV 20mL 10 MG IVP (08:34)
[2021-07-20] MEDS: dilTIAZem 60 mg Tablet 90 MG PO ×2 (08:37→18:10)
[2021-07-20] MEDS: famotidine 20 mg Tablet PO ×2 (08:37→18:11)
[2021-07-20] MEDS: aspirin 81 mg EC Tablet PO (08:37)
--- NOTE | 2021-07-20 11:48 | PC.CHAP ---
Pastoral Care Encounter/Spiritual Assessment Type of Contact [] Declined airfield engineer officer visit [] Patient/Family/Request visit [] Outpatient visit [] Follow-up visit [] Physician referral [] Code/Alert [X] Routine visit [] Staff referral [] Actively dying [] Patient sleeping [] Family support [] [] Out of room [] Palliative care [] [X] Receiving care in room [] Pre-surgical visit [] Trauma [] Long length of stay [] ICU visit [] Other: Relational/Emotional Strength [] Patient feels connected with others/family/visitors/staff [] Distress [] Loneliness/isolation [] Abandonment Spirituality of Patient [] Person of Lorna [] Attends Rastafari of their Lorna [] Believes in Prayer [] Reads Bible or Episcopalian materials [] There are Spiritual issues to be addressed Continuity Director Interventions [] Prayer [] Active listening [] Non-anxious presence [] Spiritual/emotional support [] Crisis/trauma care [] Spiritual counseling [] Bereavement support [] Provided bereavement packet [] Provided Bible/devotional materials [] Provided toy/stuffed animal, coloring book to patient or family member [] Provided Communion [] Anointing/[place] [] Salvation [] Completed spiritual assessment [] Other: Impact on Illness or Injury [] Angry [] Fearful [] Anxious [] Often cries [] Exhaustion [] Unable to work [] Unable to attend caodaism [] Unable to walk/stand [] Unable to read [] Unable to drive [] Unable to eat/drink [] Unable to sleep [] Unable to be with family [] Patient intubated [] Other: Summary Time spent with patient
[2021-07-20] MEDS: atorvastatin 40 mg Tablet PO (20:49)
[2021-07-21] MEDS: sodium chloride 0.9% 1,000 ML 50 ML IV ×2 (02:38→22:30)
[2021-07-21 04:00] VITALS: BP 145/78; PULSE 108; RESP 17; TEMP 36.9; O2SAT 98
[2021-07-21] MEDS: enoxaparin 40 mg/0.4 mL Syringe SUBCUT (06:15)
[2021-07-21 07:20] VITALS: BP 149/92; PULSE 80; RESP 14; TEMP 36.8; O2SAT 94
[2021-07-21] MEDS: dilTIAZem 60 mg Tablet 90 MG PO ×2 (09:11→18:10)
[2021-07-21] MEDS: famotidine 20 mg Tablet PO ×2 (09:14→18:10)
[2021-07-21] MEDS: aspirin 81 mg EC Tablet PO (09:14)
--- NOTE | 2021-07-21 10:20 | P.PN_ITS ---
Subjective Subjective: This morning patient is more awake and alert She was very concerned when I told her about her left-sided neglect due to possible CVA, MRI is pending on Thursday Otherwise able to move her upper and lower extremities She was not hungry at all however her breakfast tray was in front of her Vitals/I&O/Wt Last Vital Signs Temp 98.3 F 07/21/21 07:20 Pulse 80 07/21/21 07:20 Resp 14 07/21/21 07:20 BP 149/92 07/21/21 07:20 Pulse Ox 94 07/21/21 07:20 07/20/21 07/21/21 07/21/21 22:59 06:59 14:59 Intake Total 120 / 120 990.833 / 1110.833 Balance 120 / 120 990.833 / 1110.833 Weight last 48 hrs Weight 63.503 kg Physical Exam Narrative: This morning patient is awake and alert She is able to move her extremities She has left-sided neglect Lethargic weak Endorsing anorexia clinical signs of dehydration S1, S2 No audible stridor or wheezing She seems anxious Saturating well on room air Abdomen soft Data : 07/20/21 01:45 07/20/21 01:45 A&P Assessment and plan (1) Posterior circulation stroke: Status: Acute (2) Hypertensive urgency: Status: Acute (3) Weakness: Status: Acute (4) Atrial fibrillation: Status: Acute Plan Patient has significant left-sided neglect Unsteady gait PT recommended rehab Check B12 levels MRI Thursday pending Hypertensive urgency: Currently blood pressure 149/92 mmHg Patient is full code Endorsing anorexia A. fib without RVR, not a good candidate for anticoagulation Attestations Medical Necessity Statement*: discharge to rehab Time Spent in Patient Care: 25mins Coding Level of Care Code Acute Farm Worker for g Fwd Diagnoses Posterior circulation stroke I63.50 Hypertensive urgency I16.0 Weakness R53.1 Atrial fibrillation I48.91
[2021-07-21 12:00] VITALS: BP 119/77; PULSE 72; RESP 18; TEMP 36.3; O2SAT 95
[2021-07-21 13:46] LABS: Vitamin B12 219 pg/mL (232-1245)
[2021-07-21 14:00] VITALS: PULSE 69
[2021-07-21 15:33] VITALS: BP 165/71; PULSE 90; RESP 16; TEMP 36.4; O2SAT 98
[2021-07-21 20:00] VITALS: BP 135/84; PULSE 80; RESP 17; TEMP 36.9; O2SAT 93
[2021-07-21] MEDS: atorvastatin 40 mg Tablet PO (20:14)
[2021-07-22] VITALS (10 sets, daily range): BP systolic 145–172; BP diastolic 70–94; PULSE 64–84; RESP 18–19; TEMP 36.4–37.2; O2SAT 90–97
--- NOTE | 2021-07-22 08:47 | PC.NURSE ---
Dr. Gillette shut fluids off on patient. This nurse DC'd fluids in chart
--- NOTE | 2021-07-22 08:51 | PC.NURSE ---
Dr. Gillette stated to stop 1:1 sitter for this patient
[2021-07-22] MEDS: dilTIAZem 60 mg Tablet 90 MG PO ×2 (08:57→17:49)
[2021-07-22] MEDS: famotidine 20 mg Tablet PO ×2 (09:00→17:51)
[2021-07-22] MEDS: aspirin 81 mg EC Tablet PO (09:00)
--- NOTE | 2021-07-22 10:30 | MR_ITS ---
WS: [id number] MRI HEAD WITHOUT CONTRAST TECHNIQUE: Sagittal T1, T2 axial, T2 axial FLAIR, axial and coronal T1 images, axial susceptibility w eighted imaging, axial diffusion weighted images, and coronal T2 images were obtained. CLINICAL INFORMATION: posterior circulation stroke COMPARISON: CT July 20, 2021 FINDINGS: Large region of restricted diffusion involving the RIGHT PIGMENT SUPPLIER territory with involvement of the RIGHT mid and posterior temporal lobe. This measures approximately 6.2 x 2.9 cm consistent with acute ische shirley. This extends into the RIGHT perihippocampal gyrus. Moderate associated edema. Mild mass effect on the RIGHT occipital and posterior temporal horn. No hy drocephalus. No acute hemorrhage. Additional focus of acute ischemia involving the RIGHT thalamus soy suring 6 mm. Moderate small vessel changes. Moderate parenchymal volume loss. Small vessel changes in the nicole. No rmal vascular flow voids at the skull base. No extra-axial fluid collections. Normal optic chiasm and pituitary infundibulum. 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 MR/MR head wo con* [id number] IMPRESSION: 1. Acute ischemia involving the RIGHT PIGMENT SUPPLIER territory measuring 6.2 x 2.9 cm wit h mild localized mass effect and edema. Partial effacement of the RIGHT occipit al and temporal horns. No hydrocephalus. 2. Additional focus of acute ischemia in the RIGHT thalamus measuring 6 mm. 3. Moderate small vessel changes with moderate parenchymal volume loss. 4. 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 This appears relatively unchanged since the [place] [address] Nain MD at 07/22/2021 2:04 PM.
--- NOTE | 2021-07-22 11:39 | PM.PN ---
Subjective Subjective: MRI head is pending Awaiting residential placement This morning she is awake and alert Overnight required one-to-one supervision as she was try to get out of bed and required some assistance for ambulation Vitals/I&O/Wt Last Vital Signs Temp 98.2 F 07/22/21 08:00 Pulse 79 07/22/21 08:00 Resp 18 07/22/21 08:00 BP 172/94 07/22/21 08:00 Pulse Ox 96 07/22/21 08:00 07/21/21 07/22/21 07/22/21 22:59 06:59 14:59 Intake Total 1233.333 / 1473.333 360 / 360 Balance 1233.333 / 1473.333 360 / 360 Physical Exam Narrative: Patient is very pleasant and cooperative this morning Discontinue one-to-one supervision Nonfocal neuro exam Left-sided neglect Looks euvolemic No active complaints S1, S2 variable Abdomen is soft Saturating well on room air Needs two-person assist for ambulation Data : 07/20/21 01:45 07/20/21 01:45 A&P Assessment and plan (1) Posterior circulation stroke: Status: Acute (2) Hypertensive urgency: Status: Acute (3) Weakness: Status: Acute (4) Atrial fibrillation: Status: Acute Plan Posterior circulation stroke Left-sided neglect Awaiting residential placement MRI head pending today Risk factor modification, medical management Family updated Optimize antihypertensive regimen A. fib without RVR Not a good candidate for anticoagulation Full code DVT prophylaxis on board Currently on cardiac diet Attestations Medical Necessity Statement*: Awaiting placement Time Spent in Patient Care: 20mins Coding Level of Care Code Acute Service Station Manager for Románg Fwd Diagnoses Posterior circulation stroke I63.50 Hypertensive urgency I16.0 Weakness R53.1 Atrial fibrillation I48.91
[2021-07-22] MEDS: lisinopril 10 mg Tablet PO (14:15)
[2021-07-22] MEDS: LORazepam 0.5 mg Tablet 0.25 MG PO (20:30)
[2021-07-22] MEDS: atorvastatin 40 mg Tablet PO (20:31)
[2021-07-23] VITALS: BP 129/77; PULSE 77; RESP 17; TEMP 36.5; O2SAT 97
[2021-07-23] MEDS: enoxaparin 40 mg/0.4 mL Syringe SUBCUT (06:06)
[2021-07-23 07:29] VITALS: BP 165/90; PULSE 75; RESP 18; TEMP 36.6; O2SAT 97
[2021-07-23] MEDS: dilTIAZem 60 mg Tablet 90 MG PO ×2 (08:56→17:16)
[2021-07-23] MEDS: lisinopril 10 mg Tablet PO (08:56)
[2021-07-23] MEDS: amlodipine 5 mg Tablet PO (08:56)
[2021-07-23] MEDS: aspirin 81 mg EC Tablet PO (08:56)
[2021-07-23] MEDS: famotidine 20 mg Tablet PO ×2 (08:56→17:16)
[2021-07-23] MEDS: dexamethasone 4 mg Tablet PO ×3 (08:56→17:16)
[2021-07-23] MEDS: LORazepam 0.5 mg Tablet 0.25 MG PO (08:58)
--- NOTE | 2021-07-23 11:34 | PM.PN ---
Subjective Subjective: This morning patient was told about her MRI results She is awake and alert Present to communicate Vitals/I&O/Wt Last Vital Signs Temp 97.8 F 07/23/21 07:29 Pulse 75 07/23/21 07:29 Resp 18 07/23/21 07:29 BP 165/90 07/23/21 07:29 Pulse Ox 97 07/23/21 07:29 07/22/21 07/23/21 07/23/21 22:59 06:59 14:59 Intake Total 360 / 840 Balance 360 / 840 Physical Exam Narrative: Left-sided neglect Weakness and lethargy however she is coherent awake and alert Moving all of her extremities Tolerating her diet S1, S2 Abdomen soft No signs of edema Saturating well on room air Data : 07/20/21 01:45 07/20/21 01:45 A&P Assessment and plan (1) CVA (cerebral vascular accident): Status: Acute (2) Hypertensive urgency: Status: Acute (3) Closed fracture of left inferior pubic ramus: Status: Acute Qualifiers: Encounter type: initial encounter Qualified Code(s): S32.592A - Other specified fracture of left pubis, initial encounter for closed fracture (4) Atrial fibrillation: Status: Acute Plan Ischemic stroke Cerebral edema Start Decadron No signs of respiratory distress, Left-sided neglect Awaiting placement Had MRI reviewed Daughter updated A. fib without RVR not a good candidate for anticoagulation for risk of falls Currently on lisinopril, amlodipine, will escalate the dose of lisinopril to 20 mg daily Full code Cardiac diet Attestations Medical Necessity Statement*: awaiting placement Time Spent in Patient Care: 20mins Coding Level of Care Code Acute Director Database for Chg Fwd Diagnoses CVA (cerebral vascular accident) I63.9 Hypertensive urgency I16.0 Closed fracture of left inferior pubic ramus S32.592A Encounter type: initial encounter Atrial fibrillation I48.91
[2021-07-23 11:55] VITALS: BP 133/73; PULSE 67; RESP 18; TEMP 36.8; O2SAT 97
[2021-07-23] MEDS: metoprolol tartrate 25 mg Tablet PO (14:14)
[2021-07-23 15:25] VITALS: BP 142/93; PULSE 98; RESP 18; TEMP 36.6; O2SAT 96
[2021-07-23 20:00] VITALS: BP 159/83; PULSE 97; RESP 17; TEMP 36.5; O2SAT 96
--- NOTE | 2021-07-23 20:02 | PC.NURSE ---
PATIENT VERY ANXIOUS AT THIS TIME DAUGHTER CAME INTO ROOM AND PATIENT DID NOT RECOGINIZE HER. PATIENT STATES THAT SHE IS LEAVING THE HOSPITAL AND THAT WE ARE TRYING TO ILL HER PRN ATIVAN TRIED TO BE GIVEN AT THIS TIME, PATIENT REFUSED TO TAKE MEDICATION STATING THAT SHE WILL NOT HAVE ANY MEDICINE. DOCTOR NOTIFIED AND NEW ORDER RECIEVED. REFER TO ORDERS FOR MORE INFORMATION.
[2021-07-23] MEDS: haloperidol inj 5 mg/mL INJ 1 mL 1 MG IM (20:08)
[2021-07-24 08:00] VITALS: BP 133/95; PULSE 79; RESP 18; TEMP 36.5; O2SAT 93
--- NOTE | 2021-07-24 08:53 | PC.SOCIAL ---
IMM Update pg 2 of IMM updated and reviewed w/ Florence Abbott # provided. Copy placed in chart and Copy left in rm for patient.
[2021-07-24] MEDS: dilTIAZem 60 mg Tablet 90 MG PO (09:37)
[2021-07-24] MEDS: aspirin 81 mg EC Tablet PO (09:37)
[2021-07-24] MEDS: metoprolol tartrate 25 mg Tablet PO (09:38)
[2021-07-24] MEDS: enoxaparin 40 mg/0.4 mL Syringe SUBCUT (09:38)
[2021-07-24] MEDS: amlodipine 5 mg Tablet PO (09:38)
[2021-07-24] MEDS: famotidine 20 mg Tablet PO (09:38)
[2021-07-24] MEDS: lisinopril 20 mg Tablet PO (09:38)
[2021-07-24] MEDS: dexamethasone 4 mg Tablet PO (09:38)
[2021-07-24 11:32] VITALS: BP 113/73; PULSE 62; RESP 18; TEMP 36.6; O2SAT 93
--- NOTE | 2021-07-24 11:59 | P.DS_ITS ---
Discharge Providers Date of Admission: 07/21/21 17:30 Date of Discharge: July 24, 2021 Attending Provider at Admission: Sammy Sesay MD Attending Provider at Discharge: Adrianna Gillette MD Primary Care Provider: Grant Arias MD Diagnoses at Discharge Discharge Diagnosis (1) CVA (cerebral vascular accident): Status: Acute (2) Hypertensive urgency: Status: Acute (3) Closed fracture of left inferior pubic ramus: Status: Acute Qualifiers: Encounter type: initial encounter Qualified Code(s): S32.592A - Other specified fracture of left pubis, initial encounter for closed fracture (4) Atrial fibrillation: Status: Acute Reason for Visit Reason for Visit: hypertension Discharge Data Studies Completed and Pending Completed Studies During Hospitalization Category Date Time Status CT head wo con* [id number] Urgent Cat Scan 07/20/21 00:58 Completed MR head wo con* [id number] Routine MRI 07/22/21 10:30 Completed CV carotid duplex BI* [id number] Routine Ultrasound 07/20/21 Completed CV. echo complete* [id number] Routine Ultrasound 07/20/21 06:28 Completed Radiology Impressions Carotid Doppler Study 07/20/21 00:00 IMPRESSION: No carotid arterial stenosis. REFERENCES: SRU CRITERIA. The degree of internal carotid artery stenosis is based on criteria defined by the Society of Radiologists in Ultrasound (SRU). Normal is no stenosis. Mild is less than 50% stenosis. Moderate is 50-69% stenosis. Severe is greater than 69% stenosis to near occlusion. Near occlusion is a markedly narrowed lumen. Total occlusion is no detectable patent lumen. Head CT 07/20/21 00:58 IMPRESSION: 1. No acute intracranial hemorrhage or mass effect. 2. No definite acute infarct by CT, see above. 3. 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 4. Other findings discussed above. Head MRI 07/22/21 10:30 IMPRESSION: 1. Acute ischemia involving the RIGHT RODDING ANODE WORKER territory measuring 6.2 x 2.9 cm with mild localized mass effect and edema. Partial effacement of the RIGHT occipital and temporal horns. No hydrocephalus. 2. Additional focus of acute ischemia in the RIGHT thalamus measuring 6 mm. 3. Moderate small vessel changes with moderate parenchymal volume loss. 4. 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 This appears relatively unchanged since the [place] [address] Nain MD at 07/22/2021 2:04 PM. Laboratory Results WBC 6.4 10^3/uL (4.0-10.0) 07/20/21 01:45 RBC 5.20 10^6/uL (4.1-5.3) 07/20/21 01:45 Hgb 13.1 g/dL (11.5-15.3) 07/20/21 01:45 Hct 42.6 % (37.0-47.0) 07/20/21 01:45 MCV 81.9 fl (81-99) 07/20/21 01:45 MCH 25.2 pg (28.0-34.0) L 07/20/21 01:45 MCHC 30.8 g/dL (30.0-36.0) 07/20/21 01:45 RDW 15.1 % (12.1-15.1) 07/20/21 01:45 Plt Count 206 10^3/cmm (130-400) 07/20/21 01:45 MPV 11.2 fL (7.4-10.4) H 07/20/21 01:45 Neut % (Auto) 72.6 % 07/20/21 01:45 Lymph % (Auto) 19.1 % 07/20/21 01:45 [place] % (Auto) 5.9 % 07/20/21 01:45 Eos % (Auto) 1.2 % 07/20/21 01:45 Baso % (Auto) 0.6 % 07/20/21 01:45 Neut # (Auto) 4.66 10^3/uL (1.8-7.7) 07/20/21 01:45 Lymph # (Auto) 1.2 10^3/uL (0.8-4.8) 07/20/21 01:45 [place] # (Auto) 0.4 10^3/uL (0.2-0.9) 07/20/21 01:45 Eos # (Auto) 0.1 10^3/uL (0.0-0.8) 07/20/21 01:45 Baso # (Auto) 0.0 10^3/uL (0.0-0.1) 07/20/21 01:45 Nucleated RBC % (auto) 0 % 07/20/21 01:45 Nucleated RBCs # 0.0 /100WBC 07/20/21 01:45 Sodium 139 mmol/L (136-145) 07/20/21 01:45 Potassium 3.7 mmol/L (3.5-5.1) 07/20/21 01:45 Chloride 103 mmol/L (98-107) 07/20/21 01:45 Carbon Dioxide 26 mmol/L (22-29) 07/20/21 01:45 Anion Gap 13.7 (5-19) 07/20/21 01:45 BUN 22 mg/dL (8-23) 07/20/21 01:45 Creatinine 0.9 mg/dL (0.5-0.9) 07/20/21 01:45 GFR Calculation Not Reportable 07/20/21 01:45 Glucose 133 mg/dL (65-115) H 07/20/21 01:45 Calculated Osmolality 293 mOsm/kg (285-295) 07/20/21 01:45 Calcium 10.1 mg/dL (8.5-10.5) 07/20/21 01:45 Magnesium 2.2 mg/dL (1.7-2.3) 07/20/21 01:45 Total Bilirubin 0.3 mg/dL (0.15-1.2) 07/20/21 01:45 AST 19 U/L (0-32) 07/20/21 01:45 ALT 13 U/L (0-33) 07/20/21 01:45 Alkaline Phosphatase 120 IU/L (35-105) H 07/20/21 01:45 Troponin T Baseline 15 ng/L (0-10) H 07/20/21 01:45 Troponin T Hi Sens 6Hr 12.98 ng/L (0-10) H 07/20/21 05:45 Troponin T Hi Sens 6Hr Delta -2.02 ng/L (0-12) L 07/20/21 05:45 NT-Pro-B Natriuret Pep 1998 pg/mL (0-450) H 07/20/21 05:45 Total Protein 7.3 g/dL (6.6-8.7) 07/20/21 01:45 Albumin 4.6 g/dL (3.5-5.2) 07/20/21 01:45 Globulin 2.7 g/dL (1.3-4.6) 07/20/21 01:45 Vitamin B12 219 pg/mL (232-1245) L 07/21/21 04:54 TSH 3.75 uIU/mL (0.27-4.20) 07/20/21 04:54 Urine Color Yellow (Yellow) 07/20/21 01:45 Urine Appearance Clear (CLEAR) 07/20/21 01:45 Urine pH 8 (5-7) H 07/20/21 01:45 Ur Specific [place] 1.010 (1.005-1.030) 07/20/21 01:45 Urine Protein Neg (Negative) 07/20/21 01:45 Urine Glucose (UA) Norm (Normal) 07/20/21 01:45 Urine Ketones Negative (Negative) 07/20/21 01:45 Urine Blood Neg (Negative) 07/20/21 01:45 Urine Nitrate Negative (Negative) 07/20/21 01:45 Urine Bilirubin Neg (Negative) 07/20/21 01:45 Prot Sulfosalicylic Acd Negative (Negative) 07/20/21 01:45 Urine Urobilinogen Norm mg/dL (Negative) 07/20/21 01:45 Ur Leukocyte Esterase Negative (Negative) 07/20/21 01:45 Vitals Last Vital Signs Temp 97.8 F 07/24/21 11:32 Pulse 62 07/24/21 11:32 Resp 18 07/24/21 11:32 BP 113/73 07/24/21 11:32 Pulse Ox 93 07/24/21 11:32 Discharge Plan Discharge Patient Disposition: Xfer SNF Condition: Stable Prescriptions: New lisinopril 20 mg Tablet 20 mg PO DAILY Qty: 30 0RF metoprolol tartrate 25 mg Tablet 25 mg PO BID@0900,2100 Qty: 60 0RF Plavix 75 mg tablet 75 mg PO DAILY Qty: 20 0RF aspirin 325 mg capsule 325 mg PO DAILY Qty: 30 0RF Continued lactulose 10 gram/15 mL solution 10 g PO DAILY PRN (Reason: constipation) Qty: 473 0RF diltiazem HCl 30 mg Tablet 90 mg PO BID@09,15 0RF olmesartan [Benicar] 40 mg Tablet 40 mg PO DAILY@0900 0RF acetaminophen 325 mg Tablet 650 mg PO Q6H PRN (Reason: Mild/Mod Pain Or Temp >/= 101) Qty: 30 0RF lorazepam 0.5 mg Tablet 0.25 mg PO TID PRN (Reason: Anxiety) Qty: 20 0RF oxycodone 5 mg Tablet 5 mg PO Q6H PRN (Reason: Moderate Pain) Qty: 20 0RF sennosides-docusate sodium [Stool Softener-Laxative] 8.6-50 mg tablet 1 tab PO BID@09,21 0RF magnesium citrate Solution 150 ml PO BID PRN (Reason: constipation) Qty: 296 0RF polyethylene glycol 3350 [Purelax] 17 gram/dose powder 17 g PO DAILY Qty: 119 0RF Discontinued aspirin 81 mg Tablet,Chewable 81 mg PO DAILY@0900 0RF Discharge Orders: Discharge Order (Routine); Ordered 07/24/21 Ordered By: Adrianna Gillette Referrals: [facility] [Outside] Grant Arias MD [Primary Care Provider] - 2 weeks Discharge Diet: Advance as tolerated Discharge Activity: Increase activity as tolerated Patient Instructions: Hypertension (ED) Coding Level of Care Code Acute [facility] FW DC note Diagnoses CVA (cerebral vascular accident) I63.9 Hypertensive urgency I16.0 Closed fracture of left inferior pubic ramus S32.592A Encounter type: initial encounter Atrial fibrillation I48.91
--- NOTE | 2021-07-24 19:28 | P.PN_ITS ---
Subjective Subjective: Patient was discharged from the hospital today however when she reached at her residential she panicked and she became very aggressive, residential did not accept her and she was directed back to the hospital as direct admit At the time of my evaluation in the evening patient was very pleasant and cooperative, she was able to move all 4 extremities, I did not appreciate any aggressive behavior, she asked about the medication that I am using for her stroke, she keeps repeating if she would get better, repeat vitals are normal, I do not appreciate any new focal deficit, Did update charge nurse to see if we can watch her here has one-to-one supervision I do not appreciate any psychiatric symptoms at this point Vitals/I&O/Wt Last Vital Signs Temp 97.8 F 07/24/21 11:32 Pulse 62 07/24/21 11:32 Resp 18 07/24/21 11:32 BP 113/73 07/24/21 11:32 Pulse Ox 93 07/24/21 11:32 07/24/21 07/24/21 07/24/21 06:59 14:59 22:59 Intake Total 600 / 600 Balance 600 / 600 Physical Exam Narrative: No new focal deficit She is awake and alert Pleasant and cooperative during my evaluation Normal hemodynamics Clinically looks dehydrated S1, S2 variable Abdomen is soft No signs of edema of lower extremities No psychiatric symptoms at the time of my evaluation LYLYMIJOSE Data : 07/20/21 01:45 07/20/21 01:45 A&P Assessment and plan (1) CVA (cerebral vascular accident): Status: Acute (2) Hypertensive urgency: Status: Acute (3) Weakness: Status: Acute (4) Atrial fibrillation: Status: Acute (5) Cerebral edema: Status: Acute Plan I do believe patient symptoms are because of unfamiliar environment, she was complaining about not knowing the services delivery driver already at the time of discharge However at the time my evaluation I do not appreciate any psychiatric signs She is very pleasant and cooperative She is asking appropriate questions however she tends to have short attention span and memory loss Considering her cerebral edema I do not appreciate any new focal deficits, she was given Decadron for about a day, will repeat CT scan, right now there is no plan to use mannitol, we will keep her head end of the bed elevated, target bloo d pressure between 120 mmHg to 140 mm hg A. fib without RVR she is not an ideal candidate for anticoagulation, her daughter is on board and agreed with high-dose aspirin and use of Plavix for next 3 weeks No carotid disease I will add Seroquel for tonight repeat CT scan Cardiac diet Encourage patient to increase p.o. intake She looks clinically dehydrated Currently on one-to-one supervision Aby psych placement?, Will talk with case consultant in the morning Attestations Medical Necessity Statement*: Continue medical management Time Spent in Patient Care: 40mins Coding Level of Care Code Acute Crane Helper for Chg Fwd Diagnoses CVA (cerebral vascular accident) I63.9 Hypertensive urgency I16.0 Weakness R53.1 Atrial fibrillation I48.91 Cerebral edema G93.6
[2021-07-24] MEDS: quetiapine 25 mg Tablet PO (20:30)
[2021-07-24] MEDS: atorvastatin 40 mg Tablet PO (20:30)
[2021-07-25] VITALS: BP 108/68; PULSE 60; RESP 17; TEMP 36.6; O2SAT 91
[2021-07-25 07:44] LABS: Add Urine Microscopic? YES; Bilirubin Urine Neg (Negative); Blood Urine 2+ (Negative); Glucose Urine UA Norm (Normal); Ketones Urine 1+ (Negative); Leukocyte Esterase Urine Trace (Negative); Nitrate Urine Positive (Negative); Protein Urine 1+ (Negative); Specific Gravity, Urine 1.025 (1.005-1.030); Urine Appearance SL Hazy (CLEAR); Urine Color Yellow (Yellow); Urobilinogen Urine Norm (Negative); pH Urine 5 (5-7)
[2021-07-25 07:52] LABS: Add Urine Culture? Yes; Bacteria Urine 3+ /hpf; Squamous Epithelial Cell Urine 0-4 /hpf (0-5); WBC Urine 40-55 /hpf (0-5)
[2021-07-25 08:00] VITALS: BP 172/101; PULSE 85; RESP 15; TEMP 36.3; O2SAT 99
--- NOTE | 2021-07-25 09:18 | PC.NURSE ---
RN took report on patient, around 0730, RN spoke with pt, at this time pt was alert and orientated to self, place, and situation. Pt would get confused at times. The physician came in and was talking with pt, she was alert and was answering questions appropriately. Pt talked on the phone and visited with daughter. Pt was not combative, aggressive, nor inappropriate. Pt went in and out of confusion throughout the day. Pt was discharged to facility. RN called report, Rn spoke on confusion through out the day. The Mid Level Project Manager took pt downstairs to van for transport, at this time pt become very agitated and did not want to go with the gentleman driving the van, the Mid Level Project Manager rode with pt to have pt feel safe, pt was very uneasy at the time pt left for facility. The facility did not accept pt, so pt was brought back to hospital, pt called and spoke with daughter upon arrival and shortly after that nurses took her to her room. Pt was confused. At the end of shift pt was alert to self and place.
[2021-07-25] MEDS: cefTRIAXone 1,000 MG in sodium chloride 0.9% (plus) 50 ML 100 MG IV (10:31)
[2021-07-25] MEDS: aspirin 81 mg EC Tablet PO (10:33)
[2021-07-25] MEDS: sodium chloride 0.9% 1,000 ML 75 ML IV (10:33)
[2021-07-25] MEDS: famotidine 20 mg Tablet PO (10:33)
[2021-07-25] MEDS: cyanocobalamin 1,000 mcg/mL SDV 1000 MCG IM (10:33)
--- NOTE | 2021-07-25 11:22 | PM.PN ---
Subjective Subjective: Patient is not hysterical Very pleasant cooperative since yesterday Started Seroquel, abnormal UA, consistent with UTI, question urine culture, start ceftriaxone I do not see any focal deficit She has not been hypoxic, saturating well on room air Afebrile for now Started ceftriaxone this morning Added Seroquel, discontinue one-to-one supervision, case therapist updated We can try to touch base with retirement again tomorrow as a causes UTI related metabolic encephalopathy/delirium she does not need Aby psych for now Vitals/I&O/Wt Last Vital Signs Temp 97.4 F L 07/25/21 08:00 Pulse 85 07/25/21 08:00 Resp 15 07/25/21 08:00 BP 172/101 07/25/21 08:00 Pulse Ox 99 07/25/21 08:00 07/24/21 07/25/21 07/25/21 22:59 06:59 14:59 Intake Total 100 / 700 Balance 100 / 700 Physical Exam Narrative: Patient is very pleasant cooperative Moving all 4 extremities Looks dehydrated Endorsing anorexia Not eating much food, dehydrated Abdomen is soft No audible stridor or wheezing Nonfocal neuro exam Left-sided neglect Memory loss Abdomen is soft not endorsing dysuria Data : 07/20/21 01:45 07/20/21 01:45 A&P Assessment and plan (1) Cerebral edema: Status: Acute (2) CVA (cerebral vascular accident): Status: Acute (3) Hypertensive urgency: Status: Acute (4) Weakness: Status: Acute (5) UTI (urinary tract infection): Status: Acute (6) Delirium: Status: Acute (7) Atrial fibrillation: Status: Acute Plan Acute CVA Aspirin Plavix and statin Cerebral edema, NIH 0-1 She does not need hypertonic saline, Decadron discontinued A. fib without RVR, not a candidate for anticoagulation Delirium related to UTI Patient is very pleasant and cooperative during my evaluation Verbally redirectable /Ceftriaxone Obtain urine culture I do not think patient will need Aby psych for now, will touch base with retirement as her cause of confusion is reversible which is UTI, will touch base with retirement again today and see if we can discharge in next 48 hours Full code Cardiac diet DVT prophylaxis on board Attestations Medical Necessity Statement*: Treat UTI, then retirement placement Time Spent in Patient Care: 20mins Coding Level of Care Code Acute Internet Developer for Chg Fwd Diagnoses Cerebral edema G93.6 CVA (cerebral vascular accident) I63.9 Hypertensive urgency I16.0 Weakness R53.1 UTI (urinary tract infection) N39.0 Delirium R41.0 Atrial fibrillation I48.91
[2021-07-25] MEDS: LORazepam 0.5 mg Tablet 0.25 MG PO ×2 (12:19→20:31)
[2021-07-25 14:18] VITALS: BP 177/91; PULSE 93; O2SAT 95
--- NOTE | 2021-07-25 15:35 | PC.OT ---
OT tx attempted at this time. Pt sitting in chair at the nurses station. Pt is confused and does not recognize this therapist from yesterday. She thinks my student is a friend of her granddaughter and gets upset telling us that she didn't mean to get anyone in trouble yesterday and rambles on and becomes tearful. Pt declines to be distracted by UE exercise at this time. OT tx to be attempted again tomorrow.
--- NOTE | 2021-07-25 19:35 | CT_ITS ---
WS: [id number] CT HEAD NONCONTRAST HISTORY: confusion TECHNIQUE: Contiguous axial imaging performed through the brain in 2.5 mm imaging. Bone and soft tiss ue windows. Sagittal and coronal reformats reviewed. All CT scans at [facility] use at least one of these dose optimization techniques: automated exposure control; mA and/or kV adjustment per pa tient size (includes targeted exams where dose is matched to clinical indication); or iterative recon struction. DLP: 891.43 mGy.cm COMPARISON: 07/20/2021, 04/19/2020, Recent MRI 07/22/2021. No acute intracranial hemorrhage. Acute evolving infarct involving the RIGHT HOTEL ASSISTANT MANAGER territory. This infa rct has developed since 07/20/2021. Corresponds to the acute infarct described by recent MRI. There is significant loss of the nash-white matter and edema in the RIGHT occipital and medial RIGHT temporal lobes. The distal smaller infarct in the RIGHT thalamus is very difficult to visualize by CT. Moderate atrophy and chronic ischemic disease otherwise. No midline shift. 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 This is slightly greater to the LEFT RIGHT of midline. Ventricles: Ventricles are mildly dilated. No ventricular hemorrhage. Paranasal sinuses: As visualized are clear. Mastoid air cells: Well pneumatized. Calvarium and scalp: Skull is intact with no soft tissue edema or swelling. CT/CT head wo con* [id number] IMPRESSION: 1. No hemorrhagic transformation of the involving acute infarct involving the RIGHT HOTEL ASSISTANT MANAGER territory as described on a recent MRI. 2. Small infarct in the RIGHT thalamus is difficult to visualize by CT. 3. 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
[2021-07-25] MEDS: atorvastatin 40 mg Tablet PO (20:31)
[2021-07-25] MEDS: quetiapine 25 mg Tablet PO (20:31)
[2021-07-25] MEDS: metoprolol tartrate 25 mg Tablet PO (20:33)
[2021-07-25 20:39] VITALS: BP 166/98; PULSE 90; RESP 16; O2SAT 97
[2021-07-26 06:33] VITALS: BP 160/94; PULSE 89; RESP 17; TEMP 36.4; O2SAT 96
[2021-07-26 07:55] LABS: Basophils % 0.1 %; Hematocrit 41.1 % (37.0-47.0); Hemoglobin 12.6 g/dL (11.5-15.3); Lymphocytes # 1.2 10^3/uL (0.8-4.8); Lymphocytes % 16.4 %; Mean Corpuscular HGB Conc 30.7 g/dL (30.0-36.0); Mean Corpuscular Volume 84.7 fl (81-99); Mean Platelet Volume 11.2 fL (7.4-10.4); Monocytes # 0.8 10^3/uL (0.2-0.9); Monocytes % 10.8 %; Neutrophils # 5.41 10^3/uL (1.8-7.7); Neutrophils % 72.3 %; Nucleated Red Blood Cells % 0 %; Platelet Count 220 10^3/cmm (130-400); Red Blood Count 4.85 10^6/uL (4.1-5.3); Red Cell Distribution Width 15.4 % (12.1-15.1); White Blood Count 7.5 10^3/uL (4.0-10.0)
[2021-07-26 08:00] VITALS: BP 146/101; PULSE 87; RESP 16; TEMP 36.6; O2SAT 98
[2021-07-26] MEDS: cefTRIAXone 1,000 MG in sodium chloride 0.9% (plus) 50 ML 100 MG IV (09:05)
[2021-07-26] MEDS: famotidine 20 mg Tablet PO ×2 (09:20→17:24)
[2021-07-26] MEDS: cyanocobalamin 1,000 mcg/mL SDV 1000 MCG IM (09:20)
[2021-07-26] MEDS: aspirin 81 mg EC Tablet PO (09:20)
[2021-07-26] MEDS: lisinopril 20 mg Tablet PO (09:20)
[2021-07-26] MEDS: metoprolol tartrate 25 mg Tablet PO ×2 (09:27→21:13)
--- NOTE | 2021-07-26 11:16 | PC.SOCIAL ---
IMM update IMM updated with patient and daughter. Copy Pg 2 provided. Verbalized an understanding. Initialled, dated, timed, and placed in chart.
--- NOTE | 2021-07-26 12:04 | P.PN_ITS ---
Subjective Subjective: Patient was sitting at the nursing station Very pleasant and cooperative Today she is getting evaluated by the sales solutions representative from the care home again She did not require any sedatives, She is pleasantly confused Currently being treated for UTI Repeat CT head did not show worsening, no midline defect, Vitals/I&O/Wt Last Vital Signs Temp 97.9 F 07/26/21 08:00 Pulse 87 07/26/21 08:00 Resp 16 07/26/21 08:00 BP 146/101 07/26/21 08:00 Pulse Ox 98 07/26/21 08:00 07/25/21 07/26/21 07/26/21 22:59 06:59 14:59 Intake Total 100 / 370 170 / 170 Balance 100 / 370 170 / 170 Physical Exam Narrative: Patient is pleasantly confused At the nursing station Able to move all of her extremities Awake and alert Oriented to herself No slurring of speech Left-sided neglect Dehydrated, malnourished Repeat questions several times Appears anxious S1, S2 Abdomen is soft No active stridor or wheezing Saturating well on room air Data : 07/26/21 07:39 07/20/21 01:45 A&P Assessment and plan (1) Delirium: Status: Acute (2) UTI (urinary tract infection): Status: Acute (3) Cerebral edema: Status: Acute (4) CVA (cerebral vascular accident): Status: Acute (5) Hypertensive urgency: Status: Acute (6) Weakness: Status: Acute (7) Atrial fibrillation: Status: Acute Plan Delirium related to UTI Metabolic encephalopathy: Improving No aggressive or psychiatric symptoms I will keep her on Seroquel as scheduled dose for now She is not requiring one-to-one supervision Pleasantly confused Afebrile Continue IV antibiotics No leukocytosis Repeat CT head did not show any worsening of edema, no mass-effect or midline shift, NIH 0-1 for left-sided neglect Attestations Medical Necessity Statement*: Awaiting placement, prior Auth has been initiated again Time Spent in Patient Care: 20min Coding Level of Care Code Acute Medical Coding Auditor for Calderon Delaney Diagnoses Delirium R41.0 UTI (urinary tract infection) N39.0 Cerebral edema G93.6 CVA (cerebral vascular accident) I63.9 Hypertensive urgency I16.0 Weakness R53.1 Atrial fibrillation I48.91
[2021-07-26] MEDS: hyDRALAzine 20 mg/mL INJ 1 mL 5 MG IVP (13:11)
[2021-07-26 13:13] VITALS: BP 157/106; PULSE 77; RESP 18
[2021-07-26 16:00] VITALS: BP 166/106; PULSE 105; RESP 17; TEMP 36.6; O2SAT 97
[2021-07-26] MEDS: hyDRALAzine 10 mg Tablet PO ×2 (17:24→21:14)
[2021-07-26 19:58] VITALS: BP 164/85; PULSE 91; RESP 20; TEMP 36.8; O2SAT 97
[2021-07-26] MEDS: atorvastatin 40 mg Tablet PO (21:13)
[2021-07-26] MEDS: quetiapine 25 mg Tablet PO (21:14)
[2021-07-27 04:00] VITALS: BP 128/87; PULSE 82; RESP 16; TEMP 37; O2SAT 96
[2021-07-27 07:22] VITALS: BP 123/79; PULSE 81; RESP 16; TEMP 36.7; O2SAT 95
[2021-07-27] MEDS: cyanocobalamin 1,000 mcg/mL SDV 1000 MCG IM (07:46)
[2021-07-27] MEDS: aspirin 81 mg EC Tablet PO (07:47)
[2021-07-27] MEDS: metoprolol tartrate 25 mg Tablet PO ×2 (07:47→20:16)
[2021-07-27] MEDS: famotidine 20 mg Tablet PO (07:47)
[2021-07-27] MEDS: hyDRALAzine 10 mg Tablet PO ×3 (07:47→20:17)
[2021-07-27] MEDS: lisinopril 20 mg Tablet PO (07:48)
[2021-07-27] MEDS: cefTRIAXone 1,000 MG in sodium chloride 0.9% (plus) 50 ML 100 MG IV (07:48)
[2021-07-27 11:33] VITALS: BP 124/78; PULSE 68; RESP 18; TEMP 36.8; O2SAT 96
--- NOTE | 2021-07-27 12:02 | PM.PN ---
Subjective Subjective: Patient was very pleasant cooperative and much more awake and alert today as compared to yesterday Daughter at the bedside Care plan discussed with her and her daughter Patient has asked very intelligent questions She has not been drinking or eating very much Vitals/I&O/Wt Last Vital Signs Temp 98.2 F 07/27/21 11:33 Pulse 68 07/27/21 11:33 Resp 18 07/27/21 11:33 BP 124/78 07/27/21 11:33 Pulse Ox 96 07/27/21 11:33 07/26/21 07/27/21 07/27/21 22:59 06:59 14:59 Intake Total 120 / 410 180 / 590 290 / 290 Output Total 450 / 450 Balance 120 / 410 180 / 590 -160 / -160 Physical Exam Narrative: Very pleasant cooperative Nonfocal neuro exam Left-sided neglect Nonlabored breathing Saturating well on room air Looks slightly well hydrated as compared to yesterday Abdomen soft No signs of edema of legs Daughter at the bedside Data : 07/26/21 07:39 07/20/21 01:45 Micro: Microbiology 07/25/21 06:00 Urine Culture - Preliminary Urine,Voided Gram Negative Rods A&P Assessment and plan (1) Delirium: Status: Acute (2) UTI (urinary tract infection): Status: Acute (3) Cerebral edema: Status: Acute (4) CVA (cerebral vascular accident): Status: Acute (5) Hypertensive urgency: Status: Acute (6) Weakness: Status: Acute Plan Delirium related to UTI: Resolved Patient is not aggressive not showing any psychiatric signs or symptoms However she has been kept on Seroquel along antibiotics Gram-negative tutu in urine culture Afebrile Not requiring one-to-one supervision Daughter at the bedside She has poor p.o. intake Encouraged her to have more dietary intake Cerebral edema related to ischemic stroke, conservative management Blood pressure is stable now continue current antihypertensive regimen She is full code Continue cardiac diet DVT prophylaxis on board Anticipating discharge on Thursday Attestations Medical Necessity Statement*: Awaiting placement Time Spent in Patient Care: 30min Coding Level of Care Code Acute Wood Pile Driver Operator for g Fwd Diagnoses Delirium R41.0 UTI (urinary tract infection) N39.0 Cerebral edema G93.6 CVA (cerebral vascular accident) I63.9 Hypertensive urgency I16.0 Weakness R53.1
[2021-07-27 15:39] VITALS: BP 164/73; PULSE 81; RESP 18; TEMP 36.8; O2SAT 97
[2021-07-27 19:52] VITALS: BP 134/85; PULSE 82; RESP 17; TEMP 37.2; O2SAT 96
[2021-07-27] MEDS: atorvastatin 40 mg Tablet PO (20:16)
[2021-07-27] MEDS: quetiapine 25 mg Tablet PO (20:17)
[2021-07-28] VITALS (7 sets, daily range): BP systolic 120–173; BP diastolic 71–97; PULSE 80–93; RESP 17–18; TEMP 36.6–37.1; O2SAT 95–97
--- NOTE | 2021-07-28 05:50 | PC.NURSE ---
Patient AAOx1, no c/o pain, wants to keep talking to daughter Florence and was able to get daughter on phone at bedtime for a visit. VSS, sitting in chair all night and repositions self. OOC to bathroom with walker and standby assist. Good UOP, no new events or needs. Will report to oncoming nurse at shift change.
[2021-07-28] MEDS: enoxaparin 40 mg/0.4 mL Syringe SUBCUT (05:58)
[2021-07-28] MEDS: famotidine 20 mg Tablet PO ×2 (08:44→17:49)
[2021-07-28] MEDS: metoprolol tartrate 25 mg Tablet PO ×2 (08:44→20:12)
[2021-07-28] MEDS: aspirin 81 mg EC Tablet PO (08:44)
[2021-07-28] MEDS: hyDRALAzine 10 mg Tablet PO ×3 (08:44→20:11)
[2021-07-28] MEDS: cefTRIAXone 1,000 MG in sodium chloride 0.9% (plus) 50 ML 100 MG IV (08:45)
[2021-07-28] MEDS: lisinopril 20 mg Tablet PO (08:45)
--- NOTE | 2021-07-28 10:21 | PC.SOCIAL ---
IMM Update Pg. 2 of IMM updated. Initialed, dated, and timed. Copy left at bedside.
--- NOTE | 2021-07-28 12:31 | P.PN_ITS ---
Subjective Subjective: Patient is much more awake alert cooperative, daughter at the bedside Patient is endorsing feeling better as well, p.o. intake has not been great but she likes her daughter's food who has been bringing her something from home on daily basis Change IV antibiotics to p.o. nitrofurantoin for E. coli UTI Vitals/I&O/Wt Last Vital Signs Temp 98.1 F 07/28/21 11:51 Pulse 84 07/28/21 11:51 Resp 18 07/28/21 11:51 BP 129/71 07/28/21 11:51 Pulse Ox 97 07/28/21 11:51 07/27/21 07/28/21 07/28/21 22:59 06:59 14:59 Intake Total 340 / 1110 290 / 290 Output Total 450 / 450 Balance 340 / 660 -160 / -160 Physical Exam Narrative: Patient is very pleasant cooperative Nonfocal neuro exam No sign of psychiatric abnormalities No signs of hyperkalemia No abdominal pain No audible stridor or wheezing Saturating well on room air No signs of edema of legs Daughter at the bedside Data : 07/26/21 07:39 07/20/21 01:45 Micro: Microbiology 07/25/21 06:00 Urine Culture - Final Urine,Voided Escherichia coli A&P Assessment and plan (1) Delirium: Status: Acute (2) UTI (urinary tract infection): Status: Acute (3) Cerebral edema: Status: Acute (4) CVA (cerebral vascular accident): Status: Acute (5) Posterior circulation stroke: Status: Acute (6) Hypertensive urgency: Status: Acute (7) Weakness: Status: Acute (8) Atrial fibrillation: Status: Acute Plan Delirium related to UTI: Resolved UTI: E. coli: Change IV ceftriaxone to nitrofurantoin p.o. regimen Awaiting retirement placement Continue cardiac diet DVT prophylaxis with Lovenox For hypertensive urgency continue hydralazine, lisinopril and metoprolol A. 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
[2021-07-28] MEDS: nitrofurantoin SR (BID) 100 mg Capsule PO (17:49)
[2021-07-28] MEDS: quetiapine 25 mg Tablet PO (20:11)
[2021-07-28] MEDS: atorvastatin 40 mg Tablet PO (20:11)
[2021-07-29 04:00] VITALS: BP 149/89; PULSE 77; RESP 16; TEMP 36.9; O2SAT 97
[2021-07-29] MEDS: enoxaparin 40 mg/0.4 mL Syringe SUBCUT (06:32)
[2021-07-29 07:20] VITALS: BP 142/96; PULSE 88; RESP 18; TEMP 36.9; O2SAT 98
[2021-07-29] MEDS: nitrofurantoin SR (BID) 100 mg Capsule PO (08:33)
--- NOTE | 2021-07-29 09:24 | P.DS_ITS ---
Discharge Providers Date of Admission: 07/21/21 17:30 Date of Discharge: July 29, 2021 Attending Provider at Admission: Sammy Sesay MD Attending Provider at Discharge: Adrianna Gillette MD Primary Care Provider: Grant Arias MD Diagnoses at Discharge Discharge Diagnosis (1) Delirium: Status: Acute (2) UTI (urinary tract infection): Status: Acute (3) Cerebral edema: Status: Acute (4) CVA (cerebral vascular accident): Status: Acute (5) Posterior circulation stroke: Status: Acute (6) Hypertensive urgency: Status: Acute (7) Weakness: Status: Acute (8) Atrial fibrillation: Status: Acute Reason for Visit Reason for Visit: hypertension Hospital Course Hospital Course This is admitting note of Dr. Candido Fam Zuri is a 85 year old female with a past medical history of CVA, hypertension, history of atrial fibrillation not on anticoagulation, who presents to [facility] due to unsteadiness, near falls, and inability to balance herself.? Patient has received lorazepam, is a drowsy during my examination she is also received multiple blood pressure medications I was called for evaluation, daughter is at bedside.? Patient tells me that she lives by herself, she is able to take care of herself, but early this morning, she was suddenly not able to balance her self, she felt very unsteady on her feet.? No facial droop no slurring her words no paresthesias, she does not describe any weakness, more of an unsteadiness.? No changes in her vision.? No dysuria.? No cough.? No fevers.? She tells me that she has not been feeling well for the last few days.? She tells me she does not know why she is not on any blood thinners for her atrial fibrillation.? She only takes aspirin 81 at one point she was on aspirin 325 but then her doctor lowered her dose to 81 perhaps due to bleeding risk.? Currently alert and oriented to person, to place, not to time, her NIH stroke scale on evaluation was 0, she her blood pressure 170s over 80s, EKG s howing atrial fibrillation, saturating in the high 90s on room air Hospital course Patient was admitted for management and evaluation of stroke. MRI head showed acute ischemia of the right PHARMACY CLERK territory with mild localized mass-effect and edema however no signs of hydrocephalus, additional foci of acute ischemia right thalamic area, pineal gland classification, patient's only symptom was left-si ded neglect otherwise she was able to walk around on her own, PT recommended rehab, her hospitalization was complicated secondary to UTI. She suffered from acute hyperactive delirium related to UTI which resolved as soon as we started on ceftriaxone. Urine culture positive for E. coli which is pansensitive. She has been switched to Macrobid. She was not accepted at long-term a few days back because of her hyper active delirium. Her p.o. intake has been poor, however when her daughter is at the bedside she is at her best behavior and eat some of homemade food. She was diagnosed with A. fib, however she is not a good candidate for anticoagulation for risk of falls. She will be discharged on aspirin, Plavix, atorvastatin and Macrobid. Her daughter has been updated on daily basis. Echo revealed EF 50 to 55%. Concerning cerebral edema which is cytotoxic related to ischemic CVA. Decadron was only used for 1 day which is not really beneficial for such kind of edema. She did not exhibit any signs of intracranial hypertension, repeat CT scan did not show any worsening. Carotid Doppler unremarkable She is being discharged on Seroquel and Macrobid. Physical Exam Narrative: Patient is very pleasant cooperative Nonfocal neuro exam No sign of psychiatric abnormalities No signs of hyperkalemia No abdominal pain No audible stridor or wheezing Saturating well on room air No signs of edema of legs Discharge Data Studies Completed and Pending Completed Studies During Hospitalization Category Date Time Status CT head wo con* [id number] Routine Cat Scan 07/25/21 19:[address] head wo con* [id number] Urgent Cat Scan 07/20/21 00:58 Completed MR head wo con* [id number] Routine MRI 07/22/21 10:30 Completed CV carotid duplex BI* [id number] Routine Ultrasound 07/20/21 Completed CV. echo complete* [id number] Routine Ultrasound 07/20/21 06:28 Completed Pending at discharge Category Date Time Status Urine Culture Stat Lab 07/25/21 08:11 Uncollected Radiology Impressions Carotid Doppler Study 07/20/21 00:00 IMPRESSION: No carotid arterial stenosis. REFERENCES: SRU CRITERIA. The degree of internal carotid artery stenosis is based on criteria defined by the Society of Radiologists in Ultrasound (SRU). Normal is no stenosis. Mild is less than 50% stenosis. Moderate is 50-69% stenosis. Severe is greater than 69% stenosis to near occlusion. Near occlusion is a markedly narrowed lumen. Total occlusion is no detectable patent lumen. Head MRI 07/22/21 10:30 IMPRESSION: 1. Acute ischemia involving the RIGHT PHARMACY CLERK territory measuring 6.2 x 2.9 cm with mild localized mass effect and edema. Partial effacement of the RIGHT occipital and temporal horns. No hydrocephalus. 2. Additional focus of acute ischemia in the RIGHT thalamus measuring 6 mm. 3. Moderate small vessel changes with moderate parenchymal volume loss. 4. 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 This appears relatively unchanged since the [place] [address] Nain MD at 07/22/2021 2:[address] 07/25/21 19:35 IMPRESSION: 1. No hemorrhagic transformation of the involving acute infarct involving the RIGHT PHARMACY CLERK territory as described on a recent MRI. 2. Small infarct in the RIGHT thalamus is difficult to visualize by CT. 3. 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 Laboratory Results WBC 7.5 10^3/uL (4.0-10.0) 07/26/21 07:39 RBC 4.85 10^6/uL (4.1-5.3) 07/26/21 07:39 Hgb 12.6 g/dL (11.5-15.3) 07/26/21 07:39 Hct 41.1 % (37.0-47.0) 07/26/21 07:39 MCV 84.7 fl (81-99) 07/26/21 07:39 MCH 26.0 pg (28.0-34.0) L 07/26/21 07:39 MCHC 30.7 g/dL (30.0-36.0) 07/26/21 07:39 RDW 15.4 % (12.1-15.1) H 07/26/21 07:39 Plt Count 220 10^3/cmm (130-400) 07/26/21 07:39 MPV 11.2 fL (7.4-10.4) H 07/26/21 07:39 Neut % (Auto) 72.3 % 07/26/21 07:39 Lymph % (Auto) 16.4 % 07/26/21 07:39 [place] % (Auto) 10.8 % 07/26/21 07:39 Eos % (Auto) 0.0 % 07/26/21 07:39 Baso % (Auto) 0.1 % 07/26/21 07:39 Neut # (Auto) 5.41 10^3/uL (1.8-7.7) 07/26/21 07:39 Lymph # (Auto) 1.2 10^3/uL (0.8-4.8) 07/26/21 07:39 [place] # (Auto) 0.8 10^3/uL (0.2-0.9) 07/26/21 07:39 Eos # (Auto) 0.0 10^3/uL (0.0-0.8) 07/26/21 07:39 Baso # (Auto) 0.0 10^3/uL (0.0-0.1) 07/26/21 07:39 Nucleated RBC % (auto) 0 % 07/26/21 07:39 Nucleated RBCs # 0.0 /100WBC 07/26/21 07:39 Sodium 139 mmol/L (136-145) 07/20/21 01:45 Potassium 3.7 mmol/L (3.5-5.1) 07/20/21 01:45 Chloride 103 mmol/L (98-107) 07/20/21 01:45 Carbon Dioxide 26 mmol/L (22-29) 07/20/21 01:45 Anion Gap 13.7 (5-19) 07/20/21 01:45 BUN 22 mg/dL (8-23) 07/20/21 01:45 Creatinine 0.9 mg/dL (0.5-0.9) 07/20/21 01:45 GFR Calculation Not Reportable 07/20/21 01:45 Glucose 133 mg/dL (65-115) H 07/20/21 01:45 Calculated Osmolality 293 mOsm/kg (285-295) 07/20/21 01:45 Calcium 10.1 mg/dL (8.5-10.5) 07/20/21 01:45 Magnesium 2.2 mg/dL (1.7-2.3) 07/20/21 01:45 Total Bilirubin 0.3 mg/dL (0.15-1.2) 07/20/21 01:45 AST 19 U/L (0-32) 07/20/21 01:45 ALT 13 U/L (0-33) 07/20/21 01:45 Alkaline Phosphatase 120 IU/L (35-105) H 07/20/21 01:45 Troponin T Baseline 15 ng/L (0-10) H 07/20/21 01:45 Troponin T Hi Sens 6Hr 12.98 ng/L (0-10) H 07/20/21 05:45 Troponin T Hi Sens 6Hr Delta -2.02 ng/L (0-12) L 07/20/21 05:45 NT-Pro-B Natriuret Pep 1998 pg/mL (0-450) H 07/20/21 05:45 Total Protein 7.3 g/dL (6.6-8.7) 07/20/21 01:45 Albumin 4.6 g/dL (3.5-5.2) 07/20/21 01:45 Globulin 2.7 g/dL (1.3-4.6) 07/20/21 01:45 Vitamin B12 219 pg/mL (232-1245) L 07/21/21 04:54 TSH 3.75 uIU/mL (0.27-4.20) 07/20/21 04:54 Urine Color Yellow (Yellow) 07/25/21 06:00 Urine Appearance Sl hazy (CLEAR) 07/25/21 06:00 Urine pH 5 (5-7) 07/25/21 06:00 Ur Specific [place] 1.025 (1.005-1.030) 07/25/21 06:00 Urine Protein 1+ (Negative) H 07/25/21 06:00 Urine Glucose (UA) Norm (Normal) 07/25/21 06:00 Urine Ketones 1+ (Negative) H 07/25/21 06:00 Urine Blood 2+ (Negative) H 07/25/21 06:00 Urine Nitrate Positive (Negative) H 07/25/21 06:00 Urine Bilirubin Neg (Negative) 07/25/21 06:00 Prot Sulfosalicylic Acd Negative (Negative) 07/20/21 01:45 Urine Urobilinogen Norm mg/dL (Negative) 07/25/21 06:00 Ur Leukocyte Esterase Trace (Negative) H 07/25/21 06:00 Urine RBC 10-15 /hpf (0-2) H 07/25/21 06:00 Urine WBC 40-55 /hpf (0-5) H 07/25/21 06:00 Ur Squamous Epith Cells 0-4 /hpf (0-5) H 07/25/21 06:00 Amorphous Sediment Not Reportable 07/25/21 06:00 Urine Bacteria 3+ /hpf (NONE) H 07/25/21 06:00 Vitals Last Vital Signs Temp 98.4 F 07/29/21 07:20 Pulse 88 07/29/21 07:20 Resp 18 07/29/21 07:20 BP 142/96 07/29/21 07:20 Pulse Ox 98 07/29/21 07:20 Discharge Plan Discharge Patient Disposition: Xfer [facility] Condition: Stable Prescriptions: New lisinopril 20 mg Tablet 20 mg PO DAILY Qty: 30 0RF metoprolol tartrate 25 mg Tablet 25 mg PO BID@0900,2100 Qty: 60 0RF Plavix 75 mg tablet 75 mg PO DAILY Qty: 20 0RF aspirin 325 mg capsule 325 mg PO DAILY Qty: 30 0RF Macrobid 100 mg capsule 100 mg PO BID 5 Days Qty: 10 0RF Rx Instructions: must administer with a meal/food Seroquel 25 mg tablet 25 mg PO BEDTIME Qty: 30 0RF Continued lactulose 10 gram/15 mL solution 10 g PO DAILY PRN (Reason: constipation) Qty: 473 0RF diltiazem HCl 30 mg Tablet 90 mg PO BID@09,15 0RF olmesartan [Benicar] 40 mg Tablet 40 mg PO DAILY@0900 0RF acetaminophen 325 mg Tablet 650 mg PO Q6H PRN (Reason: Mild/Mod Pain Or Temp >/= 101) Qty: 30 0RF lorazepam 0.5 mg Tablet 0.25 mg PO TID PRN (Reason: Anxiety) Qty: 20 0RF oxycodone 5 mg Tablet 5 mg PO Q6H PRN (Reason: Moderate Pain) Qty: 20 0RF sennosides-docusate sodium [Stool Softener-Laxative] 8.6-50 mg tablet 1 tab PO BID@09,21 0RF magnesium citrate Solution 150 ml PO BID PRN (Reason: constipation) Qty: 296 0RF polyethylene glycol 3350 [Purelax] 17 gram/dose powder 17 g PO DAILY Qty: 119 0RF Discontinued aspirin 81 mg Tablet,Chewable 81 mg PO DAILY@0900 0RF Discharge Orders: Discharge Order (Routine); Ordered 07/29/21 Ordered By: Adrianna Gillette Referrals: [facility] [Outside] Grant Arias MD [Primary Care Provider] - 2 weeks Discharge Diet: Advance as tolerated and Cardiac Discharge Activity: Increase activity as tolerated Patient Instructions: Hypertension (ED) Discharge Attestations Time Spent in Discharge Care*: less than 30 min Quality Metrics Clinical Quality Measures [ No reported AMI, CVA or VTE this stay] Coding Level of Care Code Acute Chg FW DC note Diagnoses Delirium R41.0 UTI (urinary tract infection) N39.0 Cerebral edema G93.6 CVA (cerebral vascular accident) I63.9 Posterior circulation stroke I63.50 Hypertensive urgency I16.0 Weakness R53.1 Atrial fibrillation I48.91
[2021-07-29 09:56] VITALS: BP 142/96; PULSE 88; RESP 18; TEMP 36.9
--- NOTE | 2021-07-29 11:29 | PC.OT ---
OT TREATMENT HELD TODAY DUE TO SCHEDULED PATIENT DISCHARGE
[2021-07-29 11:48] VITALS: BP 171/74; PULSE 95; RESP 18; TEMP 36.8; O2SAT 95
--- NOTE | 2021-07-29 13:05 | PC.NURSE ---
Report called to Cyndy at this time. [place] stated that nurse was busy at this time. Took this nurses name and number.
--- NOTE | 2021-07-29 14:01 | PC.NURSE ---
This nurse called Cyndy to give report on patient. Support Specialist told this nurse that nurse was busy.
--- NOTE | 2021-07-29 14:57 | PC.NURSE ---
report called to nurse Mcduffie at [facility] at this time.
[2021-07-29 15:53] VITALS: BP 171/74; PULSE 95; RESP 18; TEMP 36.8; O2SAT 95
== END 2021-07-29 15:54 | disposition skilled nursing facility (03) | DRG 64 ==
LOC: ER 05:00 → MEDSURG 05:22
PROVIDERS: Admitting Provider Family Medicine; Emergency Provider Emergency Medicine; PCP Family Medicine; Visit Provider Internal Medicine
DX: I63.50 Cerebral infarction due to unspecified occlusion or stenosis of unspecified cerebral artery (principal); G93.6 Cerebral edema; G93.41 Metabolic encephalopathy; G81.94 Hemiplegia, unspecified affecting left nondominant side; N39.0 Urinary tract infection, site not specified; B96.20 Unspecified Escherichia coli [E. coli] as the cause of diseases classified elsewhere; I48.91 Unspecified atrial fibrillation; Z91.81 History of falling; I16.0 Hypertensive urgency; Z79.82 Long term (current) use of aspirin; I10 Essential (primary) hypertension; R41.0 Disorientation, unspecified
CPT/HCPCS: 36415; 70450; 70551; 80053; 81001; 81003; 82607; 83735; 83880; 84443; 84484; 85025; 87077; 87086; 87186; 92507; 92523; 92526; 92610; 93005; 93306; 93880; 96372; 96374; 96375; 97110; 97116; 97161; 97167; 97530; 97535; 99285; G0378; J0360; J0696; J1630; J1650; J2060; J2405; J3420; J3490; J7030; J8540

== ENCOUNTER 2021-09-18 17:19 | Observation (INO) | payer MEDICARE, MEDICAID, SELFPAY ==
[2021-09-18 17:33] VITALS: BP 183/127; PULSE 96; RESP 16; TEMP 36.4; O2SAT 96; BMI 23.3
--- NOTE | 2021-09-18 17:35 | PC.NURSE ---
Pt placed on bedside monitor
--- NOTE | 2021-09-18 17:36 | ECG_ITS ---
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 Measurements Intervals [place] Rate: 100 P: MT: QRS: -42 QRSD: 82 T: 0 QT: 356 QTc: 459 Interpretive Statements ATRIAL FIBRILLATION WITH RAPID VENTRICULAR RESPONSE LEFT AXIS DEVIATION [QRS AXIS < -30] POSSIBLE RIGHT VENTRICULAR CONDUCTION DELAY [RSR (QR) IN V1/V2] SEPTAL MYOCARDIAL INFARCTION , PROBABLY OLD [40+ ms Q WAVE IN V1/V2] ST DEVIATION AND MODERATE T-WAVE ABNORMALITY, CONSIDER LATERAL ISCHEMIA [-0.1+ mV T-WAVE IN I/aVL/V5/V6] Compared to ECG 07/20/2021 09:28:27 Myocardial infarct finding now present T-wave abnormality now present Possible ischemia now present Electronically Signed On 09-18-2021 21:19:35 CDT by Mayuri Manuel M.D. [email or web address] regional medical centerPinnacle Biologicsmercy health st[facility] [id number]
--- NOTE | 2021-09-18 17:36 | XRR_ITS ---
PROCEDURE INFORMATION: Exam: XR Chest Exam date and time: 09/18/2021 6:08 PM Age: 86 years old Clinical indication: Other: Palpitations TECHNIQUE: Imaging protocol: XR of the chest. Views: 1 view. COMPARISON: CR XR chest 1V portable [id number] 09/13/2020 10:14 AM FINDINGS: Lungs: Visualized portions of the lungs are clear. There is no pulmonary venous congestion. Pleural spaces: Unremarkable. No pleural effusion. No pneumothorax. Heart/Mediastinum: The heart is mildly enlarged. Bones/joints: Unremarkable. XR/XR chest 1V portable [id number] IMPRESSION: No acute infiltrate.
[2021-09-18 17:49] LABS: Basophils # 0.1 10^3/uL (0.0-0.1); Basophils % 0.9 %; Eosinophils # 0.1 10^3/uL (0.0-0.8); Eosinophils % 0.9 %; Hemoglobin 13.3 g/dL (11.5-15.3); Lymphocytes # 2.2 10^3/uL (0.8-4.8); Lymphocytes % 36.6 %; Mean Corpuscular HGB Conc 30.9 g/dL (30.0-36.0); Mean Corpuscular Volume 84.1 fl (81-99); Mean Platelet Volume 11.4 fL (7.4-10.4); Monocytes # 0.5 10^3/uL (0.2-0.9); Monocytes % 8.9 %; Neutrophils # 3.07 10^3/uL (1.8-7.7); Neutrophils % 52.2 %; Nucleated Red Blood Cells % 0 %; Platelet Count 225 10^3/cmm (130-400); Red Blood Count 5.11 10^6/uL (4.1-5.3); Red Cell Distribution Width 15.1 % (12.1-15.1); White Blood Count 5.9 10^3/uL (4.0-10.0)
--- NOTE | 2021-09-18 18:06 | W.ED.GENADLT ---
HPI - General Adult General: Chief complaint: Arrhythmia/Palpitations Stated complaint: PALPITATIONS Time Seen by Provider: 09/18/21 17:36 History of Present Illness: Patient is an 86-year-old female with history of atrial fibrillation not on any anticoagulation who presents the emergency room for new onset of palpitation and light-headedness since 2:00 today. Patient tells me that she noticed that her heart rate was intermittent fast since 2:00pm. Patient denies any syncope, chest pain or shortness of breath. Patient also denies any leg swelling, recent travel or immobilization for denies any pleuritic chest pain. Patient tells me in the past she was offered anticoagulation not been taking any anticoagulation because blood thinners are not safe due to her fall risks. Patient denies any history of prior GI bleeding or renal issues. Patient also denies any recurrent falls. Patient denies any fever/chills cough, runny nose, sore throat, abdominal complaints nausea/vomiting, diarrhea, melena/hematochezia. Onset:2pm Duration:intermittent for the last 4 hrs Location:home Severity:moderate Associated symptoms: Reports palpitations; Deny chest pain, dyspnea, nausea, rash or vomiting Review of Systems Const: Denies: fever(s) or chills Eyes: Denies: change in vision ENMT: Denies: mouth pain Card: Reports: palpitations; Denies: chest pain Resp: Denies: dyspnea or non-productive cough GI: Denies: abdominal pain, nausea, vomiting or diarrhea : Denies: dysuria Musc: Denies: extremity pain Skin/Breast: Denies: rash or new lesions Neuro: Denies: weakness in extremities Psych: Reports: other (Normal mood) Niko/Lymph: Denies: easy bruising PFS ED PFSH: Medical History Atrial fibrillation Closed fracture of left inferior pubic ramus Hypertension Continue on home Benicar and diltiazem Palpitation Posterior circulation stroke Weakness Surgical History H/O shoulder surgery Left History of hip surgery Left Family History Mother Hypertension Father Lung disease Social History (Reviewed 09/18/21 @ 22:17 by SUSSY Sun Smoking and tobacco status: never smoked Alcohol intake: never Physical Exam Const: COMMON NORMALS: alert HENMT: COMMON NORMALS: atraumatic HEAD & SCALP: atraumatic MOUTH: moist mucous membranes not abnormal Eye: COMMON NORMALS: EOMs intact bilaterally and conjunctivae normal CONJUNCTIVA: Yes conjunctivae normal Neck/C-Spine: COMMON NORMALS: full ROM and supple Resp: COMMON NORMALS: normal respiratory effort and clear to auscultation bilaterally AUSCULTATION: clear to auscultation bilaterally Cardio: OTHER: +irregular irregular hr GI: COMMON NORMALS: Soft to palpation and non-tender PALPATION: Yes Soft to palpation Extremity: COMMON NORMALS: full ROM Neuro: SENSORIUM/ORIENTATION: Yes alert MOTOR EXAM: No Abnormal motor strength present and Other motor observations present (no focal motor deficits) Psych: COMMON NORMALS: speech normal SPEECH: Yes normal speech MOOD & AFFECT: Yes euthymic mood Course Vital Signs: Vital signs: Vital Signs Temperature 97.6 F 09/18/21 17:33 Pulse Rate 96 09/18/21 19:46 Respiratory Rate 18 09/18/21 19:46 Blood Pressure 159/114 09/18/21 19:46 Pulse Oximetry 95 09/18/21 19:46 MDM - General Adult Medical Decision Making 86-year-old female presenting to the emergency room for evaluation of palpitation. Patient has a history of atrial fibrillation. Patient is noted to be irregular irregular heart rate. Patient's heart rate is between 90-120. Patient did not complain of any lightheadedness syncope or chest pain any point time. TSH/T4 within normal limit. D-dimer appears to be elevated. CTA negative for PE. Patient received 500 cc of fluids and 50 mg metoprolol with improvement heart rate still low 90s. Troponin x 2 similar with delta < 5, EKG is nonischemic. Continues to have intermittent palpitation lightheadedness while observed in the emergency room. Discussed case with patient's family who tells me that they would like patient to be observed overnight and to be evaluated for structural cardiac abnormality. Disposition: admission Lab Data : 09/18/21 17:02 09/18/21 17:02 Radiology Impressions Chest X-Ray 09/18/21 17:36 IMPRESSION: No acute infiltrate. Chest CTA 09/18/21 18:45 IMPRESSION: Limited study. No gross evidence pulmonary embolism. Laboratory Results WBC 5.9 10^3/uL (4.0-10.0) 09/18/21 17: RBC 5.11 10^6/uL (4.1-5.3) 09/18/21 17: Hgb 13.3 g/dL (11.5-15.3) 09/18/21 17: Hct 43.0 % (37.0-47.0) 09/18/21 17: MCV 84.1 fl (81-99) 09/18/21 17: MCH 26.0 pg (28.0-34.0) L 09/18/21 17: MCHC 30.9 g/dL (30.0-36.0) 09/18/21: RDW 15.1 % (12.1-15.1) 09/18/21 17: Plt Count 225 10^3/cmm (130-400) 09/18/21 17: MPV 11.4 fL (7.4-10.4) H 09/18/21 17: Neut % (Auto) 52.2 % 09/18/21 17: Lymph % (Auto) 36.6 % 09/18/21 17: [place] % (Auto) 8.9 % 09/18/21 17: Eos % (Auto) 0.9 % 09/18/21 17: Baso % (Auto) 0.9 % 09/18/21 17: Neut # (Auto) 3.07 10^3/uL (1.8-7.7) 09/18/21 17: Lymph # (Auto) 2.2 10^3/uL (0.8-4.8) 09/18/21 17:02 [place] # (Auto) 0.5 10^3/uL (0.2-0.9) 09/18/21 17: Eos # (Auto) 0.1 10^3/uL (0.0-0.8) 09/18/21 17: Baso # (Auto) 0.1 10^3/uL (0.0-0.1) 09/18/21 17: Nucleated RBC % (auto) 0 % 09/18/21 17: Nucleated RBCs # 0.0 /100WBC 09/18/21 17:02 D-Dimer 2.23 ug/mIFEU (0-0.59) H 09/18/21 17:02 Sodium 140 mmol/L (136-145) 09/18/21 17:02 Potassium 3.7 mmol/L (3.5-5.1) 09/18/21 17:02 Chloride 101 mmol/L (98-107) 09/18/21 17:02 Carbon Dioxide 24 mmol/L (22-29) 09/18/21 17:02 Anion Gap 18.7 (5-19) 09/18/21 17:02 BUN 15 mg/dL (8-23) 09/18/21 17:02 Creatinine 0.8 mg/dL (0.5-0.9) 09/18/21 17:02 GFR Calculation Not Reportable 09/18/21 17:02 Glucose 78 mg/dL (65-115) 09/18/21 17:02 Calculated Osmolality 290 mOsm/kg (285-295) 09/18/21 17:02 Calcium 10.1 mg/dL (8.5-10.5) 09/18/21 17:02 Magnesium 2.0 mg/dL (1.7-2.3) 09/18/21 17:02 Total Bilirubin 0.5 mg/dL (0.15-1.2) 09/18/21 17:02 AST 18 U/L (0-32) 09/18/21 17:02 ALT 10 U/L (0-33) 09/18/21 17:02 Alkaline Phosphatase 89 IU/L (35-105) 09/18/21 17:02 Troponin T Baseline 24 ng/L (0-10) H 09/18/21 17:02 Troponin T 120 Minute 22.23 ng/L (0-10) H 09/18/21 18:55 Delta Troponin T -1.77 ABS# (0-10) L 09/18/21 18:55 Total Protein 6.6 g/dL (6.6-8.7) 09/18/21 17:02 Albumin 4.5 g/dL (3.5-5.2) 09/18/21 17:02 Globulin 2.1 g/dL (1.3-4.6) 09/18/21 17:02 Lipase 26 U/L (13-60) 09/18/21 17:02 Imaging Data Other Imaging: Radiologist's impression: [id number] [place] [address] CT Scan Report Signed Patient: Cristel Keating Unit #: [id number] : 1935 Age/Sex: 86 / F ADM Date: 09/18/21 Loc: ER Room/Bed: Attending Dr: Ordering Provider/Ordering MD: Blas Parker MD Date of Service: 09/18/21 Procedure(s): CT angio chest PE protcl [id number] Accession Number(s): [id number] Report Number: [id number] PROCEDURE INFORMATION: Exam: CTA Chest With Contrast Exam date and time: 09/18/2021 7:42 PM Age: 86 years old Clinical indication: Shortness of breath and other: HX of a fib; Additional info: Chest pain, possible pe TECHNIQUE: Imaging protocol: Computed tomographic angiography of the chest with contrast. 3D rendering (Not supervised by radiologist): MIP and/or 3D reconstructed images were created by the technologist. Radiation optimization: All CT scans at this facility use at least one of these dose optimization techniques: automated exposure control; mA and/or kV adjustment per patient size (includes targeted exams where dose is matched to clinical indication); or iterative reconstruction. Contrast material: OMNI 300; Contrast volume: 50 ml; Contrast route: INTRAVENOUS (IV);? COMPARISON: CR (CHEST, ) 09/18/2021 6:08 PM RADIATION DOSE METRICS: Total DLP (mGy-cm): 570.46 FINDINGS: Limitations: Study is limited by patient respiratory motion. Pulmonary arteries: Allowing for the presence of motion related artifact which obscures visualization of smaller pulmonary artery branches especially in the lung bases, no definite large or central pulmonary emboli are noted. Aorta: There is no thoracic aortic aneurysm or dissection. Lungs: There is some mild linear atelectasis in the lung bases. There is calcified granuloma in the right lower lobe. Pleural spaces: Unremarkable. No pneumothorax. No pleural effusion. Heart: The heart is mildly enlarged. Heart RV/LV ratio: 0.95 Lymph nodes: Unremarkable. No enlarged lymph nodes. Bones/joints: There are mild chronic appearing compression deformities of T7, T11, L1 and L4. Soft tissues: Unremarkable. CT/CT angio chest PE protcl [id number] IMPRESSION: Limited study. No gross evidence pulmonary embolism. ? Dictated By: Nathen Krishnamurthy Signed By: Nathen Krishnamurthy Signed Date/Time: 09/18/212028 DD/ [address] [address] XRay Report Signed Patient: Cristel Keating Unit #: [id number] : 1935 Age/Sex: 86 / F ADM Date: 09/18/21 Loc: ER Room/Bed: Attending Dr: Ordering Provider/Ordering MD: Blas Parker MD Date of Service: 09/18/21 Procedure(s): XR chest 1V portable [id number] Accession Number(s): [id number] Report Number: [id number] PROCEDURE INFORMATION: Exam: XR Chest Exam date and time: 09/18/2021 6:08 PM Age: 86 years old Clinical indication: Other: Palpitations TECHNIQUE: Imaging protocol: XR of the chest. Views: 1 view. COMPARISON: CR XR chest 1V portable [id number] 09/13/2020 10:14 AM FINDINGS: Lungs: Visualized portions of the lungs are clear. There is no pulmonary venous congestion. Pleural spaces: Unremarkable. No pleural effusion. No pneumothorax. Heart/Mediastinum: The heart is mildly enlarged. Bones/joints: Unremarkable. XR/XR chest 1V portable [id number] IMPRESSION: No acute infiltrate. ? Dictated By: Nathen Krishnamurthy Signed By: Nathen Krishnamurthy Signed Date/Time: 09/18/211855 DD/ 07 Discharge Plan Discharge Patient Disposition: Admitted As Inpatient Clinical Impression: Heart palpitations, Atrial fibrillation, Light headedness Condition: Stable Discharge Diet: Advance as tolerated Discharge Activity: Increase activity as tolerated Coding Level of Care Code ED Wheel Alignment Mechanic for Románg Fwd Exam Comprehensive
[2021-09-18] MEDS: metoprolol succinate ER (24 HR) 50 mg Tablet PO (18:26)
[2021-09-18] MEDS: sodium chloride 0.9% 500 ML IV (18:26)
[2021-09-18 18:40] LABS: D Dimer 2.23 ug/mIFEU (0-0.59)
--- NOTE | 2021-09-18 18:45 | CTR_ITS ---
PROCEDURE INFORMATION: Exam: CTA Chest With Contrast Exam date and time: 09/18/2021 7:42 PM Age: 86 years old Clinical indication: Shortness of breath and other: HX of a fib; Additional info: Chest pain, possible pe TECHNIQUE: Imaging protocol: Computed tomographic angiography of the chest with contrast. 3D rendering (Not supervised by radiologist): MIP and/or 3D reconstructed images were created by the technologist. Radiation optimization: All CT scans at this facility use at least one of these dose optimization techniques: automated exposure control; mA and/or kV adjustment per patient size (includes targeted exams where dose is matched to clinical indication); or iterative reconstruction. Contrast material: OMNI 300; Contrast volume: 50 ml; Contrast route: INTRAVENOUS (IV); COMPARISON: CR (CHEST, ) 09/18/2021 6:08 PM RADIATION DOSE METRICS: Total DLP (mGy-cm): 570.46 FINDINGS: Limitations: Study is limited by patient respiratory motion. Pulmonary arteries: Allowing for the presence of motion related artifact which obscures visualization of smaller pulmonary artery branches especially in the lung bases, no definite large or central pulmonary emboli are noted. Aorta: There is no thoracic aortic aneurysm or dissection. Lungs: There is some mild linear atelectasis in the lung bases. There is calcified granuloma in the right lower lobe. Pleural spaces: Unremarkable. No pneumothorax. No pleural effusion. Heart: The heart is mildly enlarged. Heart RV/LV ratio: 0.95 Lymph nodes: Unremarkable. No enlarged lymph nodes. Bones/joints: There are mild chronic appearing compression deformities of T7, T11, L1 and L4. Soft tissues: Unremarkable. CT/CT angio chest PE protcl [id number] IMPRESSION: Limited study. No gross evidence pulmonary embolism.
[2021-09-18 18:47] LABS: Alanine Aminotransferase 10 U/L (0-33); Albumin Level 4.5 g/dL (3.5-5.2); Alkaline Phosphatase 89 IU/L (35-105); Anion Gap 18.7 (5-19); Aspartate Amino Transferase 18 U/L (0-32); Blood Urea Nitrogen 15 mg/dL (8-23); Calcium 10.1 mg/dL (8.5-10.5); Carbon Dioxide 24 mmol/L (22-29); Chloride 101 mmol/L (98-107); Globulin 2.1 g/dL (1.3-4.6); Glucose 78 mg/dL (65-115); Lipase 26 U/L (13-60); Osmolality Calculated 290 mOsm/kg (285-295); Potassium 3.7 mmol/L (3.5-5.1); Sodium 140 mmol/L (136-145); Total Bilirubin 0.5 mg/dL (0.15-1.2); Total Protein 6.6 g/dL (6.6-8.7)
[2021-09-18 18:48] LABS: Troponin(5th) Baseline 24 ng/L (0-10)
[2021-09-18 19:03] LABS: Free T4 Free Thyroxine 1.33 ng/dL (0.82-1.77); Thyroid Stimulating Hormone 3.02 uIU/mL (0.27-4.20)
--- NOTE | 2021-09-18 19:36 | ECG_ITS ---
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 Measurements Intervals [place] Rate: 103 P: [place]: QRS: -44 QRSD: 74 T: 43 QT: 307 QTc: 403 Interpretive Statements ATRIAL FIBRILLATION WITH RAPID VENTRICULAR RESPONSE LEFT AXIS DEVIATION [QRS AXIS < -30] SEPTAL MYOCARDIAL INFARCTION , PROBABLY OLD [40+ ms Q WAVE IN V1/V2] ST DEVIATION AND MODERATE T-WAVE ABNORMALITY, CONSIDER LATERAL ISCHEMIA [-0.1+ mV T-WAVE IN I/aVL/V5/V6] Compared to ECG 09/18/2021 18:39:26 No significant changes Electronically Signed On 09-18-2021 22:03:46 CDT by Mayuri Manuel M.D. [id number]
[2021-09-18 19:46] VITALS: BP 159/114; PULSE 96; RESP 18; O2SAT 95
[2021-09-18 19:50] LABS: Troponin 5 2HR 22.23 ng/L (0-10); Troponin 5 2HR Delta -1.77 ABS# (0-10)
[2021-09-18] MEDS: iohexol 300 mg/mL 100 mL Btl IV (20:05)
--- NOTE | 2021-09-18 21:07 | PC.NURSE ---
Pt ambulated to the bathroom, tolerated well, also taking PO without problems.
--- NOTE | 2021-09-18 22:14 | ECG_ITS ---
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 Measurements Intervals [place] Rate: 96 P: [place]: QRS: -58 QRSD: 82 T: 0 QT: 338 QTc: 427 Interpretive Statements ATRIAL FIBRILLATION POSSIBLE RIGHT VENTRICULAR CONDUCTION DELAY [RSR (QR) IN V1/V2] LEFT ANTERIOR FASCICULAR BLOCK [QRS AXIS <= -45, QR IN I, RS IN II] SEPTAL MYOCARDIAL INFARCTION , PROBABLY OLD [40+ ms Q WAVE IN V1/V2] ST DEVIATION AND MODERATE T-WAVE ABNORMALITY, CONSIDER LATERAL ISCHEMIA [-0.1+ mV T-WAVE IN I/aVL/V5/V6] Compared to ECG 09/18/2021 21:35:29 Left anterior fascicular block now present Left-axis deviation no longer present Myocardial infarct finding still present T-wave abnormality still present Possible ischemia still present Electronically Signed On 09-19-2021 22:26:02 CDT by Demetrius Nuno M.D. [id number]
--- NOTE | 2021-09-18 22:16 | P.HP_ITS ---
Providers/Chief Complaint Primary Care Provider: Grant Arias MD Chief Complaint: PALPITATIONS History of Present Illness The patient is an 86-year-old female who with a known history of atrial fibrillation who presents with chest pain accompanying atrial fibrillation with rapid ventricular response.? She indicates that her symptoms started approximately 2 PM on September 18, 2021.? Please note that the patient is a fair historian at best and it appears that there is some element of dementia present.? She states the symptoms started suddenly at that time.? Upon further questioning, she admits to a sensation of rapid heartbeat.? She denies dyspnea, lightheaded, dizziness, diaphoresis, palpitations, sensation knee regular heartbeat.? She denies peripheral edema.? In the emergency department she is found to be in atrial fibrillation with rapid ventricular response.? She presents for further evaluation Review of Systems General: Reports: 10 or more systems reviewed and unremarkable except in HPI and below Medications/Allergies Home Medications Medication Instructions Recorded Confirmed Last Taken Type diltiazem HCl 30 mg tablet 90 mg PO BID@04/19/20 07/20/21 09/13/20 History olmesartan 40 mg tablet (Benicar) 40 mg PO DAILY@0900 04/19/20 07/20/21 09/13/20 History acetaminophen 325 mg tablet 650 mg PO Q6H PRN #30 tab 08/16/20 07/20/21 Unknown Rx lorazepam 0.5 mg tablet 0.25 mg PO TID PRN #20 tab 08/16/20 07/20/21 09/13/20 Rx oxycodone 5 mg tablet 5 mg PO Q6H PRN #20 tab 08/16/20 07/20/21 09/13/20 Rx 1.25 mg TODAY magnesium citrate 150 ml PO BID PRN #296 ml 09/13/20 07/20/21 Unknown Rx sennosides 8.6 mg-docusate sodium 1 tab PO BID@09/13/20 07/20/21 09/13/20 History 50 mg tablet (Stool Softener-Laxative) lactulose 10 gram/15 mL oral 10 g (15 mL) PO DAILY PRN #473 ml 10/11/20 07/20/21 Unknown Rx solution polyethylene glycol 3350 17 17 g PO DAILY #119 g 10/22/20 07/20/21 Unknown Rx gram/dose oral powder (Purelax) aspirin 325 mg capsule 325 mg PO DAILY #30 cap 07/24/21 Unknown Rx clopidogrel 75 mg tablet (Plavix) 75 mg PO DAILY #20 tab 07/24/21 Unknown Rx lisinopril 20 mg tablet 20 mg PO DAILY #30 tab 07/24/21 Unknown Rx metoprolol tartrate 25 mg tablet 25 mg PO BID@0900,2100 #60 tab 07/24/21 Unknown Rx quetiapine 25 mg tablet (Seroquel) 25 mg PO BEDTIME #30 tab 07/29/21 Unknown Rx Allergies Allergy/AdvReac Type Severity Reaction Status Date / Time No Known Allergies Allergy Verified 05/26/19 08:03 PFSH Acute PFSH: Medical History Atrial fibrillation Closed fracture of left inferior pubic ramus Hypertension Continue on home Benicar and diltiazem Palpitation Posterior circulation stroke Weakness Surgical History H/O shoulder surgery Left History of hip surgery Left Family History Mother Hypertension Father Lung disease Social History Smoking and tobacco status: never smoked Alcohol intake: never Vitals/I&O/Wt Last Vital Signs Temp 97.6 F 09/18/21 17:33 Pulse 96 09/18/21 19:46 Resp 18 09/18/21 19:46 BP 159/114 09/18/21 19:46 Pulse Ox 95 09/18/21 19:46 Weight last 48 hrs Weight 63.503 kg Physical Exam Narrative: General: -Alert -No acute distress -No dyspnea -No tachypnea Head: -Atraumatic -Normocephalic Eyes: -Pupils equally round and reactive to light and accommodation -Extraocular muscles intact Neurological: -Cranial nerves II-XII intact Neck: -No jugular venous distention -No thyromegaly -No cervical lymphadenopathy Heart: -Regular rate -Regular rhythm -No murmurs -No gallops -No rubs Lungs: -No wheeze -No rhonchi -No rales ? Abdomen: -Normal bowel sounds in all four quadrants -No rebound -No guarding -No tenderness Extremities: -2/4 pulse in all four extremities -No clubbing -No cyanosis -No edema -No calf tenderness present bilaterally -Negative Liz?s sign bilaterally Musculoskeletal: -5/5 bilateral upper extremity strength -5/5 bilateral lower extremity strength -Sensorium of bilateral upper extremities are equal and intact -Sensorium of bilateral lower extremities are equal and intact ? Additional Details / Additional Findings / Exceptions / Miscellaneous: Data : 09/18/21 17:02 09/18/21 17:02 A&P Assessment and plan (1) Heart palpitations: Status: Acute Plan Atrial fibrillation with rapid ventricular response with known history of atrial for ablation. Will monitor patient on telemetry and checks her cardiac enzymes. TSH pending, free T4 pending. Magnesium level within normal limits. Will recheck EKG on the morning of September 19, 2021. Patient had echocardiogram performed on AugustJuly 20, 2021 which overall was unremarkable and thus will not be reordered. In the past patient has refused anticoagulate coagulation. Eliquis 2.5 Mill grams by mouth twice a day plus Cardizem CD 2 140 Mill grams by mouth daily History of hypothyroidism. TSH, free T4 pending History of vitamin B12 deficiency Query dementia. Outpatient follow-up with urology upon discharge History of CVA Constipation Anxiety Grade 1 diastolic dysfunction Hypertension. Cardizem CD 2 140 Mill cans by mouth daily DVT Proflex is. 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
[2021-09-18 22:46] VITALS: BP 157/100; PULSE 101; RESP 18; O2SAT 97
--- NOTE | 2021-09-18 23:22 | PC.NURSE ---
ADMIT NOTE Pt received to floor from ER via wheelchair. Immediately started c/o that she cannot be in this room because it is too cold and the bed is cold. Is oriented to person and place but keeps repeating things. Denies pain. Did not want to change out of clothes yet because is too cold in here . Telemetry applied and is showing A-fib. Ambulated to bathroom and bed alarm on when returned to bed. RN to complete admission assessment.
[2021-09-18 23:32] VITALS: BP 150/115; PULSE 91; RESP 14; TEMP 36.9; O2SAT 90
[2021-09-19] MEDS: dilTIAZem ER (24HR) 240 mg Capsule PO ×2 (00:10→08:52)
--- NOTE | 2021-09-19 00:14 | ECG_ITS ---
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 Measurements Intervals [place] Rate: 66 P: [place]: QRS: -43 QRSD: 87 T: 29 QT: 400 QTc: 421 Interpretive Statements ATRIAL FIBRILLATION LEFT AXIS DEVIATION [QRS AXIS < -30] SEPTAL MYOCARDIAL INFARCTION , PROBABLY OLD [40+ ms Q WAVE IN V1/V2] MODERATE T-WAVE ABNORMALITY, CONSIDER LATERAL ISCHEMIA [-0.1+ mV T-WAVE IN I/aVL/V5/V6] Compared to ECG 09/18/2021 22:47:06 Left-axis deviation now present Left anterior fascicular block no longer present Myocardial infarct finding still present T-wave abnormality still present Possible ischemia still present Electronically Signed On 09-19-2021 22:28:00 CDT by Demetrius Nuno M.D. [id number]
[2021-09-19 00:57] VITALS: BP 184/111; PULSE 62; RESP 16; TEMP 36.9; O2SAT 90
[2021-09-19 02:00] VITALS: BMI 23.3
[2021-09-19 04:00] VITALS: BP 145/80; PULSE 83; RESP 18; TEMP 36.6; O2SAT 92
--- NOTE | 2021-09-19 04:14 | ECG_ITS ---
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 Measurements Intervals [place] Rate: 76 P: [place]: QRS: -44 QRSD: 83 T: -89 QT: 397 QTc: 449 Interpretive Statements ATRIAL FIBRILLATION LEFT AXIS DEVIATION [QRS AXIS < -30] ST DEVIATION AND MODERATE T-WAVE ABNORMALITY, CONSIDER LATERAL ISCHEMIA [-0.1+ mV T-WAVE IN I/aVL/V5/V6] Compared to ECG 09/19/2021 05:14:50 Myocardial infarct finding no longer present T-wave abnormality still present Possible ischemia still present Electronically Signed On 09-19-2021 22:27:56 CDT by Demetrius Nuno M.D. [id number]
[2021-09-19 07:40] VITALS: BP 147/70; PULSE 79; RESP 18; TEMP 36.5; O2SAT 94
[2021-09-19] MEDS: apixaban 5 mg Tablet 2.5 MG PO (08:52)
--- NOTE | 2021-09-19 10:27 | PM.DCS ---
Discharge Providers Date of Admission: 09/18/21 22:14 Date of Discharge: September 19, 2021 Attending Provider at Admission: Antonio Salvador DO Attending Provider at Discharge: Luis Gonzales MD Primary Care Provider: Grant Arias MD Diagnoses at Discharge Discharge Diagnosis (1) Heart palpitations: Status: Acute (2) Atrial fibrillation: Status: Acute (3) Light headedness: Status: Acute (4) Myocardial injury: Status: Acute Reason for Visit Reason for Visit: PALPITATIONS Hospital Course Hospital Course Cristel Keating is an 86-year-old female with a past medical history significant for atrial fibrillation, hypertension, and CVA who presented to emergency department complaining of heart palpitations and rapid heart rate. She was found to have atrial fibrillation with rapid ventricular rate. She was treated with beta-catherine and calcium channel catherine with resolution of the rapid ventricular rate. Patient on both NABEEL inhibitor and ARB, for which ARB was discontinued at discharge. Her diltiazem was changed from short acting to long-acting diltiazem at increased total daily dosing to 240 mg daily. Event monitor was ordered by the emergency department which patient should wear for 21 days. She is on aspirin and Plavix. Anticoagulation was discussed with patient for which she refused. She is to follow-up with cardiology and her primary care physician as outpatient. Physical Exam Narrative: General: Patient is awake and alert. Head: Normocephalic. Atraumatic. EOM intact. Neck: No JVD. Cardiovascular: No gallops. No murmurs. No peripheral edema. Lungs: Clear to auscultation, no use of accessory muscles, no crackles or wheezes. Skin: No jaundice. No rashes. Abdomen: Normal bowel sounds, abdomen soft and nontender. Genito Urinary: Genital exam not performed since complaints not related. Rectal: Rectal exam not performed since no symptoms indicated blood loss. Extremeties: No cyanosis or clubbing. Musculoskeletal:No swollen or erythematous joints. Neurological: Moves all 4 extremities. No myoclonus. Discharge Data Studies Completed and Pending Completed Studies During Hospitalization Category Date Time Status CTA chest [CT angio chest PE protcl [id number]] Urgent Cat Scan 09/18/21 18:45 Completed XR chest 1V portable [id number] Stat Exams 09/18/21 17:36 Completed Pending at discharge Category Date Time Status Free T4 Free Thyroxine Stat Lab 09/18/21 17:02 Received TSH [Thyroid Stimulating Hormone] Stat Lab 09/18/21 17:02 Received Radiology Impressions Chest X-Ray 09/18/21 17:36 IMPRESSION: No acute infiltrate. Chest CTA 09/18/21 18:45 IMPRESSION: Limited study. No gross evidence pulmonary embolism. Laboratory Results WBC 5.9 10^3/uL (4.0-10.0) 09/18/21 17: RBC 5.11 10^6/uL (4.1-5.3) 09/18/21 17: Hgb 13.3 g/dL (11.5-15.3) 09/18/21 17: Hct 43.0 % (37.0-47.0) 09/18/21 17: MCV 84.1 fl (81-99) 09/18/21 17: MCH 26.0 pg (28.0-34.0) L 09/18/21 17: MCHC 30.9 g/dL (30.0-36.0) 09/18/21 17: RDW 15.1 % (12.1-15.1) 09/18/21 17: Plt Count 225 10^3/cmm (130-400) 09/18/21 17:02 MPV 11.4 fL (7.4-10.4) H 09/18/21 17:02 Neut % (Auto) 52.2 % 09/18/21 17:02 Lymph % (Auto) 36.6 % 09/18/21 17:02 [place] % (Auto) 8.9 % 09/18/21 17:02 Eos % (Auto) 0.9 % 09/18/21 17:02 Baso % (Auto) 0.9 % 09/18/21 17:02 Neut # (Auto) 3.07 10^3/uL (1.8-7.7) 09/18/21 17:02 Lymph # (Auto) 2.2 10^3/uL (0.8-4.8) 09/18/21 17:02 [place] # (Auto) 0.5 10^3/uL (0.2-0.9) 09/18/21 17:02 Eos # (Auto) 0.1 10^3/uL (0.0-0.8) 09/18/21 17:02 Baso # (Auto) 0.1 10^3/uL (0.0-0.1) 09/18/21 17:02 Nucleated RBC % (auto) 0 % 09/18/21 17:02 Nucleated RBCs # 0.0 /100WBC 09/18/21 17:02 D-Dimer 2.23 ug/mIFEU (0-0.59) H 09/18/21 17:02 Sodium 140 mmol/L (136-145) 09/18/21 17:02 Potassium 3.7 mmol/L (3.5-5.1) 09/18/21 17:02 Chloride 101 mmol/L (98-107) 09/18/21 17:02 Carbon Dioxide 24 mmol/L (22-29) 09/18/21 17:02 Anion Gap 18.7 (5-19) 09/18/21 17:02 BUN 15 mg/dL (8-23) 09/18/21 17:02 Creatinine 0.8 mg/dL (0.5-0.9) 09/18/21 17:02 GFR Calculation Not Reportable 09/18/21 17:02 Glucose 78 mg/dL (65-115) 09/18/21 17:02 Calculated Osmolality 290 mOsm/kg (285-295) 09/18/21 17:02 Calcium 10.1 mg/dL (8.5-10.5) 09/18/21 17:02 Magnesium 2.0 mg/dL (1.7-2.3) 09/18/21 17:02 Total Bilirubin 0.5 mg/dL (0.15-1.2) 09/18/21 17:02 AST 18 U/L (0-32) 09/18/21 17:02 ALT 10 U/L (0-33) 09/18/21 17:02 Alkaline Phosphatase 89 IU/L (35-105) 09/18/21 17:02 Troponin T Baseline 24 ng/L (0-10) H 09/18/21 17:02 Troponin T 120 Minute 22.23 ng/L (0-10) H 09/18/21 18:55 Delta Troponin T -1.77 ABS# (0-10) L 09/18/21 18:55 Total Protein 6.6 g/dL (6.6-8.7) 09/18/21 17:02 Albumin 4.5 g/dL (3.5-5.2) 09/18/21 17:02 Globulin 2.1 g/dL (1.3-4.6) 09/18/21 17:02 Lipase 26 U/L (13-60) 09/18/21 17:02 Vitals Last Vital Signs Temp 97.7 F 09/19/21 07:40 Pulse 79 09/19/21 07:40 Resp 18 09/19/21 07:40 BP 147/70 09/19/21 07:40 Pulse Ox 94 09/19/21 07:40 Discharge Plan Discharge Patient Disposition: Home Condition: Stable Prescriptions: New diltiazem HCl 240 mg Capsule,Extended Release 24hr 240 mg PO DAILY 30 Days Qty: 30 0RF Continued lactulose 10 gram/15 mL solution 10 g PO DAILY PRN (Reason: constipation) Qty: 473 0RF acetaminophen 325 mg Tablet 650 mg PO Q6H PRN (Reason: Mild/Mod Pain Or Temp >/= 101) Qty: 30 0RF lorazepam 0.5 mg Tablet 0.25 mg PO TID PRN (Reason: Anxiety) Qty: 20 0RF oxycodone 5 mg Tablet 5 mg PO Q6H PRN (Reason: Moderate Pain) Qty: 20 0RF sennosides-docusate sodium [Stool Softener-Laxative] 8.6-50 mg tablet 1 tab PO BID@09,21 0RF magnesium citrate Solution 150 ml PO BID PRN (Reason: constipation) Qty: 296 0RF polyethylene glycol 3350 [Purelax] 17 gram/dose powder 17 g PO DAILY Qty: 119 0RF lisinopril 20 mg Tablet 20 mg PO DAILY Qty: 30 0RF metoprolol tartrate 25 mg Tablet 25 mg PO BID@0900,2100 Qty: 60 0RF Plavix 75 mg tablet 75 mg PO DAILY Qty: 20 0RF aspirin 325 mg capsule 325 mg PO DAILY Qty: 30 0RF Seroquel 25 mg tablet 25 mg PO BEDTIME Qty: 30 0RF Discontinued diltiazem HCl 30 mg Tablet 90 mg PO BID@09,15 0RF olmesartan [Benicar] 40 mg Tablet 40 mg PO DAILY@0900 0RF Discharge Orders: Discharge Order (Routine); Ordered 09/19/21 Ordered By: Luis Gonzales Other Ambulatory Orders: MCT/Event Monitor 21 Days (Routine) Timeframe: 3 Weeks Facility: [facility] - Location: Radiology Ordered By: Blas Parker Referrals: CARDIOLOGY [Provider Group] - 1 week rGant Arias MD [Primary Care Provider] - 4-7 days Discharge Diet: Cardiac Discharge Activity: Increase activity as tolerated Patient Instructions: Diltiazem (By mouth), Heart Palpitations (ED), Opioid Safety Activity Restrictions/Additional Instructions: Please wear an event monitor. Come back to the emergency room have any more palpitation, lightheadedness, chest pain, shortness breath, or any new external complaints. Our casework supervisor will have you follow-up with Cardiology in the next few days for evaluation of palpitations. You would be expected to have a phone call with our casework supervisor who will put you on the schedule. You can expect a call from us in the next 2-3 days. If you don't hear from us, call us back in the emergency room at [phone]. Discharge Attestations Time Spent in Discharge Care*: greater than 30 min Quality Metrics Clinical Quality Measures [ No reported AMI, CVA or VTE this stay] Coding Level of Care Code Acute Chg FW DC note Diagnoses Heart palpitations R00.2 Atrial fibrillation I48.91 Light headedness R42 Myocardial injury I5A
[2021-09-19 11:21] VITALS: BP 147/70; PULSE 79; RESP 18; TEMP 36.5; O2SAT 94
== END 2021-09-19 11:21 | disposition home or self-care (01) ==
LOC: ER 21:51 → MEDSURG 22:40
PROVIDERS: Admitting Provider Internal Medicine; Emergency Provider Emergency Medicine; PCP Family Medicine; Visit Provider Internal Medicine
DX: R00.2 Palpitations (principal); I48.91 Unspecified atrial fibrillation; R42 Dizziness and giddiness; I5A Non-ischemic myocardial injury (non-traumatic); I10 Essential (primary) hypertension; Z82.49 Family history of ischemic heart disease and other diseases of the circulatory system; I25.2 Old myocardial infarction
CPT/HCPCS: 71045; 71275; 80053; 83690; 83735; 84439; 84443; 84484; 85025; 85378; 93005; 96360; 99285; G0378; J7040; Q9967

== ENCOUNTER 2021-09-30 12:28 | Emergency (ER) | payer MEDICARE, MEDICAID, SELFPAY ==
--- NOTE | 2021-09-30 12:29 | CT_ITS ---
WS: [id number] CT HEAD TECHNIQUE: Noncontrast CT of the head obtained from the skullbase to the vertex. CLINICAL INFORMATION: ams COMPARISON: July 25, 2021 and MRI July 22, 2021 DLP: 838.[address] scans at [facility] use at least one of these dose optimization techniques: automated e xposure control; mA and/or kV adjustment per patient size (includes targeted exams where dose is matc hed to clinical indication); or iterative reconstruction. 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 Chronic encephalomalaci a in the RIGHT LINSEED OIL PRESS TENDER territory corresponding to the area of prior ischemia seen on the MRI July 22 22. Intracranial vascular calcification. Chronic lacunar infarcts in the bilateral basal ganglia and RIGHT thalamus. Mild small vessel changes. Moderate parenchymal volume loss. Chronic infarct in the L EFT posterior temporal lobe is stable. Paranasal sinuses and mastoid air cells well aerated. Normal visualized soft tissues. CT/CT head wo con* [id number] IMPRESSION: 1. No evidence of intracranial hemorrhage. 2. Stable calcified long-standing pineal mass. 3. Chronic infarct with encephalomalacia RIGHT LINSEED OIL PRESS TENDER territory compatible with p reviously described ischemia. 4. Chronic lacunar infarcts in the basal ganglia and RIGHT thalamus. 5. No other acute findings and no significant changes from July 25, 2021
--- NOTE | 2021-09-30 12:29 | ECG_ITS ---
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 Measurements Intervals [place] Rate: 62 P: [place]: QRS: -60 QRSD: 86 T: 41 QT: 414 QTc: 422 Interpretive Statements ATRIAL FIBRILLATION INDETERMINATE AXIS ST DEVIATION AND MODERATE T-WAVE ABNORMALITY, CONSIDER LATERAL ISCHEMIA [-0.1+ mV T-WAVE IN I/aVL/V5/V6] Compared to ECG 09/19/2021 06:32:49 Indeterminate axis now present Left-axis deviation no longer present T-wave abnormality still present Possible ischemia still present Electronically Signed On 09-30-2021 16:24:51 CDT by Shant Lopez M.D. [id number]
--- NOTE | 2021-09-30 12:29 | XRR_ITS ---
PROCEDURE INFORMATION: Exam: XR Chest Exam date and time: 09/30/2021 12:45 PM Age: 86 years old Clinical indication: Other: AMS TECHNIQUE: Imaging protocol: XR of the chest. Views: 1 view. COMPARISON: CR (CHEST, ) 09/18/2021 6:08 PM FINDINGS: Lungs: Minimal linear streaking in each lung consistent with stable mild scarring. Pleural spaces: Unremarkable. No pleural effusion. No pneumothorax. Heart/Mediastinum: Cardiomegaly. Bones/joints: Again there is a left humeral head replacement. XR/XR chest 1V portable [id number] IMPRESSION: No acute findings.
[2021-09-30 12:33] VITALS: BP 151/97; PULSE 65; RESP 16; TEMP 36.8; O2SAT 97; BMI 23.3
--- NOTE | 2021-09-30 13:04 | W.ED.GENADLT ---
HPI - General Adult General: Chief complaint: Altered Mental Status Stated complaint: WEAKNESS, CONFUSION Time Seen by Provider: 09/30/21 12:28 History of Present Illness: Patient is an 86-year-old female with history of atrial fibrillation not on anticoagulation, CAD, prior stroke without any residual neurodeficit presenting to the emergency room for evaluation of new onset altered mental status and increased confusion for the last 3 days. Per family, patient has not been acting right. Patient normally is able to perform her function and walk with a walker. However patient has been more confused per daughter. Patient has no other focal complaints at this time today including chest pain, shortness breath, palpitation, nausea/vomiting diarrhea, melena/hematochezia, complaints Onset: 3 days ago Duration:3 days Location:home Severity: moderate Associated symptoms: Deny chest pain, dyspnea, nausea, rash, palpitations or vomiting Review of Systems Const: Denies: fever(s) or chills Eyes: Denies: change in vision ENMT: Denies: mouth pain Card: Denies: chest pain or palpitations Resp: Denies: dyspnea or non-productive cough GI: Denies: abdominal pain, nausea, vomiting or diarrhea : Denies: dysuria Musc: Denies: extremity pain Skin/Breast: Denies: rash or new lesions Neuro: Reports: other (+increased confusion per family); Denies: weakness in extremities Psych: Reports: other (Normal mood) Niko/Lymph: Denies: easy bruising [facility] PFSH: Medical History Atrial fibrillation Closed fracture of left inferior pubic ramus Hypertension Continue on home Benicar and diltiazem Palpitation Posterior circulation stroke Weakness Surgical History H/O shoulder surgery Left History of hip surgery Left Family History Mother Hypertension Father Lung disease Social History Smoking and tobacco status: never smoked Alcohol intake: never Physical Exam Const: COMMON NORMALS: alert HENMT: COMMON NORMALS: atraumatic HEAD & SCALP: atraumatic MOUTH: moist mucous membranes not abnormal Eye: COMMON NORMALS: EOMs intact bilaterally and conjunctivae normal CONJUNCTIVA: Yes conjunctivae normal Neck/C-Spine: COMMON NORMALS: full ROM and supple Resp: COMMON NORMALS: normal respiratory effort and clear to auscultation bilaterally AUSCULTATION: clear to auscultation bilaterally Cardio: COMMON NORMALS: regular rate RATE: regular rate GI: COMMON NORMALS: Soft to palpation and non-tender PALPATION: Yes Soft to palpation Extremity: COMMON NORMALS: full ROM Neuro: SENSORIUM/ORIENTATION: Yes alert MOTOR EXAM: No Abnormal motor strength present and Other motor observations present (no focal motor deficits) OTHER: +mild confusion, AAOx3, moving all extremities, following commands, sensation grossly intact in all extremities, CN2-12 grossly intact, patient ambulated with a walker Psych: COMMON NORMALS: speech normal SPEECH: Yes normal speech MOOD & AFFECT: Yes euthymic mood Course Vital Signs: Vital signs: Vital Signs Temperature 98.4 F 09/30/21 16:32 Pulse Rate 81 09/30/21 16:32 Respiratory Rate 18 09/30/21 16:32 Blood Pressure 161/89 09/30/21 16:32 Pulse Oximetry 100 09/30/21 16:32 MDM - General Adult Medical Decision Making 86-year-old female with history of atrial fibrillation not on anticoagulation, hypertension, CAD, prior stroke last month presenting to the emergency room for evaluation of worsening altered mental status x3 days. On physical exam, he is patient is hemodynamically stable and neuro exam is at baseline. No other focal findings. CT head negative for any acute pathology. Her chest did not show any pneumonia. Blood work largely within normal limit. Patient received IVF, is able to tolerate p.o. patient is ambulating without difficulty. Patient is in stable answer all my questions without difficulty. Disposition: Discharge. Family counseled regarding diagnostic impression, treatment plan. Family given ED strict return precautions to return for continuation, worsening, or development of new symptoms. Instructed to f/u w/ PCP regarding symptoms today. Family verbalized understanding. Lab Data : 09/30/21 13:20 09/30/21 13:20 Radiology Impressions Chest X-Ray 09/30/21 12:29 IMPRESSION: No acute findings. Head CT 09/30/21 12:29 IMPRESSION: 1. No evidence of intracranial hemorrhage. 2. Stable calcified long-standing pineal mass. 3. Chronic infarct with encephalomalacia RIGHT BARREL HANDLER territory compatible with previously described ischemia. 4. Chronic lacunar infarcts in the basal ganglia and RIGHT thalamus. 5. No other acute findings and no significant changes from July 25, 2021 Laboratory Results WBC 6.1 10^3/uL (4.0-10.0) 09/30/21 13:20 RBC 5.00 10^6/uL (4.1-5.3) 09/30/21 13:20 Hgb 13.0 g/dL (11.5-15.3) 09/30/21 13:20 Hct 41.9 % (37.0-47.0) 09/30/21 13:20 MCV 83.8 fl (81-99) 09/30/21 13:20 MCH 26.0 pg (28.0-34.0) L 09/30/21 13:20 MCHC 31.0 g/dL (30.0-36.0) 09/30/21 13:20 RDW 15.0 % (12.1-15.1) 09/30/21 13:20 Plt Count 178 10^3/cmm (130-400) 09/30/21 13:20 MPV 11.7 fL (7.4-10.4) H 09/30/21 13:20 Neut % (Auto) 59.8 % 09/30/21 13:20 Lymph % (Auto) 28.9 % 09/30/21 13:20 [place] % (Auto) 8.7 % 09/30/21 13:20 Eos % (Auto) 1.6 % 09/30/21 13:20 Baso % (Auto) 0.7 % 09/30/21 13:20 Neut # (Auto) 3.64 10^3/uL (1.8-7.7) 09/30/21 13:20 Lymph # (Auto) 1.8 10^3/uL (0.8-4.8) 09/30/21 13:20 [place] # (Auto) 0.5 10^3/uL (0.2-0.9) 09/30/21 13:20 Eos # (Auto) 0.1 10^3/uL (0.0-0.8) 09/30/21 13:20 Baso # (Auto) 0.0 10^3/uL (0.0-0.1) 09/30/21 13:20 Nucleated RBC % (auto) 0 % 09/30/21 13:20 Nucleated RBCs # 0.0 /100WBC 09/30/21 13:20 Sodium 140 mmol/L (136-145) 09/30/21 13:20 Potassium 3.9 mmol/L (3.5-5.1) 09/30/21 13:20 Chloride 104 mmol/L (98-107) 09/30/21 13:20 Carbon Dioxide 27 mmol/L (22-29) 09/30/21 13:20 Anion Gap 12.9 (5-19) 09/30/21 13:20 BUN 12 mg/dL (8-23) 09/30/21 13:20 Creatinine 0.9 mg/dL (0.5-0.9) 09/30/21 13:20 GFR Calculation Not Reportable 09/30/21 13:20 Glucose 95 mg/dL (65-115) 09/30/21 13:20 Calculated Osmolality 290 mOsm/kg (285-295) 09/30/21 13:20 Calcium 9.8 mg/dL (8.5-10.5) 09/30/21 13:20 Total Bilirubin 0.4 mg/dL (0.15-1.2) 09/30/21 13:20 AST 18 U/L (0-32) 09/30/21 13:20 ALT 11 U/L (0-33) 09/30/21 13:20 Alkaline Phosphatase 87 IU/L (35-105) 09/30/21 13:20 Troponin T Baseline 26 ng/L (0-10) H 09/30/21 13:20 Troponin T 120 Minute 22.67 ng/L (0-10) H 09/30/21 15:17 Delta Troponin T -3.33 ABS# (0-10) L 09/30/21 15:17 Total Protein 6.6 g/dL (6.6-8.7) 09/30/21 13:20 Albumin 4.1 g/dL (3.5-5.2) 09/30/21 13:20 Globulin 2.5 g/dL (1.3-4.6) 09/30/21 13:20 Lipase 21 U/L (13-60) 09/30/21 13:20 Urine Color Yellow (Yellow) 09/30/21 14:02 Urine Appearance Sl hazy (CLEAR) 09/30/21 14:02 Urine pH 7 (5-7) 09/30/21 14:02 Ur Specific Victor 1.015 (1.005-1.030) 09/30/21 14:02 Urine Protein Neg (Negative) 09/30/21 14:02 Urine Glucose (UA) Norm (Normal) 09/30/21 14:02 Urine Ketones Negative (Negative) 09/30/21 14:02 Urine Blood Neg (Negative) 09/30/21 14:02 Urine Nitrate Negative (Negative) 09/30/21 14:02 Urine Bilirubin Neg (Negative) 09/30/21 14:02 Urine Urobilinogen Norm mg/dL (Negative) 09/30/21 14:02 Ur Leukocyte Esterase Negative (Negative) 09/30/21 14:02 Discharge Plan Discharge Patient Disposition: Home Clinical Impression: Altered mental status, Dementia Condition: Stable Prescriptions: No Action lactulose 10 gram/15 mL solution 10 g PO DAILY PRN (Reason: constipation) Qty: 473 0RF acetaminophen 325 mg Tablet 650 mg PO Q6H PRN (Reason: Mild/Mod Pain Or Temp >/= 101) Qty: 30 0RF lorazepam 0.5 mg Tablet 0.25 mg PO TID PRN (Reason: Anxiety) Qty: 20 0RF sennosides-docusate sodium [Stool Softener-Laxative] 8.6-50 mg tablet 1 tab PO BID@09,21 0RF magnesium citrate Solution 150 ml PO BID PRN (Reason: constipation) Qty: 296 0RF polyethylene glycol 3350 [Purelax] 17 gram/dose powder 17 g PO DAILY Qty: 119 0RF diltiazem HCl 90 mg Tablet 90 mg PO BID 0RF vitamin Y86-ourdy acid 0.5-1 mg Tablet 1 tab PO EVERY OTHER DAY 0RF lisinopril 20 mg Tablet 20 mg PO DAILY Qty: 30 0RF metoprolol tartrate 25 mg Tablet 25 mg PO BID@0900,2100 Qty: 60 0RF aspirin 325 mg capsule 325 mg PO DAILY Qty: 30 0RF quetiapine [Seroquel] 25 mg tablet 25 mg PO BEDTIME Qty: 30 0RF Discharge Orders: Discharge ED (Routine); Ordered 09/30/21 Ordered By: Blas Parker Referrals: Grant Arias MD [Primary Care Provider] - Discharge Diet: Soft Mechanical Discharge Activity: Increase activity as tolerated Patient Instructions: Altered Mental Status (ED) Activity Restrictions/Additional Instructions: Come back if you have any new or concerning issues. Coding Level of Care Code ED Trash Hauler for Chg Fwd Exam Comprehensive
[2021-09-30 13:31] LABS: Basophils % 0.7 %; Eosinophils # 0.1 10^3/uL (0.0-0.8); Eosinophils % 1.6 %; Hematocrit 41.9 % (37.0-47.0); Lymphocytes # 1.8 10^3/uL (0.8-4.8); Lymphocytes % 28.9 %; Mean Corpuscular Volume 83.8 fl (81-99); Mean Platelet Volume 11.7 fL (7.4-10.4); Monocytes # 0.5 10^3/uL (0.2-0.9); Monocytes % 8.7 %; Neutrophils # 3.64 10^3/uL (1.8-7.7); Neutrophils % 59.8 %; Nucleated Red Blood Cells % 0 %; Platelet Count 178 10^3/cmm (130-400); White Blood Count 6.1 10^3/uL (4.0-10.0)
[2021-09-30 13:54] LABS: Alanine Aminotransferase 11 U/L (0-33); Albumin Level 4.1 g/dL (3.5-5.2); Alkaline Phosphatase 87 IU/L (35-105); Anion Gap 12.9 (5-19); Aspartate Amino Transferase 18 U/L (0-32); Blood Urea Nitrogen 12 mg/dL (8-23); Calcium 9.8 mg/dL (8.5-10.5); Carbon Dioxide 27 mmol/L (22-29); Chloride 104 mmol/L (98-107); Creatinine Clr Calc Pharmacy 42.2175; Globulin 2.5 g/dL (1.3-4.6); Glucose 95 mg/dL (65-115); Lipase 21 U/L (13-60); Osmolality Calculated 290 mOsm/kg (285-295); Potassium 3.9 mmol/L (3.5-5.1); Sodium 140 mmol/L (136-145); Total Bilirubin 0.4 mg/dL (0.15-1.2); Total Protein 6.6 g/dL (6.6-8.7)
[2021-09-30 13:56] LABS: Troponin(5th) Baseline 26 ng/L (0-10)
[2021-09-30 14:18] LABS: Add Urine Microscopic? NO; Charge for UA Resulting for Rev
--- NOTE | 2021-09-30 14:29 | ECG_ITS ---
[facility] Test Date: 2021-09-30 Pat Name: Cristel Keating Department: Room: Gender: Female Teacher: : 1935 Requested By: Blas Parker Order Number: [id number] Moises MD: Shant Lopez M.D. Measurements Intervals Pender Rate: 74 P: NH: QRS: -61 QRSD: 86 T: 63 QT: 390 QTc: 434 Interpretive Statements ATRIAL FIBRILLATION INDETERMINATE AXIS POSSIBLE RIGHT VENTRICULAR CONDUCTION DELAY [RSR (QR) IN V1/V2] SEPTAL MYOCARDIAL INFARCTION , PROBABLY OLD [40+ ms Q WAVE IN V1/V2] Compared to ECG 09/30/2021 12:40:32 Myocardial infarct finding now present T-wave abnormality no longer present Possible ischemia no longer present Electronically Signed On 09-30-2021 16:34:55 CDT by Shant Lopez M.D. [id number]
[2021-09-30 15:04] LABS: Bilirubin Urine Neg (Negative); Blood Urine Neg (Negative); Glucose Urine UA Norm (Normal); Ketones Urine Negative (Negative); Leukocyte Esterase Urine Negative (Negative); Nitrate Urine Negative (Negative); Protein Urine Neg (Negative); Specific Gravity, Urine 1.015 (1.005-1.030); Urine Appearance SL Hazy (CLEAR); Urine Color Yellow (Yellow); Urobilinogen Urine Norm (Negative); pH Urine 7 (5-7)
[2021-09-30 15:06] VITALS: BP 169/98; PULSE 70; RESP 18; TEMP 36.6; O2SAT 100
[2021-09-30 16:27] LABS: Troponin 5 2HR 22.67 ng/L (0-10)
[2021-09-30 16:28] LABS: Troponin 5 2HR Delta -3.33 ABS# (0-10)
[2021-09-30 16:32] VITALS: BP 161/89; PULSE 81; RESP 18; TEMP 36.9; O2SAT 100
--- NOTE | 2021-09-30 16:43 | DCPLANNER ---
se barn manager was asked to help find [facility] placement for patient. manager cash spoke with patients daughter and [facility] choice is [facility], and then [facility]. manager cash explained that patient would need use her medicaid to go to the [facility], and patients daughter stated that patient can use her medicaid. manager cash called [facility], was told that they did not have any medicaid beds at this time. manager cash then called [facility] and was told that they would accept patient, but would not be able to take her until tomorrow, 10.01.21. manager cash informed the ER physician of this and informed patients daughter that [facility] would take patient, but that they would have to wait until tomorrow. manager cash faxed patients paperwork to [facility].
== END 2021-09-30 16:49 | disposition home or self-care (01) ==
PROVIDERS: Emergency Provider Emergency Medicine; PCP Family Medicine
DX: R41.82 Altered mental status, unspecified (principal); F03.90 Unspecified dementia, unspecified severity, without behavioral disturbance, psychotic disturbance, mood disturbance, and anxiety; I10 Essential (primary) hypertension; I25.10 Atherosclerotic heart disease of native coronary artery without angina pectoris; Z79.01 Long term (current) use of anticoagulants; Z86.73 Personal history of transient ischemic attack (TIA), and cerebral infarction without residual deficits
CPT/HCPCS: 70450; 71045; 80053; 81003; 83690; 84484; 85025; 93005; 99284

== ENCOUNTER 2021-10-01 21:26 | Emergency (ER) | payer MEDICARE, MEDICAID, SELFPAY ==
[2021-10-01 21:27] VITALS: BMI 18.6
--- NOTE | 2021-10-01 22:39 | CTR_ITS ---
PROCEDURE INFORMATION: Exam: CT Cervical Spine Without Contrast Exam date and time: 10/01/2021 10:55 PM Age: 86 years old Clinical indication: Injury or trauma; Concussion/head injury; Injury details: -fall, hit head. Bruising to right cheek with swelling and also to chin. No loc; Additional info: Fall and hit head. TECHNIQUE: Imaging protocol: Computed tomography images of the cervical spine without contrast. Radiation optimization: All CT scans at this facility use at least one of these dose optimization techniques: automated exposure control; mA and/or kV adjustment per patient size (includes targeted exams where dose is matched to clinical indication); or iterative reconstruction. COMPARISON: CT angio headneck* [id number] 05/26/2019 10:25 AM RADIATION DOSE METRICS: Total DLP (mGy-cm): 272.53 FINDINGS: Bones/joints: On axial CT images, no definite acute fracture is visible. Sagittal and coronal reconstructions show no acute fracture or subluxation. Mild to moderate degenerative disc changes and facet joint arthritis at multiple levels. Discs/Spinal canal/Neural foramina: No definite/significant disc herniation by CT, MRI could be more sensitive if clinically indicated. Lungs: No significant acute finding in the upper lungs. Thyroid: 10 mm partially calcified right thyroid nodule. CT/CT cervical spin wo con* [id number] IMPRESSION: 1. No definite acute fracture or subluxation by CT. 2. Other findings discussed above. COMMENTS: Consistent with the [employer]'s Incidental Findings Committee white paper (J Am Dimas Radiol 2015): In patients aged 35 years and older with an incidental thyroid nodule equal to or greater than 1.[address], MRI or extrathyroidal US, further evaluation with dedicated thyroid US is recommended for patients with normal life expectancy and without comorbidities. For smaller nodules without suspicious features, no further evaluation or follow up is recommended.
--- NOTE | 2021-10-01 22:39 | CTR_ITS ---
PROCEDURE INFORMATION: Exam: CT Head Without Contrast Exam date and time: 10/01/2021 10:50 PM Age: 86 years old Clinical indication: Injury or trauma; Blunt trauma (contusions or hematomas); Injury details: -fall, hit head. Bruising to left cheek with swelling and also to chin. No loc; Additional info: Fall and hit head, no loc TECHNIQUE: Imaging protocol: Computed tomography of the head without contrast. Radiation optimization: All CT scans at this facility use at least one of these dose optimization techniques: automated exposure control; mA and/or kV adjustment per patient size (includes targeted exams where dose is matched to clinical indication); or iterative reconstruction. COMPARISON: CT head wo con* [id number] 09/30/2021 1:01 PM RADIATION DOSE METRICS: Total DLP (mGy-cm): 886.66 FINDINGS: Brain: No acute intracranial hemorrhage or mass effect. There is decreased attenuation in the periventricular white matter, likely from microvascular disease. There are small old lacunar infarcts in the basal ganglia/internal capsule regions bilaterally, and right thalamus. Larger old infarct involves the right occipital and posterior temporal regions. No definite acute infarct by CT. As before, 2.4 cm densely calcified mass just to the right of the midline, and adjacent/possibly contiguous with the calcified pineal gland. 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 No significant change. Cerebral ventricles: Ventricle size is normal for age. Paranasal sinuses: Included paranasal sinuses are essentially clear. Mastoid air cells: No significant acute finding. Bones/joints: No definite acute skull fracture. Soft tissues: Left facial soft tissue swelling. Vasculature: Vascular calcifications in the internal carotid and vertebral basilar systems. CT/CT head wo con* [id number] IMPRESSION: 1. No acute intracranial hemorrhage or mass effect. 2. Changes of microvascular disease, and old infarcts, details above. 3. Other findings discussed above. 4. Please see subsequent CT Facial Bone report for complete evaluation of the facial bones.
--- NOTE | 2021-10-01 22:39 | CTR_ITS ---
PROCEDURE INFORMATION: Exam: CT Maxillofacial Without Contrast Exam date and time: 10/01/2021 10:52 PM Age: 86 years old Clinical indication: Injury or trauma; Blunt trauma (contusions or hematomas); Cheek bone and jaw; Not specified; Patient HX: -fall, hit head. Bruising to left cheek with swelling and also to chin. No loc; Additional info: Fall and hit head-bruising and swelling to left side of face TECHNIQUE: Imaging protocol: Computed tomography images of the face without contrast. Radiation optimization: All CT scans at this facility use at least one of these dose optimization techniques: automated exposure control; mA and/or kV adjustment per patient size (includes targeted exams where dose is matched to clinical indication); or iterative reconstruction. COMPARISON: No relevant prior studies available. RADIATION DOSE METRICS: Total DLP (mGy-cm): 1484.69 FINDINGS: Orbital cavities: Orbital contents appear intact/unremarkable Bones/joints: No definite evidence of acute facial bone fracture. Paranasal sinuses: Included paranasal sinuses appear essentially clear. Soft tissues: Prominent left facial soft tissue swelling. CT/CT facial bones wo con* [id number] IMPRESSION: 1. No definite acute facial bone/orbital fracture by CT. 2. Other findings discussed above.
[2021-10-01 22:40] VITALS: BP 169/129; PULSE 98; RESP 16; TEMP 37; O2SAT 96
--- NOTE | 2021-10-01 22:41 | W.ED.TRAUMA ---
HPI - Trauma General: Chief Complaint: Trauma Stated Complaint: FALL Time Seen by Provider: 10/01/21 22:30 History of Present Illness: Patient is an 86-year-old female comes to the ED via EMS after witnessed fall. Patient has dementia and is currently residing in a retirement. Patient fell right next to the nurses station and fall was witnessed. Patient did not have any loss of consciousness. She is a poor historian due to dementia. She is unaware of what happened and states she is unsure if she fell or not. Patient is alert and interactive and responds to my questions. Associated symptoms: Denies abdominal pain, back pain, chest pain, chills, fever(s), headache(s), nausea or vomiting Review of Systems Const: Denies: fever(s), chills or fatigue Eyes: Denies: change in vision or eye discomfort ENMT: Reports: other (Left side facial swelling, contusion and ecchymosis that worked); Denies: throat pain, odynophagia, nasal discharge or nasal congestion Card: Denies: chest pain, palpitations, edema, swelling of feet/ankles, dyspnea on exertion or orthopnea Resp: Denies: dyspnea, productive cough or non-productive cough GI: Denies: abdominal pain, nausea, vomiting, diarrhea, constipation or hematochezia : Denies: flank pain, dysuria or hematuria Musc: Denies: neck pain, back pain or extremity swelling Skin/Breast: Denies: rash or new lesions Neuro: Denies: headache(s), numbness in extremities or weakness in extremities CR[facility]ICAL ACCESS [facility] ED PFSH: Medical History Atrial fibrillation Closed fracture of left inferior pubic ramus Hypertension Continue on home Benicar and diltiazem Palpitation Posterior circulation stroke Weakness Surgical History H/O shoulder surgery Left History of hip surgery Left Family History Mother Hypertension Father Lung disease Social History Smoking and tobacco status: never smoked Alcohol intake: never Physical Exam Const: COMMON NORMALS: alert HENMT: COMMON NORMALS: normocephalic HEAD & SCALP: normocephalic; no Taylor's sign, no laceration and no raccoon eyes FACE & SINUS: ecchymosis on the left periorbital, forehead, mandible and chin and edema on the left periorbital, forehead, mandible and chin MOUTH: Normal oral and palatal mucosa present and lip abnormal (Left upper and lower lip swelling with dried blood noted) left swelling THROAT: posterior oropharynx normal and uvula midline OTHER: Patient has some left sided facial ecchymosis, contusion and edema around the periorbital region, chin and mandible. Eye: COMMON NORMALS: Equal, round and reactive pupils present and conjunctivae normal PERIORBITAL: periorbital findings abnormal positive left periorbital swelling and periorbital ecchymosis CONJUNCTIVA: Yes conjunctivae normal PUPIL: Yes Equal, round and reactive pupils present Neck/C-Spine: COMMON NORMALS: supple GENERAL: Yes normal visual inspection Resp: COMMON NORMALS: normal respiratory effort, No retractions, No use of accessory muscles and clear to auscultation bilaterally AUSCULTATION: clear to auscultation bilaterally Cardio: COMMON NORMALS: regular rate, regular rhythm, S1 normal heart sound present, S2 normal heart sound present, No gallops present (Cardio), No clicks present (Cardio), No murmurs present (Cardio) and Peripheral pulses 2+ throughout RATE: regular rate RHYTHM: regular rhythm HEART SOUNDS: S1 normal heart sound present and S2 normal heart sound present PERIPHERAL PULSES: Peripheral pulses 2+ throughout GI: COMMON NORMALS: Normal to inspection, nondistended, normoactive bowel sounds present, Soft to palpation, non-tender and no masses PALPATION: Yes Soft to palpation : COMMON NORMALS: Yes no CVA tenderness BLADDER/KIDNEY EXAM: Yes no CVA tenderness Back/Pelvis: COMMON NORMALS: no CVA tenderness Extremity: COMMON NORMALS: no pedal edema Neuro: COMMON NORMALS: moves all extremities SENSORIUM/ORIENTATION: Yes alert Skin: GENERAL SKIN EXAM: dry skin Course Vital Signs: Vital signs: Vital Signs Temperature 98.6 F 10/01/21 22:40 Pulse Rate 109 H 10/01/21 23:16 Respiratory Rate 12 10/01/21 23:16 Blood Pressure 157/114 10/01/21 23:16 Pulse Oximetry 95 10/01/21 23:16 MDM - Trauma Medical Decision Making Patient is an 86-year-old female comes to the ED via EMS after witnessed fall. Patient has dementia and is currently residing in a retirement. Patient fell right next to the nurses station and fall was witnessed. Patient did not have any loss of consciousness. She is a poor historian due to dementia. Vitals are stable. Patient has some swelling and bruising on the left side of face around left periorbital, chin and mandible. CT of cervical spine, head and face showed no acute fractures or findings. Patient was diagnosed with facial contusion and was discharged back to retirement. Follow-up with PCP within the next 3 to 5 days for reevaluation. Return to ED precautions given. Lab Data I reviewed the patient's lab results. : 10/01/21 21:17 10/01/21 21:17 Radiology Impressions Cervical Spine CT 10/01/21 22:39 IMPRESSION: 1. No definite acute fracture or subluxation by CT. 2. Other findings discussed above. COMMENTS: Consistent with the [employer]'s Incidental Findings Committee white paper (J Am Dimas Radiol 2015): In patients aged 35 years and older with an incidental thyroid nodule equal to or greater than 1.[address], MRI or extrathyroidal US, further evaluation with dedicated thyroid US is recommended for patients with normal life expectancy and without comorbidities. For smaller nodules without suspicious features, no further evaluation or follow up is recommended. Face CT 10/01/21 22:39 IMPRESSION: 1. No definite acute facial bone/orbital fracture by CT. 2. Other findings discussed above. Head CT 10/01/21 22:39 IMPRESSION: 1. No acute intracranial hemorrhage or mass effect. 2. Changes of microvascular disease, and old infarcts, details above. 3. Other findings discussed above. 4. Please see subsequent CT Facial Bone report for complete evaluation of the facial bones. Laboratory Results WBC 6.9 10^3/uL (4.0-10.0) 10/01/21 21:17 RBC 5.38 10^6/uL (4.1-5.3) H 10/01/21 21:17 Hgb 14.0 g/dL (11.5-15.3) 10/01/21 21:17 Hct 44.5 % (37.0-47.0) 10/01/21 21:17 MCV 82.7 fl (81-99) 10/01/21 21:17 MCH 26.0 pg (28.0-34.0) L 10/01/21 21:17 MCHC 31.5 g/dL (30.0-36.0) 10/01/21 21:17 RDW 15.0 % (12.1-15.1) 10/01/21 21:17 Plt Count 206 10^3/cmm (130-400) 10/01/21 21:17 MPV 12.9 fL (7.4-10.4) H 10/01/21 21:17 Neut % (Auto) 56.2 % 10/01/21 21:17 Lymph % (Auto) 32.4 % 10/01/21 21:17 Hale % (Auto) 8.5 % 10/01/21 21:17 Eos % (Auto) 1.5 % 10/01/21 21:17 Baso % (Auto) 0.7 % 10/01/21 21:17 Neut # (Auto) 3.85 10^3/uL (1.8-7.7) 10/01/21 21:17 Lymph # (Auto) 2.2 10^3/uL (0.8-4.8) 10/01/21 21:17 Hale # (Auto) 0.6 10^3/uL (0.2-0.9) 10/01/21 21:17 Eos # (Auto) 0.1 10^3/uL (0.0-0.8) 10/01/21 21:17 Baso # (Auto) 0.1 10^3/uL (0.0-0.1) 10/01/21 21:17 Nucleated RBC % (auto) 0 % 10/01/21 21:17 Nucleated RBCs # 0.0 /100WBC 10/01/21 21:17 Sodium 141 mmol/L (136-145) 10/01/21 21:17 Potassium 3.6 mmol/L (3.5-5.1) 10/01/21 21:17 Chloride 102 mmol/L (98-107) 10/01/21 21:17 Carbon Dioxide 27 mmol/L (22-29) 10/01/21 21:17 Anion Gap 15.6 (5-19) 10/01/21 21:17 BUN 17 mg/dL (8-23) 10/01/21 21:17 Creatinine 1.0 mg/dL (0.5-0.9) H 10/01/21 21:17 GFR Calculation Not Reportable 10/01/21 21:17 Glucose 89 mg/dL (65-115) 10/01/21 21:17 Calculated Osmolality 293 mOsm/kg (285-295) 10/01/21 21:17 Calcium 10.6 mg/dL (8.5-10.5) H 10/01/21 21:17 Discharge Plan Discharge Patient Disposition: Home Clinical Impression: Contusion of face Qualifiers: Encounter type: initial encounter Qualified Code(s): S00.83XA - Contusion of other part of head, initial encounter Fall Qualifiers: Encounter type: initial encounter Qualified Code(s): W19.XXXA - Unspecified fall, initial encounter Minor head injury without loss of consciousness Qualifiers: Encounter type: initial encounter Qualified Code(s): S09.90XA - Unspecified injury of head, initial encounter Condition: Stable Prescriptions: No Action lactulose 10 gram/15 mL solution 10 g PO DAILY PRN (Reason: constipation) Qty: 473 0RF acetaminophen 325 mg Tablet 650 mg PO Q6H PRN (Reason: Mild/Mod Pain Or Temp >/= 101) Qty: 30 0RF lorazepam 0.5 mg Tablet 0.25 mg PO TID PRN (Reason: Anxiety) Qty: 20 0RF sennosides-docusate sodium [Stool Softener-Laxative] 8.6-50 mg tablet 1 tab PO BID@09,21 0RF magnesium citrate Solution 150 ml PO BID PRN (Reason: constipation) Qty: 296 0RF polyethylene glycol 3350 [Purelax] 17 gram/dose powder 17 g PO DAILY Qty: 119 0RF diltiazem HCl 90 mg Tablet 90 mg PO BID 0RF vitamin K20-atxzm acid 0.5-1 mg Tablet 1 tab PO EVERY OTHER DAY 0RF lisinopril 20 mg Tablet 20 mg PO DAILY Qty: 30 0RF metoprolol tartrate 25 mg Tablet 25 mg PO BID@0900,2100 Qty: 60 0RF aspirin 325 mg capsule 325 mg PO DAILY Qty: 30 0RF quetiapine [Seroquel] 25 mg tablet 25 mg PO BEDTIME Qty: 30 0RF Discharge Orders: Discharge ED (Routine); Ordered 10/01/21 Ordered By: Luis Robertson Referrals: Grant Arias MD [Primary Care Provider] - Discharge Diet: Regular Discharge Activity: Increase activity as tolerated Activity Restrictions/Additional Instructions: Follow-up with medical provider as directed in the next 3 to 5 days for reevaluation. Continue taking all home medications as previously prescribed. Return to the ER or your medical provider if condition worsens. Please read and understand discharge instructions. Thank you for choosing [facility] for your healthcare needs today. Please realize this is an emergency room and that we are providing you with a medical screening exam and this may not be complete and all inclusive of all the testing and or work up that you may need to determine your ailment or severity of your illness. It is very important that you follow up as instructed or that you return to the Emergency Department should you have concerns or if your condition changes or worsens in any way. 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
[2021-10-01 23:16] VITALS: BP 157/114; PULSE 109; RESP 12; O2SAT 95
[2021-10-01 23:40] LABS: Anion Gap 15.6 (5-19); Blood Urea Nitrogen 17 mg/dL (8-23); Calcium 10.6 mg/dL (8.5-10.5); Carbon Dioxide 27 mmol/L (22-29); Chloride 102 mmol/L (98-107); Glucose 89 mg/dL (65-115); Osmolality Calculated 293 mOsm/kg (285-295); Potassium 3.6 mmol/L (3.5-5.1); Sodium 141 mmol/L (136-145)
[2021-10-01 23:54] LABS: Basophils # 0.1 10^3/uL (0.0-0.1); Basophils % 0.7 %; Eosinophils # 0.1 10^3/uL (0.0-0.8); Eosinophils % 1.5 %; Hematocrit 44.5 % (37.0-47.0); Lymphocytes # 2.2 10^3/uL (0.8-4.8); Lymphocytes % 32.4 %; Mean Corpuscular HGB Conc 31.5 g/dL (30.0-36.0); Mean Corpuscular Volume 82.7 fl (81-99); Mean Platelet Volume 12.9 fL (7.4-10.4); Monocytes # 0.6 10^3/uL (0.2-0.9); Monocytes % 8.5 %; Neutrophils # 3.85 10^3/uL (1.8-7.7); Neutrophils % 56.2 %; Nucleated Red Blood Cells % 0 %; Platelet Count 206 10^3/cmm (130-400); Red Blood Count 5.38 10^6/uL (4.1-5.3); White Blood Count 6.9 10^3/uL (4.0-10.0)
[2021-10-02 02:29] VITALS: BP 154/110; PULSE 112; RESP 17; O2SAT 94
[2021-10-02 02:39] VITALS: BP 154/110; PULSE 112; RESP 17; O2SAT 94
== END 2021-10-02 02:30 | disposition home or self-care (01) ==
PROVIDERS: Emergency Provider Physician Assistant; PCP Family Medicine
DX: S00.83XA Contusion of other part of head, initial encounter (principal); S09.90XA Unspecified injury of head, initial encounter; W19.XXXA Unspecified fall, initial encounter; Y92.128 Other place in nursing home as the place of occurrence of the external cause; F03.90 Unspecified dementia, unspecified severity, without behavioral disturbance, psychotic disturbance, mood disturbance, and anxiety; Z79.82 Long term (current) use of aspirin
CPT/HCPCS: 70450; 70486; 72125; 80048; 85025; 99283

== ENCOUNTER 2022-01-12 09:06 | Observation (INO) | payer MEDICARE, MEDICAID, SELFPAY ==
[2022-01-12] VITALS (24 sets, daily range): BP systolic 117–182; BP diastolic 69–118; PULSE 40–114; RESP 11–21; TEMP 36.8–36.9; O2SAT 87–100; BMI 20.9; BMI 21.9
--- NOTE | 2022-01-12 09:07 | CTR_ITS ---
PROCEDURE INFORMATION: Exam: CT Head Without Contrast Exam date and time: 01/12/2022 9:09 AM Age: 86 years old Clinical indication: Stroke-like symptoms; Altered mental status/memory loss and drowsines/somnolence TECHNIQUE: Imaging protocol: Computed tomography of the head without contrast. Radiation optimization: All CT scans at this facility use at least one of these dose optimization techniques: automated exposure control; mA and/or kV adjustment per patient size (includes targeted exams where dose is matched to clinical indication); or iterative reconstruction. Other technique: STROKE PROTOCOL was implemented. COMPARISON: CT head wo con* [id number] 10/01/2021 10:50 PM RADIATION DOSE METRICS: Total DLP (mGy-cm): 976.88 FINDINGS: Brain: Severe central and cortical atrophy. 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 No intracranial blood. Cerebral ventricles: No ventriculomegaly. Paranasal sinuses: Visualized sinuses are unremarkable. No fluid levels. Mastoid air cells: Visualized mastoid air cells are well aerated. Bones/joints: Unremarkable. No acute fracture. Soft tissues: Unremarkable. CT/CT head wo con* [id number] IMPRESSION: No change. No acute abnormality. ASSESSMENT: ASPECTS ([place] Stroke Program Early CT Score) is 10.
[2022-01-12 09:22] LABS: Glucose Point of Care 109 mg/dL (70-110)
[2022-01-12 09:26] LABS: Basophils % 0.6 %; Eosinophils # 0.1 10^3/uL (0.0-0.8); Eosinophils % 2.8 %; Hematocrit 37.3 % (37.0-47.0); Hemoglobin 11.2 g/dL (11.5-15.3); Lymphocytes # 1.6 10^3/uL (0.8-4.8); Lymphocytes % 32.3 %; Mean Corpuscular Hemoglobin 26.1 pg (28.0-34.0); Mean Corpuscular Volume 86.9 fl (81-99); Mean Platelet Volume 11.9 fL (7.4-10.4); Monocytes # 0.4 10^3/uL (0.2-0.9); Monocytes % 8.7 %; Neutrophils # 2.74 10^3/uL (1.8-7.7); Neutrophils % 55.4 %; Nucleated Red Blood Cells % 0 %; Platelet Count 159 10^3/cmm (130-400); Red Blood Count 4.29 10^6/uL (4.1-5.3)
--- NOTE | 2022-01-12 09:28 | XRR_ITS ---
PROCEDURE INFORMATION: Exam: XR Chest Exam date and time: 01/12/2022 9:42 AM Age: 86 years old Clinical indication: Dyspnea; Additional info: Weakness TECHNIQUE: Imaging protocol: Radiologic exam of the chest. Views: 1 view. COMPARISON: CR XR chest 1V portable [id number] 09/30/2021 12:45 PM FINDINGS: Lungs: Unremarkable. No consolidation. Stable right lower lobe granuloma. Pleural spaces: Unremarkable. No pleural effusion. No pneumothorax. Heart/Mediastinum: Stable cardiomegaly. Bones/joints: Left humeral head replacement is stable. XR/XR chest 1V portable [id number] IMPRESSION: No acute findings.
--- NOTE | 2022-01-12 09:28 | CTR_ITS ---
PROCEDURE INFORMATION: Exam: CTA Head With Contrast, Arteriography Exam date and time: 01/12/2022 10:22 AM Age: 86 years old Clinical indication: Stroke-like symptoms; Altered mental status/memory loss and drowsines/somnolence; Additional info: AMS TECHNIQUE: Imaging protocol: Computed tomographic angiography of the head with contrast. Exam focused on the arteries. 3D rendering (Not supervised by radiologist): MIP and/or 3D reconstructed images were created by the technologist. Radiation optimization: All CT scans at this facility use at least one of these dose optimization techniques: automated exposure control; mA and/or kV adjustment per patient size (includes targeted exams where dose is matched to clinical indication); or iterative reconstruction. Contrast material: OMNI 350; Contrast volume: 95 ml; Contrast route: INTRAVENOUS (IV); COMPARISON: CT angio headneck* [id number] 05/26/2019 10:25 AM RADIATION DOSE METRICS: Total DLP (mGy-cm): 338.22 FINDINGS: ANTERIOR CIRCULATION: Right internal carotid artery: Intracranial segment is patent with no significant stenosis. No aneurysm. Right middle cerebral artery: No occlusion or significant stenosis. No aneurysm. Right anterior cerebral artery: No occlusion or significant stenosis. No aneurysm. Left internal carotid artery: Intracranial segment is patent with no significant stenosis. No aneurysm. Left middle cerebral artery: No occlusion or significant stenosis. No aneurysm. Left anterior cerebral artery: No occlusion or significant stenosis. No aneurysm. POSTERIOR CIRCULATION: Right vertebral artery: No occlusion or significant stenosis. No aneurysm. Left vertebral artery: No occlusion or significant stenosis. No aneurysm. Basilar artery: No occlusion or significant stenosis. No aneurysm. Right posterior cerebral artery: No occlusion or significant stenosis. No aneurysm. Left posterior cerebral artery: No occlusion or significant stenosis. No aneurysm. Brain: Discussed in CT brain dictation. Other findings: There is an area of at least moderate stenosis involving the mid posterior cerebral artery image 5/213. PROCEDURE INFORMATION: Exam: CTA Neck With Contrast Exam date and time: 01/12/2022 10:22 AM Age: 86 years old Clinical indication: Stroke-like symptoms; Altered mental status/memory loss and drowsines/somnolence; Additional info: AMS TECHNIQUE: Imaging protocol: Computed tomographic angiography of the neck with contrast. 3D rendering (Not supervised by radiologist): MIP and/or 3D reconstructed images were created by the technologist. Radiation optimization: All CT scans at this facility use at least one of these dose optimization techniques: automated exposure control; mA and/or kV adjustment per patient size (includes targeted exams where dose is matched to clinical indication); or iterative reconstruction. Contrast material: OMNI 350; Contrast volume: 95 ml; Contrast route: INTRAVENOUS (IV); COMPARISON: CT angio headneck* [id number] 05/26/2019 10:25 AM RADIATION DOSE METRICS: Total DLP (mGy-cm): 338.22 FINDINGS: Right common carotid artery: No stenosis. No dissection or occlusion. Right internal carotid artery: No stenosis of the extracranial segment. No dissection or occlusion. Right external carotid artery: No occlusion or stenosis of the origin. Left common carotid artery: No stenosis. No dissection or occlusion. Left internal carotid artery: No stenosis of the extracranial segment. No dissection or occlusion. Left external carotid artery: No occlusion or stenosis of the origin. Right vertebral artery: No stenosis. No dissection or occlusion. Left vertebral artery: Small left vertebral artery but otherwise homogeneous. Thyroid: Heterogeneous thyroid without distinct mass or nodule. Soft tissues: Normal. No significant soft tissue swelling. Bones/joints: There is a shoulder replacement on the left. Pleural spaces: Apical heterogenicity seen likely emphysema with mild areas of pleural thickening. 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 No evidence of large vessel occlusion. IMPRESSION: 1. No evidence of hemodynamically significant stenosis. 2. Heterogeneous thyroid and heterogeneous lung apices. REFERENCES: NASCET CRITERIA. The degree of stenosis in the cervical segment of the internal carotid artery is based on NASCET criteria. Normal is no stenosis. Mild is less than 50% stenosis. Moderate is 50-69% stenosis. Severe is 70% to 99% stenosis. Total occlusion is no detectable patent lumen.
[2022-01-12 09:37] LABS: INR 1.07 (0.8-1.2)
[2022-01-12] MEDS: sodium chloride 0.9% 1,000 ML 999 ML IV (09:37)
[2022-01-12 09:38] LABS: Partial Thromboplastin Time 26.9 SECONDS (23.9-36.7)
[2022-01-12] MEDS: atropine 0.1 mg/mL Syr 10 mL 0.5 MG IVP (09:40)
[2022-01-12 09:44] LABS: Alanine Aminotransferase 9 U/L (0-33); Albumin Level 3.7 g/dL (3.5-5.2); Alkaline Phosphatase 105 U/L (35-105); Anion Gap 15.1 (5-19); Aspartate Amino Transferase 15 U/L (0-32); Blood Urea Nitrogen 16 mg/dL (8-23); Calcium 9.8 mg/dL (8.5-10.5); Carbon Dioxide 24 mmol/L (22-29); Chloride 107 mmol/L (98-107); Creatinine Clr Calc Pharmacy 37.7188; Globulin 2.4 g/dL (1.3-4.6); Glucose 115 mg/dL (65-115); Osmolality Calculated 296 mOsm/kg (285-295); Potassium 4.1 mmol/L (3.5-5.1); Sodium 142 mmol/L (136-145); Total Bilirubin 0.4 mg/dL (0.15-1.2); Total Protein 6.1 g/dL (6.6-8.7)
[2022-01-12 09:45] LABS: Troponin(5th) Baseline 29 ng/L (0-10)
--- NOTE | 2022-01-12 10:12 | W.ED.NEUROSD ---
HPI - Neuro Symptoms/Deficit General: Chief Complaint: Neuro Symptoms/Deficit Stated Complaint: STROKE LIKE SYMPTOMS Time Seen by Provider: 01/12/22 09:08 Source: patient and EMS Mode of arrival: EMS Limitations: altered mental status History of Present Illness: 86-year-old female who is here from residential EMS states she woke up at 730 this morning also spoke to residential nurse states that she was eating breakfast and became very weak had a near syncopal event started to slur her speech she does have a history of stroke with a concern of stroke. She has A. fib as well as on metoprolol residential states her heart rate was in the 30s and blood pressure in the 80s there EMS has her heart rate at 29-35. Patient here will answer my questions but is lethargic at this time. Associated symptoms: Deny chest pain, nausea or vomiting Review of Systems Const: Denies: fever(s), chills, body aches or change in appetite Eyes: Denies: blurry vision or eye discomfort ENMT: Denies: throat pain or dental pain Card: Denies: chest pain Resp: Denies: dyspnea GI: Denies: abdominal pain, nausea, vomiting or diarrhea : Denies: dysuria Musc: Denies: neck pain or back pain Skin/Breast: Denies: rash Neuro: Reports: weakness in extremities and Slurred speech present Psych: Denies: depression Niko/Lymph: Denies: easy bruising All/Imm: Denies: urticaria PFSH ED PFSH: Medical History Atrial fibrillation Closed fracture of left inferior pubic ramus Hypertension Continue on home Benicar and diltiazem Palpitation Posterior circulation stroke Weakness Surgical History H/O shoulder surgery Left History of hip surgery Left Family History Mother Hypertension Father Lung disease Social History Smoking and tobacco status: never smoked Alcohol intake: never Physical Exam Const: COMMON NORMALS: negative for patient oriented x3 GENERAL APPEARANCE: ill appearing and frail appearing ORIENTATION/CONSCIOUSNESS: Yes oriented to person; not oriented to time HENMT: COMMON NORMALS: normocephalic and atraumatic HEAD & SCALP: normocephalic and atraumatic Eye: COMMON NORMALS: Equal, round and reactive pupils present and EOMs intact bilaterally PUPIL: Yes Equal, round and reactive pupils present Neck/C-Spine: COMMON NORMALS: full ROM and supple Chest: COMMONS NORMALS: normal inspection of the chest and normal palpation of entire chest wall Resp: COMMON NORMALS: normal respiratory effort, No retractions, No use of accessory muscles and clear to auscultation bilaterally AUSCULTATION: clear to auscultation bilaterally Cardio: COMMON NORMALS: regular rate, regular rhythm and No murmurs present (Cardio) RATE: regular rate RHYTHM: regular rhythm GI: COMMON NORMALS: Normal to inspection, nondistended, normoactive bowel sounds present, Soft to palpation, non-tender and no masses PALPATION: Yes Soft to palpation Extremity: COMMON NORMALS: normal to inspection and full ROM Neuro: COMMON NORMALS: moves all extremities and no focal motor deficits; negative for patient oriented x3 SENSORIUM/ORIENTATION: Yes oriented to person and No oriented to time CRANIAL NERVES: Yes CN normal except as noted GAIT: Yes Normal gait present Psych: COMMON NORMALS: mental status grossly normal, Normal thought process present and cooperative THOUGHT PROCESS: Normal thought process present Skin: COMMON NORMALS: no rashes or lesions noted and no wounds GENERAL SKIN EXAM: no rashes or lesions noted Course Vital Signs: Vital signs: Vital Signs Pulse Rate 58 L 01/12/22 10:00 Respiratory Rate 17 01/12/22 10:00 Blood Pressure 126/87 01/12/22 10:00 Pulse Oximetry 96 01/12/22 10:00 Oxygen Delivery Me thod 01/12/22 09:29 MDM - Neuro Symptoms/Deficit Medical Decision Making Patient presents here with slurred speech along with altered male status her head CT CTA here normal she is now at her baseline I believe that this all stemmed from severe bradycardia causing hypotension causing the symptoms patient was bradycardic into the 30s when she arrived did give her atropine her heart rates now in the 60s family is at bedside and she is at her baseline currently she able answer most my questions has no slurred speech will admit at this time for observation make sure she has no more bradycardia since she is on a beta-catherine. Lab Data : 01/12/22 09:20 01/12/22 09:[address] 01/12/22 09:07 IMPRESSION: No change. No acute abnormality. ASSESSMENT: ASPECTS ([place] Stroke Program Early CT Score) is 10. Chest X-Ray 01/12/22 09:28 IMPRESSION: No acute findings. 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 No evidence of large vessel occlusion. IMPRESSION: 1. No evidence of hemodynamically significant stenosis. 2. Heterogeneous thyroid and heterogeneous lung apices. REFERENCES: NASCET CRITERIA. The degree of stenosis in the cervical segment of the internal carotid artery is based on NASCET criteria. Normal is no stenosis. Mild is less than 50% stenosis. Moderate is 50-69% stenosis. Severe is 70% to 99% stenosis. Total occlusion is no detectable patent lumen. Laboratory Results WBC 5.0 10^3/uL (4.0-10.0) 01/12/22 09:20 RBC 4.29 10^6/uL (4.1-5.3) 01/12/22 09:20 Hgb 11.2 g/dL (11.5-15.3) L 01/12/22 09:20 Hct 37.3 % (37.0-47.0) 01/12/22 09:20 MCV 86.9 fl (81-99) 01/12/22 09:20 MCH 26.1 pg (28.0-34.0) L 01/12/22 09:20 MCHC 30.0 g/dL (30.0-36.0) 01/12/22 09:20 RDW 16.0 % (12.1-15.1) H 01/12/22 09:20 Plt Count 159 10^3/cmm (130-400) 01/12/22 09:20 MPV 11.9 fL (7.4-10.4) H 01/12/22 09:20 Neut % (Auto) 55.4 % 01/12/22 09:20 Lymph % (Auto) 32.3 % 01/12/22 09:20 [place] % (Auto) 8.7 % 01/12/22 09:20 Eos % (Auto) 2.8 % 01/12/22 09:20 Baso % (Auto) 0.6 % 01/12/22 09:20 Neut # (Auto) 2.74 10^3/uL (1.8-7.7) 01/12/22 09:20 Lymph # (Auto) 1.6 10^3/uL (0.8-4.8) 01/12/22 09:20 [place] # (Auto) 0.4 10^3/uL (0.2-0.9) 01/12/22 09:20 Eos # (Auto) 0.1 10^3/uL (0.0-0.8) 01/12/22 09:20 Baso # (Auto) 0.0 10^3/uL (0.0-0.1) 01/12/22 09:20 Nucleated RBC % (auto) 0 % 01/12/22 09:20 Nucleated RBCs # 0.0 /100WBC 01/12/22 09:20 PT 14.20 SECONDS (12.1-14.9) 01/12/22 09:20 INR 1.07 (0.8-1.2) 01/12/22 09:20 APTT 26.9 SECONDS (23.9-36.7) 01/12/22 09:20 Sodium 142 mmol/L (136-145) 01/12/22 09:20 Potassium 4.1 mmol/L (3.5-5.1) 01/12/22 09:20 Chloride 107 mmol/L (98-107) 01/12/22 09:20 Carbon Dioxide 24 mmol/L (22-29) 01/12/22 09:20 Anion Gap 15.1 (5-19) 01/12/22 09:20 BUN 16 mg/dL (8-23) 01/12/22 09:20 Creatinine 1.0 mg/dL (0.5-0.9) H 01/12/22 09:20 GFR Calculation Not Reportable 01/12/22 09:20 Glucose 115 mg/dL (65-115) 01/12/22 09:20 POC Glucose 109 mg/dL (70-110) 01/12/22 09:19 Calculated Osmolality 296 mOsm/kg (285-295) H 01/12/22 09:20 Calcium 9.8 mg/dL (8.5-10.5) 01/12/22 09:20 Total Bilirubin 0.4 mg/dL (0.15-1.2) 01/12/22 09:20 AST 15 U/L (0-32) 01/12/22 09:20 ALT 9 U/L (0-33) 01/12/22 09:20 Alkaline Phosphatase 105 U/L (35-105) 01/12/22 09:20 Troponin T Baseline 29 ng/L (0-10) H 01/12/22 09:20 Total Protein 6.1 g/dL (6.6-8.7) L 01/12/22 09:20 Albumin 3.7 g/dL (3.5-5.2) 01/12/22 09:20 Globulin 2.4 g/dL (1.3-4.6) 01/12/22 09:20 EKG Data EKG 1: I personally reviewed and interpreted this EKG as follows: EKG interpretation date: 01/12/22 EKG interpretation time: :24 Interpretation: afib with slow rvr hr [address] or t wave abnormalities qrs 77 qtc 477 Critical Care Time Critical Care Time: Critical Care Time: Yes Total Critical Care Time: 40 Attestation: The high probability of a clinically significant, sudden or life threatening deterioration of the patient's cv system(s) required my full and direct attention, intervention and personal management. The critical care time is as shown. This time is in addition to time spent performing any reported procedures but includes the following: [x] Data and vital sign review and interpretation [x] Patient assessment, examination and intervention [x] Documentation [x] Medication orders and management Discharge Plan Discharge Patient Disposition: Admitted As Inpatient Clinical Impression: Bradycardia, Weakness Condition: Stable Prescriptions: No Action lactulose 10 gram/15 mL solution 10 g PO DAILY PRN (Reason: constipation) Qty: 473 0RF acetaminophen 325 mg Tablet 650 mg PO Q6H PRN (Reason: Mild/Mod Pain Or Temp >/= 101) Qty: 30 0RF lorazepam 0.5 mg Tablet 0.25 mg PO TID PRN (Reason: Anxiety) Qty: 20 0RF sennosides-docusate sodium [Stool Softener-Laxative] 8.6-50 mg tablet 1 tab PO BID@ magnesium citrate Solution 150 ml PO BID PRN (Reason: constipation) Qty: 296 0RF polyethylene glycol 3350 [Purelax] 17 gram/dose powder 17 g PO DAILY Qty: 119 0RF diltiazem HCl 90 mg Tablet 90 mg PO BID vitamin O12-wuiwu acid 0.5-1 mg Tablet 1 tab PO EVERY OTHER DAY lisinopril 20 mg Tablet 20 mg PO DAILY Qty: 30 0RF metoprolol tartrate 25 mg Tablet 25 mg PO BID@0900,2100 Qty: 60 0RF aspirin 325 mg capsule 325 mg PO DAILY Qty: 30 0RF quetiapine [Seroquel] 25 mg tablet 25 mg PO BEDTIME Qty: 30 0RF Referrals: Grant Arias MD [Primary Care Provider] - Coding Level of Care Code ED It Quality Analyst for Chg Fwd Exam Comprehensive
[2022-01-12] MEDS: iohexol 350 mg/mL 100 mL Btl IV (10:38)
--- NOTE | 2022-01-12 11:10 | ECG_ITS ---
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 Measurements Intervals [place] Rate: 66 P: AL: QRS: -48 QRSD: 76 T: 32 QT: 403 QTc: 425 Interpretive Statements ATRIAL FIBRILLATION LEFT AXIS DEVIATION [QRS AXIS < -30] SEPTAL MYOCARDIAL INFARCTION , PROBABLY OLD [40+ ms Q WAVE IN V1/V2] Compared to ECG 09/30/2021 14:35:57 Left-axis deviation now present Indeterminate axis no longer present Myocardial infarct finding still present Electronically Signed On 01-12-2022 17:38:30 CDT by Shant Lopez M.D. [id number]
[2022-01-12 11:41] LABS: Troponin 5 2HR 22.57 ng/L (0-10)
[2022-01-12 12:05] LABS: Troponin 5 2HR Delta -6.43 ABS# (0-10)
[2022-01-12 12:18] LABS: Amphetamines Screen Urine Negative (Negative); Barbiturates Screen Urine Negative (Negative); Benzodiazepines Screen Urine Negative (Negative); Cocaine Screen Urine Negative (Negative); Opiate Screen Urine Negative (Negative); PCP Screen Urine Negative (Negative); THC Screen Urine Negative (Negative)
[2022-01-12 12:28] LABS: Add Urine Microscopic? YES; Bilirubin Urine Neg (Negative); Blood Urine Neg (Negative); Glucose Urine UA Norm (Normal); Ketones Urine Negative (Negative); Leukocyte Esterase Urine Trace (Negative); Nitrate Urine Positive (Negative); Protein Urine Neg (Negative); Specific Gravity, Urine 1.005 (1.005-1.030); Urine Appearance Hazy (CLEAR); Urine Color Yellow (Yellow); Urobilinogen Urine Norm (Negative); pH Urine 7 (5-7)
[2022-01-12 12:29] LABS: WBC Urine 40-55 /hpf (0-5)
[2022-01-12 12:30] LABS: Add Urine Culture? Yes; Bacteria Urine 4+ /hpf; Mucus Urine TRACE /hpf; Squamous Epithelial Cell Urine RARE /hpf (0-5)
--- NOTE | 2022-01-12 13:09 | PM.HP ---
Providers/Chief Complaint Primary Care Provider: Grant Arias MD Chief Complaint: STROKE LIKE SYMPTOMS History of Present Illness Cristel Keating is a 86 year old female with past medical history of hypertension atrial fibrillation CVA, dementia, currently halfway resident, was brought in from the halfway with chief complaint of near syncopal episode this morning, patient is a poor historian, history taking has been done with ER chart review , per the halfway staff patient was eating her breakfast this morning when she became very weak, likely also had some slurred speech, and had a presyncopal episode, vitals done at that time showed heart rate into the 30s and systolic blood pressure in 80s. On arrival in the ER patient heart rate was in 30s and sinus bradycardia, she received a dose of atropine, which helped to improve her heart rate. When I was interacting with the patient, she was answering question appropriately. Heart rate has been in 60s. Pertinent imaging studies done in the ER: CT head without contrast: No acute intracranial pathology CTA head and neck: No flow-limiting stenosis. EKG: Atrial fibrillation with well-controlled heart rate Pertinent labs: And other vitals have been noted. Review of Systems General: Reports: 10 or more systems reviewed and unremarkable except in HPI and below Const: Denies: fever(s), chills, body aches, change in appetite or diaphoresis Card: Denies: palpitations, edema, swelling of feet/ankles, dyspnea on exertion, orthopnea or leg pain with exertion Resp: Denies: dyspnea, productive cough, wheezing or pain on inspiration GI: Denies: abdominal pain, nausea, vomiting, diarrhea or constipation : Denies: flank pain Musc: Denies: back pain, extremity pain or extremity swelling Medications/Allergies Home Medications Medication Instructions Recorded Confirmed Last Taken Type acetaminophen 325 mg tablet 650 mg PO Q6H PRN Mild/Mod Pain Or 08/16/20 01/12/22 Unknown Rx Temp >/= 101 #30 tabs magnesium citrate 150 ml PO BID PRN constipation 09/13/20 01/12/22 Unknown Rx #296 mL sennosides 8.6 mg-docusate sodium 1 tab PO BID@09/13/20 01/12/22 09/13/20 History 50 mg tablet (Stool Softener-Laxative) lactulose 10 gram/15 mL oral 10 g (15 mL) PO DAILY PRN 10/11/20 01/12/22 Unknown Rx solution constipation #473 mL polyethylene glycol 3350 17 17 g PO DAILY #119 grams 10/22/20 01/12/22 Unknown Rx gram/dose oral powder (Purelax) aspirin 325 mg capsule 325 mg PO DAILY #30 caps 07/24/21 01/12/22 09/30/21 Rx lisinopril 20 mg tablet 20 mg PO DAILY #30 tabs 07/24/21 01/12/22 09/30/21 Rx metoprolol tartrate 25 mg tablet 25 mg PO BID@0900,2100 #60 tabs 07/24/21 01/12/22 09/30/21 Rx diltiazem HCl 90 mg tablet 90 mg PO BID 09/30/21 01/12/22 09/30/21 History vitamin B12 0.5 mg-folic acid 1 mg See Rx Instructions .Route .COMPLEX 09/30/21 01/12/22 Unknown History tablet bisacodyl 10 mg rectal suppository 10 mg ID DAILY PRN Constipation 01/12/22 01/12/22 Unknown History (Dulcolax (bisacodyl)) escitalopram oxalate 10 mg tablet 10 mg PO DAILY 01/12/22 01/12/22 Unknown History (Lexapro) lorazepam 0.5 mg tablet 0.5 mg PO TID PRN Anxiety 01/12/22 01/12/22 Unknown History magnesium hydroxide 400 mg/5 mL 30 ml PO DAILY PRN Constipation 01/12/22 01/12/22 Unknown History oral suspension (Milk of Magnesia) memantine 5 mg tablet (Namenda) 5 mg PO DAILY 01/12/22 01/12/22 Unknown History nut. tx, spec. form, 30 ea PO BID 01/12/22 01/12/22 Unknown History lac-free,iron-fos 0.08 gram-2 kcal/mL oral liquid (TwoCal HN) potassium chloride 20 mEq 20 meq PO DAILY 01/12/22 01/12/22 Unknown History tablet,extended release quetiapine 25 mg tablet (Seroquel) 25 mg PO BID 01/12/22 01/12/22 Unknown History Allergies Allergy/AdvReac Type Severity Reaction Status Date / Time No Known Allergies Allergy Verified 09/30/21 13:50 PFSH Acute PFSH: Medical History Atrial fibrillation Closed fracture of left inferior pubic ramus Hypertension Continue on home Benicar and diltiazem Palpitation Posterior circulation stroke Weakness Surgical History H/O shoulder surgery Left History of hip surgery Left Family History Mother Hypertension Father Lung disease Social History Smoking and tobacco status: never smoked Alcohol intake: never Vitals/I&O/Wt Last Vital Signs Pulse 68 01/12/22 11:15 Resp 18 01/12/22 11:15 BP 142/76 01/12/22 11:15 Pulse Ox 99 01/12/22 11:15 O2 Del Method 01/12/22 09:29 01/11/22 01/12/22 01/12/22 22:59 06:59 14:59 Intake Total 1000 / 1000 Balance 1000 / 1000 Weight last 48 hrs Weight 58.967 kg Physical Exam Narrative: Patient has underlying dementia, but she does responds to questions appropriately Resp: COMMON NORMALS: normal respiratory effort, No retractions, No use of accessory muscles and clear to auscultation bilaterally EFFORT & INSPECTION: Yes symmetric chest movement AUSCULTATION: clear to auscultation bilaterally Cardio: COMMON NORMALS: regular rate, regular rhythm, S1 normal heart sound present, S2 normal heart sound present, No gallops present (Cardio), No murmurs present (Cardio), No rub (Cardio) and Peripheral pulses 2+ throughout RATE: regular rate RHYTHM: regular rhythm HEART SOUNDS: S1 normal heart sound present and S2 normal heart sound present PERIPHERAL PULSES: Peripheral pulses 2+ throughout GI: COMMON NORMALS: Normal to inspection, nondistended, normoactive bowel sounds present, Soft to palpation, non-tender, No hepatosplenomegaly present and no masses AUSCULTATION: Yes normoactive bowel sounds PALPATION: Yes Soft to palpation and Yes No hepatosplenomegaly present RECTAL EXAM: deferred Extremity: COMMON NORMALS: no clubbing, cyanosis or edema and no pedal edema Data : 01/12/22 09:20 01/12/22 09:20 A&P Assessment and plan (1) Bradycardia: Status: Acute (2) Atrial fibrillation: Status: Acute (3) CVA (cerebral vascular accident): Status: Acute Plan 86 year old female with past medical history of hypertension atrial fibrillation CVA, dementia, currently halfway resident, was brought in from the halfway with chief complaint of near syncopal episode this morning, patient is a poor historian, history taking has been done with ER chart review , per the halfway staff patient was eating her breakfast this morning when she became very weak, likely also had some slurred speech, and had a presyncopal episode, vitals done at that time showed heart rate into the 30s and systolic blood pressure in 80s. On arrival in the ER patient heart rate was in 30s and sinus bradycardia, she received a dose of atropine, which helped to improve her heart rate. When I was interacting with the patient, she was answering question appropriately. Heart rate has been in 60s. Assessment: Presyncope: Likely precipitated by hypotension associated with severe bradycardia, Hypertension History of atrial fibrillation not on anticoagulation probably due to high risk of fall Possible sick sinus syndrome History of recent CVA UTI Plan: CT head without contrast: No acute intracranial pathology CTA head and neck: No flow-limiting stenosis. Monitor EKG: Continue telemetry monitoring For now we will hold marek blocking agents she is on metoprolol 2D echo done in June: Moderately increased left ventricular mass. Mildly increased?septal wall thickness. Mildly increased posterior wall ?thickness. Mildly decreased midwall fractional shortening. ?Severely increased left atrial area. ?Mild to moderate elevation in RV systolic pressure with ?estimated RV systolic pressure of 50 to 55 mmHg. ?There is mild mitral regurgitation. Orthostatic vitals check Patient may need event monitor on discharge Continue ceftriaxone for UTI CODE STATUS: Full code DVT prophylaxis on Lovenox: Attestations Medical Necessity Statement*: Patient in hospital for presyncope, bradycardia, telemetry monitoring. Time Spent in Patient Care: Greater than 35 minutes (>than 50% of time spent in counselling and/or direct pt care on unit). Coding Level of Care Code Acute District Agent for Románg Fwd Exam Expanded Problem Focused Diagnoses Bradycardia R00.1 Atrial fibrillation I48.91 CVA (cerebral vascular accident) I63.9
--- NOTE | 2022-01-12 14:50 | PC.NURSE ---
at approx. 1445 pt arrived in rm 252-2. pts bp was 185/141 auto and 182/[address] fox notified and aware. ordered orthostatic bps on this pt.
[2022-01-12 16:37] LABS: Troponin 5 6HR 20.62 ng/L (0-10)
[2022-01-12] MEDS: cefTRIAXone 1,000 MG in sodium chloride 0.9% (plus) 50 ML 100 MG IV (16:41)
[2022-01-12] MEDS: enoxaparin 40 mg/0.4 mL Syringe SUBCUT (16:42)
[2022-01-12 16:43] LABS: Troponin 5 6HR Delta -8.38 ng/L (0-12)
--- NOTE | 2022-01-12 18:11 | ECG_ITS ---
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 Measurements Intervals [place] Rate: 80 P: NE: QRS: -30 QRSD: 78 T: 17 QT: 376 QTc: 436 Interpretive Statements ATRIAL FIBRILLATION SEPTAL MYOCARDIAL INFARCTION , PROBABLY OLD [40+ ms Q WAVE IN V1/V2] Compared to ECG 01/12/2022 14:11:44 Left-axis deviation no longer present Myocardial infarct finding still present Electronically Signed On 01-13-2022 7:38:10 CDT by Shant Lopez M.D. [id number]
[2022-01-13] VITALS (7 sets, daily range): BP systolic 153–183; BP diastolic 79–118; PULSE 79–108; RESP 17–18; TEMP 36.4–36.8; O2SAT 94–97
[2022-01-13 05:08] LABS: Basophils % 0.6 %; Eosinophils # 0.1 10^3/uL (0.0-0.8); Eosinophils % 2.3 %; Hematocrit 35.3 % (37.0-47.0); Hemoglobin 10.8 g/dL (11.5-15.3); Lymphocytes # 1.3 10^3/uL (0.8-4.8); Lymphocytes % 23.7 %; Mean Corpuscular HGB Conc 30.6 g/dL (30.0-36.0); Mean Corpuscular Hemoglobin 26.1 pg (28.0-34.0); Mean Corpuscular Volume 85.3 fl (81-99); Mean Platelet Volume 11.4 fL (7.4-10.4); Monocytes # 0.6 10^3/uL (0.2-0.9); Monocytes % 10.8 %; Neutrophils # 3.29 10^3/uL (1.8-7.7); Neutrophils % 62.4 %; Nucleated Red Blood Cells % 0 %; Platelet Count 178 10^3/cmm (130-400); Red Blood Count 4.14 10^6/uL (4.1-5.3); Red Cell Distribution Width 15.9 % (12.1-15.1); White Blood Count 5.3 10^3/uL (4.0-10.0)
[2022-01-13 05:26] LABS: Anion Gap 10.7 (5-19); Blood Urea Nitrogen 14 mg/dL (8-23); Calcium 9.5 mg/dL (8.5-10.5); Carbon Dioxide 26 mmol/L (22-29); Chloride 108 mmol/L (98-107); Creatinine Clr Calc Pharmacy 42.6167; Glucose 90 mg/dL (65-115); Magnesium 2.1 mg/dL (1.7-2.3); Osmolality Calculated 292 mOsm/kg (285-295); Potassium 3.7 mmol/L (3.5-5.1); Sodium 141 mmol/L (136-145)
[2022-01-13] MEDS: memantine 5 mg tablet PO (09:48)
[2022-01-13] MEDS: aspirin 325 mg Tablet PO (09:48)
[2022-01-13] MEDS: lisinopril 20 mg Tablet PO (09:48)
[2022-01-13] MEDS: cefTRIAXone 1,000 MG in sodium chloride 0.9% (plus) 50 ML 100 MG IV (13:59)
[2022-01-13] MEDS: enoxaparin 40 mg/0.4 mL Syringe SUBCUT (13:59)
--- NOTE | 2022-01-13 16:18 | P.PN_ITS ---
Subjective Subjective: Patient took off her telemetry overnight therefore I do not have an estimate of whether she was bradycardic overnight. She has not had any recurrence of her symptoms. Reports that she was able to ambulate, confirmed by nurses. She is hard of hearing and demented which makes it hard to get an exact history from her. However denies any chest pain or dyspnea at this time. Medications: Reviewed: Yes Vitals/I&O/Wt Last Vital Signs Temp 98.0 F 01/13/22 12:00 Pulse 79 01/13/22 12:00 Resp 18 01/13/22 12:00 BP 167/99 01/13/22 12:00 Pulse Ox 96 01/13/22 12:00 O2 Del Method 01/13/22 12:00 01/13/22 01/13/22 01/13/22 06:59 14:59 22:59 Intake Total 290 / 290 Balance 290 / 290 Weight last 48 hrs Weight 61.462 kg Weight 58.967 kg Physical Exam Narrative: General: No acute distress, AO x2 HEENT: PERRLA, pupils bilaterally equal and reactive, pallors not present Chest: Normal vesicular breath sounds, no added sounds, equal good air entry bilaterally CVS: S1-S2 regular, no murmurs, no tachycardia, no gallops, no rubs Abdomen: Soft, nontender, no organomegaly, bowel sounds present Neuro: No focal deficits, no facial deformity, AO x2, power 5/5 in all limbs Data : 01/13/22 04:58 01/13/22 04:58 Micro: Microbiology 01/12/22 11:26 Urine Culture - Preliminary Urine,Clean Catch Gram Negative Rods A&P Assessment and plan (1) Bradycardia: Status: Acute (2) Atrial fibrillation: Status: Acute (3) CVA (cerebral vascular accident): Status: Acute Plan 86 year old female with past medical history of hypertension atrial fibrillation CVA, dementia, currently correction resident, was brought in from the correction with chief complaint of near syncopal episode this morning, patient is a poor historian, history taking has been done with ER chart review , per the correction staff patient was eating her breakfast this morning when she became very weak, likely also had some slurred speech, and had a presyncopal episode, vitals done at that time showed heart rate into the 30s and systolic blood pressure in 80s. On arrival in the ER patient heart rate was in 30s and sinus bradycardia, she received a dose of atropine, which helped to improve her heart rate. Unfortunately patient took off her telemetry overnight. We will place this back on and evaluate for any underlying bradycardia. On spot checks her heart rate has been noted to be well controlled. No episodes of presyncope. She is ambulating within the room. Assessment: Presyncope: Likely precipitated by hypotension associated with severe bradycardia, Hypertension History of atrial fibrillation not on anticoagulation probably due to high risk of fall Possible sick sinus syndrome History of recent CVA UTI, currently on ceftriaxone 1g iv q24h. GNR on prelim urine cx Attestations Medical Necessity Statement*: place on telemetry, evelaute for any bradycardic episodes Coding Level of Care Code Acute Performance Improvement Analyst for Calderon Delaney Diagnoses Bradycardia R00.1 Atrial fibrillation I48.91 CVA (cerebral vascular accident) I63.9
[2022-01-13] MEDS: LORazepam 0.5 mg Tablet 0.25 MG PO (20:59)
[2022-01-14] VITALS: BP 206/112; PULSE 96; RESP 17; TEMP 36.6; O2SAT 97
[2022-01-14 06:08] LABS: Basophils # 0.1 10^3/uL (0.0-0.1); Basophils % 1.2 %; Eosinophils # 0.2 10^3/uL (0.0-0.8); Eosinophils % 3.6 %; Hematocrit 38.5 % (37.0-47.0); Hemoglobin 11.3 g/dL (11.5-15.3); Lymphocytes # 1.5 10^3/uL (0.8-4.8); Lymphocytes % 30.1 %; Mean Corpuscular HGB Conc 29.4 g/dL (30.0-36.0); Mean Corpuscular Hemoglobin 26.3 pg (28.0-34.0); Mean Corpuscular Volume 89.7 fl (81-99); Mean Platelet Volume 11.9 fL (7.4-10.4); Monocytes # 0.6 10^3/uL (0.2-0.9); Monocytes % 11.4 %; Neutrophils # 2.67 10^3/uL (1.8-7.7); Neutrophils % 53.3 %; Nucleated Red Blood Cells % 0 %; Platelet Count 171 10^3/cmm (130-400); Red Blood Count 4.29 10^6/uL (4.1-5.3); Red Cell Distribution Width 15.9 % (12.1-15.1)
[2022-01-14 06:09] VITALS: PULSE 89
[2022-01-14 06:28] LABS: Blood Urea Nitrogen 12 mg/dL (8-23); Calcium 9.8 mg/dL (8.5-10.5); Carbon Dioxide 22 mmol/L (22-29); Chloride 102 mmol/L (98-107); Creatinine Clr Calc Pharmacy 42.6167; Glucose 93 mg/dL (65-115); Osmolality Calculated 283 mOsm/kg (285-295); Sodium 137 mmol/L (136-145)
[2022-01-14 06:29] LABS: Anion Gap 16.6 (5-19); Potassium 3.6 mmol/L (3.5-5.1)
[2022-01-14 08:00] VITALS: BP 172/93; PULSE 87; RESP 17; TEMP 36.4; O2SAT 95
[2022-01-14] MEDS: lisinopril 20 mg Tablet PO (08:34)
[2022-01-14] MEDS: aspirin 325 mg Tablet PO (08:34)
[2022-01-14] MEDS: memantine 5 mg tablet PO (08:34)
--- NOTE | 2022-01-14 08:40 | PM.DCS ---
Discharge Providers Date of Admission: 01/12/22 11:13 Date of Discharge: January 14, 2022 Attending Provider at Admission: Nestor Cortes MD Attending Provider at Discharge: Sonja Knox MD Primary Care Provider: Grant Arias MD Diagnoses at Discharge Discharge Diagnosis (1) Bradycardia: Status: Acute (2) Atrial fibrillation: Status: Acute (3) CVA (cerebral vascular accident): Status: Acute Reason for Visit Reason for Visit: STROKE LIKE SYMPTOMS Hospital Course Hospital Course Cristel Keating is a 86 year old female with past medical history of hypertension atrial fibrillation CVA, dementia, currently longterm resident, was brought in from the longterm with chief complaint of near syncopal episode. Patient is a very poor historian and does not remember any events leading up to the syncopal episode. She additionally was noted to have some slurred speech at the longterm. Upon arrival at the ER she was noted to be bradycardic with heart rates in 30s, sinus bradycardia on EKG, systolic blood pressure was in the 80s. She received atropine which improved her heart rate in the 60s. Her medications were adjusted while here in the hospital. Beta-blockers and Cardizem were discontinued. With these changes in her medications, her heart rate is now ranging between 89-1 1 4. She had a short run of atrial fibrillation on the night of 919 with heart rate in the 120s which resolved. She has had no recurrence of syncope while in the hospital. At the time of discharge her Cardizem has been placed on hold. Metoprolol has been resumed, however at a lower dose of 12.5 mg p.o. twice daily, which may be titrated up if tolerated at the discretion of the longterm physician. She was also noted to have a positive UA with positive leukoesterase and positive nitrate 40-55 WBCs.Urine culture is preliminarily growing gram-negative rods pending further identification. Review of prior culture shows that patient has had infection with E. coli which was susceptible to fluoroquinolones. She is being discharged today with recommendations to complete 2 days of levofloxacin. She received 3 days of ceftriaxone while in the hospital. CT head did not show any acute intracranial abnormalities.CTA of the head and neck was without evidence of any hemodynamically significant stenosis. Physical Exam Narrative: General: No acute distress, AO x2, at baseline HEENT: PERRLA, pupils bilaterally equal and reactive, pallors not present Chest: Normal vesicular breath sounds, no added sounds, equal good air entry bilaterally CVS: S1-S2 regular, no murmurs, no tachycardia, no gallops, no rubs Abdomen: Soft, nontender, no organomegaly, bowel sounds present Neuro: No focal deficits, no facial deformity, AO x2, power 5/5 in all limbs Discharge Data Studies Completed and Pending Completed Studies During Hospitalization Category Date Time Status CT head wo con* [id number] Stat Cat Scan 01/12/22 09:07 Completed CTA head neck [CT angio headneck* [id number]] Stat Cat Scan 01/12/22 09:28 Completed CXRP [XR chest 1V portable [id number]] Stat Exams 01/12/22 09:28 Completed Pending at discharge Category Date Time Status Basic Metabolic Panel AM LABS Lab 01/15/22 04:00 Ordered Complete Blood Count w/Auto AM LABS Lab 01/15/22 04:00 Ordered Urine Culture Stat Lab 01/12/22 11:26 Results Radiology Impressions Head CT 01/12/22 09:07 IMPRESSION: No change. No acute abnormality. ASSESSMENT: ASPECTS ([place] Stroke Program Early CT Score) is 10. Chest X-Ray 01/12/22 09:28 IMPRESSION: No acute findings. 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 No evidence of large vessel occlusion. IMPRESSION: 1. No evidence of hemodynamically significant stenosis. 2. Heterogeneous thyroid and heterogeneous lung apices. REFERENCES: NASCET CRITERIA. The degree of stenosis in the cervical segment of the internal carotid artery is based on NASCET criteria. Normal is no stenosis. Mild is less than 50% stenosis. Moderate is 50-69% stenosis. Severe is 70% to 99% stenosis. Total occlusion is no detectable patent lumen. Laboratory Results WBC 5.0 10^3/uL (4.0-10.0) 01/14/22 05:40 RBC 4.29 10^6/uL (4.1-5.3) 01/14/22 05:40 Hgb 11.3 g/dL (11.5-15.3) L 01/14/22 05:40 Hct 38.5 % (37.0-47.0) 01/14/22 05:40 MCV 89.7 fl (81-99) D 01/14/22 05:40 MCH 26.3 pg (28.0-34.0) L 01/14/22 05:40 MCHC 29.4 g/dL (30.0-36.0) L 01/14/22 05:40 RDW 15.9 % (12.1-15.1) H 01/14/22 05:40 Plt Count 171 10^3/cmm (130-400) 01/14/22 05:40 MPV 11.9 fL (7.4-10.4) H 01/14/22 05:40 Neut % (Auto) 53.3 % 01/14/22 05:40 Lymph % (Auto) 30.1 % 01/14/22 05:40 [place] % (Auto) 11.4 % 01/14/22 05:40 Eos % (Auto) 3.6 % 01/14/22 05:40 Baso % (Auto) 1.2 % 01/14/22 05:40 Neut # (Auto) 2.67 10^3/uL (1.8-7.7) 01/14/22 05:40 Lymph # (Auto) 1.5 10^3/uL (0.8-4.8) 01/14/22 05:40 [place] # (Auto) 0.6 10^3/uL (0.2-0.9) 01/14/22 05:40 Eos # (Auto) 0.2 10^3/uL (0.0-0.8) 01/14/22 05:40 Baso # (Auto) 0.1 10^3/uL (0.0-0.1) 01/14/22 05:40 Nucleated RBC % (auto) 0 % 01/14/22 05:40 Nucleated RBCs # 0.0 /100WBC 01/14/22 05:40 PT 14.20 SECONDS (12.1-14.9) 01/12/22 09:20 INR 1.07 (0.8-1.2) 01/12/22 09:20 APTT 26.9 SECONDS (23.9-36.7) 01/12/22 09:20 Sodium 137 mmol/L (136-145) 01/14/22 05:40 Potassium 3.6 mmol/L (3.5-5.1) 01/14/22 05:40 Chloride 102 mmol/L (98-107) 01/14/22 05:40 Carbon Dioxide 22 mmol/L (22-29) 01/14/22 05:40 Anion Gap 16.6 (5-19) 01/14/22 05:40 BUN 12 mg/dL (8-23) 01/14/22 05:40 Creatinine 0.9 mg/dL (0.5-0.9) 01/14/22 05:40 GFR Calculation Not Reportable 01/14/22 05:40 Glucose 93 mg/dL (65-115) 01/14/22 05:40 POC Glucose 109 mg/dL (70-110) 01/12/22 09:19 Calculated Osmolality 283 mOsm/kg (285-295) L 01/14/22 05:40 Calcium 9.8 mg/dL (8.5-10.5) 01/14/22 05:40 Magnesium 2.1 mg/dL (1.7-2.3) 01/13/22 04:58 Total Bilirubin 0.4 mg/dL (0.15-1.2) 01/12/22 09:20 AST 15 U/L (0-32) 01/12/22 09:20 ALT 9 U/L (0-33) 01/12/22 09:20 Alkaline Phosphatase 105 U/L (35-105) 01/12/22 09:20 Troponin T Baseline 29 ng/L (0-10) H 01/12/22 09:20 Troponin T 120 Minute 22.57 ng/L (0-10) H 01/12/22 11:13 Delta Troponin T -6.43 ABS# (0-10) L 01/12/22 11:13 Troponin T Hi Sens 6Hr 20.62 ng/L (0-10) H 01/12/22 13:55 Troponin T Hi Sens 6Hr Delta -8.38 ng/L (0-12) L 01/12/22 13:55 Total Protein 6.1 g/dL (6.6-8.7) L 01/12/22 09:20 Albumin 3.7 g/dL (3.5-5.2) 01/12/22 09:20 Globulin 2.4 g/dL (1.3-4.6) 01/12/22 09:20 Urine Color Yellow (Yellow) 01/12/22 11:26 Urine Appearance Hazy (CLEAR) A 01/12/22 11:26 Urine pH 7 (5-7) 01/12/22 11:26 Ur Specific [place] 1.005 (1.005-1.030) 01/12/22 11:26 Urine Protein Neg (Negative) 01/12/22 11:26 Urine Glucose (UA) Norm (Normal) 01/12/22 11:26 Urine Ketones Negative (Negative) 01/12/22 11:26 Urine Blood Neg (Negative) 01/12/22 11:26 Urine Nitrate Positive (Negative) H 01/12/22 11:26 Urine Bilirubin Neg (Negative) 01/12/22 11:26 Urine Urobilinogen Norm mg/dL (Negative) 01/12/22 11:26 Ur Leukocyte Esterase Trace (Negative) H 01/12/22 11:26 Urine RBC None /hpf (0-2) 01/12/22 11:26 Urine WBC 40-55 /hpf (0-5) H 01/12/22 11:26 Ur Squamous Epith Cells Rare /hpf (0-5) 01/12/22 11:26 Amorphous Sediment Not Reportable 01/12/22 11:26 Urine Bacteria 4+ /hpf (NONE) H 01/12/22 11:26 Urine Mucus Trace /hpf 01/12/22 11:26 Urine Opiates Screen Negative ng/mL (Negative) 01/12/22 11:26 Ur Barbiturates Screen Negative ng/mL (Negative) 01/12/22 11:26 Ur Phencyclidine Scrn Negative ng/mL (Negative) 01/12/22 11:26 Ur Amphetamines Screen Negative ng/mL (Negative) 01/12/22 11:26 U Benzodiazepines Scrn Negative ng/mL (Negative) 01/12/22 11:26 Urine Cocaine Screen Negative ng/mL (Negative) 01/12/22 11:26 U Marijuana (THC) Screen Negative ng/mL (Negative) 01/12/22 11:26 Vitals Last Vital Signs Temp 97.5 F L 01/14/22 08:00 Pulse 87 01/14/22 08:00 Resp 17 01/14/22 08:00 BP 172/93 01/14/22 08:00 Pulse Ox 95 01/14/22 08:00 O2 Del Method 01/14/22 08:00 Discharge Plan Discharge Patient Disposition: Xfer SNF Condition: Stable Prescriptions: New levofloxacin 500 mg tablet 500 mg PO DAILY 2 Days Qty: 2 0RF Continued lactulose 10 gram/15 mL solution 10 g PO DAILY PRN (Reason: constipation) Qty: 473 0RF acetaminophen 325 mg Tablet 650 mg PO Q6H PRN (Reason: Mild/Mod Pain Or Temp >/= 101) Qty: 30 0RF sennosides-docusate sodium [Stool Softener-Laxative] 8.6-50 mg tablet 1 tab PO BID@ magnesium citrate Solution 150 ml PO BID PRN (Reason: constipation) Qty: 296 0RF polyethylene glycol 3350 [Purelax] 17 gram/dose powder 17 g PO DAILY Qty: 119 0RF vitamin [id number] acid 0.5-1 mg Tablet See Rx Instructions .ROUTE .COMPLEX Rx Instructions: 1 tab orally THU, , THURSDAY lisinopril 20 mg Tablet 20 mg PO DAILY Qty: 30 0RF aspirin 325 mg capsule 325 mg PO DAILY Qty: 30 0RF Milk of Magnesia 400 mg/5 mL Suspension 30 ml PO DAILY PRN (Reason: Constipation) Dulcolax (bisacodyl) 10 mg Suppository 10 mg MA DAILY PRN (Reason: Constipation) Lexapro 10 mg Tablet 10 mg PO DAILY Namenda 5 mg Tablet 5 mg PO DAILY TwoCal HN 0.08-2 gram-kcal/mL Liquid 30 ea PO BID potassium chloride 20 mEq Tablet Extended Release 20 meq PO DAILY Seroquel 25 mg tablet 25 mg PO BID lorazepam 0.5 mg Tablet 0.5 mg PO TID PRN (Reason: Anxiety) Changed metoprolol tartrate 25 mg Tablet 12.5 mg PO BID@0900,2100 Qty: 60 0RF Discontinued diltiazem HCl 90 mg Tablet 90 mg PO BID Discharge Orders: Discharge Order (Routine); Ordered 01/14/22 Ordered By: Sonja Knox Referrals: Grant Arias MD [Primary Care Provider] - Discharge Diet: Usual diet Discharge Activity: Resume usual activity Discharge Attestations Time Spent in Discharge Care*: greater than 30 min Quality Metrics Clinical Quality Measures [ No reported AMI, CVA or VTE this stay] Coding Level of Care Code Acute Chg FW DC note Diagnoses Bradycardia R00.1 Atrial fibrillation I48.91 CVA (cerebral vascular accident) I63.9
[2022-01-14] MEDS: cefTRIAXone 1,000 MG in sodium chloride 0.9% (plus) 50 ML 100 MG IV (10:25)
[2022-01-14 11:00] VITALS: BP 168/101; PULSE 103; RESP 17; TEMP 36.4
[2022-01-14 11:36] LABS: SARS Covid-2 Antigen Negative (Negative)
[2022-01-14 12:00] VITALS: BP 168/101; PULSE 103; RESP 17; TEMP 36.4; O2SAT 93
[2022-01-14 12:52] VITALS: BP 168/101; PULSE 103; RESP 17; TEMP 36.4; O2SAT 93
--- NOTE | 2022-01-14 12:52 | PC.NURSE ---
Report called to HERMINIA Fagan at [facility].
== END 2022-01-14 12:52 | disposition skilled nursing facility (03) ==
LOC: ER 11:17 → MEDSURG 13:27
PROVIDERS: Admitting Provider Internal Medicine; Emergency Provider Emergency Medicine; PCP Family Medicine; Visit Provider Student in an Organized Health Care Education/Training Program
DX: R00.1 Bradycardia, unspecified (principal); I48.91 Unspecified atrial fibrillation; I63.9 Cerebral infarction, unspecified; I10 Essential (primary) hypertension; F03.90 Unspecified dementia, unspecified severity, without behavioral disturbance, psychotic disturbance, mood disturbance, and anxiety; N39.0 Urinary tract infection, site not specified
CPT/HCPCS: 36415; 36416; 70450; 70496; 70498; 71045; 80048; 80053; 80306; 81001; 82962; 83735; 84484; 85025; 85610; 85730; 87077; 87086; 87186; 87426; 93005; 96365; 96372; 96375; 99285; G0378; J0461; J0696; J1650; J7030; Q9967

== ENCOUNTER 2022-04-06 08:46 | Emergency (ER) | payer MEDICARE, MEDICAID, SELFPAY ==
[2022-04-06] VITALS (7 sets, daily range): BP systolic 145–172; BP diastolic 81–105; PULSE 110–113; RESP 16–18; O2SAT 95–100
--- NOTE | 2022-04-06 08:47 | ED_ITS ---
HPI - Altered Mental Status General: Chief Complaint: Altered Mental Status Stated Complaint: AMS Time Seen by Provider: 04/06/22 08:47 Limitations: altered mental status History of Present Illness: Ms. Keating is an 86-year-old lady with history of stroke, atrial fibrillation, apparent history of dementia presenting to the emergency department due to altered mental status. Apparently she was more agitated 2 days ago and received Haldol. She slept most of the day yesterday and this morning was noted to be altered. Exact time of onset is somewhat un clear. Patient is unable to provide meaningful history though does not appear to endorse pain. Review of Systems General: Reports: ROS unobtainable due to mental status PFSH ED PFSH: Medical History Atrial fibrillation Closed fracture of left inferior pubic ramus Hypertension Continue on home Benicar and diltiazem Palpitation Posterior circulation stroke Weakness Surgical History H/O shoulder surgery Left History of hip surgery Left Family History Mother Hypertension Father Lung disease Social History Smoking and tobacco status: never smoked Alcohol intake: never Physical Exam Const: COMMON NORMALS: alert GENERAL APPEARANCE: anxious (Tearful) HENMT: COMMON NORMALS: normocephalic and atraumatic HEAD & SCALP: normocephalic and atraumatic Eye: COMMON NORMALS: conjunctivae normal CONJUNCTIVA: Yes conjunctivae normal SCLERA: sclerae normal Neck/C-Spine: COMMON NORMALS: supple GENERAL: Yes trachea midline Resp: COMMON NORMALS: clear to auscultation bilaterally EFFORT & INSPECTION: Yes able to speak in complete sentences AUSCULTATION: clear to auscultation bilaterally Cardio: COMMON NORMALS: regular rate RATE: regular rate RHYTHM: abnormal rhythm irregularly irregular GI: COMMON NORMALS: Soft to palpation PALPATION: Yes Soft to palpation and No Tenderness to palpation present (GI) Extremity: GENERAL: Yes normal exam except as noted and No edema Neuro: COMMON NORMALS: moves all extremities SENSORIUM/ORIENTATION: Yes alert and Yes Orientation impaired OTHER: Severely limited neurologic exam secondary to patient participation in exam. No obvious focal neurologic deficits. Psych: MEMORY/COGNITION: Yes memory grossly impaired and Yes cognition grossly impaired Course Vital Signs: Vital signs: Vital Signs Pulse Rate 110 H 04/06/22 20:25 Respiratory Rate 16 04/06/22 20:25 Blood Pressure 163/105 04/06/22 20:25 Pulse Oximetry 98 04/06/22 20:25 Oxygen Delivery Me thod 04/06/22 20:25 MDM - Altered Mental Status Medical Decision Making 86-year-old lady presenting with altered mental status, limited exam as above with no obvious focal neurologic deficits. Head to toe exam without focal point of pain identified. EKG shows atrial fibrillation, no STEMI. Labs with no leukocytosis, normal hemoglobin, metabolic panel without acute derangement to explain symptoms. 2-hour delta troponin is negative. TSH is normal. No evidence of urinary tract infection. Chest x-ray with no lobar consolidation or pneumothorax. CT head negative for acute intracranial pathology to explain symptoms. Patient did receive analgesia and anxiolysis as well as medication for hypertension. The exact etiology of patient's symptoms is unclear. I am not entirely convinced that this is different from the patient's baseline within the context of variation. Patient is reasonable for return to nursing facility with strict return precautions given. Medical Records I reviewed the patient's medical records. Lab Data I reviewed the patient's lab results. 04/06/22 09:30 04/06/22 09:30 Radiology Impressions Chest X-Ray 04/06/22 08:51 IMPRESSION: 1. No confluent infiltrates in the lungs. 2. Unchanged mild cardiomegaly. Head CT 04/06/22 08:51 IMPRESSION: 1. No non-contrast CT evidence of intracranial hemorrhage or definite subacute stroke. 2. Atrophic changes, as noted above. Unchanged old right occipital region stroke with encephalomalacia. 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 Laboratory Results WBC 6.3 10^3/uL (4.0-10.0) 04/06/22 09:30 RBC 5.16 10^6/uL (4.1-5.3) 04/06/22 09:30 Hgb 13.5 g/dL (11.5-15.3) 04/06/22 09:30 Hct 44.5 % (37.0-47.0) 04/06/22 09:30 MCV 86.2 fl (81-99) 04/06/22 09:30 MCH 26.2 pg (28.0-34.0) L 04/06/22 09:30 MCHC 30.3 g/dL (30.0-36.0) 04/06/22 09:30 RDW 15.9 % (12.1-15.1) H 04/06/22 09:30 Plt Count 209 10^3/cmm (130-400) 04/06/22 09:30 MPV 12.2 fL (7.4-10.4) H 04/06/22 09:30 Neut % (Auto) 56.5 % 04/06/22 09:30 Lymph % (Auto) 33.4 % 04/06/22:30 [place] % (Auto) 8.2 % 04/06/22 09:30 Eos % (Auto) 1.1 % 04/06/22 09:30 Baso % (Auto) 0.6 % 04/06/22 09:30 Neut # (Auto) 3.53 10^3/uL (1.8-7.7) 04/06/22 09:30 Lymph # (Auto) 2.1 10^3/uL (0.8-4.8) 04/06/22 09:30 [place] # (Auto) 0.5 10^3/uL (0.2-0.9) 04/06/22 09:30 Eos # (Auto) 0.1 10^3/uL (0.0-0.8) 04/06/22 09:30 Baso # (Auto) 0.0 10^3/uL (0.0-0.1) 04/06/22 09:30 Nucleated RBC % (auto) 0 % 04/06/22 09:30 Nucleated RBCs # 0.0 /100WBC 04/06/22 09:30 Sodium 140 mmol/L (136-145) 04/06/22 09:30 Potassium 4.6 mmol/L (3.5-5.1) 04/06/22 09:30 Chloride 104 mmol/L (98-107) 04/06/22 09:30 Carbon Dioxide 23 mmol/L (22-29) 04/06/22 09:30 Anion Gap 17.6 (5-19) 04/06/22 09:30 BUN 17 mg/dL (8-23) 04/06/22 09:30 Creatinine 1.0 mg/dL (0.5-0.9) H 04/06/22 09:30 GFR Calculation Not Reportable 04/06/22 09:30 Glucose 87 mg/dL (65-115) 04/06/22 09:30 POC Glucose 72 mg/dL (70-110) 04/06/22 10:31 Calculated Osmolality 291 mOsm/kg (285-295) 04/06/22 09:30 Calcium 10.3 mg/dL (8.5-10.5) 04/06/22 09:30 Total Bilirubin 0.6 mg/dL (0.15-1.2) 04/06/22 09:30 AST 18 U/L (0-32) 04/06/22 09:30 ALT 9 U/L (0-33) 04/06/22 09:30 Alkaline Phosphatase 96 U/L (35-105) 04/06/22 09:30 Troponin T Baseline 33 ng/L (0-10) H 04/06/22 09:30 Troponin T 120 Minute 28.23 ng/L (0-10) H 04/06/22 12:19 Delta Troponin T -4.77 ABS# (0-10) L 04/06/22 12:19 Total Protein 6.4 g/dL (6.6-8.7) L 04/06/22 09:30 Albumin 4.2 g/dL (3.5-5.2) 04/06/22 09:30 Globulin 2.2 g/dL (1.3-4.6) 04/06/22 09:30 Procalcitonin 0.05 ng/mL (0-0.5) 04/06/22 09:30 TSH 3.80 uIU/mL (0.27-4.20) 04/06/22 09:30 Urine Color Yellow (Yellow) 04/06/22 13:42 Urine Appearance Clear (CLEAR) 04/06/22 13:42 Urine pH 5 (5-7) 04/06/22 13:42 Ur Specific [place] 1.025 (1.005-1.030) 04/06/22 13:42 Urine Protein Trace (Negative) 04/06/22 13:42 Urine Glucose (UA) Norm (Normal) 04/06/22 13:42 Urine Ketones 2+ (Negative) H 04/06/22 13:42 Urine Blood Neg (Negative) 04/06/22 13:42 Urine Nitrate Negative (Negative) 04/06/22 13:42 Urine Bilirubin 1+ (Negative) H 04/06/22 13:42 Urine Urobilinogen 1 mg/dL (Negative) H 04/06/22 13:42 Ur Leukocyte Esterase Negative (Negative) 04/06/22 13:42 Urine RBC None /hpf (0-2) 04/06/22 13:42 Urine WBC None /hpf (0-5) 04/06/22 13:42 Ur Squamous Epith Cells None /hpf (0-5) 04/06/22 13:42 Amorphous Sediment Not Reportable 04/06/22 13:42 Urine Bacteria Trace /hpf (NONE) 04/06/22 13:42 Discharge Plan Discharge Patient Disposition: [facility] Clinical Impression: Altered mental status, Dementia Condition: Stable Discharge Orders: Discharge ED (Routine); Ordered 04/06/22 Ordered By: Alvin Acevedo Referrals: Grant Arias MD [Primary Care Provider] - Discharge Diet: Usual diet Discharge Activity: Increase activity as tolerated Patient Instructions: Dementia (ED), Altered Mental Status (ED) Activity Restrictions/Additional Instructions: Thank you for visiting the emergency department. You were seen at about end for mental status change. The exact cause of the symptoms is unclear though it does not appear to need inpatient management at this time. I recommend continuing your medication regimen and being evaluated by your primary care provider this week for possible further adjustments. For discomfort you may use acetaminophen or ibuprofen (or other NSAID) however please do not exceed the daily recommended dosage. Please keep in mind that many namebrand medications contain the same active ingredients. Return to the emergency department for anything that you are concerned about a feel needs emergency department evaluation. Coding Level of Care Code ED Forest Ecologist for [place] Fwd Exam Comprehensive
--- NOTE | 2022-04-06 08:51 | CTR_ITS ---
PROCEDURE INFORMATION: Exam: CT Head Without Contrast Exam date and time: 04/06/2022 9:15 AM Age: 86 years old Clinical indication: Altered mental status/memory loss; Additional info: AMS TECHNIQUE: Imaging protocol: Computed tomography of the head without contrast. Radiation optimization: All CT scans at this facility use at least one of these dose optimization techniques: automated exposure control; mA and/or kV adjustment per patient size (includes targeted exams where dose is matched to clinical indication); or iterative reconstruction. COMPARISON: CT head wo con* [id number] 01/12/2022 9:09 AM RADIATION DOSE METRICS: Total DLP (mGy-cm): 633.45 FINDINGS: Brain: There is unchanged brain parenchymal atrophy, related to the patient's age. Unchanged moderate to severe nonspecific white matter changes are seen. Unchanged encephalomalacia is seen in the right occipital region, related to old stroke. 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 There is no midline shift. There is no cerebral edema. There is no subarachnoid hemorrhage. There are no intra-or extra-axial fluid collections, intraventricular or intraparenchymal hemorrhage. No definite areas of low attenuation or nash-white matter junction obscuration seen on the noncontrast CT to suggest a subacute stroke - although the underlying white matter changes limit assessment. Cerebral ventricles: The lateral, third and fourth ventricles appear unremarkable. The suprasellar and basilar cisterns appear unremarkable. Paranasal sinuses: The visualized sinuses are unremarkable. Mastoid air cells: The visualized mastoids are unremarkable. Orbital cavities: The visualized orbits are unremarkable. Bones/joints: No definite acute osseous or skull abnormalities seen. Soft tissues: Unremarkable. Notes: If there is further clinical concern for intracranial pathology, MRI of the brain may be performed for further assessment. CT/CT head wo con* [id number] IMPRESSION: 1. No non-contrast CT evidence of intracranial hemorrhage or definite subacute stroke. 2. Atrophic changes, as noted above. Unchanged old right occipital region stroke with encephalomalacia. 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
--- NOTE | 2022-04-06 08:51 | XRR_ITS ---
PROCEDURE INFORMATION: Exam: XR Chest Exam date and time: 04/06/2022 8:54 AM Age: 86 years old Clinical indication: Other: AMS TECHNIQUE: Imaging protocol: Radiologic exam of the chest. Views: 1 view. COMPARISON: CR (CHEST, ) 01/12/2022 9:42 AM FINDINGS: Lungs: Normal lung volumes. No confluent interstitial or airspace opacities. Age-related interstitial prominence is seen in the lungs. Unchanged 0.4 x 0.4 cm right lower lung zone peripheral calcified granuloma is seen. Pleural spaces: No pleural effusion. No pneumothorax. Heart/Mediastinum: Unchanged mild cardiomegaly. There is a mildly tortuous thoracic aorta. Midline trachea. Bones/joints: No acute abnormalities. The patient is status post prior left humeral arthroplasty. [id number] right shoulder degenerative changes are seen. XR/XR chest 1V portable [id number] IMPRESSION: 1. No confluent infiltrates in the lungs. 2. Unchanged mild cardiomegaly.
--- NOTE | 2022-04-06 08:52 | ECG_ITS ---
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 Measurements Intervals [place] Rate: 105 P: 0 [place]: 0 QRS: -54 QRSD: 76 T: 67 QT: 338 QTc: 447 Interpretive Statements ATRIAL FIBRILLATION WITH RAPID VENTRICULAR RESPONSE LEFT AXIS DEVIATION [QRS AXIS < -30] ANTEROSEPTAL MYOCARDIAL INFARCTION , OF INDETERMINATE AGE [40+ ms Q WAVE IN V1-V4] MODERATE T-WAVE ABNORMALITY, CONSIDER LATERAL ISCHEMIA [-0.1+ mV T-WAVE IN I/aVL/V5/V6] Compared to ECG 01/12/2022 18:11:42 Left-axis deviation now present T-wave abnormality now present Possible ischemia now present Myocardial infarct finding still present Electronically Signed On 04-06-2022 12:53:36 REFRACTORY SPECIALIST by Shant Lopez M.D. [id number]
[2022-04-06] MEDS: diphenhydrAMINE 50 mg/mL SDV 1mL 12.5 MG IVP (09:41)
[2022-04-06] MEDS: morphine 4 mg/mL SDV 1 mL 2 MG IVP ×2 (09:41→14:38)
[2022-04-06 09:53] LABS: Basophils % 0.6 %; Eosinophils # 0.1 10^3/uL (0.0-0.8); Eosinophils % 1.1 %; Hematocrit 44.5 % (37.0-47.0); Hemoglobin 13.5 g/dL (11.5-15.3); Lymphocytes # 2.1 10^3/uL (0.8-4.8); Lymphocytes % 33.4 %; Mean Corpuscular HGB Conc 30.3 g/dL (30.0-36.0); Mean Corpuscular Hemoglobin 26.2 pg (28.0-34.0); Mean Corpuscular Volume 86.2 fl (81-99); Mean Platelet Volume 12.2 fL (7.4-10.4); Monocytes # 0.5 10^3/uL (0.2-0.9); Monocytes % 8.2 %; Neutrophils # 3.53 10^3/uL (1.8-7.7); Neutrophils % 56.5 %; Nucleated Red Blood Cells % 0 %; Platelet Count 209 10^3/cmm (130-400); Red Blood Count 5.16 10^6/uL (4.1-5.3); Red Cell Distribution Width 15.9 % (12.1-15.1); White Blood Count 6.3 10^3/uL (4.0-10.0)
[2022-04-06 10:24] LABS: Troponin(5th) Baseline 33 ng/L (0-10)
[2022-04-06 10:34] LABS: Glucose Point of Care 72 mg/dL (70-110)
[2022-04-06 10:35] LABS: Procalcitonin 0.05 ng/mL (0-0.5)
[2022-04-06 10:47] LABS: Alanine Aminotransferase 9 U/L (0-33); Albumin Level 4.2 g/dL (3.5-5.2); Alkaline Phosphatase 96 U/L (35-105); Anion Gap 17.6 (5-19); Aspartate Amino Transferase 18 U/L (0-32); Blood Urea Nitrogen 17 mg/dL (8-23); Calcium 10.3 mg/dL (8.5-10.5); Carbon Dioxide 23 mmol/L (22-29); Chloride 104 mmol/L (98-107); Globulin 2.2 g/dL (1.3-4.6); Glucose 87 mg/dL (65-115); Osmolality Calculated 291 mOsm/kg (285-295); Potassium 4.6 mmol/L (3.5-5.1); Sodium 140 mmol/L (136-145); Total Bilirubin 0.6 mg/dL (0.15-1.2); Total Protein 6.4 g/dL (6.6-8.7)
--- NOTE | 2022-04-06 12:21 | ECG_ITS ---
[facility] Test Date: 2022-04-06 Pat Name: Cristel Keating Department: Room: Gender: Female Sign Language Teacher: : 1935 Requested By: Alvin Acevedo Order Number: [id number] Moises MD: Shant Lopez M.D. Measurements Intervals [place] Rate: 101 P: 0 CT: 0 QRS: -54 QRSD: 80 T: 71 QT: 345 QTc: 448 Interpretive Statements ATRIAL FIBRILLATION WITH RAPID VENTRICULAR RESPONSE LEFT AXIS DEVIATION [QRS AXIS < -30] ANTEROSEPTAL MYOCARDIAL INFARCTION , PROBABLY OLD [40+ ms Q WAVE IN V1-V4] Compared to ECG 04/06/2022 09:04:01 T-wave abnormality no longer present Possible ischemia no longer present Myocardial infarct finding still present Electronically Signed On 04-06-2022 12:55:51 MAINTENANCE TEAM MEMBER by Shant Lopez M.D. [id number]
[2022-04-06 13:08] LABS: Troponin 5 2HR 28.23 ng/L (0-10)
[2022-04-06 13:11] LABS: Troponin 5 2HR Delta -4.77 ABS# (0-10)
[2022-04-06 14:03] LABS: Bilirubin Urine 1+ (Negative); Blood Urine Neg (Negative); Glucose Urine UA Norm (Normal); Ketones Urine 2+ (Negative); Nitrate Urine Negative (Negative); Protein Urine Trace (Negative); Specific Gravity, Urine 1.025 (1.005-1.030); Urine Appearance Clear (CLEAR); Urine Color Yellow (Yellow); pH Urine 5 (5-7)
[2022-04-06 14:04] LABS: Add Urine Culture? No; Add Urine Microscopic? YES; Bacteria Urine TRACE /hpf; Leukocyte Esterase Urine Negative (Negative); Urobilinogen Urine 1 mg/dL (Negative)
== END 2022-04-06 20:26 ==
PROVIDERS: Emergency Provider Emergency Medicine; PCP Family Medicine
DX: R41.82 Altered mental status, unspecified (principal); F03.90 Unspecified dementia, unspecified severity, without behavioral disturbance, psychotic disturbance, mood disturbance, and anxiety; I10 Essential (primary) hypertension
CPT/HCPCS: 36416; 51701; 70450; 71045; 80053; 81001; 82962; 84145; 84443; 84484; 85025; 93005; 96374; 96375; 96376; 99285; J1200; J2270

== ENCOUNTER 2022-05-12 13:38 | Inpatient (IN) | payer MEDICARE, MEDICAID, SELFPAY ==
[2022-05-12] VITALS (29 sets, daily range): BP systolic 101–200; BP diastolic 2–161; PULSE 80–111; RESP 14–28; TEMP 37.8–39.3; O2SAT 89–95
--- NOTE | 2022-05-12 13:45 | CT_ITS ---
WS: [id number] CT HEAD NONCONTRAST HISTORY: Symptoms of acute stroke, left-sided weakness. TECHNIQUE: Contiguous axial imaging performed through the brain in 2.5 mm imaging. Bone and soft tiss ue windows. Sagittal and coronal reformats reviewed. All CT scans at [facility] use at least one of these dose optimization techniques: automated exposure control; mA and/or kV adjustment per pa tient size (includes targeted exams where dose is matched to clinical indication); or iterative recon struction. DLP: 1885.69 mGy-cm. COMPARISON: 04/06/2022, 08/14/2020 No acute hemorrhage identified. No midline shift. Marked atrophy. Areas of decreased attenuation in the white matter, greater on the RIGHT from prior m icrovascular ischemic disease. Large prior RIGHT occipital lobe infarct. Densely calcified mass is re identified centered near the pineal gland. Ventricles: Ventricles are diffusely increased in size probably related to the atrophy. There may be a small obstructive component of a calcified mass in the pineal gland. Paranasal sinuses: As visualized are clear. Mastoid air cells: Well pneumatized. Calvarium and scalp: Skull is intact with no soft tissue edema or swelling. CT/CT head thrombolytic 61053 IMPRESSION: 1. Quality is degraded by motion artifact. 2. No area of acute intracranial hemorrhage. 3. Atrophy and moderate chronic small vessel ischemic changes. Acute infarct n ot visualized. 4. Large calcified pineal mass, chronic. 5. Remote infarct with encephalomalacia RIGHT occipital lobe. Notified Willem Aguilera DO at 05/12/2022 2:11 PM.
--- NOTE | 2022-05-12 13:57 | ED_ITS ---
HPI - Neuro Symptoms/Deficit General: Chief Complaint: Altered Mental Status Stated Complaint: STROKE ALERT Source: patient Mode of arrival: EMS History of Present Illness: 86-year-old female presents emergency room from senior care. They are reporting that she has a change in her baseline mental status she does have significant dementia but normally she can converse. She is not following commands or responding. She does react to painful stimuli however she is symmetrical she moves all extremities and has symmetrical facial movements. Her last known well was reported to be at 1245 patient arrives in the emergency room at 1338 Onset (ago): minute(s) Last Observed Normal: 12:45 Timing confirmed by: caregiver Location: speech Severity: mild Quality: weak Relieving factors: none Exacerbating factors: none Context: sudden onset Associated symptoms: Reports weakness; Deny chest pain, cough, diaphoresis, fevers/chills, headache(s), short of breath, syncope or vomiting Review of Systems General: Reports: Other (Minimal ROS due to patient's dementia and condition, from family & NH staff) Const: Denies: fever(s), chills or diaphoresis Card: Denies: chest pain or syncope GI: Denies: abdominal pain or vomiting Skin/Breast: Denies: rash Neuro: Denies: headache(s) PFSH ED PFSH: Medical History Acute CVA (cerebrovascular accident) Currently taking only aspirin and has stopped her statin. She reports she does not believe she had a stroke at her previous hospital stay and is not amenable to medication changes regarding this. Acute encephalopathy Atrial fibrillation Atrial fibrillation Closed fracture of left inferior pubic ramus Hypertension Continue on home Benicar and diltiazem Hypertension Palpitation Posterior circulation stroke Stroke-like symptoms Weakness Surgical History H/O shoulder surgery Left History of hip surgery Left Family History Mother Hypertension Father Lung disease Social History Smoking and tobacco status: never smoked Alcohol intake: never NIH stroke score NIHSS: Level Of Consciousness - 1a: 3 Level Of Consciousness Questions - 1b: Neither Correct Level Of Consciousness Commands - 1c: Neither Correct Best Gaze - 2: Normal Visual [place] - 3: No Visual Loss Facial Palsy - 4: Minor Paralysis Motor Arm Right - 5: No Drift Motor Arm Left - 5: No Drift Motor Leg Right - 6: No Drift Motor Leg Left - 6: No Drift Limb Ataxia - 7: Absent Sensory - 8: Normal Best Language - 9: No Aphasia Dysarthia - 10: Severe Dysarthia Extinction And Inattention - 11: 0 Score: Total Score: 10 Physical Exam Const: GENERAL APPEARANCE: cooperative and comfortable HENMT: COMMON NORMALS: normocephalic and atraumatic HEAD & SCALP: normocephalic and atraumatic Resp: COMMON NORMALS: normal respiratory effort, No retractions, No use of accessory muscles and clear to auscultation bilaterally AUSCULTATION: clear to auscultation bilaterally Cardio: COMMON NORMALS: regular rate, regular rhythm and No murmurs present (Cardio) RATE: regular rate RHYTHM: regular rhythm GI: COMMON NORMALS: Soft to palpation and No hepatosplenomegaly present AUSCULTATION: Yes normoactive bowel sounds PALPATION: Yes Soft to palpation, No Tenderness to palpation present (GI), No Guarding due to palpation present (GI) and Yes No hepatosplenomegaly present Extremity: COMMON NORMALS: normal to inspection, capillary refill normal, no clubbing, cyanosis or edema, no calf tenderness and no pedal edema Skin: COMMON NORMALS: no rashes or lesions noted GENERAL SKIN EXAM: no rashes or lesions noted Course Vital Signs: Vital signs: Vital Signs Temperature 98.1 F 05/15/22 13:59 Pulse Rate 87 05/15/22 13:59 Respiratory Rate 16 05/15/22 13:59 Blood Pressure 145/101 05/15/22 13:59 Pulse Oximetry 91 05/15/22 13:59 Oxygen Delivery Me thod 05/15/22 08:00 MDM - Neuro Symptoms/Deficit Medical Decision Making Patient presents with altered mental status from her baseline per senior care and caregiver. She has an NIH score of 10 however after discussion with the family they do not wish to proceed with anticoagulation. It is questionable a fter exam how much of her NIH score is actually due to dementia versus an acute CVA. She does have atrial fibrillation and is not on any anticoagulation. We also discussed possibility of an embolism as a cause family would not wish to pursue embolectomy either. At this point they are wanting us to further evaluate for other causes but may be open to comfort cares if no significant cause found. They do not wish to pursue any aggressive treatments and he specifically declined tPA. Given 1 family reports that the patient wishes and her presenting condition and her baseline condition would concur. Medical Records I reviewed the patient's medical records. Lab Data I reviewed the patient's lab results. 05/15/22 04:24 05/15/22 04:[address] 05/12/22 13:45 IMPRESSION: 1. Quality is degraded by motion artifact. 2. No area of acute intracranial hemorrhage. 3. Atrophy and moderate chronic small vessel ischemic changes. Acute infarct not visualized. 4. Large calcified pineal mass, chronic. 5. Remote infarct with encephalomalacia RIGHT occipital lobe. Notified Willem Aguilera DO at 05/12/2022 2:11 PM. Chest X-Ray 05/12/22 20:29 IMPRESSION: 1. Negative for infiltrate. 2. Cardiomegaly. 3. Emphysematous changes. Laboratory Results WBC 6.0 10^3/uL (4.0-10.0) 05/12/22 14:00 RBC 4.51 10^6/uL (4.1-5.3) 05/12/22 14:00 Hgb 11.9 g/dL (11.5-15.3) 05/12/22 14:00 Hct 38.1 % (37.0-47.0) 05/12/22 14:00 MCV 84.5 fl (81-99) 05/12/22 14:00 MCH 26.4 pg (28.0-34.0) L 05/12/22 14:00 MCHC 31.2 g/dL (30.0-36.0) 05/12/22 14:00 RDW 15.7 % (12.1-15.1) H 05/12/22 14:00 Plt Count 209 10^3/cmm (130-400) 05/12/22 14:00 MPV 11.9 fL (7.4-10.4) H 05/12/22 14:00 Neut % (Auto) 74.9 % 05/12/22 14:00 Lymph % (Auto) 17.2 % 05/12/22 14:00 [place] % (Auto) 6.6 % 05/12/22 14:00 Eos % (Auto) 0.3 % 05/12/22 14:00 Baso % (Auto) 0.7 % 05/12/22 14:00 Neut # (Auto) 4.51 10^3/uL (1.8-7.7) 05/12/22 14:00 Lymph # (Auto) 1.0 10^3/uL (0.8-4.8) 05/12/22 14:00 [place] # (Auto) 0.4 10^3/uL (0.2-0.9) 05/12/22 14:00 Eos # (Auto) 0.0 10^3/uL (0.0-0.8) 05/12/22 14:00 Baso # (Auto) 0.0 10^3/uL (0.0-0.1) 05/12/22 14:00 Nucleated RBC % (auto) 0 % 05/12/22 14:00 Nucleated RBCs # 0.0 /100WBC 05/12/22 14:00 PT 13.70 SECONDS (12.1-14.9) 05/12/22 14:00 INR 1.02 (0.8-1.2) 05/12/22 14:00 APTT 26.2 SECONDS (23.9-36.7) 05/12/22 14:00 Sodium 141 mmol/L (136-145) 05/12/22 14:54 Potassium 4.0 mmol/L (3.5-5.1) 05/12/22 14:54 Chloride 104 mmol/L (98-107) 05/12/22 14:54 Carbon Dioxide 23 mmol/L (22-29) 05/12/22 14:54 Anion Gap 18.0 (5-19) 05/12/22 14:54 BUN 15 mg/dL (8-23) 05/12/22 14:54 Creatinine 1.0 mg/dL (0.5-0.9) H 05/12/22 14:54 GFR Calculation Not Reportable 05/12/22 14:54 Glucose 122 mg/dL (65-115) H 05/12/22 14:54 POC Glucose 98 mg/dL (70-110) 05/12/22 13:58 Calculated Osmolality 294 mOsm/kg (285-295) 05/12/22 14:54 Calcium 9.5 mg/dL (8.5-10.5) 05/12/22 14:54 Total Bilirubin 0.6 mg/dL (0.15-1.2) 05/12/22 14:54 AST 21 U/L (0-32) 05/12/22 14:54 ALT 11 U/L (0-33) 05/12/22 14:54 Alkaline Phosphatase 104 U/L (35-105) 05/12/22 14:54 Troponin T Baseline 33 ng/L (0-10) H 05/12/22 14:00 Troponin T 120 Minute 25.51 ng/L (0-10) H 05/12/22 15:45 Delta Troponin T -7.49 ABS# (0-10) L 05/12/22 15:45 Total Protein 6.6 g/dL (6.6-8.7) 05/12/22 14:54 Albumin 4.2 g/dL (3.5-5.2) 05/12/22 14:54 Globulin 2.4 g/dL (1.3-4.6) 05/12/22 14:54 Discharge Plan Discharge Patient Disposition: Admitted As Inpatient Admit Provider: Nestor Cortes Clinical Impression: CVA (cerebral vascular accident), Dementia, Atrial fibrillation, Hypertension Condition: Stable Coding Level of Care Code ED Clinical Support Nurse for Calderon Delaney
--- NOTE | 2022-05-12 14:07 | ECG_ITS ---
[facility] Test Date: 2022-05-12 Pat Name: Cristel Keating Department: Room: Gender: Female Systems Project Manager: : 1935 Requested By: Willem Dumont Order Number: [id number] Moises MD: Demetrius Nuno M.D. Measurements Intervals [place] Rate: 102 P: 0 PA: 0 QRS: -61 QRSD: 80 T: 42 QT: 356 QTc: 464 Interpretive Statements ATRIAL FIBRILLATION WITH RAPID VENTRICULAR RESPONSE LEFT AXIS DEVIATION [QRS AXIS < -30] POSSIBLE RIGHT VENTRICULAR CONDUCTION DELAY [RSR (QR) IN V1/V2] SEPTAL MYOCARDIAL INFARCTION , OF INDETERMINATE AGE [40+ ms Q WAVE IN V1/V2] Compared to ECG 04/06/2022 12:21:48 No significant changes Electronically Signed On 05-12-2022 18:42:20 TOP EXECUTIVE by Demetrius Nuno M.D. [id number]
[2022-05-12 14:14] LABS: Basophils % 0.7 %; Eosinophils % 0.3 %; Hematocrit 38.1 % (37.0-47.0); Hemoglobin 11.9 g/dL (11.5-15.3); Lymphocytes % 17.2 %; Mean Corpuscular HGB Conc 31.2 g/dL (30.0-36.0); Mean Corpuscular Hemoglobin 26.4 pg (28.0-34.0); Mean Corpuscular Volume 84.5 fl (81-99); Mean Platelet Volume 11.9 fL (7.4-10.4); Monocytes # 0.4 10^3/uL (0.2-0.9); Monocytes % 6.6 %; Neutrophils # 4.51 10^3/uL (1.8-7.7); Neutrophils % 74.9 %; Nucleated Red Blood Cells % 0 %; Platelet Count 209 10^3/cmm (130-400); Red Blood Count 4.51 10^6/uL (4.1-5.3); Red Cell Distribution Width 15.7 % (12.1-15.1)
[2022-05-12 14:23] LABS: Glucose Point of Care 98 mg/dL (70-110)
[2022-05-12 14:26] LABS: INR 1.02 (0.8-1.2)
--- NOTE | 2022-05-12 14:26 | PC.NURSE ---
new warm blankets placed on pt, pt appeared to calm down and stated thank you clearly. attempted to ask pt other questions, pt remains unable to answer questions or follow commands.
[2022-05-12 14:27] LABS: Partial Thromboplastin Time 26.2 SECONDS (23.9-36.7)
[2022-05-12] MEDS: LORazepam 2 mg/mL INJ 1 mL (14:37)
[2022-05-12] MEDS: ondansetron 2 mg/ML SDV 2 mL 4 MG IVP (14:37)
[2022-05-12 14:38] LABS: Troponin(5th) Baseline 33 ng/L (0-10)
[2022-05-12 15:18] LABS: Alanine Aminotransferase 11 U/L (0-33); Albumin Level 4.2 g/dL (3.5-5.2); Alkaline Phosphatase 104 U/L (35-105); Aspartate Amino Transferase 21 U/L (0-32); Blood Urea Nitrogen 15 mg/dL (8-23); Calcium 9.5 mg/dL (8.5-10.5); Carbon Dioxide 23 mmol/L (22-29); Chloride 104 mmol/L (98-107); Globulin 2.4 g/dL (1.3-4.6); Glucose 122 mg/dL (65-115); Osmolality Calculated 294 mOsm/kg (285-295); Sodium 141 mmol/L (136-145); Total Bilirubin 0.6 mg/dL (0.15-1.2); Total Protein 6.6 g/dL (6.6-8.7)
--- NOTE | 2022-05-12 15:45 | ECG_ITS ---
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 Measurements Intervals [place] Rate: 94 P: 0 OK: 0 QRS: -47 QRSD: 85 T: 32 QT: 350 QTc: 440 Interpretive Statements ATRIAL FIBRILLATION LEFT AXIS DEVIATION [QRS AXIS < -30] SEPTAL MYOCARDIAL INFARCTION , OF INDETERMINATE AGE [40+ ms Q WAVE IN V1/V2] Compared to ECG 05/12/2022 14:07:42 No significant changes Electronically Signed On 05-13-2022 14:48:28 DOMESTIC CLEANER by Demetrius Nuno M.D. [id number]
[2022-05-12 16:16] LABS: Troponin 5 2HR 25.51 ng/L (0-10); Troponin 5 2HR Delta -7.49 ABS# (0-10)
[2022-05-12] MEDS: labetalol 5 mg/mL SDV 20mL 10 MG IVP (17:08)
--- NOTE | 2022-05-12 18:04 | P.HP_ITS ---
Providers/Chief Complaint Primary Care Provider: Grant Arias MD Chief Complaint: STROKE ALERT History of Present Illness ?86 year old female with past medical history of hypertension atrial fibrillation not on anticoagulation, due to risk of fall, CVA, dementia, detention resident, was brought in from the detention with chief complaint of acute onset of left-sided weakness, altered mental status, less responsiveness.Patient was initially worked up for acute CVA in the ER, tPA was being on contemplated, but upon further discussion with family and neurology it was not administered. CT head without contrast: Has not shown any acute intracranial hemorrhage, has shown remote infarct with encephalomalacia RIGHT occipital lobe. Other vitals and labs have been reviewed Patient received labetalol 10 mg IV once in the ER, likely in preparation for achieving blood pressure goal to administer tPA. Review of Systems General: Reports: ROS unobtainable due to medical condition Medications/Allergies Home Medications Medication Instructions Recorded Confirmed Last Taken Type acetaminophen 325 mg tablet 650 mg PO Q6H PRN Mild/Mod Pain Or 08/16/20 05/12/22 05/10/22 Rx Temp >/= 101 #30 tabs magnesium citrate 150 ml PO BID PRN constipation 09/13/20 05/12/22 Unknown Rx #296 mL sennosides 8.6 mg-docusate sodium 1 tab PO BID@09/13/20 05/12/22 05/12/22 History 50 mg tablet (Stool Softener-Laxative) lactulose 10 gram/15 mL oral 10 g (15 mL) PO DAILY PRN 10/11/20 05/12/22 Unknown Rx solution constipation #473 mL polyethylene glycol 3350 17 17 g PO DAILY #119 grams 10/22/20 05/12/22 05/12/22 Rx gram/dose oral powder (Purelax) aspirin 325 mg capsule 325 mg PO DAILY #30 caps 07/24/21 05/12/22 05/12/22 Rx lisinopril 20 mg tablet 20 mg PO DAILY #30 tabs 07/24/21 05/12/22 05/12/22 Rx vitamin B12 0.5 mg-folic acid 1 mg See Rx Instructions .Route .COMPLEX 09/30/21 05/12/22 05/12/22 History tablet bisacodyl 10 mg rectal suppository 10 mg [place] DAILY PRN Constipation 01/12/22 05/12/22 Unknown History (Dulcolax (bisacodyl)) escitalopram oxalate 10 mg tablet 10 mg PO DAILY 01/12/22 05/12/22 05/12/22 Hi story (Lexapro) lorazepam 0.5 mg tablet 0.5 mg PO Q24H PRN Anxiety 01/12/22 05/12/22 05/09/22 History magnesium hydroxide 400 mg/5 mL 30 ml PO DAILY PRN Constipation 01/12/22 05/12/22 Unknown History oral suspension (Milk of Magnesia) memantine 5 mg tablet (Namenda) 5 mg PO BID 01/12/22 05/12/22 05/12/22 History nut. tx, spec. form, 30 ea PO BID 01/12/22 05/12/22 05/12/22 History lac-free,iron-fos 0.08 gram-2 kcal/mL oral liquid (TwoCal HN) potassium chloride 20 mEq 20 meq PO DAILY 01/12/22 05/12/22 05/12/22 History tablet,extended release metoprolol tartrate 25 mg tablet 12.5 mg PO BID@0900,2100 #60 tabs 01/14/22 05/12/22 05/12/22 Rx clonazepam 0.5 mg tablet 0.5 mg PO BID PRN Anxiety 05/12/22 05/12/22 05/12/22 History quetiapine 100 mg tablet (Seroquel) 100 mg PO BID 05/12/22 05/12/22 05/12/22 History sodium phosphates 19 gram-7 118 ml [place] DAILY PRN Constipation 05/12/22 05/12/22 Unknown History gram/118 mL enema (Fleet Enema) Allergies Allergy/AdvReac Type Severity Reaction Status Date / Time No Known Allergies Allergy Verified 09/30/21 13:50 PFSH Acute PFSH: Medical History Atrial fibrillation Closed fracture of left inferior pubic ramus Hypertension Continue on home Benicar and diltiazem Palpitation Posterior circulation stroke Weakness Surgical History H/O shoulder surgery Left History of hip surgery Left Family History Mother Hypertension Father Lung disease Social History Smoking and tobacco status: never smoked Alcohol intake: never Vitals/I&O/Wt Last Vital Signs Pulse 92 05/12/22 17:24 Resp 18 05/12/22 17:24 BP 181/93 05/12/22 17:24 Pulse Ox 93 05/12/22 17:24 O2 Del Method 05/12/22 17:24 Physical Exam HENMT: COMMON NORMALS: normocephalic and atraumatic HEAD & SCALP: normocephalic and atraumatic Resp: COMMON NORMALS: normal respiratory effort, No retractions, No use of accessory muscles and clear to auscultation bilaterally EFFORT & INSPECTION: Yes symmetric chest movement AUSCULTATION: clear to auscultation bilaterally Cardio: COMMON NORMALS: No gallops present (Cardio), No murmurs present (Cardio), No rub (Cardio) and Peripheral pulses 2+ throughout PERIPHERAL PULSES: Peripheral pulses 2+ throughout OTHER: Irregularly irregular rhythm, S1-S2 variable intensity GI: COMMON NORMALS: Normal to inspection, nondistended, normoactive bowel sounds present, Soft to palpation, non-tender, No hepatosplenomegaly present and no masses AUSCULTATION: Yes normoactive bowel sounds PALPATION: Yes Soft to palpation and Yes No hepatosplenomegaly present RECTAL EXAM: deferred Extremity: COMMON NORMALS: no clubbing, cyanosis or edema and no pedal edema Data 05/12/22 14:00 05/12/22 14:54 A&P Assessment and plan (1) Acute encephalopathy: (2) Atrial fibrillation: (3) Acute CVA (cerebrovascular accident): (4) Hypertension: Plan 86 year old female with past medical history of hypertension atrial fibrillation not on anticoagulation, due to risk of fall, CVA, dementia, detention resident, was brought in from the detention with chief complaint of acute onset of left-sided weakness, altered mental status, less responsiveness. Assessment: Acute CVA History of atrial fibrillation not on anticoagulation Hypertension History of CVA Dementia Plan: CT head without contrast: Has not shown any acute intracranial hemorrhage, has shown remote infarct with encephalomalacia RIGHT occipital lobe. Follow urinalysis X-ray chest. Continue aspirin and statin, permissive hypertension for next 48 hours Telemetry monitoring Neurochecks every 4 hours Aspiration precaution Fall precaution Empirically on ceftriaxone for possible UTI. Speech evaluation PT OT evaluation DVT prophylaxis on SCD CODE STATUS:AND Attestations Medical Necessity Statement*: Patient is to be in hospital for management of acute CVA.Anticipated length of stay greater then 2 midnights Time Spent in Patient Care: Greater than 35 minutes (>than 50% of time spent in counselling and/or direct pt care on unit) . Coding Level of Care Code Acute Code for [facility] Diagnoses Acute encephalopathy G93.40 Atrial fibrillation I48.91 Acute CVA (cerebrovascular accident) I63.9 Hypertension I10
[2022-05-12] MEDS: aspirin 300 mg Supp PR (18:33)
--- NOTE | 2022-05-12 19:13 | PC.NURSE ---
assisted with rolling pt to administer CO medication, pt noted to feel warm to touch. pt currently calm enough to obtain temperature. temperature obtained axillary, Dr. Aguilera notified. Verbal order received for baker catheter. entered room to insert baker catheter, pt noted to be incontinent of urine. andreia care provided, linens changed, baker catheter placed with positive urine return. Urine sent to lab for UA. Pt changed out of sweater and into pt gown, blankets removed and light sheet placed over pt. family updated.
--- NOTE | 2022-05-12 19:36 | PC.NURSE ---
contact daughter for any changes. [place] [phone]
--- NOTE | 2022-05-12 19:45 | ECG_ITS ---
[facility] Test Date: 2022-05-12 Pat Name: Cristel Keating Department: Room: 277 Gender: Female Squeegee Tender: Renu : 1935 Requested By: Willem Dumont Order Number: [id number] Reading MD: Demetrius Nuno M.D. Measurements Intervals [place] Rate: 94 P: 0 PA: 0 QRS: -7 QRSD: 87 T: 27 QT: 362 QTc: 455 Interpretive Statements ATRIAL FIBRILLATION SEPTAL MYOCARDIAL INFARCTION , OF INDETERMINATE AGE [40+ ms Q WAVE IN V1/V2] Compared to ECG 05/12/2022 19:03:42 Left-axis deviation no longer present Myocardial infarct finding still present Electronically Signed On 05-13-2022 14:48:03 DIESEL LOCOMOTIVE CRANE OPERATOR by Demetrius Nuno M.D. [id number]
--- NOTE | 2022-05-12 20:02 | PC.NURSE ---
Pt arrived on med surg at this time.
[2022-05-12 20:07] LABS: Add Urine Microscopic? NO; Charge for UA Resulting for Rev
[2022-05-12 20:10] LABS: Urine Appearance Clear (CLEAR); Urine Color Yellow (Yellow); pH Urine 8 (5-7)
[2022-05-12 20:11] LABS: Bilirubin Urine Neg (Negative); Blood Urine Neg (Negative); Glucose Urine UA Norm (Normal); Ketones Urine 1+ (Negative); Leukocyte Esterase Urine Negative (Negative); Nitrate Urine Negative (Negative); Protein Urine Neg (Negative); Specific Gravity, Urine 1.015 (1.005-1.030); Urobilinogen Urine Norm (Negative)
--- NOTE | 2022-05-12 20:29 | XRR_ITS ---
PROCEDURE INFORMATION: Exam: XR Chest Exam date and time: 05/12/2022 8:46 PM Age: 86 years old Clinical indication: Shortness of breath; Additional info: SOB TECHNIQUE: Imaging protocol: Radiologic exam of the chest. Views: 1 view. COMPARISON: CR (CHEST, ) 04/06/2022 8:54 AM FINDINGS: Lungs: Emphysematous changes. Right lower lobe calcified granuloma again seen. Pleural spaces: Unremarkable. No pleural effusion. No pneumothorax. Heart/Mediastinum: Cardiomegaly. Bones/joints: Unremarkable. XR/XR chest 1V portable [id number] IMPRESSION: 1. Negative for infiltrate. 2. Cardiomegaly. 3. Emphysematous changes.
--- NOTE | 2022-05-12 20:31 | PC.NURSE ---
This nurse called to inform him of the patient vital signs. is to put in new orders.
[2022-05-12] MEDS: sodium chloride 0.9% 1,000 ML 100 ML IV (20:41)
[2022-05-12] MEDS: cefTRIAXone 1,000 MG in sodium chloride 0.9% (plus) 50 ML 100 MG IV (20:44)
[2022-05-12 20:47] LABS: Amphetamines Screen Urine Negative (Negative); Barbiturates Screen Urine Negative (Negative); Benzodiazepines Screen Urine Negative (Negative); Cocaine Screen Urine Negative (Negative); Opiate Screen Urine Negative (Negative); PCP Screen Urine Negative (Negative); THC Screen Urine Negative (Negative)
--- NOTE | 2022-05-12 20:58 | PC.NURSE ---
Tylenol SUPPOSITORY 650MG would not scan, Verfied with second nurse SHRUTHI Velázquez.
[2022-05-12] MEDS: acetaminophen 650 mg Supp PR (20:59)
[2022-05-12 21:09] LABS: Troponin 5 6HR 25.49 ng/L (0-10)
--- NOTE | 2022-05-12 21:13 | PC.NURSE ---
The patient is Alert and oriented to their name and will make eye contact when her name is called, Other than that the patient is not oriented and is yelling out intermittently. Unable to express their pain location and unable to answer any questions.
[2022-05-12 21:16] LABS: Troponin 5 6HR Delta -7.51 ng/L (0-12)
[2022-05-12 21:48] LABS: Procalcitonin 0.07 ng/mL (0-0.5)
[2022-05-12 22:20] LABS: Influenza A by IFA negative (Negative); Influenza B by IFA negative (Negative)
--- NOTE | 2022-05-12 23:38 | PC.NURSE ---
Bedside Report given to MARIA ESTHER Werner.
[2022-05-12 23:49] LABS: Adenovirus Not Detected (NOT DETECT); Chlamydia Pneumoniae Not Detected (NOT DETECT); Coronavirus 229E,HKU1,NL63,OC4 Not Detected (NOT DETECT); Human Metapneumovirus Not Detected (NOT DETECT); Human Rhinovirus/Enterovirus Not Detected (NOT DETECT); Influenza A Not Detected (NOT DETECT); Influenza A H1 Not Detected (NOT DETECT); Influenza A H1-2009 Not Detected (NOT DETECT); Influenza A H3 Not Detected (NOT DETECT); Influenza B Not Detected (NOT DETECT); Mycoplasma Pneumoniae Not Detected (NOT DETECT); Parainfluenza Virus Type 1 Not Detected (NOT DETECT); Parainfluenza Virus Type 2 Not Detected (NOT DETECT); Parainfluenza Virus Type 3 Not Detected (NOT DETECT); Parainfluenza Virus Type 4 Not Detected (NOT DETECT); Respiratory Syncytial Virus A Not Detected (NOT DETECT); Respiratory Syncytial Virus B Not Detected (NOT DETECT); SARS-COV-2 Not Detected (NOT DETECT)
[2022-05-13] VITALS (10 sets, daily range): BP systolic 112–152; BP diastolic 70–89; PULSE 70–95; RESP 15–19; TEMP 35.8–37; O2SAT 90–98
[2022-05-13 05:57] LABS: Basophils % 0.2 %; Hematocrit 33.9 % (37.0-47.0); Hemoglobin 10.2 g/dL (11.5-15.3); Lymphocytes % 18.4 %; Mean Corpuscular HGB Conc 30.1 g/dL (30.0-36.0); Mean Corpuscular Hemoglobin 26.6 pg (28.0-34.0); Mean Corpuscular Volume 88.5 fl (81-99); Mean Platelet Volume 11.9 fL (7.4-10.4); Monocytes # 0.5 10^3/uL (0.2-0.9); Monocytes % 8.3 %; Neutrophils # 4.03 10^3/uL (1.8-7.7); Neutrophils % 72.7 %; Nucleated Red Blood Cells % 0 %; Platelet Count 170 10^3/cmm (130-400); Red Blood Count 3.83 10^6/uL (4.1-5.3); Red Cell Distribution Width 16.3 % (12.1-15.1); White Blood Count 5.5 10^3/uL (4.0-10.0)
[2022-05-13] MEDS: morphine 4 mg/mL SDV 1 mL 1 MG IVP (06:09)
[2022-05-13 06:24] LABS: Anion Gap 15.2 (5-19); Blood Urea Nitrogen 19 mg/dL (8-23); Calcium 8.7 mg/dL (8.5-10.5); Carbon Dioxide 24 mmol/L (22-29); Chloride 105 mmol/L (98-107); Glucose 129 mg/dL (65-115); Osmolality Calculated 294 mOsm/kg (285-295); Potassium 4.2 mmol/L (3.5-5.1); Sodium 140 mmol/L (136-145)
--- NOTE | 2022-05-13 08:56 | P.PN_ITS ---
Subjective Subjective: Patient was seen and examined this morning, she was able to move all extremities, no difficulty with speech, She was able to tell me her name, denied any, chest pain shortness of breath abdominal pain nausea vomiting. Overnight she had fever, with T-max of: 102.7 Medications: Medication Review Details: Generic Name Dose Route Start Last Admin Trade Name Freq PRN Reason Stop Dose Admin Acetaminophen 650 mg 05/12/22 20:29 05/12/22 20:59 Acetaminophen 65 0 Mg Supp [place] 650 mg Q4H PRN Administration MILD PAIN OR INCR EASE TEMP Ceftriaxone Sodium 1,000 mg/ 50 mls @ 100 mls/ hr 05/12/22 20:06 05/12/22 21:32 Sodium Chloride IV Infused Q24H SHADIA Infusion Protocol Sodium Chloride 1,000 mls @ 100 m ls/hr 05/12/22 20:06 05/12/22 20:41 Sodium Chloride 0.9% IV 100 mls/hr .Q10H SHADIA Administration Morphine Sulfate 1 mg 05/12/22 22:26 05/13/22 06:09 Morphine 4 Mg/Ml Sdv 1 Ml IVP 1 mg Q8H PRN Administration SEVERE PAIN Vitals/I&O/Wt Last Vital Signs Temp 97.8 F 05/13/22 04:00 Pulse 74 05/13/22 06:27 Resp 18 05/13/22 06:09 BP 112/71 05/13/22 04:00 Pulse Ox 90 05/13/22 04:00 O2 Del Method 05/12/22 21:06 05/12/22 05/13/22 05/13/22 22:59 06:59 14:59 Intake Total 50 / 50 0 / 50 Output Total 200 / 200 Balance 50 / 50 -200 / -150 Weight last 48 hrs Weight 56.064 kg Physical Exam HENMT: COMMON NORMALS: normocephalic and atraumatic HEAD & SCALP: normocephalic and atraumatic Resp: COMMON NORMALS: normal respiratory effort, No retractions, No use of accessory muscles and clear to auscultation bilaterally EFFORT & INSPECTION: Yes symmetric chest movement AUSCULTATION: clear to auscultation bilaterally Cardio: COMMON NORMALS: No gallops present (Cardio), No murmurs present (Cardio), No rub (Cardio) and Peripheral pulses 2+ throughout PERIPHERAL PULSES: Peripheral pulses 2+ throughout OTHER: Irregularly irregular rhythm, S1-S2 variable intensity GI: COMMON NORMALS: Normal to inspection, nondistended, normoactive bowel sounds present, Soft to palpation, non-tender, No hepatosplenomegaly present and no masses AUSCULTATION: Yes normoactive bowel sounds PALPATION: Yes Soft to palpation and Yes No hepatosplenomegaly present RECTAL EXAM: deferred Extremity: COMMON NORMALS: no clubbing, cyanosis or edema and no pedal edema Urinary Catheter Management: Raymond: Cath Placed During This Visit: yes Reason for Continuing Indwelling Catheter: Acute Urinary Retention or Obstruction Urinary Catheter Date of Insertion: 05/12/22 Urinary Catheter Time of Insertion: 19:17 Data 05/13/22 05:31 05/13/22 05:31 A&P Assessment and plan (1) Acute encephalopathy: (2) Atrial fibrillation: (3) Hypertension: (4) Fever: (5) Stroke-like symptoms: Plan 86 year old female with past medical history of hypertension atrial fibrillation not on anticoagulation, due to risk of fall, CVA, dementia, [facility] resident, was [facility] with chief complaint of acute onset of left-sided weakness, altered mental status, less responsiveness. When the patient was examined yesterday, she was extremely sleepy and was not pa rticipating in physical examination or history taking. Assessment: Fever Possible TIA/strokelike symptoms History of atrial fibrillation not on anticoagulation Hypertension History of CVA Dementia Altered mental status Plan: CT head without contrast: Has not shown any acute intracranial hemorrhage, has shown remote infarct with encephalomalacia RIGHT occipital lobe. Follow urinalysis Urine culture Blood culture Procalcitonin:0.08 Lactic acid:2.1 X-ray chest. No infiltrates Continue aspirin and statin, permissive hypertension for next 48 hours Telemetry monitoring Neurochecks every 4 hours Aspiration precaution Fall precaution Empirically on ceftriaxone for possible UTI. Speech evaluation PT OT evaluation DVT prophylaxis on SCD,LOVENOX CODE STATUS:AND Attestations Medical Necessity Statement*: Needs to be in hospital for management of fever. Coding Level of Care Code Acute Code for [facility] Fwd Exam Detailed Diagnoses Acute encephalopathy G93.40 Atrial fibrillation I48.91 Hypertension I10 Fever R50.9 Stroke-like symptoms R29.90
[2022-05-13 09:27] LABS: Procalcitonin 0.08 ng/mL (0-0.5)
[2022-05-13] MEDS: sodium chloride 0.9% 1,000 ML 100 ML IV (10:13)
[2022-05-13 10:27] LABS: Lactate (Lactic Acid level) 2.1 mmol/L (0.5-2.2)
[2022-05-13] MEDS: amlodipine 5 mg Tablet PO (16:53)
[2022-05-13] MEDS: enoxaparin 30 mg/0.3 mL Syringe SUBCUT (16:53)
[2022-05-13] MEDS: quetiapine 100 mg Tablet PO (18:03)
[2022-05-13] MEDS: metoprolol tartrate 25 mg Tablet 12.5 MG PO (20:16)
[2022-05-13] MEDS: cefTRIAXone 1,000 MG in sodium chloride 0.9% (plus) 50 ML 100 MG IV (20:16)
[2022-05-14] VITALS (10 sets, daily range): BP systolic 118–178; BP diastolic 57–115; PULSE 51–105; RESP 16–20; TEMP 36.1–36.8; O2SAT 96–99
[2022-05-14 06:26] LABS: Basophils # 0.1 10^3/uL (0.0-0.1); Basophils % 1.2 %; Eosinophils # 0.1 10^3/uL (0.0-0.8); Eosinophils % 2.2 %; Hematocrit 35.2 % (37.0-47.0); Hemoglobin 10.4 g/dL (11.5-15.3); Lymphocytes # 1.9 10^3/uL (0.8-4.8); Lymphocytes % 37.7 %; Mean Corpuscular HGB Conc 29.5 g/dL (30.0-36.0); Mean Corpuscular Hemoglobin 26.4 pg (28.0-34.0); Mean Corpuscular Volume 89.3 fl (81-99); Monocytes # 0.5 10^3/uL (0.2-0.9); Monocytes % 9.5 %; Neutrophils # 2.49 10^3/uL (1.8-7.7); Neutrophils % 49.2 %; Nucleated Red Blood Cells % 0 %; Platelet Count 152 10^3/cmm (130-400); Red Blood Count 3.94 10^6/uL (4.1-5.3); Red Cell Distribution Width 16.3 % (12.1-15.1); White Blood Count 5.1 10^3/uL (4.0-10.0)
[2022-05-14 06:42] LABS: Anion Gap 12.5 (5-19); Blood Urea Nitrogen 19 mg/dL (8-23); Calcium 8.9 mg/dL (8.5-10.5); Carbon Dioxide 23 mmol/L (22-29); Chloride 111 mmol/L (98-107); Glucose 77 mg/dL (65-115); Osmolality Calculated 297 mOsm/kg (285-295); Potassium 3.5 mmol/L (3.5-5.1); Sodium 143 mmol/L (136-145)
--- NOTE | 2022-05-14 09:02 | PC.CHAP ---
Pastoral Care Encounter/Spiritual Assessment Type of Contact [] Declined security shift manager visit [] Patient/Family/Request visit [] Outpatient visit [] Follow-up visit [] Physician referral [] Code/Alert [x] Routine visit [] Staff referral [] Actively dying [] Patient sleeping [] Family support [] [] Out of room [] Palliative care [] [] Receiving care in room [] Pre-surgical visit [] Trauma [] Long length of stay [] ICU visit [] Other: Relational/Emotional Strength [x] Patient feels connected with others/family/visitors/staff [] Distress [] Loneliness/isolation [] Abandonment Spirituality of Patient [x] Person of Lorna [x] Attends [employer] of their [place] [x] Believes in Prayer [] Reads Bible or Gnosticist materials [] There are Spiritual issues to be addressed [employer] Interventions [x] Prayer [x] Active listening [x] Non-anxious presence [x] Spiritual/emotional support [] Crisis/trauma care [] Spiritual counseling [] Bereavement support [] Provided bereavement packet [] Provided Bible/devotional materials [] Provided toy/stuffed animal, coloring book to patient or family member [] Provided Communion [] Anointing/[place] [] Salvation [x] Completed spiritual assessment [] Other: Impact on Illness or Injury [] Angry [] Fearful [] Anxious [] Often cries [] Exhaustion [] Unable to work [] Unable to attend sabianist [] Unable to walk/stand [] Unable to read [] Unable to drive [] Unable to eat/drink [] Unable to sleep [] Unable to be with family [] Patient intubated [] Other: Summary Pt was able to carrying on a good conversation but at times seemed a little confused. Reports she lives alone in town, but does have people who check on her daily. Time spent with patient 15m
[2022-05-14] MEDS: aspirin 325 mg EC Tablet PO (09:50)
[2022-05-14] MEDS: polyethylene glycol 3350 Pkt 17 gm PO (09:50)
[2022-05-14] MEDS: quetiapine 100 mg Tablet PO ×2 (09:50→18:14)
[2022-05-14] MEDS: metoprolol tartrate 25 mg Tablet 12.5 MG PO ×2 (09:50→20:31)
[2022-05-14] MEDS: lisinopril 20 mg Tablet PO (09:50)
[2022-05-14] MEDS: escitalopram 10 mg Tablet PO (09:51)
[2022-05-14] MEDS: enoxaparin 30 mg/0.3 mL Syringe SUBCUT (16:30)
--- NOTE | 2022-05-14 17:13 | PM.PN ---
Subjective Subjective: Patient was seen and examined this morning,she was afebrile overnight. Blood pressure is on higher side. Medications: Medication Review Details: Generic Name Dose Route Start Last Admin Trade Name Sy PRN Reason Stop Dose Admin Acetaminophen 650 mg 05/12/22 20:29 05/12/22 20:59 Acetaminophen 65 0 Mg Supp [place] 650 mg Q4H PRN Administration MILD PAIN OR INCR EASE TEMP Aspirin 325 mg 05/13/22 09:00 05/14/22 09:50 Aspirin 325 Mg E c Tablet PO 325 mg DAILY SHADIA Administration Enoxaparin Sodium 30 mg 05/13/22 14:45 05/14/22 16:30 Enoxaparin 30 Mg /0.3 Ml Syringe SUBCUT 30 mg Q24H SHADIA Administration Escitalopram Oxala te 10 mg 05/14/22 09:00 05/14/22 09:51 Escitalopram 10 Mg Tablet PO 10 mg DAILY SHADIA Administration Ceftriaxone Sodium 1,000 mg/ 50 mls @ 100 mls/ hr 05/12/22 20:06 05/13/22 21:48 Sodium Chloride IV Infused Q24H SHADIA Infusion Protocol Lisinopril 20 mg 05/14/22 09:00 05/14/22 09:50 Lisinopril 20 Mg Tablet PO 20 mg DAILY SHADIA Administration Metoprolol Tartrat e 12.5 mg 05/13/22 21:00 05/14/22 09:50 Metoprolol Tartr ate 25 Mg Tablet PO 12.5 mg BID@0900,2100 SHADIA Administration Morphine Sulfate 1 mg 05/12/22 22:26 05/13/22 06:09 Morphine 4 Mg/Ml Sdv 1 Ml IVP 1 mg Q8H PRN Administration SEVERE PAIN Polyethylene Glyco l 17 gm 05/14/22 09:00 05/14/22 09:50 Polyethylene Gly col 3350 Pkt 17 Gm PO 17 gm DAILY SHADAI Administration Quetiapine Fumarat e 100 mg 05/13/22 09:00 05/14/22 09:50 Quetiapine 100 M g Tablet PO 100 mg BID SHADIA Administration Vitals/I&O/Wt Last Vital Signs Temp 97.6 F 05/14/22 16:00 Pulse 72 05/14/22 16:00 Resp 17 05/14/22 16:00 BP 178/115 05/14/22 16:00 Pulse Ox 97 05/14/22 16:00 O2 Del Method 05/14/22 16:00 05/14/22 05/14/22 05/14/22 06:59 14:59 22:59 Intake Total 360 / 360 Output Total 250 / 500 Balance -250 / -51.667 360 / 360 Weight last 48 hrs Weight 56.064 kg Physical Exam HENMT: COMMON NORMALS: normocephalic and atraumatic HEAD & SCALP: normocephalic and atraumatic Resp: COMMON NORMALS: normal respiratory effort, No retractions, No use of accessory muscles and clear to auscultation bilaterally EFFORT & INSPECTION: Yes symmetric chest movement AUSCULTATION: clear to auscultation bilaterally Cardio: COMMON NORMALS: No gallops present (Cardio), No murmurs present (Cardio), No rub (Cardio) and Peripheral pulses 2+ throughout PERIPHERAL PULSES: Peripheral pulses 2+ throughout OTHER: Irregularly irregular rhythm, S1-S2 variable intensity GI: COMMON NORMALS: Normal to inspection, nondistended, normoactive bowel sounds present, Soft to palpation, non-tender, No hepatosplenomegaly present and no masses AUSCULTATION: Yes normoactive bowel sounds PALPATION: Yes Soft to palpation and Yes No hepatosplenomegaly present RECTAL EXAM: deferred Extremity: COMMON NORMALS: no clubbing, cyanosis or edema and no pedal edema Urinary Catheter Management: Raymond: Cath Placed During This Visit: yes Reason for Continuing Indwelling Catheter: Acute Urinary Retention or Obstruction Urinary Catheter Date of Insertion: 05/12/22 Urinary Catheter Time of Insertion: 19:17 Data 05/14/22 06:15 05/14/22 06:15 Micro: Microbiology 05/13/22 09:54 Blood Culture - Preliminary Blood NEGATIVE TO DATE 05/13/22 09:50 Blood Culture - Preliminary Blood NEGATIVE TO DATE A&P Assessment and plan (1) Acute encephalopathy: (2) Atrial fibrillation: (3) Hypertension: (4) Fever: (5) Stroke-like symptoms: Plan 86 year old female with past medical history of hypertension atrial fibrillation not on anticoagulation, due to risk of fall, CVA, dementia, [facility], [facility] with chief complaint of acute onset of left-sided weakness, altered mental status, less responsiveness. When the patient was examined yesterday, she was extremely sleepy and was not participating in physical examination or history taking. Assessment: Fever Possible TIA/strokelike symptoms History of atrial fibrillation not on anticoagulation Hypertension History of CVA Dementia Altered mental status: Resolved Plan: CT head without contrast: Has not shown any acute intracranial hemorrhage, has shown remote infarct with encephalomalacia RIGHT occipital lobe. Follow urinalysis: Clean Urine culture Blood culture: Procalcitonin:0.08 Lactic acid:2.1 Respiratory viral panel: Has not been done yet. X-ray chest. No infiltrates Continue aspirin and statin, permissive hypertension for next 48 hours Telemetry monitoring Neurochecks every 4 hours Aspiration precaution Fall precaution Empirically on ceftriaxone for possible UTI. Speech evaluation PT OT evaluation DVT prophylaxis on SCD,LOVENOX CODE STATUS:AND Attestations Medical Necessity Statement*: Patient is to be in hospital for monitoring of fever. Coding Level of Care Code Acute Code for g Fwd Exam Detailed Diagnoses Acute encephalopathy G93.40 Atrial fibrillation I48.91 Hypertension I10 Fever R50.9 Stroke-like symptoms R29.90
[2022-05-14] MEDS: memantine 5 mg tablet PO (18:14)
[2022-05-14] MEDS: CLONazepam 0.5 mg Tablet PO (18:14)
[2022-05-14] MEDS: ondansetron 2 mg/ML SDV 2 mL 4 MG IVP (18:14)
[2022-05-14] MEDS: lisinopril 2.5 mg Tablet 20 MG PO (18:14)
[2022-05-14] MEDS: cefTRIAXone 1,000 MG in sodium chloride 0.9% (plus) 50 ML 100 MG IV (20:31)
[2022-05-15] VITALS (7 sets, daily range): BP systolic 145–180; BP diastolic 99–106; PULSE 82–87; RESP 16–19; TEMP 36.3–36.7; O2SAT 91–98
[2022-05-15 01:15] LABS: Adenovirus Not Detected (NOT DETECT); Chlamydia Pneumoniae Not Detected (NOT DETECT); Coronavirus 229E,HKU1,NL63,OC4 Not Detected (NOT DETECT); Human Metapneumovirus Not Detected (NOT DETECT); Human Rhinovirus/Enterovirus Not Detected (NOT DETECT); Influenza A Not Detected (NOT DETECT); Influenza A H1 Not Detected (NOT DETECT); Influenza A H1-2009 Not Detected (NOT DETECT); Influenza A H3 Not Detected (NOT DETECT); Influenza B Not Detected (NOT DETECT); Mycoplasma Pneumoniae Not Detected (NOT DETECT); Parainfluenza Virus Type 1 Not Detected (NOT DETECT); Parainfluenza Virus Type 2 Not Detected (NOT DETECT); Parainfluenza Virus Type 3 Not Detected (NOT DETECT); Parainfluenza Virus Type 4 Not Detected (NOT DETECT); Respiratory Syncytial Virus A Not Detected (NOT DETECT); Respiratory Syncytial Virus B Not Detected (NOT DETECT); SARS-COV-2 Not Detected (NOT DETECT)
[2022-05-15] MEDS: CLONazepam 0.5 mg Tablet PO (03:40)
[2022-05-15 04:51] LABS: Basophils # 0.1 10^3/uL (0.0-0.1); Eosinophils # 0.2 10^3/uL (0.0-0.8); Eosinophils % 3.3 %; Hemoglobin 10.4 g/dL (11.5-15.3); Lymphocytes # 1.5 10^3/uL (0.8-4.8); Lymphocytes % 31.5 %; Mean Corpuscular HGB Conc 29.7 g/dL (30.0-36.0); Mean Corpuscular Hemoglobin 26.4 pg (28.0-34.0); Mean Corpuscular Volume 88.8 fl (81-99); Mean Platelet Volume 11.6 fL (7.4-10.4); Monocytes # 0.4 10^3/uL (0.2-0.9); Monocytes % 8.7 %; Neutrophils # 2.67 10^3/uL (1.8-7.7); Neutrophils % 55.5 %; Nucleated Red Blood Cells % 0 %; Platelet Count 154 10^3/cmm (130-400); Red Blood Count 3.94 10^6/uL (4.1-5.3); White Blood Count 4.8 10^3/uL (4.0-10.0)
[2022-05-15 05:22] LABS: Anion Gap 12.3 (5-19); Blood Urea Nitrogen 17 mg/dL (8-23); Calcium 9.6 mg/dL (8.5-10.5); Carbon Dioxide 26 mmol/L (22-29); Chloride 106 mmol/L (98-107); Creatinine Clr Calc Pharmacy 46.2232; Glucose 84 mg/dL (65-115); Osmolality Calculated 293 mOsm/kg (285-295); Potassium 3.3 mmol/L (3.5-5.1); Sodium 141 mmol/L (136-145)
[2022-05-15] MEDS: escitalopram 10 mg Tablet PO (08:48)
[2022-05-15] MEDS: quetiapine 100 mg Tablet PO (08:48)
[2022-05-15] MEDS: aspirin 325 mg EC Tablet PO (08:48)
[2022-05-15] MEDS: lisinopril 20 mg Tablet 40 MG PO (08:48)
[2022-05-15] MEDS: memantine 5 mg tablet PO (08:49)
[2022-05-15] MEDS: polyethylene glycol 3350 Pkt 17 gm PO (08:49)
[2022-05-15] MEDS: metoprolol tartrate 25 mg Tablet 12.5 MG PO (08:58)
--- NOTE | 2022-05-15 10:29 | PM.DCS ---
Discharge Providers Date of Admission: 05/12/22 17:50 Date of Discharge: May 15, 2022 Attending Provider at Admission: Nestor Cortes MD Attending Provider at Discharge: Nestor Cortes MD Primary Care Provider: Grant Arias MD Diagnoses at Discharge Discharge Diagnosis (1) Acute encephalopathy: Status: Acute (2) Atrial fibrillation: Status: Acute (3) Hypertension: Status: Acute (4) Fever: Status: Acute (5) Stroke-like symptoms: Status: Acute Reason for Visit Reason for Visit: STROKE ALERT Hospital Course Hospital Course 86 year old female with past medical history of hypertension atrial fibrillation not on anticoagulation, due to risk of fall, CVA, dementia, intermediate resident, was brought in from the intermediate with chief complaint of acute onset of left-sided weakness, altered mental status, less responsiveness.Patient was initially worked up for acute CVA in the ER, tPA was being on contemplated, but upon further discussion with family and neurology it was not administered.CT head without contrast: Has not shown any acute intracranial hemorrhage, has shown remote infarct with encephalomalacia RIGHT occipital lobe. Initially she was admitted for the management of possible acute CVA, further work-up during hospital stay, points out towards more of, possible TIA, as patient had no left-sided weakness, the next day, had no slurred speech, or any other significant neurological deficit. PT OT and speech was on board. Patient also has history of advanced dementia, but during the hospital stay, initially she had altered mental status, possibly secondary to uncontrolled hypertension, at the time of discharge she was at her baseline mentation, patient also experienced an episode of fever during the hospital stay, blood cultures were negative, COVID and influenza was negative, respiratory viral panel was not done, procalcitonin was normal, lactic acid was 2.1, x-ray chest was normal, patient was afebrile for 48 hours prior to discharge, she was empirically kept on antibiotics during the hospital stay for fever, no antibiotic was continued on discharge, overall patient responded well to above medical management and she was discharged in stable condition to intermediate.She will continue to follow her PCP as outpatient. Physical Exam HENMT: COMMON NORMALS: normocephalic and atraumatic HEAD & SCALP: normocephalic and atraumatic Resp: COMMON NORMALS: clear to auscultation bilaterally EFFORT & INSPECTION: Yes symmetric chest movement AUSCULTATION: clear to auscultation bilaterally Cardio: COMMON NORMALS: No gallops present (Cardio), No murmurs present (Cardio), No rub (Cardio) and Peripheral pulses 2+ throughout PERIPHERAL PULSES: Peripheral pulses 2+ throughout OTHER: Irregularly irregular rhythm, S1-S2 variable intensity GI: COMMON NORMALS: Normal to inspection, nondistended, normoactive bowel sounds present, Soft to palpation, non-tender, No hepatosplenomegaly present and no masses AUSCULTATION: Yes normoactive bowel sounds PALPATION: Yes Soft to palpation and Yes No hepatosplenomegaly present RECTAL EXAM: deferred Extremity: COMMON NORMALS: no clubbing, cyanosis or edema and no pedal edema Urinary Catheter Management: Raymond: Cath Placed During This Visit: yes Reason for Continuing Indwelling Catheter: Other Urinary Catheter Date of Insertion: 05/12/22 Urinary Catheter Time of Insertion: 19:17 Discharge Data Studies Completed and Pending Completed Studies During Hospitalization Category Date Time Status CT head thrombolytic [id number] Stat Cat Scan 05/12/22 13:45 Completed XR chest 1V portable [id number] Routine Exams 05/12/22 20:29 Completed Pending at discharge Category Date Time Status BMP [Basic Metabolic Panel] AM LABS Lab 05/16/22 04:00 Ordered Blood Culture Routine Lab 05/13/22 09:54 Results CBC Auto Diff [Complete Blood Count w/Auto] AM LABS Lab 05/16/22 04:00 Ordered Urine Culture Routine Lab 05/13/22 18:08 Received Radiology Impressions Head CT 05/12/22 13:45 IMPRESSION: 1. Quality is degraded by motion artifact. 2. No area of acute intracranial hemorrhage. 3. Atrophy and moderate chronic small vessel ischemic changes. Acute infarct not visualized. 4. Large calcified pineal mass, chronic. 5. Remote infarct with encephalomalacia RIGHT occipital lobe. Notified Willem Aguilera DO at 05/12/2022 2:11 PM. Chest X-Ray 05/12/22 20:29 IMPRESSION: 1. Negative for infiltrate. 2. Cardiomegaly. 3. Emphysematous changes. Laboratory Results WBC 4.8 10^3/uL (4.0-10.0) 05/15/22 04:24 RBC 3.94 10^6/uL (4.1-5.3) L 05/15/22 04:24 Hgb 10.4 g/dL (11.5-15.3) L 05/15/22 04:24 Hct 35.0 % (37.0-47.0) L 05/15/22 04:24 MCV 88.8 fl (81-99) 05/15/22 04:24 MCH 26.4 pg (28.0-34.0) L 05/15/22 04:24 MCHC 29.7 g/dL (30.0-36.0) L 05/15/22 04:24 RDW 16.0 % (12.1-15.1) H 05/15/22 04:24 Plt Count 154 10^3/cmm (130-400) 05/15/22 04:24 MPV 11.6 fL (7.4-10.4) H 05/15/22 04:24 Neut % (Auto) 55.5 % 05/15/22 04:24 Lymph % (Auto) 31.5 % 05/15/22 04:24 [place] % (Auto) 8.7 % 05/15/22 04:24 Eos % (Auto) 3.3 % 05/15/22 04:24 Baso % (Auto) 1.0 % 05/15/22 04:24 Neut # (Auto) 2.67 10^3/uL (1.8-7.7) 05/15/22 04:24 Lymph # (Auto) 1.5 10^3/uL (0.8-4.8) 05/15/22 04:24 [place] # (Auto) 0.4 10^3/uL (0.2-0.9) 05/15/22 04:24 Eos # (Auto) 0.2 10^3/uL (0.0-0.8) 05/15/22 04:24 Baso # (Auto) 0.1 10^3/uL (0.0-0.1) 05/15/22 04:24 Nucleated RBC % (auto) 0 % 05/15/22 04:24 Nucleated RBCs # 0.0 /100WBC 05/15/22 04:24 PT 13.70 SECONDS (12.1-14.9) 05/12/22 14:00 INR 1.02 (0.8-1.2) 05/12/22 14:00 APTT 26.2 SECONDS (23.9-36.7) 05/12/22 14:00 Sodium 141 mmol/L (136-145) 05/15/22 04:24 Potassium 3.3 mmol/L (3.5-5.1) L 05/15/22 04:24 Chloride 106 mmol/L (98-107) 05/15/22 04:24 Carbon Dioxide 26 mmol/L (22-29) 05/15/22 04:24 Anion Gap 12.3 (5-19) 05/15/22 04:24 BUN 17 mg/dL (8-23) 05/15/22 04:24 Creatinine 0.8 mg/dL (0.5-0.9) 05/15/22 04:24 GFR Calculation Not Reportable 05/15/22 04:24 Glucose 84 mg/dL (65-115) 05/15/22 04:24 POC Glucose 98 mg/dL (70-110) 05/12/22 13:58 Calculated Osmolality 293 mOsm/kg (285-295) 05/15/22 04:24 Lactate 2.1 mmol/L (0.5-2.2) 05/13/22 09:54 Calcium 9.6 mg/dL (8.5-10.5) 05/15/22 04:24 Total Bilirubin 0.6 mg/dL (0.15-1.2) 05/12/22 14:54 AST 21 U/L (0-32) 05/12/22 14:54 ALT 11 U/L (0-33) 05/12/22 14:54 Alkaline Phosphatase 104 U/L (35-105) 05/12/22 14:54 Troponin T Baseline 33 ng/L (0-10) H 05/12/22 14:00 Troponin T 120 Minute 25.51 ng/L (0-10) H 05/12/22 15:45 Delta Troponin T -7.49 ABS# (0-10) L 05/12/22 15:45 Troponin T Hi Sens 6Hr 25.49 ng/L (0-10) H 05/12/22 20:40 Troponin T Hi Sens 6Hr Delta -7.51 ng/L (0-12) L 05/12/22 20:40 C-Reactive Protein 3.0 mg/L (0.0-4.9) 05/12/22 20:40 Total Protein 6.6 g/dL (6.6-8.7) 05/12/22 14:54 Albumin 4.2 g/dL (3.5-5.2) 05/12/22 14:54 Globulin 2.4 g/dL (1.3-4.6) 05/12/22 14:54 Procalcitonin 0.08 ng/mL (0-0.5) 05/13/22 05:31 Urine Color Yellow (Yellow) 05/12/22 18:55 Urine Appearance Clear (CLEAR) 05/12/22 18:55 Urine pH 8 (5-7) H 05/12/22 18:[address] [place] [address] 1.015 (1.005-1.030) 05/12/22 18:55 Urine Protein Neg (Negative) 05/12/22 18:55 Urine Glucose (UA) Norm (Normal) 05/12/22 18:55 Urine Ketones 1+ (Negative) H 05/12/22 18:55 Urine Blood Neg (Negative) 05/12/22 18:55 Urine Nitrate Negative (Negative) 05/12/22 18:55 Urine Bilirubin Neg (Negative) 05/12/22 18:55 Urine Urobilinogen Norm mg/dL (Negative) 05/12/22 18:55 Ur Leukocyte Esterase Negative (Negative) 05/12/22 18:55 Nasal Influ A H1 2008 PCR Not detected (NOT DETECT) 05/13/22 20:16 Urine Opiates Screen Negative ng/mL (Negative) 05/12/22 18:55 Ur Barbiturates Screen Negative ng/mL (Negative) 05/12/22 18:55 Ur Phencyclidine Scrn Negative ng/mL (Negative) 05/12/22 18:55 Ur Amphetamines Screen Negative ng/mL (Negative) 05/12/22 18:55 U Benzodiazepines Scrn Negative ng/mL (Negative) 05/12/22 18:55 Urine Cocaine Screen Negative ng/mL (Negative) 05/12/22 18:55 U Marijuana (THC) Screen Negative ng/mL (Negative) 05/12/22 18:55 Adenovirus (PCR) Not detected (NOT DETECT) 05/13/22 20:16 C. pneumoniae DNA (PCR) Not detected (NOT DETECT) 05/13/22 20:16 Coronavirus 229E (PCR) Not detected (NOT DETECT) 05/13/22 20:16 Human Metapneumovir PCR Not detected (NOT DETECT) 05/13/22 20:16 Influenza A (H1) PCR Not detected (NOT DETECT) 05/13/22 20:16 Influenza A (H3) PCR Not detected (NOT DETECT) 05/13/22 20:16 Influenza Type A Ag negative (Negative) 05/12/22 21:43 Influenza Type A (PCR) Not detected (NOT DETECT) 05/13/22 20:16 Influenza Type B Ag negative (Negative) 05/12/22 21:43 Influenza Type B (PCR) Not detected (NOT DETECT) 05/13/22 20:16 M. pneumoniae (PCR) Not detected (NOT DETECT) 05/13/22 20:16 Parainfluenza 1 (PCR) Not detected (NOT DETECT) 05/13/22 20:16 Parainfluenza 2 (PCR) Not detected (NOT DETECT) 05/13/22 20:16 Parainfluenza 3 (PCR) Not detected (NOT DETECT) 05/13/22 20:16 Parainfluenza 4 (PCR) Not detected (NOT DETECT) 05/13/22 20:16 RSV Type A (PCR) Not detected (NOT DETECT) 05/13/22 20:16 RSV Type B (PCR) Not detected (NOT DETECT) 05/13/22 20:16 Entero/Rhino (PCR) Not detected (NOT DETECT) 05/13/22 20:16 SARS-CoV-2 (PCR) Not detected (NOT DETECT) 05/13/22 20:16 Vitals Last Vital Signs Temp 97.4 F L 05/15/22 08:00 Pulse 86 05/15/22 08:00 Resp 17 05/15/22 08:00 BP 146/99 05/15/22 08:00 Pulse Ox 96 05/15/22 08:00 O2 Del Method 05/15/22 08:00 Discharge Plan Discharge Patient Disposition: Xfer SNF Condition: Stable Prescriptions: Continued lactulose 10 gram/15 mL solution 10 g PO DAILY PRN (Reason: constipation) Qty: 473 0RF acetaminophen 325 mg Tablet 650 mg PO Q6H PRN (Reason: Mild/Mod Pain Or Temp >/= 101) Qty: 30 0RF sennosides-docusate sodium [Stool Softener-Laxative] 8.6-50 mg tablet 1 tab PO BID@,21 magnesium citrate Solution 150 ml PO BID PRN (Reason: constipation) Qty: 296 0RF polyethylene glycol 3350 [Purelax] 17 gram/dose powder 17 g PO DAILY Qty: 119 0RF vitamin [id number] acid 0.5-1 mg Tablet See Rx Instructions .ROUTE .COMPLEX Rx Instructions: 1 tab orally MON, , THURSDAY clonazepam 0.5 mg Tablet 0.5 mg PO BID PRN (Reason: Anxiety) Seroquel 100 mg Tablet 100 mg PO BID Fleet Enema 19-7 gram/118 mL Enema 118 ml [place] DAILY PRN (Reason: Constipation) aspirin 325 mg capsule 325 mg PO DAILY Qty: 30 0RF magnesium hydroxide [Milk of Magnesia] 400 mg/5 mL Suspension 30 ml PO DAILY PRN (Reason: Constipation) bisacodyl [Dulcolax (bisacodyl)] 10 mg Suppository 10 mg [place] DAILY PRN (Reason: Constipation) escitalopram oxalate [Lexapro] 10 mg Tablet 10 mg PO DAILY memantine [Namenda] 5 mg Tablet 5 mg PO BID TwoCal HN 0.08-2 gram-kcal/mL Liquid 30 ea PO BID potassium chloride 20 mEq Tablet Extended Release 20 meq PO DAILY lorazepam 0.5 mg Tablet 0.5 mg PO Q24H PRN (Reason: Anxiety) metoprolol tartrate 25 mg Tablet 12.5 mg PO BID@0900,2100 Qty: 60 0RF Changed lisinopril 20 mg Tablet 20 mg PO BIDWMEAL 30 Days Qty: 60 3RF Discharge Orders: Discharge Order (Routine); Ordered 05/15/22 Ordered By: Nestor Cortes Referrals: [facility] [Outside] Grant Arias MD [Primary Care Provider] - 1 week Patient Instructions: Opioid Safety Discharge Attestations Time Spent in Discharge Care*: less than 30 min Quality Metrics Clinical Quality Measures [ No reported AMI, CVA or VTE this stay] Coding Level of Care Code Acute Chg FW DC note Diagnoses Acute encephalopathy G93.40 Atrial fibrillation I48.91 Hypertension I10 Fever R50.9 Stroke-like symptoms R29.90
[2022-05-15] MEDS: potassium chloride ER 20 mEq Tablet 40 MEQ PO (10:49)
--- NOTE | 2022-05-15 11:33 | PC.SOCIAL ---
IMM Update IMM updated with patient's daughter. Copy PG2 left at bedside. Initialled, dated, timed, and placed in chart.
[2022-05-15] MEDS: enoxaparin 30 mg/0.3 mL Syringe SUBCUT (14:30)
== END 2022-05-15 15:32 | disposition skilled nursing facility (03) | DRG 69 ==
LOC: ER 17:46 → MEDSURG 18:59
PROVIDERS: Family Medicine; Admitting Provider Internal Medicine; Emergency Provider Family Medicine; PCP Family Medicine; Visit Provider Internal Medicine
DX: G45.9 Transient cerebral ischemic attack, unspecified (principal); G93.40 Encephalopathy, unspecified; G81.94 Hemiplegia, unspecified affecting left nondominant side; I48.91 Unspecified atrial fibrillation; I10 Essential (primary) hypertension; R50.9 Fever, unspecified; G93.89 Other specified disorders of brain; F03.90 Unspecified dementia, unspecified severity, without behavioral disturbance, psychotic disturbance, mood disturbance, and anxiety; Z91.81 History of falling; Z86.73 Personal history of transient ischemic attack (TIA), and cerebral infarction without residual deficits
CPT/HCPCS: 36415; 36416; 51702; 70450; 71045; 80048; 80053; 80306; 81003; 82962; 83605; 84145; 84484; 85025; 85610; 85730; 86140; 87040; 87086; 87486; 87581; 87633; 87635; 87804; 92507; 92526; 92610; 93005; 96372; 96374; 96375; 96376; 97116; 97162; 97530; 99285; J0696; J1650; J2060; J2270; J2405; J3490; J7030

== ENCOUNTER 2023-01-24 21:11 | Emergency (ER) | payer MEDICARE, MEDICAID, SELFPAY ==
[2023-01-24 21:13] VITALS: BP 181/127; PULSE 127; RESP 27; TEMP 36.7; O2SAT 95; BMI 23.6
--- NOTE | 2023-01-24 21:23 | ED_ITS ---
HPI - Fall General: Chief Complaint: Fall Stated Complaint: fall Time Seen by Provider: 01/24/23 21:19 History of Present Illness: 87-year-old female comes in today with fall injury. Patient resides at a residential and had got out of bed slipped and fall striking the right forehead against the floor. Patient does have a history of a CVA. Patient does have some mild deficits due to mobility. Patient appears nontoxic. Patient is oriented to self and place. Associated symptoms-after fall: Reports difficulty walking; Denies chest pain Review of Systems General: Reports: 10 or more systems reviewed and unremarkable except in HPI and below Const: Denies: fever(s) Card: Denies: chest pain Resp: Denies: dyspnea Musc: Denies: extremity pain Neuro: Reports: weakness in extremities and difficulty walking [facility] ED PFSH: Medical History Acute CVA (cerebrovascular accident) Currently taking only aspirin and has stopped her statin. She reports she do es not believe she had a stroke at her previous hospital stay and is not amenable to medication changes regarding this. Acute encephalopathy Atrial fibrillation Atrial fibrillation Closed fracture of left inferior pubic ramus Hypertension Continue on home Benicar and diltiazem Hypertension Palpitation Posterior circulation stroke Stroke-like symptoms Weakness Surgical History H/O shoulder surgery Left History of hip surgery Left Family History Mother Hypertension Father Lung disease Social History Smoking and tobacco status: never smoked Alcohol intake: never Substance/Drug Use: never Physical Exam Const: COMMON NORMALS: alert HENMT: HEAD & SCALP: hematoma (Right forehead) Eye: GENERAL EYE: appearance normal, both eyes and all related structures Neck/C-Spine: COMMON NORMALS: full ROM Chest: COMMONS NORMALS: normal palpation of entire chest wall Resp: COMMON NORMALS: normal respiratory effort and clear to auscultation bilaterally AUSCULTATION: clear to auscultation bilaterally Cardio: COMMON NORMALS: regular rate RATE: regular rate RHYTHM: abnormal rhythm GI: COMMON NORMALS: Soft to palpation and non-tender PALPATION: Yes Soft to palpation Back/Pelvis: COMMON NORMALS: thoracic and lumbar spine normal to inspection and no thoracic nor lumbar tenderness Extremity: NARRATIVE EXTREMITY EXAM: Weakness to bilateral lower extremities, worse on the right. RIGHT UPPER EXTREMITY: Yes lower arm (Skin tear) Neuro: SENSORIUM/ORIENTATION: Yes alert Psych: COMMON NORMALS: cooperative Skin: NARRATIVE SKIN EXAM: Skin tear right forearm Course Vital Signs: Vital signs: Vital Signs Temperature 98.1 F 01/24/23 21:13 Pulse Rate 94 01/24/23 21:32 Respiratory Rate 24 H 01/24/23 21:32 Blood Pressure 201/130 01/24/23 21:32 Pulse Oximetry 95 01/24/23 21:32 Oxygen Delivery Me thod Room Air 01/24/23 21:32 MDM - Fall Medical Decision Making Patient was sent over from the residential for concerns of a fall. On exam patient has a hematoma to the right forehead. Patient moves neck well. Patient responds appropriately to staff. No acute distress is noted. Lungs are clear to auscultation. Chest wall is nontender. Abdomen soft nontender. No spinal tenderness is noted on palpation. Patient moves all extremities with generalized weakness in bilateral lower extremities. Worst extremity weakness is noted in the right lower leg. Pulses are intact. Vital signs are normal except for some elevated blood pressure. Differential diagnosis includes but not limited to fracture, intracranial bleeding, hematoma. CT of the head and cervical spine were negative for fracture. CBC and CMP were unremarkable. No signs of severe illness or injury is noted at this time. Reviewed exam with patient with recommendations for return to residential for monitoring. Patient reported understanding. Patient does have some dementia and instructions were passed on to residential staff. Lab Data 01/24/23 21:30 01/24/23 21:30 Radiology Impressions Cervical Spine CT 01/24/23 21:24 IMPRESSION: Degenerative changes in the cervical spine, stable compared with 10/01/2021. Head CT 01/24/23 21:24 IMPRESSION: 1. Right frontal scalp hematoma. 2. 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 4. No acute intracranial finding. Laboratory Results WBC 5.92 10^3/uL (3.29-11.43) 01/24/23 21:30 RBC 4.75 10^6/uL (3.85-5.65) 01/24/23 21:30 Hgb 12.40 g/dL (11.27-16.99) 01/24/23: Hct 40.2 % (36-47) 01/24/23: MCV 84.6 fl (85-98) L 01/24/23 21: MCH 26.1 pg (27-33) L 01/24/23: MCHC 30.8 g/dL (30-55) 01/24/23: RDW 14.9 % (12.1-15.1) 01/24/23: Plt Count 228 10^3/cmm (157-399) 01/24/23: MPV 11.3 fL (7.4-10.4) H 01/24/23: Neut % (Auto) 54.2 % 01/24/23: Lymph % (Auto) 33.6 % 01/24/23: Stanley % (Auto) 7.9 % 01/24/23: Eos % (Auto) 3.2 % 01/24/23: Baso % (Auto) 0.8 % 01/24/23: Neut # (Auto) 3.20 10^3/uL (1.8-7.7) 01/24/23: Lymph # (Auto) 2.0 10^3/uL (0.8-4.8) 01/24/23: Stanley # (Auto) 0.5 10^3/uL (0.2-0.9) 01/24/23: Eos # (Auto) 0.2 10^3/uL (0.0-0.8) 01/24/23: Baso # (Auto) 0.1 10^3/uL (0.0-0.1) 01/24/23: Nucleated RBC % (auto) 0 % 01/24/23: Nucleated RBCs # 0.0 /100WBC 01/24/23 21: Sodium 142 mmol/L (136-145) 01/24/23: Potassium 4.2 mmol/L (3.5-5.1) 01/24/23: Chloride 104 mmol/L (98-107) 01/24/23 21:30 Carbon Dioxide 29 mmol/L (22-29) 01/24/23 21:30 Anion Gap 13.2 (5-19) 01/24/23 21:30 BUN 24 mg/dL (8-23) H 01/24/23 21:30 Creatinine 1.2 mg/dL (0.5-0.9) H 01/24/23 21:30 GFR Calculation Not Reportable 01/24/23 21:30 Glucose 94 mg/dL (65-115) 01/24/23 21:30 Calculated Osmolality 298 mOsm/kg (285-295) H 01/24/23 21:30 Calcium 9.7 mg/dL (8.5-10.5) 01/24/23 21:30 Total Bilirubin 0.3 mg/dL (0.15-1.2) 01/24/23 21:30 AST 19 U/L (0-32) 01/24/23 21: ALT 11 U/L (0-33) 01/24/23 21:30 Alkaline Phosphatase 129 U/L (35-105) H 01/24/23 21:30 Total Protein 6.9 g/dL (6.6-8.7) 01/24/23 21: Albumin 4.2 g/dL (3.5-5.2) 01/24/23 21: Globulin 2.7 g/dL (1.3-4.6) 01/24/23 21:30 All radiology interpretation(s) finalized by discharge EKG Data EKG 1: EKG interpretation date: 01/24/23 EKG interpretation time: 21:47 Interpretation: EKG shows atrial fibrillation with a rate of [address] elevation or other ectopy is noted. No prior exam was available for comparison at this time. Computer generated interpretation: Atrial fibrillation, left anterior fascicular block, moderate ST depression, abnormal EKG, unconfirmed report. Discharge Plan Discharge Patient Disposition: Home Clinical Impression: Fall Qualifiers: Encounter type: initial encounter Qualified Code(s): W19.XXXA - Unspecified fall, initial encounter Traumatic hematoma of forehead Qualifiers: Encounter type: initial encounter Qualified Code(s): S00.83XA - Contusion of other part of head, initial encounter Condition: Stable Prescriptions: No Action lactulose 10 gram/15 mL solution 10 g PO DAILY PRN (Reason: constipation) Qty: 473 0RF acetaminophen 325 mg Tablet 650 mg PO Q6H PRN (Reason: Mild/Mod Pain Or Temp >/= 101) Qty: 30 0RF sennosides-docusate sodium [Stool Softener-Laxative] 8.6-50 mg tablet 1 tab PO BID@09,21 magnesium citrate Solution 150 ml PO BID PRN (Reason: constipation) Qty: 296 0RF polyethylene glycol 3350 [Purelax] 17 gram/dose powder 17 g PO DAILY Qty: 119 0RF vitamin V20-edzvm acid 0.5-1 mg Tablet See Rx Instructions .ROUTE .COMPLEX Rx Instructions: 1 tab orally MON, , THURSDAY clonazepam 0.5 mg Tablet 0.5 mg PO BID PRN (Reason: Anxiety) Seroquel 100 mg Tablet 100 mg PO BID Fleet Enema 19-7 gram/118 mL Enema 118 ml FL DAILY PRN (Reason: Constipation) lisinopril 20 mg Tablet 20 mg PO BIDWMEAL 30 Days Qty: 60 3RF aspirin 325 mg capsule 325 mg PO DAILY Qty: 30 0RF magnesium hydroxide [Milk of Magnesia] 400 mg/5 mL Suspension 30 ml PO DAILY PRN (Reason: Constipation) bisacodyl [Dulcolax (bisacodyl)] 10 mg Suppository 10 mg FL DAILY PRN (Reason: Constipation) escitalopram oxalate [Lexapro] 10 mg Tablet 10 mg PO DAILY memantine [Namenda] 5 mg Tablet 5 mg PO BID TwoCal HN 0.08-2 gram-kcal/mL Liquid 30 ea PO BID potassium chloride 20 mEq Tablet Extended Release 20 meq PO DAILY lorazepam 0.5 mg Tablet 0.5 mg PO Q24H PRN (Reason: Anxiety) metoprolol tartrate 25 mg Tablet 12.5 mg PO BID@0900,2100 Qty: 60 0RF Discharge Orders: Discharge ED (Routine); Ordered 01/24/23 Ordered By: Holden Tamayo Referrals: Grant Arias MD [Primary Care Provider] - Patient Instructions: Head Injury (ED), Hematoma (ED) Activity Restrictions/Additional Instructions: Continue with routine care. No fracture or other acute injuries were noted. Coding Level of Care Code ED Master Of Ceremonies for Románg Rhett
--- NOTE | 2023-01-24 21:24 | CTR_ITS ---
PROCEDURE INFORMATION: Exam: CT Head Without Contrast Exam date and time: 01/24/2023 9:41 PM Age: 87 years old Clinical indication: Injury or trauma; Fall; Blunt trauma (contusions or hematomas); Consciousness not specified TECHNIQUE: Imaging protocol: Computed tomography of the head without contrast. Radiation optimization: All CT scans at this facility use at least one of these dose optimization techniques: automated exposure control; mA and/or kV adjustment per patient size (includes targeted exams where dose is matched to clinical indication); or iterative reconstruction. REPORTING DATA: Count of CT and Cardiac NM exams in prior 12 months: This patient has received 2 known CTs and 0 known cardiac nuclear medicine studies in the 12 months prior to the current study. COMPARISON: 1. CT head thrombolytic [id number] 05/12/2022 1: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 There is mild cortical atrophy. Low-density changes in the periventricular white matter is in keeping with nonspecific small vessel chronic ischemic change. Encephalomalacia in the right occipital lobe again identified not significantly changed. This is consistent with chronic infarct. Cerebral ventricles: No ventriculomegaly. Paranasal sinuses: Visualized sinuses are unremarkable. No fluid levels. Mastoid air cells: Visualized mastoid air cells are well aerated. Bones/joints: There is no calvarial fracture. Soft tissues: There is large scalp hematoma in the right frontal scalp. CT/CT head wo con* [id number] IMPRESSION: 1. Right frontal scalp hematoma. 2. 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 4. No acute intracranial finding.
--- NOTE | 2023-01-24 21:24 | ECG_ITS ---
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 Measurements Intervals [place] Rate: 92 P: 0 DC: 0 QRS: -50 QRSD: 87 T: 73 QT: 342 QTc: 424 Interpretive Statements ATRIAL FIBRILLATION LEFT ANTERIOR FASCICULAR BLOCK [QRS AXIS <= -45, QR IN I, RS IN II] MODERATE ST DEPRESSION [0.05+ mV ST DEPRESSION] Compared to ECG 05/12/2022 22:33:10 Left anterior fascicular block now present ST (T wave) deviation now present Myocardial infarct finding no longer present Electronically Signed On 01-25-2023 11:10:05 CDT by Demetrius Nuno M.D. [email or web address] [id number]
--- NOTE | 2023-01-24 21:24 | CTR_ITS ---
PROCEDURE INFORMATION: Exam: CT Cervical Spine Without Contrast Exam date and time: 01/24/2023 9:41 PM Age: 87 years old Clinical indication: Injury or trauma; Fall; Blunt trauma TECHNIQUE: Imaging protocol: Computed tomography of the cervical spine without contrast. Radiation optimization: All CT scans at this facility use at least one of these dose optimization techniques: automated exposure control; mA and/or kV adjustment per patient size (includes targeted exams where dose is matched to clinical indication); or iterative reconstruction. REPORTING DATA: Count of CT and Cardiac NM exams in prior 12 months: This patient has received 2 known CTs and 0 known cardiac nuclear medicine studies in the 12 months prior to the current study. COMPARISON: CT cervical spin wo con* [id number] 10/01/2021 10:55 PM RADIATION DOSE METRICS: Total DLP (mGy-cm): 346.8 FINDINGS: Bones/joints: There are degenerative changes in facet joints by laterally at multiple levels. There is some degenerative change in the anterior atlantoaxial joint. No fracture is identified. Lungs: Lung apices are normal. Soft tissues: Prevertebral soft tissues are unremarkable. CT/CT cervical spin wo con* [id number] IMPRESSION: Degenerative changes in the cervical spine, stable compared with 10/01/2021.
[2023-01-24 21:32] VITALS: BP 201/130; PULSE 94; RESP 24; O2SAT 95
[2023-01-24 21:44] LABS: Basophils # 0.1 10^3/uL (0.0-0.1); Basophils % 0.8 %; Eosinophils # 0.2 10^3/uL (0.0-0.8); Eosinophils % 3.2 %; Hematocrit 40.2 % (36-47); Lymphocytes % 33.6 %; Mean Corpuscular HGB Conc 30.8 g/dL (30-55); Mean Corpuscular Hemoglobin 26.1 pg (27-33); Mean Corpuscular Volume 84.6 fl (85-98); Mean Platelet Volume 11.3 fL (7.4-10.4); Monocytes # 0.5 10^3/uL (0.2-0.9); Monocytes % 7.9 %; Neutrophils % 54.2 %; Nucleated Red Blood Cells % 0 %; Platelet Count 228 10^3/cmm (157-399); Red Blood Count 4.75 10^6/uL (3.85-5.65); Red Cell Distribution Width 14.9 % (12.1-15.1); White Blood Count 5.92 10^3/uL (3.29-11.43)
[2023-01-24] MEDS: metoprolol tartrate 1 mg/1 mL SDV 5 mL 2.5 MG IVP (21:54)
[2023-01-24 22:03] LABS: Alanine Aminotransferase 11 U/L (0-33); Albumin Level 4.2 g/dL (3.5-5.2); Alkaline Phosphatase 129 U/L (35-105); Aspartate Amino Transferase 19 U/L (0-32); Blood Urea Nitrogen 24 mg/dL (8-23); Calcium 9.7 mg/dL (8.5-10.5); Carbon Dioxide 29 mmol/L (22-29); Chloride 104 mmol/L (98-107); Globulin 2.7 g/dL (1.3-4.6); Glucose 94 mg/dL (65-115); Osmolality Calculated 298 mOsm/kg (285-295); Sodium 142 mmol/L (136-145); Total Bilirubin 0.3 mg/dL (0.15-1.2); Total Protein 6.9 g/dL (6.6-8.7)
[2023-01-24 22:04] LABS: Anion Gap 13.2 (5-19); Potassium 4.2 mmol/L (3.5-5.1)
[2023-01-24] MEDS: hyDRALAzine 20 mg/mL INJ 1 mL 10 MG IVP (23:16)
[2023-01-24 23:20] VITALS: BP 189/122; PULSE 87; RESP 17; O2SAT 97
[2023-01-25] VITALS: BP 160/126; PULSE 110; RESP 19; O2SAT 93
== END 2023-01-25 00:44 | disposition home or self-care (01) ==
PROVIDERS: Emergency Provider Nurse Practitioner Family; PCP Family Medicine
DX: S00.83XA Contusion of other part of head, initial encounter (principal); Z79.82 Long term (current) use of aspirin; S51.811A Laceration without foreign body of right forearm, initial encounter; Z86.73 Personal history of transient ischemic attack (TIA), and cerebral infarction without residual deficits; I10 Essential (primary) hypertension; W01.0XXA Fall on same level from slipping, tripping and stumbling without subsequent striking against object, initial encounter; Y92.129 Unspecified place in nursing home as the place of occurrence of the external cause
CPT/HCPCS: 70450; 72125; 80053; 85025; 93005; 96374; 96375; 99285; J0360; J3490

== ENCOUNTER 2023-05-20 06:01 | Inpatient (IN) | payer MEDICARE, MEDICAID, SELFPAY ==
[2023-05-20] VITALS (23 sets, daily range): BP systolic 128–183; BP diastolic 79–130; PULSE 95–130; RESP 16–24; TEMP 37–39.2; O2SAT 93–100; BMI 17.7
--- NOTE | 2023-05-20 06:13 | XRR_ITS ---
PROCEDURE INFORMATION: Exam: XR Chest Exam date and time: 05/20/2023 6:18 AM Age: 87 years old Clinical indication: Cough; Prior surgery; Surgery date: 6+ months; Surgery type: Lt shoulder; Additional info: Dyspnea/cough TECHNIQUE: Imaging protocol: Radiologic exam of the chest. Views: 1 view. COMPARISON: CR XR chest 1V portable [id number] 05/12/2022 8:46 PM FINDINGS: Lungs: Unremarkable. No consolidation. Pleural spaces: Unremarkable. No pleural effusion. No pneumothorax. Heart/Mediastinum: Borderline cardiomegaly accentuated by the AP positioning. Bones/joints: Left shoulder replacement. XR/XR chest 1V portable [id number] IMPRESSION: No acute cardiopulmonary disease.
--- NOTE | 2023-05-20 06:14 | CTR_ITS ---
PROCEDURE INFORMATION: Exam: CT Head Without Contrast Exam date and time: 05/20/2023 6:52 AM Age: 87 years old Clinical indication: Altered mental status/memory loss; Additional info: AMS TECHNIQUE: Imaging protocol: Computed tomography of the head without contrast. Radiation optimization: All CT scans at this facility use at least one of these dose optimization techniques: automated exposure control; mA and/or kV adjustment per patient size (includes targeted exams where dose is matched to clinical indication); or iterative reconstruction. COMPARISON: CT head wo con* [id number] 01/24/2023 9:41 PM RADIATION DOSE METRICS: Total DLP (mGy-cm): 2219.78 FINDINGS: Brain: Periventricular white matter lucency represents atherosclerotic encephalopathic changes. No hemorrhage. Encephalomalacia in the right occipital lobe. No mass effect. 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 Cerebral ventricles: No ventriculomegaly. Ventricular prominence proportionate to the degree of atrophy observed. Paranasal sinuses: Visualized sinuses are unremarkable. No fluid levels. Mastoid air cells: Visualized mastoid air cells are well aerated. Bones/joints: Unremarkable. No acute fracture. Soft tissues: Small right frontal scalp hematoma. CT/CT head wo con* [id number] IMPRESSION: 1. No acute intracranial pathology. 2. 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
--- NOTE | 2023-05-20 06:15 | ECG_ITS ---
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 Measurements Intervals [place] Rate: 104 P: 0 OR: 0 QRS: -48 QRSD: 82 T: 0 QT: 309 QTc: 407 Interpretive Statements ATRIAL FIBRILLATION WITH RAPID VENTRICULAR RESPONSE POSSIBLE RIGHT VENTRICULAR CONDUCTION DELAY [RSR (QR) IN V1/V2] LEFT ANTERIOR FASCICULAR BLOCK [QRS AXIS <= -45, QR IN I, RS IN II] NONSPECIFIC ST & T-WAVE ABNORMALITY Compared to ECG 01/24/2023 21:21:36 T-wave abnormality now present ST (T wave) deviation no longer present Electronically Signed On 05-20-2023 21:37:36 WAIST PRESSER by Krysten Mack M.D. [id number]
[2023-05-20] MEDS: LORazepam 2 mg/mL INJ 10 mL MDV 1 MG IV (06:31)
[2023-05-20 06:55] LABS: Basophils % 0.4 %; Hematocrit 40.8 % (36-47); Lymphocytes # 0.8 10^3/uL (0.8-4.8); Lymphocytes % 10.6 %; Mean Corpuscular HGB Conc 30.6 g/dL (30-55); Mean Platelet Volume 10.6 fL (7.4-10.4); Monocytes # 0.5 10^3/uL (0.2-0.9); Monocytes % 6.2 %; Neutrophils # 6.36 10^3/uL (1.8-7.7); Neutrophils % 82.5 %; Nucleated Red Blood Cells % 0 %; Platelet Count 267 10^3/cmm (157-399); Red Cell Distribution Width 15.8 % (12.1-15.1); White Blood Count 7.71 10^3/uL (3.29-11.43)
--- NOTE | 2023-05-20 06:56 | ED_ITS ---
HPI - Fall 2 General: Chief Complaint: ER Hold Stated Complaint: fall Time Seen by Provider: 05/20/23 06:12 Source: patient Mode of arrival: EMS History of Present Illness: 87-year-old female presents emergency ro om via EMS after a fall at the long term yesterday she is having nausea vomiting and report of altered mental status today. On arrival here she also noted to have a cough and is now requiring 2 L by nasal cannula normal and she does not receive supplemental oxygen. She is unable to contribute to her history beyond what EMS reports. MD complaint: fall Fall witnessed: yes, by living facility staff Place fall occurred: long term/SNF Prolonged down time: no Review of Systems 2 General: Reports: ROS unobtainable due to mental status PFSH ED 2 PFSH: Medical History Acute encephalopathy Hypertension Stroke-like symptoms Atrial fibrillation Palpitation Posterior circulation stroke Weakness Closed fracture of left inferior pubic ramus Atrial fibrillation Hypertension Continue on home Benicar and diltiazem Acute CVA (cerebrovascular accident) Currently taking only aspirin and has stopped her statin. She reports she does not believe she had a stroke at her previous hospital stay and is not amenable to medication changes regarding this. Surgical History History of hip surgery Left H/O shoulder surgery Left Family History Mother Hypertension Father Lung disease Social History Smoking and tobacco/nicotine status: never used tobacco/nicotine Alcohol intake: never Substance/Drug Use: never Physical Exam 2 Const: GENERAL APPEARANCE: cooperative and comfortable O RIENTATION/CONSCIOUSNESS: Yes awake HENMT: COMMON NORMALS: normocephalic, atraumatic and hearing grossly normal bilaterally HEAD & SCALP: normocephalic and atraumatic Resp: COMMON NORMALS: normal respiratory effort, No retractions and No use of accessory muscles AUSCULTATION: rhonchi and wheezes Cardio: COMMON NORMALS: No murmurs present (Cardio) RATE: tachycardic R HYTHM: abnormal rhythm irregularly irregular GI: COMMON NORMALS: Soft to palpation and No hepatosplenomegaly present A USCULTATION: Yes normoactive bowel sounds PALPATION: Yes Soft to palpation, No Tenderness to palpation present (GI), No Guarding due to palpation present (GI) and Yes No hepatosplenomegaly present Extremity: COMMON NORMALS: capillary refill normal, no clubbing, cyanosis or edema, no calf tenderness and no pedal edema Skin: COMMON NORMALS: no rashes or lesions noted GENERAL SKIN EXAM: no rashes or lesions noted Course 2 Vital Signs: Vital signs: Vital Signs Temperature 97.8 F 05/25/23 07:42 Pulse Rate 104 H 05/25/23 12:05 Respiratory Rate 25 H 05/25/23 12:05 Blood Pressure 148/121 05/25/23 12:05 Pulse Oximetry 94 05/25/23 08:00 Oxygen Delivery Me thod Room Air 05/25/23 08:00 Oxygen Flow Rate 2 05/24/23 09:19 Fraction of Inspir ed Oxygen 4 05/21/23 12:00 MDM - Fall Medical Decision Making RSV and A-fib with RVR. Initially tried metoprolol which she had not taken this morning as well as giving her Vasotec for her blood pressure. Actually worsened and patient was placed on Cardizem. Will admit for acute encephalopathy RSV bronchiolitis. No acute infiltrates or heart failure on chest x-ray EKG does not show acute ST changes to his A-fib with RVR discussed with hospitalist orders written Medical Records I reviewed the patient's medical records. Lab Data I reviewed the patient's lab results. 05/25/23 03:44 05/25/23 03:44 Radiology Impressions Chest X-Ray 05/20/23 06:13 IMPRESSION: No acute cardiopulmonary disease. Head CT 05/20/23 06:14 IMPRESSION: 1. No acute intracranial pathology. 2. 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 Chest CT 05/23/23 12:33 IMPRESSION: Small qoaa-mejgdoq-cqwf-right pleural effusions and overlying atelectasis/consolidation. Underlying infiltrate not excluded. Laboratory Results WBC 7.71 10^3/uL (3.29-11.43) 05/20/23 06:45 RBC 4.80 10^6/uL (3.85-5.65) 05/20/23 06:45 Hgb 12.50 g/dL (11.27-16.99) 05/20/23 06:45 Hct 40.8 % (36-47) 05/20/23 06:45 MCV 85.0 fl (85-98) 05/20/23 06:45 MCH 26.0 pg (27-33) L 05/20/23 06:45 MCHC 30.6 g/dL (30-55) 05/20/23 06:45 RDW 15.8 % (12.1-15.1) H 05/20/23 06:45 Plt Count 267 10^3/cmm (157-399) 05/20/23 06:45 MPV 10.6 fL (7.4-10.4) H 05/20/23 06:45 Neut % (Auto) 82.5 % 05/20/23 06:45 Lymph % (Auto) 10.6 % 05/20/23 06:45 [place] % (Auto) 6.2 % 05/20/23 06:45 Eos % (Auto) 0.0 % 05/20/23 06:45 Baso % (Auto) 0.4 % 05/20/23 06:45 Neut # (Auto) 6.36 10^3/uL (1.8-7.7) 05/20/23 06:45 Lymph # (Auto) 0.8 10^3/uL (0.8-4.8) 05/20/23 06:45 [place] # (Auto) 0.5 10^3/uL (0.2-0.9) 05/20/23 06:45 Eos # (Auto) 0.0 10^3/uL (0.0-0.8) 05/20/23 06:45 Baso # (Auto) 0.0 10^3/uL (0.0-0.1) 05/20/23 06:45 Nucleated RBC % (auto) 0 % 05/20/23 06:45 Nucleated RBCs # 0.0 /100WBC 05/20/23 06:45 Sodium 137 mmol/L (136-145) 05/20/23 06:45 Potassium 4.3 mmol/L (3.5-5.1) 05/20/23 06:45 Chloride 100 mmol/L (98-107) 05/20/23 06:45 Carbon Dioxide 24 mmol/L (22-29) 05/20/23 06:45 Anion Gap 17.3 (5-19) 05/20/23 06:45 BUN 18 mg/dL (8-23) 05/20/23 06:45 Creatinine 1.1 mg/dL (0.5-0.9) H 05/20/23 06:45 GFR Calculation Not Reportable 05/20/23 06:45 Glucose 114 mg/dL (65-115) 05/20/23 06:45 Calculated Osmolality 287 mOsm/kg (285-295) 05/20/23 06:45 Lactic Acid 2.2 mmol/L (0.5-2.2) 05/20/23 06:45 Lactic Acid (Sepsis) 1.9 mmol/L (0.5-2.2) 05/20/23 09:08 Calcium 9.9 mg/dL (8.5-10.5) 05/20/23 06:45 Total Bilirubin 0.5 mg/dL (0.15-1.2) 05/20/23 06:45 AST 37 U/L (0-32) H 05/20/23 06:45 ALT 15 U/L (0-33) 05/20/23 06:45 Alkaline Phosphatase 113 U/L (35-105) H 05/20/23 06:45 Troponin T Baseline 45 ng/L (0-10) H 05/20/23 06:45 Troponin T 120 Minute 43.76 ng/L (0-10) H 05/20/23 09:08 Delta Troponin T -1.24 ABS# (0-10) L 05/20/23 09:08 Troponin T Hi Sens 6Hr 54.34 ng/L (0-10) H 05/20/23 12:35 Troponin T Hi Sens 6Hr Delta 9.34 ng/L (0-12) 05/20/23 12:35 Total Protein 6.8 g/dL (6.6-8.7) 05/20/23 06:45 Albumin 3.8 g/dL (3.5-5.2) 05/20/23 06:45 Globulin 3.0 g/dL (1.3-4.6) 05/20/23 06:45 Urine Color Dark yellow (Yellow) 05/20/23 08:45 Urine Appearance Clear (CLEAR) 05/20/23 08:45 Urine pH 5 (5-7) 05/20/23 08:45 Ur Specific [place] 1.030 (1.005-1.030) 05/20/23 08:45 Urine Protein Trace (Negative) 05/20/23 08:45 Urine Glucose (UA) Norm (Normal) 05/20/23 08:45 Urine Ketones Negative (Negative) 05/20/23 08:45 Urine Blood 2+ (Negative) H 05/20/23 08:45 Urine Nitrate Negative (Negative) 05/20/23 08:45 Urine Bilirubin Neg (Negative) 05/20/23 08:45 Urine Urobilinogen Norm mg/dL (Negative) 05/20/23 08:45 Ur Leukocyte Esterase Negative (Negative) 05/20/23 08:45 Urine RBC 0-4 /hpf (0-2) H 05/20/23 08:45 Urine WBC 0-4 /hpf (0-5) H 05/20/23 08:45 Ur Squamous Epith Cells 0-4 /hpf (0-5) H 05/20/23 08:45 Amorphous Sediment Trace /hpf 05/20/23 08:45 Urine Bacteria Tr /hpf (NONE) 05/20/23 08:45 Hyaline Casts 5-10 /lpf H 05/20/23 08:45 Fine Granular Casts 0-4 /lpf H 05/20/23 08:45 Urine Mucus 1+ /hpf 05/20/23 08:45 Coronavirus 229E (PCR) Not detected (NOT DETECT) 05/20/23 07:03 Influenza Type A Ag negative (Negative) 05/20/23 07:03 Influenza Type B Ag negative (Negative) 05/20/23 07:03 RSV Antigen Positive (Negative) H 05/20/23 07:03 RSV Type A (PCR) Not detected (NOT DETECT) 05/20/23 09:19 RSV Type B (PCR) Detected (NOT DETECT) A 05/20/23 09:19 SARS-CoV-2 (PCR) Not detected (NOT DETECT) 05/20/23 07:03 All radiology interpretation(s) finalized by discharge Discharge Plan Discharge Patient Disposition: Admitted As Inpatient Admit Provider: René Vega Clinical Impression: Atrial fibrillation with RVR, Dementia, Atrial fibrillation, RSV (respiratory syncytial virus infection), Encephalopathy acute Condition: Stable Discharge Diet: As Directed Coding Level of Care Code ED Section Crews Activities Clerk for Calderon Delaney
[2023-05-20 07:13] LABS: Lactic Sepsis W/Reflex 2.2 mmol/L (0.5-2.2)
[2023-05-20 07:14] LABS: Alanine Aminotransferase 15 U/L (0-33); Albumin Level 3.8 g/dL (3.5-5.2); Alkaline Phosphatase 113 U/L (35-105); Anion Gap 17.3 (5-19); Aspartate Amino Transferase 37 U/L (0-32); Blood Urea Nitrogen 18 mg/dL (8-23); Calcium 9.9 mg/dL (8.5-10.5); Carbon Dioxide 24 mmol/L (22-29); Chloride 100 mmol/L (98-107); Glucose 114 mg/dL (65-115); Osmolality Calculated 287 mOsm/kg (285-295); Potassium 4.3 mmol/L (3.5-5.1); Sodium 137 mmol/L (136-145); Total Bilirubin 0.5 mg/dL (0.15-1.2); Total Protein 6.8 g/dL (6.6-8.7); Troponin(5th) Baseline 45 ng/L (0-10)
[2023-05-20 07:31] LABS: Influenza A by IFA negative (Negative); Influenza B by IFA negative (Negative)
[2023-05-20 07:52] LABS: RSV Transfer Patient (ED) Positive (Negative)
--- NOTE | 2023-05-20 08:07 | PC.NURSE ---
In & Out cath attempted with no urine return. aware.
[2023-05-20] MEDS: sodium chloride 0.9% 1,000 ML 999 ML IV (08:13)
--- NOTE | 2023-05-20 08:22 | ECG_ITS ---
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 Measurements Intervals [place] Rate: 126 P: 0 CT: 0 QRS: -25 QRSD: 79 T: 0 QT: 146 QTc: 211 Interpretive Statements ATRIAL FIBRILLATION WITH RAPID VENTRICULAR RESPONSE SEPTAL MYOCARDIAL INFARCTION , PROBABLY OLD [40+ ms Q WAVE IN V1/V2] ST DEPRESSION, CONSIDER SUBENDOCARDIAL INJURY [0.1+ mV ST DEPRESSION] Compared to ECG 05/20/2023 06:14:18 Myocardial infarct finding now present ST (T wave) deviation now present Left anterior fascicular block no longer present T-wave abnormality no longer present Electronically Signed On 05-20-2023 21:41:01 QUENCHING CAR OPERATOR by Krysten Mack M.D. [id number]
[2023-05-20] MEDS: metoprolol tartrate 1 mg/1 mL SDV 5 mL 2.5 MG IVP ×2 (08:31→10:15)
[2023-05-20 08:36] LABS: Reflex Lactate Order REFLEX LACTIC ORDERD
[2023-05-20 09:01] LABS: Add Urine Microscopic? YES; Bilirubin Urine Neg (Negative); Blood Urine 2+ (Negative); Glucose Urine UA Norm (Normal); Ketones Urine Negative (Negative); Leukocyte Esterase Urine Negative (Negative); Nitrate Urine Negative (Negative); Protein Urine Trace (Negative); Urine Appearance Clear (CLEAR); Urine Color Dark Yellow (Yellow); Urobilinogen Urine Norm (Negative); pH Urine 5 (5-7)
[2023-05-20 09:09] LABS: Adenovirus Not Detected (NOT DETECT); Chlamydia Pneumoniae Not Detected (NOT DETECT); Coronavirus 229E,HKU1,NL63,OC4 Not Detected (NOT DETECT); Human Metapneumovirus Not Detected (NOT DETECT); Human Rhinovirus/Enterovirus Not Detected (NOT DETECT); Influenza A Not Detected (NOT DETECT); Influenza A H1 Not Detected (NOT DETECT); Influenza A H1-2009 Not Detected (NOT DETECT); Influenza A H3 Not Detected (NOT DETECT); Influenza B Not Detected (NOT DETECT); Mycoplasma Pneumoniae Not Detected (NOT DETECT); Parainfluenza Virus Type 1 Not Detected (NOT DETECT); Parainfluenza Virus Type 2 Not Detected (NOT DETECT); Parainfluenza Virus Type 3 Not Detected (NOT DETECT); Parainfluenza Virus Type 4 Not Detected (NOT DETECT); Respiratory Syncytial Virus A Not Detected (NOT DETECT); Respiratory Syncytial Virus B Detected (NOT DETECT); SARS-COV-2 Not Detected (NOT DETECT)
[2023-05-20 09:20] LABS: Respiratory Syncytial Virus A Not Detected (NOT DETECT); Results from Genmark
[2023-05-20 09:26] LABS: Add Urine Culture? No; Amorphous Sediment Urine TRACE /hpf; Bacteria Urine TR /hpf; Fine Granular Casts Urine 0-4 /lpf; Mucus Urine 1+ /hpf; RBC Urine 0-4 /hpf (0-2); Squamous Epithelial Cell Urine 0-4 /hpf (0-5); WBC Urine 0-4 /hpf (0-5)
[2023-05-20 09:27] LABS: Lactic Acid level (Lactate) 1.9 mmol/L (0.5-2.2)
[2023-05-20 09:28] LABS: Respiratory Syncytial Virus B Detected (NOT DETECT)
[2023-05-20 09:29] LABS: Troponin 5 2HR 43.76 ng/L (0-10)
[2023-05-20 09:34] LABS: Troponin 5 2HR Delta -1.24 ABS# (0-10)
[2023-05-20] MEDS: enalaprilat 2.5 mg/2 mL SDV 1.25 MG IVP (10:52)
--- NOTE | 2023-05-20 10:59 | PC.PHAR ---
PT IS FROM [facility] [phone]
--- NOTE | 2023-05-20 11:50 | PM.HP ---
Documented by User: Car Jones radha George 05/20/23 12:59 Providers/Chief Complaint Admitting Physician: René Vega MD Primary Care Provider: Grant Arias MD Chief Complaint: fall History of Present Illness Patient is an 87-year-old female with a past medical history of hypertension, A-fib, CVA, LA, dementia who presents to the emergency room with a chief complaint of fall. Patient will be admitted to the hospital for further medical management of A-fib with RVR, fall, and weakness. Patient currently resides at a alf [facility], [place], where nursing staff heard patient fall yesterday. Patient resides on dementia unit. Patient is a poor historian of pertinent medical history/current chief complaint and unable to communicate effectively at this time. Nursing staff at skilled facility stated that patient was having nausea and vomiting and increased altered mental status. Patient was transported to emergency room via EMS and had a cough and was requiring 2L/NC, though does not typically utilize oxygen at SNF. While in the emergency room, laboratory studies and radiology imaging were performed and described below. Patient was noted to be in A-fib with RVR and received several doses of metoprolol, lisinopril, Vasotec IV, 1 L NS bolus, Ativan 1 mg IV. Review of Systems Narrative: Comprehensive 10 point ROS is negative except as noted in the HPI above. Medications/Allergies Home Medications Medication Instructions Recorded Confirmed Last Taken Type magnesium citrate 150 ml PO BID PRN constipation 09/13/20 05/20/23 Unknown Rx #296 mL sennosides 8.6 mg-docusate sodium 1 tab PO BID@09/13/20 05/20/23 05/19/23 History 50 mg tablet (Stool Softener-Laxative) lactulose 10 gram/15 mL oral 10 g (15 mL) PO DAILY PRN 10/11/20 05/20/23 Unknown Rx solution constipation #473 mL polyethylene glycol 3350 17 17 g PO DAILY #119 grams 10/22/20 05/20/23 05/19/23 Rx gram/dose oral powder (Purelax) vitamin B12 0.5 mg-folic acid 1 mg See Rx Instructions .Route .COMPLEX 09/30/21 05/20/23 05/18/23 History tablet bisacodyl 10 mg rectal suppository 10 mg AZ DAILY PRN Constipation 01/12/22 05/20/23 Unknown History (Dulcolax (bisacodyl)) escitalopram oxalate 10 mg tablet 10 mg PO DAILY 01/12/22 05/20/23 05/19/23 History (Lexapro) magnesium hydroxide 400 mg/5 mL 30 ml PO DAILY PRN Constipation 01/12/22 05/20/23 Unknown History oral suspension (Milk of Magnesia) memantine 5 mg tablet (Namenda) 5 mg PO BID 01/12/22 05/20/23 05/19/23 History nut. tx, spec. form, 30 ea PO BID 01/12/22 05/20/23 05/19/23 History lac-free,iron-fos 0.08 gram-2 kcal/mL oral liquid (TwoCal HN) potassium chloride 20 mEq 40 meq PO DAILY 01/12/22 05/20/23 05/19/23 History tablet,extended release metoprolol tartrate 25 mg tablet 12.5 mg (1/2 x 25 mg) PO 01/14/22 05/20/23 05/19/23 Rx BID@0900,2100 #60 tabs quetiapine 100 mg tablet (Seroquel) 100 mg PO QPM 05/12/22 05/20/23 05/19/23 History sodium phosphates 19 gram-7 118 ml AZ DAILY PRN Constipation 05/12/22 05/20/23 Unknown History gram/118 mL enema (Fleet Enema) lisinopril 20 mg tablet 20 mg PO BIDWMEAL 30 days #60 tabs 05/15/22 05/20/23 05/19/23 Rx acetaminophen 325 mg tablet 650 mg PO Q6H PRN Pain 05/20/23 05/20/23 05/06/23 History alprazolam 0.25 mg tablet 0.25 mg PO TID PRN BEHAVIOR 05/20/23 05/20/23 05/19/23 History aspirin 81 mg tablet,delayed 81 mg PO DAILY 05/20/23 05/20/23 05/19/23 History release quetiapine 50 mg tablet 75 mg PO QAM 05/20/23 05/20/23 05/19/23 History Allergies Allergy/AdvReac Type Severity Reaction Status Date / Time No Known Allergies Allergy Verified 09/30/21 13:50 PFSH Acute PFSH: Medical History (Updated 05/20/23 @ 12:50 by René Vega MD) Acute encephalopathy Hypertension Stroke-like symptoms Atrial fibrillation Palpitation Posterior circulation stroke Weakness Closed fracture of left inferior pubic ramus Atrial fibrillation Hypertension Continue on home Benicar and diltiazem Acute CVA (cerebrovascular accident) Currently taking only aspirin and has stopped her statin. She reports she does not believe she had a stroke at her previous hospital stay and is not amenable to medication changes regarding this. Surgical History History of hip surgery Left H/O shoulder surgery Left Family History Mother Hypertension Father Lung disease Social History Smoking and tobacco/nicotine status: never used tobacco/nicotine Alcohol intake: never Substance/Drug Use: never Vitals/I&O/Wt Last Vital Signs Temp 98.6 F 05/20/23 10:57 Pulse 101 H 05/20/23 10:57 Resp 17 05/20/23 08:29 BP 160/120 05/20/23 10:57 Pulse Ox 99 05/20/23 10:57 O2 Del Method Nasal Cannula 05/20/23 10:57 O2 Flow Rate 2 05/20/23 10:57 05/19/23 05/20/23 05/20/23 22:59 06:59 14:59 Intake Total 1000 / 1000 Balance 1000 / 1000 Weight last 48 hrs Weight 49.895 kg Physical Exam Narrative: General: Elderly, frail, ill-appearing, disoriented, Lymph: No lymphadenopathy noted Neck: Supple HEENT: Dry mucous membranes, no erythema noted to oropharynx. Cardiovascular: irregular, irregular, 1/6 systolic murmur Lungs: Expiratory wheeze, 2L/NC Abdomen: Soft, nontender on palpation, active bowel sounds throughout. Extremities: No cyanosis clubbing or edema. 2+ radial and dorsalis pedis pulses present. Urinary Catheter Management: Raymond: Cath Placed During This Visit: no Data 05/20/23 06:45 05/20/23 06:45 Other Labs: Creatinine 1.1, AST 37, alk phos 113, baseline troponin 45, 2-hour delta troponin 43.76 Negative urinalysis + RSV type B CXR: My impression: Per my interpretation, no acute cardiopulmonary disease. Without infiltrates or effusions. Radiologist's impression: No acute cardiopulmonary disease. CT Head: My impression: Per my interpretation, no acute findings. Radiologist's impression: IMPRESSION: 1. No acute intracranial pathology. 2. 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 EKG 1: My Interpretation: A-fib with RVR with a rate of 104. No present ST elevation or depression. EKG computer-generated impression: ATRIAL FIBRILLATION WITH RAPID VENTRICULAR RESPONSE POSSIBLE RIGHT VENTRICULAR CONDUCTION DELAY [RSR (QR) IN V1/V2] LEFT ANTERIOR FASCICULAR BLOCK [QRS AXIS <= -45, QR IN I, RS IN II] NONSPECIFIC ST & T-WAVE ABNORMALITY EKG 2: My Interpretation: Per my interpretation, A-fib with RVR with a rate of 126. No ST elevation or depression. EKG computer-generated impression: ATRIAL FIBRILLATION WITH RAPID VENTRICULAR RESPONS A&P Assessment and plan (1) Atrial fibrillation with RVR: Patient noted to be in A-fib with RVR while in the emergency room. Patient has history of A-fib. Multiple attempts with IV metoprolol as well as Vasotec were attempted while in the emergency room and unsuccessful. Will add Cardizem bolus as well as Cardizem IV drip. Troponin Levels trending down. (2) RSV (respiratory syncytial virus infection): Respiratory panel was completed while in the emergency room, patient is + RSV type B. Will treat with supportive care measures of IV hydration, supplemental oxygen, and antipyretics as needed. Currently requiring 2L/NC. Expiratory wheeze noted. Most likely acquired at alf facility. Therefore associated with hypoxia. Will add nebulizer treatments. Monitor. (3) Hypertension: As per #1, we will add Cardizem to medication regimen and will most likely bring down blood pressure at this time as well as restarting home medications, lisinopril, and metoprolol. (4) Dementia: Patient currently remains in dementia unit at alf facility with a known history. Currently on Seroquel, Namenda, alprazolam, and Lexapro. Due to increased altered mental status and decreased mentation, we will hold these home medications at this time. (5) Fall: Possibly multifactorial due to #1, #2, #3, and #4. Qualifiers: Encounter type: initial encounter Qualified Code(s): W19.XXXA - Unspecified fall, initial encounter (6) Acute encephalopathy: Plan Plan as stated above. After further discussion with daughter, current treatment as stated above will continue until further evaluation. Daughter states that she might lean towards comfort measures if unable to treat medically due to debilitated state and dementia history. CODE STATUS: DNR DVT prophylactics Coding Level of Care Code 37642 Diagnoses Atrial fibrillation with RVR I48.91 RSV (respiratory syncytial virus infection) B33.8 Hypertension I10 Dementia F03.90 Fall W19.XXXA Encounter type: initial encounter Acute encephalopathy G93.40 Time Spent (min) 47 Documented by User: René Vega MD 05/20/23 12:59 Providers/Chief Complaint Chief Complaint: fall History of Present Illness Patient is an 87-year-old female with a past medical history of hypertension, A-fib, CVA, LA, dementia who presents to the emergency room with a chief complaint of fall. Patient will be admitted to the hospital for further medical management of A-fib with RVR, fall, and weakness. Patient currently resides at a alf [facility], [place], where nursing staff heard patient fall yesterday. Patient resides on dementia unit. Patient is a poor historian of pertinent medical history/current chief complaint and unable to communicate effectively at this time. Nursing staff at skilled [facility] stated that patient was having nausea and vomiting and increased altered mental status. Patient was transported to emergency room via EMS and had a cough and was requiring 2L/NC, though does not typically utilize oxygen at SNF. While in the emergency room, laboratory studies and radiology imaging were performed and described below. Patient was noted to be in A-fib with RVR and received several doses of metoprolol, lisinopril, Vasotec IV, 1 L NS bolus, Ativan 1 mg IV. Nursing facility staff at nursing facility reports her normal baseline is very confused, up in a wheelchair, rarely walks, occasionally can have a brief conversation with somebody. They have noticed significant reduced responsiveness increased cough, lethargy since last evening. Review of Systems General: Reports: ROS unobtainable due to mental status Medications/Allergies Home Medications Medication Instructions Recorded Confirmed Last Taken Type magnesium citrate 150 ml PO BID PRN constipation 09/13/20 05/20/23 Unknown Rx #296 mL sennosides 8.6 mg-docusate sodium 1 tab PO BID@09,09/13/20 05/20/23 05/19/23 History 50 mg tablet (Stool Softener-Laxative) lactulose 10 gram/15 mL oral 10 g (15 mL) PO DAILY PRN 10/11/20 05/20/23 Unknown Rx solution constipation #473 mL polyethylene glycol 3350 17 17 g PO DAILY #119 grams 10/22/20 05/20/23 05/19/23 Rx gram/dose oral powder (Purelax) vitamin B12 0.5 mg-folic acid 1 mg See Rx Instructions .Route .COMPLEX 09/30/21 05/20/23 05/18/23 History tablet bisacodyl 10 mg rectal suppository 10 mg AZ DAILY PRN Constipation 01/12/22 05/20/23 Unknown History (Dulcolax (bisacodyl)) escitalopram oxalate 10 mg tablet 10 mg PO DAILY 01/12/22 05/20/23 05/19/23 History (Lexapro) magnesium hydroxide 400 mg/5 mL 30 ml PO DAILY PRN Constipation 01/12/22 05/20/23 Unknown History oral suspension (Milk of Magnesia) memantine 5 mg tablet (Namenda) 5 mg PO BID 01/12/22 05/20/23 05/19/23 History nut. tx, spec. form, 30 ea PO BID 01/12/22 05/20/23 05/19/23 History lac-free,iron-fos 0.08 gram-2 kcal/mL oral liquid (TwoCal HN) potassium chloride 20 mEq 40 meq PO DAILY 01/12/22 05/20/23 05/19/23 History tablet,extended release metoprolol tartrate 25 mg tablet 12.5 mg (1/2 x 25 mg) PO 01/14/22 05/20/23 05/19/23 Rx BID@0900,2100 #60 tabs quetiapine 100 mg tablet (Seroquel) 100 mg PO QPM 05/12/22 05/20/23 05/19/23 History sodium phosphates 19 gram-7 118 ml AZ DAILY PRN Constipation 05/12/22 05/20/23 Unknown History gram/118 mL enema (Fleet Enema) lisinopril 20 mg tablet 20 mg PO BIDWMEAL 30 days #60 tabs 05/15/22 05/20/23 05/19/23 Rx acetaminophen 325 mg tablet 650 mg PO Q6H PRN Pain 05/20/23 05/20/23 05/06/23 History alprazolam 0.25 mg tablet 0.25 mg PO TID PRN BEHAVIOR 05/20/23 05/20/23 05/19/23 History aspirin 81 mg tablet,delayed 81 mg PO DAILY 05/20/23 05/20/23 05/19/23 History release quetiapine 50 mg tablet 75 mg PO QAM 05/20/23 05/20/23 05/19/23 History Allergies Allergy/AdvReac Type Severity Reaction Status Date / Time No Known Allergies Allergy Verified 09/30/21 13:50 PFSH Acute PFSH: Medical History (Updated 05/20/23 @ 12:50 by René Vega MD) Acute encephalopathy Hypertension Stroke-like symptoms Atrial fibrillation Palpitation Posterior circulation stroke Weakness Closed fracture of left inferior pubic ramus Atrial fibrillation Hypertension Continue on home Benicar and diltiazem Acute CVA (cerebrovascular accident) Currently taking only aspirin and has stopped her statin. She reports she does not believe she had a stroke at her previous hospital stay and is not amenable to medication changes regarding this. Surgical History History of hip surgery Left H/O shoulder surgery Left Family History Mother Hypertension Father Lung disease Social History Smoking and tobacco/nicotine status: never used tobacco/nicotine Alcohol intake: never Substance/Drug Use: never Physical Exam Urinary Catheter Management: Raymond: Cath Placed During This Visit: no Data 05/20/23 06:45 05/20/23 06:45 A&P Assessment and plan (1) Atrial fibrillation with RVR: Patient noted to be in A-fib with RVR while in the emergency room. Patient has history of A-fib. Multiple attempts with IV metoprolol as well as Vasotec were attempted while in the emergency room and unsuccessful. Will add Cardizem bolus as well as Cardizem IV drip. Troponin Levels trending down. After heart rate is controlled, if patient's mental status improves we will transition to oral medication. Not currently on Anticoagulation. HAS-BLED score of 4. [id number] score of 7. (2) RSV (respiratory syncytial virus infection): Respiratory panel was completed while in the emergency room, patient is + RSV type B. Will treat with supportive care measures of IV hydration, supplemental oxygen, and antipyretics as needed. Hold off on IV hydration at this time due to hypertension. Will encourage oral hydration. Currently requiring 2L/NC. Expiratory wheeze noted. Most likely acquired at alf facility. Therefore associated with hypoxia. Will add nebulizer treatments. Monitor. (3) Hypertension: (4) Dementia: (5) Fall: Qualifiers: Encounter type: initial encounter Qualified Code(s): W19.XXXA - Unspecified fall, initial encounter (6) Acute encephalopathy: Patient presents with acute encephalopathy. This may be secondary to acute illness, but cannot rule out a CVA. At this point considering her comorbidities and waxing and waning of symptoms no changes in her treatment would occur at this time. Neurochecks Monitor for improvement Attestations Medical Necessity Statement*: Will require greater than 2 midnight stay for evaluation and treatment of A-fib with RVR associate with RSV and hypoxia. Diagnoses Atrial fibrillation with RVR I48.91 RSV (respiratory syncytial virus infection) B33.8 Hypertension I10 Dementia F03.90 Fall W19.XXXA Encounter type: initial encounter Acute encephalopathy G93.40 Time Spent (min) 47
--- NOTE | 2023-05-20 12:31 | ECG_ITS ---
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 Measurements Intervals [place] Rate: 112 P: 0 NV: 0 QRS: -44 QRSD: 85 T: 22 QT: 285 QTc: 391 Interpretive Statements ATRIAL FIBRILLATION WITH RAPID VENTRICULAR RESPONSE LEFT AXIS DEVIATION [QRS AXIS < -30] POSSIBLE RIGHT VENTRICULAR CONDUCTION DELAY [RSR (QR) IN V1/V2] SEPTAL MYOCARDIAL INFARCTION , OF INDETERMINATE AGE [40+ ms Q WAVE IN V1/V2] Compared to ECG 05/20/2023 08:22:51 Left-axis deviation now present ST (T wave) deviation no longer present Myocardial infarct finding still present Electronically Signed On 05-20-2023 21:44:23 DAIRY CATTLE FARM MANAGER by Krysten Mack M.D. [id number]
[2023-05-20] MEDS: dilTIAZem 5 mg/mL SDV 5 mL 10 MG IVP (12:48)
[2023-05-20 13:02] LABS: Troponin 5 6HR 54.34 ng/L (0-10); Troponin 5 6HR Delta 9.34 ng/L (0-12)
[2023-05-20] MEDS: dilTIAZem 100 MG in sodium chloride 0.9% (add-van) 100 ML IV (13:02)
--- NOTE | 2023-05-20 13:04 | PC.NURSE ---
PT HEART RATE BELOW 110 PER PROTOCOL FOR CARDIZEM. NURSE VERIFIED WITH DR. PADILLA TO START. DOCTOR ORDERED TO START AT 2.5MG/HR. DRIP STARTED AT 2.5MG/HR HEART RATE CURRENTLY 101.
[2023-05-20] MEDS: ipratropium-albuterol 3 mL Neb INHALATION ×2 (14:56→20:46)
[2023-05-20] MEDS: enoxaparin 40 mg/0.4 mL Syringe SUBCUT (16:08)
[2023-05-20] MEDS: sodium chloride 0.9% 1,000 ML 50 ML IV (16:12)
[2023-05-20] MEDS: metoprolol tartrate 25 mg Tablet 12.5 MG PO (21:47)
[2023-05-21] VITALS (16 sets, daily range): BP systolic 115–153; BP diastolic 72–98; PULSE 87–119; RESP 18–31; TEMP 36.6–38.3; O2SAT 91–99
[2023-05-21] MEDS: ipratropium-albuterol 3 mL Neb INHALATION ×4 (02:57→20:36)
[2023-05-21] MEDS: dilTIAZem 100 MG in sodium chloride 0.9% (add-van) 100 ML 7.5 MG IV (02:57)
[2023-05-21 04:58] LABS: Basophils # 0.1 10^3/uL (0.0-0.1); Basophils % 0.6 %; Eosinophils % 0.3 %; Hematocrit 36.1 % (36-47); Lymphocytes # 0.9 10^3/uL (0.8-4.8); Lymphocytes % 9.2 %; Mean Corpuscular HGB Conc 30.7 g/dL (30-55); Mean Corpuscular Hemoglobin 26.1 pg (27-33); Mean Corpuscular Volume 84.9 fl (85-98); Mean Platelet Volume 11.1 fL (7.4-10.4); Monocytes # 0.6 10^3/uL (0.2-0.9); Monocytes % 5.5 %; Neutrophils # 8.36 10^3/uL (1.8-7.7); Neutrophils % 83.9 %; Nucleated Red Blood Cells % 0 %; Platelet Count 197 10^3/cmm (157-399); Red Blood Count 4.25 10^6/uL (3.85-5.65); Red Cell Distribution Width 16.1 % (12.1-15.1); White Blood Count 9.97 10^3/uL (3.29-11.43)
[2023-05-21 05:16] LABS: Alanine Aminotransferase 14 U/L (0-33); Albumin Level 3.3 g/dL (3.5-5.2); Alkaline Phosphatase 85 U/L (35-105); Aspartate Amino Transferase 37 U/L (0-32); Blood Urea Nitrogen 22 mg/dL (8-23); Calcium 9.2 mg/dL (8.5-10.5); Carbon Dioxide 24 mmol/L (22-29); Chloride 105 mmol/L (98-107); Globulin 2.7 g/dL (1.3-4.6); Glucose 96 mg/dL (65-115); Osmolality Calculated 293 mOsm/kg (285-295); Sodium 140 mmol/L (136-145); Total Bilirubin 0.6 mg/dL (0.15-1.2)
--- NOTE | 2023-05-21 07:35 | PC.PHAR ---
PHARMACY TO DOSE VANCOMYCIN Vanco Initial Dosing Patient Information Sex F M/F Last Name JESSICA AGE 87 years First Name ALICIA Ht 66 inches : 1935 ABW 49.895 kg Location: [facility] [place] IBW 59.3 kg If loading dose given: DW 49.895 kg Loading DOSE: mg SCr 1 mg/dl This Dose = 0.0 mg/kg CrCl 31.2 ml/min 1st dose Cmax: 0.0 mcg/ml Vd 37.94594 liters Time elapsed: hrs Ke 0.030 hrs-1 Serum Conc. = 0.0 mcg/ml t1/2 23 hrs Hrs until 20 mcg/ml #NUM! hrs Hrs until 15 mcg/ml #NUM! hours Hrs until 10 mcg/ml #NUM! hours Dose Tau (Freq) Levels expected Standard 750 24 Cmax 37.6 Targets 15.03 34.3 Cpeak 36.5 25 to 40 mg/kg hours Cmin 19.3 10 to 20
--- NOTE | 2023-05-21 07:56 | P.PN_ITS ---
Documented by User: radha Mohr 05/21/23 08:12 Subjective 2 Subjective: Patient was evaluated this morning while lying in bed on RA, as patient had oxygen tubing removed. This a.m., patient seems more alert and able to answer simple questions and able to state name. No other voiced concerns at this time. Medications: Reviewed: Yes Vitals/I&O/Wt Last Vital Signs Temp 101.0 F H 05/21/23 04:00 Pulse 101 H 05/21/23 06:00 Resp 31 H 05/21/23 04:26 BP 136/72 05/21/23 04:26 Pulse Ox 97 05/21/23 04:26 O2 Del Method Nasal Cannula 05/21/23 02:55 O2 Flow Rate 2 05/21/23 02:55 05/20/23 05/21/23 05/21/23 22:59 06:59 14:59 Intake Total 180.101 / 1180.101 43.5 / 1223.601 Output Total 550 / 550 Balance -369.899 / 630.101 43.5 / 673.601 Weight last 48 hrs Weight 49.895 kg Physical Exam 2 Narrative: General: Elderly, frail, ill-appearing, disoriented, Lymph: No lymphadenopathy noted Neck: Supple HEENT: Dry mucous membranes, no erythema noted to oropharynx. Cardiovascular: irregular, irregular, 1/6 systolic murmur Lungs: Expiratory wheeze, rhonchi, 2L/NC Abdomen: Soft, nontender on palpation, active bowel sounds throughout. Extremities: No cyanosis clubbing or edema. 2+ radial and dorsalis pedis pulses present. Urinary Catheter Management: Raymond: Cath Placed During This Visit: no Data 05/21/23 04:02 05/21/23 04:02 Other Labs: AST 37 6-hour troponin 54.34. A&P Assessment and plan (1) Atrial fibrillation with RVR: Currently A-fib with a rate of 90. Remains on Cardizem drip at 7.5. Will likely transition to oral medication this afternoon or in a.m. with titration of Cardizem drip. Add aspirin 81 daily (2) RSV (respiratory syncytial virus infection): +RSV type B. Continue to treat with supportive care measures of IV hydration, supplemental oxygen, and antipyretics as needed. Increase IV fluids to 75 mL/h Patient did have some increased fevers over the night. We will add vancomycin and Zosyn to medication regimen. Continue nebulizer treatments. Currently on room air satting 90% SpO2. Patient is self removing oxygen tubing. 2L/NC when able to keep oxygen tubing on. (3) Hypertension: As per #1, we will add Cardizem to medication regimen and will most likely bring down blood pressure at this time as well as restarting home medications, lisinopril, and metoprolol. (4) Dementia: Patient currently remains in dementia unit at [facility] with a known history. Currently on Seroquel, Namenda, alprazolam, and Lexapro. Will continue to hold Seroquel and alprazolam. Will restart Lexapro and Namenda today. (5) Fall: Possibly multifactorial due to #1, #2, #3, and #4. Qualifiers: Encounter type: initial encounter Qualified Code(s): W19.XXXA - Unspecified fall, initial encounter (6) Acute encephalopathy: Possibly multifactorial due to hypoxia, RSV, A-fib with RVR, hypertension, or underlying dementia. Mentation seems to be increasing as patient is able to answer simple questions. Able to state her name. Discontinue neurochecks Monitor for improvement Plan Plan as stated above. We will add Zosyn and vancomycin due to increased fevers. Increase IV hydration to 75 mL/h. Continue to titrate off Cardizem drip and will likely transition to p.o. once drip has stopped. Continue supportive care measures for RSV. Encephalopathy seems to be improving though has an underlying diagnosis of dementia. Will continue to monitor for improvement. CODE STATUS: DNR DVT prophylactics: Lovenox Attestations 2 Medical Necessity Statement*: Will require further hospitalization for treatment of A-fib with RVR associated with RSV and hypoxia. Coding Level of Care Code 34864 Diagnoses Atrial fibrillation with RVR I48.91 RSV (respiratory syncytial virus infection) B33.8 Hypertension I10 Dementia F03.90 Fall W19.XXXA Encounter type: initial encounter Acute encephalopathy G93.40 Time Spent (min) 29 Documented by User: René Vega MD 05/21/23 08:41 Physical Exam 2 Narrative: General: Elderly, frail, ill-appearing, disoriented, fever noted overnight, Tmax 102.5, much more verbal Lymph: No lymphadenopathy noted Neck: Supple HEENT: Dry mucous membranes, no erythema noted to oropharynx. Cardiovascular: irregular, irregular, 1/6 systolic murmur Lungs: Expiratory wheeze, rhonchi, 2L/NC Abdomen: Soft, nontender on palpation, active bowel sounds throughout. Extremities: No cyanosis clubbing or edema. 2+ radial and dorsalis pedis pulses present. Urinary Catheter Management: Raymond: Cath Placed During This Visit: no Data 05/21/23 04:02 05/21/23 04:02 A&P Assessment and plan (1) Atrial fibrillation with RVR: Currently A-fib with a rate of 90. Remains on Cardizem drip at 7.5. Will likely transition to oral medication this afternoon or in a.m. if she is able to take p.o. Add aspirin 81 daily (2) RSV (respiratory syncytial virus infection): +RSV type B. Continue to treat with supportive care measures of IV hydration, supplemental oxygen, and antipyretics as needed. Increase IV fluids to 75 mL/h Patient did have some increased fevers over the night. We will add vancomycin and Zosyn to medication regimen. Cultures have already been obtained. Continue nebulizer treatments. Currently on room air satting 90% SpO2. Patient is self removing oxygen tubing. 2L/NC when able to keep oxygen tubing on. CBC, CMP daily secondary to development of fever, addition of antibiotics especially vancomycin where renal function and trough levels will be required. (3) Hypertension: (4) Dementia: [facility]. Currently on Seroquel, Namenda, alprazolam, and Lexapro. Will continue to hold Seroquel and alprazolam. Will restart Lexapro and Namenda today if p.o. intake allows (5) Fall: Qualifiers: Encounter type: initial encounter Qualified Code(s): W19.XXXA - Unspecified fall, initial encounter (6) Acute encephalopathy: Possibly multifactorial due to hypoxia, RSV, A-fib with RVR, hypertension, or underlying dementia. Mentation seems to be increasing as patient is able to answer simple questions. Able to state her name. It appears her neurologic status is likely back to baseline. Diagnoses Atrial fibrillation with RVR I48.91 RSV (respiratory syncytial virus infection) B33.8 Hypertension I10 Dementia F03.90 Fall W19.XXXA Encounter type: initial encounter Acute encephalopathy G93.40 Time Spent (min) 29
[2023-05-21] MEDS: vancomycin 750 MG in sodium chloride 0.9% 250 ML 250 MG IV (09:26)
[2023-05-21] MEDS: piperacillin-tazobactam 3.375 GM in sodium chloride 0.9% (plus) 50 ML IV ×2 (09:27→17:52)
[2023-05-21] MEDS: sodium chloride 0.9% 1,000 ML 75 ML IV (14:19)
[2023-05-21] MEDS: enoxaparin 40 mg/0.4 mL Syringe SUBCUT (15:41)
[2023-05-22] VITALS (15 sets, daily range): BP systolic 115–162; BP diastolic 78–99; PULSE 65–104; RESP 22–33; TEMP 36.3–37.2; O2SAT 85–96
--- NOTE | 2023-05-22 01:27 | PC.NURSE ---
Patient is becoming restless/agitated. Crawling out of bed, pulled out multiple IV's, being aggressive towards staff during cares. Patient repositioned, bed alarm set. Patient has a history of dementia and does not understand use of call light. Contacted Dr. Sesay, given orders for a one time dose of Ativan 0.5mg IVP ONCE, can give an addition one dose if agitation does not improve.
[2023-05-22] MEDS: piperacillin-tazobactam 3.375 GM in sodium chloride 0.9% (plus) 50 ML IV ×3 (01:37→17:36)
[2023-05-22] MEDS: LORazepam 2 mg/mL INJ 1 mL 0.5 MG IVP (01:37)
[2023-05-22] MEDS: ipratropium-albuterol 3 mL Neb INHALATION ×4 (02:43→20:08)
[2023-05-22 05:21] LABS: Basophils % 0.5 %; Eosinophils % 0.1 %; Hematocrit 33.3 % (36-47); Lymphocytes # 1.1 10^3/uL (0.8-4.8); Lymphocytes % 12.9 %; Mean Corpuscular HGB Conc 30.6 g/dL (30-55); Mean Corpuscular Hemoglobin 25.9 pg (27-33); Mean Corpuscular Volume 84.5 fl (85-98); Mean Platelet Volume 11.9 fL (7.4-10.4); Monocytes # 0.5 10^3/uL (0.2-0.9); Monocytes % 6.4 %; Neutrophils # 6.44 10^3/uL (1.8-7.7); Neutrophils % 79.5 %; Nucleated Red Blood Cells % 0 %; Platelet Count 182 10^3/cmm (157-399); Red Blood Count 3.94 10^6/uL (3.85-5.65); White Blood Count 8.11 10^3/uL (3.29-11.43)
[2023-05-22 05:46] LABS: Alanine Aminotransferase 13 U/L (0-33); Alkaline Phosphatase 74 U/L (35-105); Anion Gap 15.6 (5-19); Aspartate Amino Transferase 28 U/L (0-32); Blood Urea Nitrogen 27 mg/dL (8-23); Calcium 9.1 mg/dL (8.5-10.5); Carbon Dioxide 22 mmol/L (22-29); Chloride 109 mmol/L (98-107); Globulin 2.5 g/dL (1.3-4.6); Glucose 87 mg/dL (65-115); Osmolality Calculated 300 mOsm/kg (285-295); Potassium 3.6 mmol/L (3.5-5.1); Sodium 143 mmol/L (136-145); Total Bilirubin 0.6 mg/dL (0.15-1.2); Total Protein 5.5 g/dL (6.6-8.7)
[2023-05-22] MEDS: sodium chloride 0.9% 1,000 ML 75 ML IV ×2 (06:10→20:12)
[2023-05-22] MEDS: vancomycin 750 MG in sodium chloride 0.9% 250 ML 250 MG IV (09:07)
--- NOTE | 2023-05-22 09:09 | P.PN_ITS ---
Subjective 2 Subjective: Cristel is much more alert, and conversive this morning. She asked for a drink. She did receive 1 dose of Ativan last night for agitation. Medications: Reviewed: Yes Vitals/I&O/Wt Last Vital Signs Temp 98.4 F 05/22/23 08:00 Pulse 96 05/22/23 08:00 Resp 25 H 05/22/23 08:00 BP 139/78 05/22/23 08:00 Pulse Ox 89 L 05/22/23 08:00 O2 Del Method Nasal Cannula 05/22/23 08:00 O2 Flow Rate 2 05/22/23 02:45 FiO2 4 05/21/23 12:00 05/21/23 05/22/23 05/22/23 22:59 06:59 14:59 Intake Total 50 / 433 1067 / 1500 Output Total 230 / 230 0 / 230 Balance -180 / 203 1067 / 1270 Physical Exam 2 Narrative: General: Conversant but confused Neck: Supple Cardiovascular: irregular, irregular, 1/6 systolic murmur Lungs: A few bilateral expiratory wheezes Abdomen: Soft, nontender on palpation, active bowel sounds throughout. Extremities: No cyanosis clubbing or edema. Urinary Catheter Management: Raymond: Cath Placed During This Visit: no Data 05/22/23 04:37 05/22/23 04:37 Micro: Microbiology 05/20/23 06:45 Blood Culture - Preliminary Blood 05/20/23 06:37 Blood Culture - Preliminary Blood A&P Assessment and plan (1) Atrial fibrillation with RVR: Transition to oral Cardizem today Add aspirin 81 daily Not a good candidate for chronic anticoagulation, and this was determined even prior to this hospital stay (2) RSV (respiratory syncytial virus infection): +RSV type B. Continue to treat with supportive care measures of IV hydration, supplemental oxygen, and antipyretics as needed. Continue fluids Vancomycin and Zosyn were added for concern of bacterial infection superimposed on RSV. MRSA PCR ordered. Significant concern for aspiration. Continue nebulizer treatments. Wean oxygen as tolerated CBC, CMP daily secondary to development of fever, addition of antibiotics especially vancomycin where renal function and trough levels will be required. (3) Hypertension: Improved with current medications (4) Dementia: Patient currently remains in dementia unit at [facility] with a known history. Currently on Seroquel, Namenda, alprazolam, and Lexapro. Will continue to hold Seroquel and alprazolam. Lexapro and Namenda today if p.o. intake allows (5) Fall: Possibly multifactorial due to #1, #2, #3, and #4. Qualifiers: Encounter type: initial encounter Qualified Code(s): W19.XXXA - Unspecified fall, initial encounter (6) Acute encephalopathy: Possibly multifactorial due to hypoxia, RSV, A-fib with RVR, hypertension, or underlying dementia. Mentation seems to be increasing as patient is able to answer simple questions. Able to state her name. It appears her neurologic status is likely back to baseline. Plan CODE STATUS: DNR DVT prophylactics: Lovenox Attestations 2 Medical Necessity Statement*: Needs continued hospital stay for IV antibiotics, initiation of diet, weaning Cardizem drip off and initiating Cardizem p.o. and further speech therapy evaluation. Diagnoses Atrial fibrillation with RVR I48.91 RSV (respiratory syncytial virus infection) B33.8 Hypertension I10 Dementia F03.90 Fall W19.XXXA Encounter type: initial encounter Acute encephalopathy G93.40 Time Spent (min) 28
[2023-05-22] MEDS: lisinopril 20 mg Tablet PO ×2 (10:30→17:37)
[2023-05-22] MEDS: memantine 5 mg tablet PO ×2 (10:31→17:36)
[2023-05-22] MEDS: aspirin 81 mg EC Tablet PO (10:31)
[2023-05-22] MEDS: escitalopram 10 mg Tablet PO (10:31)
[2023-05-22] MEDS: dilTIAZem 30 mg Tablet PO ×3 (10:38→23:18)
[2023-05-22] MEDS: metoprolol tartrate 25 mg Tablet 12.5 MG PO ×2 (10:38→20:14)
--- NOTE | 2023-05-22 13:44 | PC.SOCIAL ---
Pg 2 IMM Explained to pt's daughter, Florence, Pg 2 IMM. No questions voiced. Provided pt a copy. Initialed, dated, & timed a copy & placed in chart.
[2023-05-22] MEDS: enoxaparin 40 mg/0.4 mL Syringe SUBCUT (13:49)
[2023-05-23] VITALS (33 sets, daily range): BP systolic 117–172; BP diastolic 69–130; PULSE 71–111; RESP 19–32; TEMP 36.4–37.2; O2SAT 86–97
[2023-05-23] MEDS: piperacillin-tazobactam 3.375 GM in sodium chloride 0.9% (plus) 50 ML IV ×3 (00:52→16:11)
[2023-05-23] MEDS: ipratropium-albuterol 3 mL Neb INHALATION ×4 (02:13→19:15)
[2023-05-23 04:08] LABS: Basophils % 0.4 %; Eosinophils % 0.5 %; Lymphocytes # 1.1 10^3/uL (0.8-4.8); Lymphocytes % 14.6 %; Mean Corpuscular HGB Conc 30.9 g/dL (30-55); Mean Corpuscular Hemoglobin 26.2 pg (27-33); Mean Corpuscular Volume 84.6 fl (85-98); Mean Platelet Volume 11.2 fL (7.4-10.4); Monocytes # 0.5 10^3/uL (0.2-0.9); Monocytes % 6.6 %; Neutrophils # 5.89 10^3/uL (1.8-7.7); Neutrophils % 77.4 %; Nucleated Red Blood Cells % 0 %; Platelet Count 198 10^3/cmm (157-399); Red Cell Distribution Width 16.4 % (12.1-15.1); White Blood Count 7.61 10^3/uL (3.29-11.43)
[2023-05-23 04:33] LABS: Anion Gap 15.3 (5-19); Blood Urea Nitrogen 26 mg/dL (8-23); Calcium 8.7 mg/dL (8.5-10.5); Carbon Dioxide 21 mmol/L (22-29); Chloride 109 mmol/L (98-107); Glucose 74 mg/dL (65-115); Osmolality Calculated 297 mOsm/kg (285-295); Potassium 3.3 mmol/L (3.5-5.1); Sodium 142 mmol/L (136-145)
[2023-05-23] MEDS: dilTIAZem 30 mg Tablet PO ×4 (06:09→21:59)
[2023-05-23] MEDS: vancomycin 750 MG in sodium chloride 0.9% 250 ML 250 MG IV (07:27)
[2023-05-23] MEDS: lisinopril 20 mg Tablet PO (07:33)
[2023-05-23] MEDS: memantine 5 mg tablet PO (07:41)
[2023-05-23] MEDS: escitalopram 10 mg Tablet PO (07:42)
[2023-05-23] MEDS: metoprolol tartrate 25 mg Tablet 12.5 MG PO (07:42)
[2023-05-23] MEDS: aspirin 81 mg EC Tablet PO (07:42)
[2023-05-23] MEDS: sodium chloride 0.9% 1,000 ML 75 ML IV (09:48)
--- NOTE | 2023-05-23 12:33 | CTR_ITS ---
PROCEDURE INFORMATION: Exam: CT Chest Without Contrast; Diagnostic Exam date and time: 05/23/2023 12:50 PM Age: 87 years old Clinical indication: Shortness of breath; Additional info: Copd/pna TECHNIQUE: Imaging protocol: Diagnostic computed tomography of the chest without contrast. Radiation optimization: All CT scans at this facility use at least one of these dose optimization techniques: automated exposure control; mA and/or kV adjustment per patient size (includes targeted exams where dose is matched to clinical indication); or iterative reconstruction. COMPARISON: CT angio chest PE protcl [id number] 09/18/2021 7:42 PM RADIATION DOSE METRICS: Total DLP (mGy-cm): 255.29 FINDINGS: Lungs: Vhgj-pzyrcep-tpsa-right atelectasis/consolidation overlying the pleural effusions. Pleural spaces: Small nggn-voftkfl-pxsa-right pleural effusions. Heart: Coronary calcifications. Trace pericardial fluid likely physiologic. Lymph nodes: No enlarged lymph nodes. Vasculature: No aortic aneurysm. Bones/joints: Stable multilevel vertebral body compression deformities. No acute findings. Soft tissues: Unchanged left adrenal adenoma. CT/CT chest wo con [id number] IMPRESSION: Small godv-wpgspyq-uxyo-right pleural effusions and overlying atelectasis/consolidation. Underlying infiltrate not excluded.
[2023-05-23 13:11] LABS: Procalcitonin 0.59 ng/mL (0-0.5); Thyroid Stimulating Hormone 2.02 uIU/mL (0.27-4.20); Vitamin B12 1137 pg/mL (232-1245)
[2023-05-23 13:22] LABS: Iron 18 ug/dL (37-145); Percent Saturation 10.9 % (20-50); Total Iron Binding Capacity 164 mcg/dl; Unsaturated Iron Binding 146 ug/dL (112-347)
[2023-05-23] MEDS: potassium chloride ER 20 mEq Tablet 40 MEQ PO (13:53)
[2023-05-23] MEDS: sodium chloride 0.9% 1,000 ML 50 ML IV ×2 (13:53→16:12)
[2023-05-23 14:24] LABS: Methicillin-Resist S.aureu PCR NOT DETECTED (NOT DETECTED)
--- NOTE | 2023-05-23 15:08 | PM.PN ---
Subjective Subjective: Hospital course, labs appreciated. On examination patient sleeping but wakes up to verbal stimulus. Saturating well on 2 L of nasal cannula. Blood pressure is mildly elevated. Has remained hemodynamically stable and afebrile otherwise. As per the nurse patient been on a diet but is tolerating oral medications well. Medications: Reviewed: Yes Vitals/I&O/Wt Last Vital Signs Temp 98.3 F 05/23/23 11:52 Pulse 92 05/23/23 14:15 Resp 24 H 05/23/23 14:15 BP 159/79 05/23/23 11:52 Pulse Ox 95 05/23/23 14:15 O2 Del Method Nasal Cannula 05/23/23 14:15 O2 Flow Rate 2 05/23/23 14:15 FiO2 4 05/21/23 12:00 05/23/23 05/23/23 05/23/23 06:59 14:59 22:59 Intake Total 880 / 2180 1606.25 / 1606.25 Output Total 250 / 750 Balance 630 / 1430 1606.25 / 1606.25 Physical Exam Narrative: General: No acute distress, sleeping but wakes up to verbal stimulus, AO x 1-2 Neck: Supple Cardiovascular: S1-S2 irregularly irregular, 1/6 early systolic murmur in the aortic region Lungs: A few bilateral expiratory wheezes, bilateral bronchial breath sounds all over lung field otherwise Abdomen: Soft, nontender on palpation, active bowel sounds throughout. Extremities: No cyanosis clubbing or edema. Urinary Catheter Management: Raymond: Cath Placed During This Visit: no Reason for Continuing Indwelling Catheter: Other Data 05/23/23 03:35 05/23/23 03:35 A&P Assessment and plan (1) Atrial fibrillation with RVR: Rate controlled currently. Continue with Cardizem 30 mg oral every 6 hours for now. Increase home dose of metoprolol to 25 mg twice daily. Continue with baby aspirin 81 daily Not a good candidate for chronic anticoagulation, and this was determined even prior to this hospital stay (2) Hypoxia: In setting of RSV along with concerns for aspiration pneumonia. CHF less likely. Patient seems euvolemic. Last echocardiogram showed severely increased LA size, mildly increased LVH, mild to moderate pulmonary hypertension with RVSP of 50-55 3. (3) RSV (respiratory syncytial virus infection): +RSV type B. Continue to treat with supportive care measures of IV hydration, supplemental oxygen, and antipyretics as needed. Vancomycin and Zosyn were added for concern of bacterial infection superimposed on RSV. MRSA negative. Will discontinue IV vancomycin. Concerns for aspiration pneumonitis as well. Appreciate speech therapy. Start on level 4 dysphagia diet as per speech evaluation. Xopenex every 6 hours, Pulmicort twice daily. Wean oxygen as tolerated keeping saturation over 90%. (4) Hypertension: Goal blood pressure less than 140/90 mmHg. Blood pressure slightly elevated. Currently on Cardizem. Will add further antihypertensive as per goal blood pressures. (5) Dementia: Patient currently remains in [facility] with a known history. Currently on Seroquel, Namenda, alprazolam, and Lexapro. Will continue to hold Seroquel and alprazolam. Continue with home dose of Lexapro and Namenda for now. Might have to add low-dose Seroquel later as patient is at risk of withdrawal. (6) Fall: Possibly multifactorial due to #1, #2, #3, and #4. Qualifiers: Encounter type: initial encounter Qualified Code(s): W19.XXXA - Unspecified fall, initial encounter (7) Acute encephalopathy: Possibly multifactorial due to hypoxia, RSV, A-fib with RVR, hypertension, or underlying dementia. Mentation seems to be increasing as patient is able to answer simple questions. Able to state her name. It appears her neurologic status is likely back to baseline. Plan Out of bed to chair. PT. Continue with speech therapy. Famotidine for PUD prophylaxis CODE STATUS: DNR DVT prophylactics: Lovenox Attestations Medical Necessity Statement*: Requires further hospitalization for management of A-fib with RVR in an elderly female with history of advanced dementia admitted for acute metabolic encephalopathy in setting of RSV and concerns for aspiration pneumonitis Diagnoses Atrial fibrillation with RVR I48.91 Hypoxia R09.02 RSV (respiratory syncytial virus infection) B33.8 Hypertension I10 Dementia F03.90 Fall W19.XXXA Encounter type: initial encounter Acute encephalopathy G93.40
[2023-05-23] MEDS: enoxaparin 40 mg/0.4 mL Syringe SUBCUT (16:11)
--- NOTE | 2023-05-23 18:26 | PC.NURSE ---
Patient is not wanting to take her medication. She keeps telling nurse no more medicine. Currently refusing the lisinopril and famotidine. Nurse spoke with [facility], her residences, and asked how they got her to take medication and they suggested mentioning her favorite [employer], Shant. Nurse told patient Shant really wanted her to take miedicine and she asked if I had talked to Shant and I said yes, and he wants you to take your medication. Patient still refused.
[2023-05-23] MEDS: budesonide 0.5 mg/2 mL Neb INHALATION (19:15)
[2023-05-23] MEDS: quetiapine 25 mg Tablet 50 MG PO (21:59)
[2023-05-23] MEDS: metoprolol tartrate 25 mg Tablet PO (21:59)
[2023-05-24] VITALS (32 sets, daily range): BP systolic 96–171; BP diastolic 61–124; PULSE 72–117; RESP 18–31; TEMP 36.3–36.8; O2SAT 82–100
[2023-05-24] MEDS: piperacillin-tazobactam 3.375 GM in sodium chloride 0.9% (plus) 50 ML IV ×3 (00:47→17:14)
[2023-05-24] MEDS: ipratropium-albuterol 3 mL Neb INHALATION ×4 (02:10→20:11)
[2023-05-24 03:41] LABS: Basophils % 0.7 %; Eosinophils # 0.1 10^3/uL (0.0-0.8); Eosinophils % 1.1 %; Hematocrit 31.1 % (36-47); Lymphocytes # 1.3 10^3/uL (0.8-4.8); Lymphocytes % 23.1 %; Mean Corpuscular HGB Conc 31.2 g/dL (30-55); Mean Corpuscular Hemoglobin 26.4 pg (27-33); Mean Corpuscular Volume 84.7 fl (85-98); Mean Platelet Volume 10.9 fL (7.4-10.4); Monocytes # 0.4 10^3/uL (0.2-0.9); Neutrophils # 3.73 10^3/uL (1.8-7.7); Neutrophils % 67.4 %; Nucleated Red Blood Cells % 0 %; Platelet Count 184 10^3/cmm (157-399); Red Blood Count 3.67 10^6/uL (3.85-5.65); Red Cell Distribution Width 16.4 % (12.1-15.1); White Blood Count 5.54 10^3/uL (3.29-11.43)
[2023-05-24 03:56] LABS: Estmated Average Glucose 103; Hemoglobin A1C 5.2 % (4.0-6.0)
[2023-05-24 04:02] LABS: Chol HDL Ratio 4.69 mg/dL (0.0-4.40); Cholesterol 122 mg/dL (0-200); HDL Cholesterol 26 mg/dL (60-100); LDL Cholesterol Calculated 79 mg/dL (50-129); Magnesium 1.8 mg/dL (1.7-2.3); Triglycerides 83 mg/dL (0-150); VLDL Cholestrol Calculation 17 mg/dL (0-30)
[2023-05-24 04:04] LABS: Alanine Aminotransferase 10 U/L (0-33); Albumin Level 2.6 g/dL (3.5-5.2); Alkaline Phosphatase 61 U/L (35-105); Anion Gap 13.3 (5-19); Aspartate Amino Transferase 15 U/L (0-32); Blood Urea Nitrogen 21 mg/dL (8-23); Calcium 8.4 mg/dL (8.5-10.5); Carbon Dioxide 21 mmol/L (22-29); Chloride 111 mmol/L (98-107); Globulin 2.2 g/dL (1.3-4.6); Glucose 70 mg/dL (65-115); Osmolality Calculated 295 mOsm/kg (285-295); Potassium 3.3 mmol/L (3.5-5.1); Sodium 142 mmol/L (136-145); Total Bilirubin 0.4 mg/dL (0.15-1.2); Total Protein 4.8 g/dL (6.6-8.7)
[2023-05-24] MEDS: sodium chloride 0.9% 1,000 ML 50 ML IV (04:09)
[2023-05-24] MEDS: dilTIAZem 30 mg Tablet PO ×3 (05:47→17:13)
[2023-05-24] MEDS: lisinopril 20 mg Tablet PO ×2 (08:08→17:13)
[2023-05-24] MEDS: escitalopram 10 mg Tablet PO (08:08)
[2023-05-24] MEDS: aspirin 81 mg EC Tablet PO (08:08)
[2023-05-24] MEDS: famotidine 20 mg Tablet PO (08:08)
[2023-05-24 08:16] LABS: Vancomycin Trough 6.2 ug/mL (10-15)
[2023-05-24] MEDS: metoprolol tartrate 25 mg Tablet PO (08:19)
[2023-05-24] MEDS: budesonide 0.5 mg/2 mL Neb INHALATION ×2 (09:19→20:11)
[2023-05-24] MEDS: enoxaparin 40 mg/0.4 mL Syringe SUBCUT (13:18)
--- NOTE | 2023-05-24 14:11 | P.PN_ITS ---
Subjective 2 Subjective: No acute events overnight. Patient did have episode of confusion and agitation more than baseline yesterday evening when she was not taking her p.o. medications resolved with restarting Seroquel. Patient is able to feed herself today. Denies any nausea, ting, headache. Patient is at her baseline mentation of AO x 1-2. Seems to be tolerating modified diet. Medications: Reviewed: Yes Vitals/I&O/Wt Last Vital Signs Temp 97.5 F L 05/24/23 11:43 Pulse 85 05/24/23 11:43 Resp 20 H 05/24/23 11:43 BP 164/100 05/24/23 11:43 Pulse Ox 93 05/24/23 11:43 O2 Del Method Nasal Cannula 05/24/23 11:43 O2 Flow Rate 2 05/24/23 09:19 FiO2 4 05/21/23 12:00 05/23/23 05/24/23 05/24/23 22:59 06:59 14:59 Intake Total 515.833 / 2122.083 887.5 / 3009.583 250 / 250 Output Total 550 / 550 Balance 515.833 / 2122.083 337.5 / 2459.583 250 / 250 Physical Exam 2 Narrative: General: No acute distress, sleeping but wakes up to verbal stimulus, AO x 1-2 Neck: Supple Cardiovascular: S1-S2 irregularly irregular, 1/6 early systolic murmur in the aortic region Lungs: A few bilateral expiratory wheezes, bilateral bronchial breath sounds all over lung field otherwise Abdomen: Soft, nontender on palpation, active bowel sounds throughout. Extremities: No cyanosis clubbing or edema. Urinary Catheter Management: Raymond: Cath Placed During This Visit: no Reason for Continuing Indwelling Catheter: Assist Healing of Perineal & Sacral Wounds- Incontinent Patients Data 05/24/23 03:19 05/24/23 03:19 A&P Assessment and plan (1) Atrial fibrillation with RVR: Rate controlled currently. Continue with Cardizem 30 mg oral every 6 hours for now. Increase home dose of metoprolol to 25 mg twice daily. Continue with baby aspirin 81 daily Not a good candidate for chronic anticoagulation, and this was determined even prior to this hospital stay (2) Hypoxia: In setting of RSV along with concerns for aspiration pneumonia. CHF less likely. Patient seems euvolemic. Last echocardiogram showed severely increased LA size, mildly increased LVH, mild to moderate pulmonary hypertension with RVSP of 50-55 3. (3) RSV (respiratory syncytial virus infection): +RSV type B. Continue to treat with supportive care measures of IV hydration, supplemental oxygen, and antipyretics as needed. Vancomycin and Zosyn were added for concern of bacterial infection superimposed on RSV. MRSA negative. Will discontinue IV vancomycin. Concerns for aspiration pneumonitis as well. Appreciate speech therapy. Start on level 4 dysphagia diet as per speech evaluation. Xopenex every 6 hours, Pulmicort twice daily. Wean oxygen as tolerated keeping saturation over 90%. (4) Hypertension: Goal blood pressure less than 140/90 mmHg. Blood pressure slightly elevated. Currently on Cardizem. Will add further antihypertensive as per goal blood pressures. (5) Dementia: Patient currently remains in dementia unit at [facility] with a known history. Currently on Seroquel, Namenda, alprazolam, and Lexapro. Will continue to hold Seroquel and alprazolam. Continue with home dose of Lexapro and Namenda for now. Might have to add low- dose Seroquel later as patient is at risk of withdrawal. (6) Fall: Possibly multifactorial due to #1, #2, #3, and #4. Qualifiers: Encounter type: initial encounter Qualified Code(s): W19.XXXA - Unspecified fall, initial encounter (7) Acute encephalopathy: Possibly multifactorial due to hypoxia, RSV, A-fib with RVR, hypertension, or underlying dementia. Mentation seems to be increasing as patient is able to answer simple questions. Able to state her name. It appears her neurologic status is likely back to baseline. Plan Out of bed to chair. PT. Continue with speech therapy. Famotidine for PUD prophylaxis CODE STATUS: DNR DVT prophylactics: Lovenox Plan for the day: Continue with oral Cardizem. Heart rate controlled. Goal blood pressure less than 140/90 mmHg. Blood pressure slightly elevated. Continue with current dose of lisinopril and Cardizem. Switch metoprolol to Cardizem 6.25 mg twice daily. Replete 40 mg of oral potassium. Patient tolerating oral diet for now. Oxygen supplementation has remained stable. Stop IV fluids. Continue with IV Zosyn to finish a 5-day course. Continue with Lexapro 10 mg oral daily, memantine 5 mg twice daily at home dose. Restarted Seroquel yesterday to avoid withdrawal at 50 mg nightly. Takes 75 mg every morning 100 mg every afternoon at home. Discharge plan: Patient remains at current oxygen supplementation with current mentation and continues to tolerate oral diet most likely can discharge in next 24 hours back to SNF. Attestations 2 Medical Necessity Statement*: Requires further hospitalization for management of hypoxia in setting of RSV, mild aspiration pneumonia while diet is modified, altered mental status in setting of polypharmacy in a patient with baseline dementia while medications were adjusted Diagnoses Atrial fibrillation with RVR I48.91 Hypoxia R09.02 RSV (respiratory syncytial virus infection) B33.8 Hypertension I10 Dementia F03.90 Fall W19.XXXA Encounter type: initial encounter Acute encephalopathy G93.40
[2023-05-24] MEDS: potassium chloride ER 20 mEq Tablet 40 MEQ PO (15:02)
[2023-05-24] MEDS: carvedilol 6.25 mg Tablet PO (17:13)
[2023-05-24] MEDS: memantine 5 mg tablet PO (18:16)
--- NOTE | 2023-05-24 22:12 | PC.NURSE ---
Crushed patient's medication and placed in applesauce. Patient took a taste and said that's enough. Patient refused to take anymore.
[2023-05-25] VITALS (8 sets, daily range): BP systolic 139–185; BP diastolic 111–121; PULSE 89–112; RESP 16–26; TEMP 36.2–36.6; O2SAT 93–94
[2023-05-25] MEDS: piperacillin-tazobactam 3.375 GM in sodium chloride 0.9% (plus) 50 ML IV ×2 (00:07→08:18)
--- NOTE | 2023-05-25 04:14 | PC.NURSE ---
Patient refusing to take oral medications. Informed Dr Sesay. No new orders received.
[2023-05-25 04:22] LABS: Basophils # 0.1 10^3/uL (0.0-0.1); Eosinophils # 0.2 10^3/uL (0.0-0.8); Eosinophils % 3.6 %; Hematocrit 32.6 % (36-47); Lymphocytes # 1.5 10^3/uL (0.8-4.8); Mean Corpuscular HGB Conc 31.3 g/dL (30-55); Mean Corpuscular Hemoglobin 25.9 pg (27-33); Mean Corpuscular Volume 82.7 fl (85-98); Mean Platelet Volume 11.3 fL (7.4-10.4); Monocytes # 0.5 10^3/uL (0.2-0.9); Monocytes % 8.2 %; Neutrophils # 3.74 10^3/uL (1.8-7.7); Neutrophils % 61.2 %; Nucleated Red Blood Cells % 0 %; Platelet Count 223 10^3/cmm (157-399); Red Blood Count 3.94 10^6/uL (3.85-5.65); Red Cell Distribution Width 16.4 % (12.1-15.1); White Blood Count 6.11 10^3/uL (3.29-11.43)
[2023-05-25 04:46] LABS: Alanine Aminotransferase 10 U/L (0-33); Albumin Level 2.7 g/dL (3.5-5.2); Alkaline Phosphatase 67 U/L (35-105); Anion Gap 11.2 (5-19); Aspartate Amino Transferase 15 U/L (0-32); Blood Urea Nitrogen 14 mg/dL (8-23); Calcium 8.7 mg/dL (8.5-10.5); Carbon Dioxide 23 mmol/L (22-29); Chloride 110 mmol/L (98-107); Globulin 2.5 g/dL (1.3-4.6); Glucose 79 mg/dL (65-115); Osmolality Calculated 291 mOsm/kg (285-295); Potassium 3.2 mmol/L (3.5-5.1); Sodium 141 mmol/L (136-145); Total Bilirubin 0.6 mg/dL (0.15-1.2); Total Protein 5.2 g/dL (6.6-8.7)
[2023-05-25 04:49] LABS: Magnesium 1.7 mg/dL (1.7-2.3)
[2023-05-25] MEDS: memantine 5 mg tablet PO (08:15)
[2023-05-25] MEDS: carvedilol 6.25 mg Tablet PO (08:15)
[2023-05-25] MEDS: escitalopram 10 mg Tablet PO (08:15)
[2023-05-25] MEDS: lisinopril 20 mg Tablet PO (08:15)
[2023-05-25] MEDS: famotidine 20 mg Tablet PO (08:16)
[2023-05-25] MEDS: aspirin 81 mg Chew Tablet PO (08:29)
[2023-05-25] MEDS: ipratropium-albuterol 3 mL Neb INHALATION (08:31)
--- NOTE | 2023-05-25 11:15 | PC.SOCIAL ---
IMM Update pg 2 of IMM updated and reviewed w/ patients daughter. Copy left @ BS and copy in chart dated and initialed.
--- NOTE | 2023-05-25 12:35 | P.DS_ITS ---
Discharge Providers Date of Admission: 05/20/23 13:31 Date of Discharge: May 25, 2023 Attending Provider at Admission: René Vega MD Attending Provider at Discharge: Camlio Dumont Primary Care Provider: Grant Arias MD Diagnoses at Discharge Discharge Diagnosis (1) Atrial fibrillation with RVR: Status: Acute (2) Hypoxia: Status: Acute (3) RSV (respiratory syncytial virus infection): Status: Acute (4) Hypertension: Status: Acute (5) Dementia: Status: Acute (6) Fall: Status: Resolved Qualifiers: Encounter type: initial encounter Qualified Code(s): W19.XXXA - Unspecified fall, initial encounter (7) Acute encephalopathy: Status: Acute Reason for Visit Reason for Visit: fall Hospital Course Hospital Course 87-year-old lady with history of HTN, A-fib, CVA, [place], dementia, was admitted and treated due to atrial fibrillation with RVR, RSV pneumonia, suspected superimposed secondary bacterial pneumonia versus possible aspiration pneumonia, was treated with empiric antibiotic as well, was previously assessed by speech therapy, maintained on dysphagia diet. On presentation with encephalopathy as well, possibly due to metabolic changes and infection, versus medication effect. Her Seroquel dose was decreased down to 50 mg at bedtime. Mental status improved. Oxygenation gradually improved she weaned off oxygen requirement. Currently down on room air. Awake, responding, appetite has not been good with poor oral intake. This appears is not new and also [facility]. Discussed with her daughter. Leading instructions to encourage oral intake as tolerating, adding protein supplements. However, if not improving further options may need to be considered, appetite stimulants hopefully can be avoided given risks of side effects, certainly PEG tube would not be a good route and her daughter agrees PEG tube would not be a consideration. Depending on further recovery, further consideration may be given to continued current care versus consideration of addition of hospice care as well. Heart rate has been well-controlled with Cardizem on which she will continue. Was not started on anticoagulation as not found to be a safe candidate. Physical Exam Const: COMMON NORMALS: alert; negative for patient oriented x3 GENERAL APPEARANCE: cooperative ORIE NTATION/CONSCIOUSNESS: Yes awake HENMT: COMMON NORMALS: oropharynx normal Neck/C-Spine: COMMON NORMALS: no JVD Resp: COMMON NORMALS: normal respiratory effort and clear to auscultation bilaterally AUSCULTATION: clear to auscultation bilaterally Cardio: COMMON NORMALS: no JVD, regular rhythm, S1 normal heart sound present, S2 normal heart sound present and No murmurs present (Cardio) RHYTHM: regular rhythm HEART SOUNDS: S1 normal heart sound present and S2 normal heart sound present GI: COMMON NORMALS: Normal to inspection, nondistended, normoactive bowel sounds present, Soft to palpation and non-tender PALPATION: Yes Soft to palpation Extremity: COMMON NORMALS: no joint enlargement and no pedal edema Neuro: COMMON NORMALS: moves all extremities; negative for patient oriented x3 SENSORIUM/ORIENTATION: Yes alert Skin: COMMON NORMALS: no rashes or lesions noted GENERAL SKIN EXAM: no rashes or lesions noted Urinary Catheter Management: Raymond: Cath Placed During This Visit: no Reason for Continuing Indwelling Catheter: Accurate Measurement of Urinary Output in Critically Ill Patients Discharge Data Studies Completed and Pending Completed Studies During Hospitalization Category Date Time Status CT chest wo con [id number] Urgent Cat Scan 05/23/23 12:[address] head wo con* [id number] Stat Cat Scan 05/20/23 06:14 Completed XR chest 1V portable [id number] Stat Exams 05/20/23 06:13 Completed Pending at discharge Category Date Time Status Blood Cultures ([facility]) Routine Lab 05/20/23 06:37 Results Blood Cultures ([facility]) Routine Lab 05/20/23 06:45 Results MAG [Magnesium] AM LABS Lab 05/26/23 04:00 Ordered Radiology Impressions Chest X-Ray 05/20/23 06:13 IMPRESSION: No acute cardiopulmonary disease. Head CT 05/20/23 06:14 IMPRESSION: 1. No acute intracranial pathology. 2. 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 Chest CT 05/23/23 12:33 IMPRESSION: Small [id number]-[id number]-right pleural effusions and overlying atelectasis/consolidation. Underlying infiltrate not excluded. Laboratory Results WBC 6.11 10^3/uL (3.29-11.43) 05/25/23 03:44 RBC 3.94 10^6/uL (3.85-5.65) 05/25/23 03:44 Hgb 10.20 g/dL (11.27-16.99) L 05/25/23 03:44 Hct 32.6 % (36-47) L 05/25/23 03:44 MCV 82.7 fl (85-98) L 05/25/23 03:44 MCH 25.9 pg (27-33) L 05/25/23 03:44 MCHC 31.3 g/dL (30-55) 05/25/23 03:44 RDW 16.4 % (12.1-15.1) H 05/25/23 03:44 Plt Count 223 10^3/cmm (157-399) 05/25/23 03:44 MPV 11.3 fL (7.4-10.4) H 05/25/23 03:44 Neut % (Auto) 61.2 % 05/25/23 03:44 Lymph % (Auto) 25.0 % 05/25/23 03:44 [place] % (Auto) 8.2 % 05/25/23 03:44 Eos % (Auto) 3.6 % 05/25/23 03:44 Baso % (Auto) 1.0 % 05/25/23 03:44 Neut # (Auto) 3.74 10^3/uL (1.8-7.7) 05/25/23 03:44 Lymph # (Auto) 1.5 10^3/uL (0.8-4.8) 05/25/23 03:44 [place] # (Auto) 0.5 10^3/uL (0.2-0.9) 05/25/23 03:44 Eos # (Auto) 0.2 10^3/uL (0.0-0.8) 05/25/23 03:44 Baso # (Auto) 0.1 10^3/uL (0.0-0.1) 05/25/23 03:44 Nucleated RBC % (auto) 0 % 05/25/23 03:44 Nucleated RBCs # 0.0 /100WBC 05/25/23 03:44 Sodium 141 mmol/L (136-145) 05/25/23 03:44 Potassium 3.2 mmol/L (3.5-5.1) L 05/25/23 03:44 Chloride 110 mmol/L (98-107) H 05/25/23 03:44 Carbon Dioxide 23 mmol/L (22-29) 05/25/23 03:44 Anion Gap 11.2 (5-19) 05/25/23 03:44 BUN 14 mg/dL (8-23) 05/25/23 03:44 Creatinine 0.6 mg/dL (0.5-0.9) 05/25/23 03:44 GFR Calculation Not Reportable 05/25/23 03:44 Glucose 79 mg/dL (65-115) 05/25/23 03:44 Estimat Average Glucose 103 05/24/23 03:19 Hemoglobin A1c 5.2 % (4.0-6.0) 05/24/23 03:19 Calculated Osmolality 291 mOsm/kg (285-295) 05/25/23 03:44 Lactic Acid 2.2 mmol/L (0.5-2.2) 05/20/23 06:45 Lactic Acid (Sepsis) 1.9 mmol/L (0.5-2.2) 05/20/23 09:08 Calcium 8.7 mg/dL (8.5-10.5) 05/25/23 03:44 Magnesium 1.7 mg/dL (1.7-2.3) 05/25/23 03:44 Iron 18 ug/dL (37-145) L 05/23/23 03:35 TIBC 164 mcg/dl 05/23/23 03:35 % Saturation 10.9 % (20-50) L 05/23/23 03:35 Unsat Iron Binding 146 ug/dL (112-347) 05/23/23 03:35 Total Bilirubin 0.6 mg/dL (0.15-1.2) 05/25/23 03:44 AST 15 U/L (0-32) 05/25/23 03:44 ALT 10 U/L (0-33) 05/25/23 03:44 Alkaline Phosphatase 67 U/L (35-105) 05/25/23 03:44 Troponin T Baseline 45 ng/L (0-10) H 05/20/23 06:45 Troponin T 120 Minute 43.76 ng/L (0-10) H 05/20/23 09:08 Delta Troponin T -1.24 ABS# (0-10) L 05/20/23 09:08 Troponin T Hi Sens 6Hr 54.34 ng/L (0-10) H 05/20/23 12:35 Troponin T Hi Sens 6Hr Delta 9.34 ng/L (0-12) 05/20/23 12:35 Total Protein 5.2 g/dL (6.6-8.7) L 05/25/23 03:44 Albumin 2.7 g/dL (3.5-5.2) L 05/25/23 03:44 Globulin 2.5 g/dL (1.3-4.6) 05/25/23 03:44 Triglycerides 83 mg/dL (0-150) 05/24/23 03:19 Cholesterol 122 mg/dL (0-200) 05/24/23 03:19 LDL Cholesterol, Calc 79 mg/dL (50-129) 05/24/23 03:19 Total VLDL Cholesterol 17 mg/dL (0-30) 05/24/23 03:19 HDL Cholesterol 26 mg/dL (60-100) L 05/24/23 03:19 Cholesterol/HDL Ratio 4.69 mg/dL (0.0-4.40) H 05/24/23 03:19 Vitamin B12 1137 pg/mL (232-1245) 05/23/23 03:35 Folate 5.0 ng/mL (4.8-37.3) 05/24/23 03:19 Procalcitonin 0.59 ng/mL (0-0.5) H 05/23/23 03:35 TSH 2.02 uIU/mL (0.27-4.20) 05/23/23 03:35 Urine Color Dark yellow (Yellow) 05/20/23 08:45 Urine Appearance Clear (CLEAR) 05/20/23 08:45 Urine pH 5 (5-7) 05/20/23 08:45 Ur Specific [place] 1.030 (1.005-1.030) 05/20/23 08:45 Urine Protein Trace (Negative) 05/20/23 08:45 Urine Glucose (UA) Norm (Normal) 05/20/23 08:45 Urine Ketones Negative (Negative) 05/20/23 08:45 Urine Blood 2+ (Negative) H 05/20/23 08:45 Urine Nitrate Negative (Negative) 05/20/23 08:45 Urine Bilirubin Neg (Negative) 05/20/23 08:45 Urine Urobilinogen Norm mg/dL (Negative) 05/20/23 08:45 Ur Leukocyte Esterase Negative (Negative) 05/20/23 08:45 Urine RBC 0-4 /hpf (0-2) H 05/20/23 08:45 Urine WBC 0-4 /hpf (0-5) H 05/20/23 08:45 Ur Squamous Epith Cells 0-4 /hpf (0-5) H 05/20/23 08:45 Amorphous Sediment Trace /hpf 05/20/23 08:45 Urine Bacteria Tr /hpf (NONE) 05/20/23 08:45 Hyaline Casts 5-10 /lpf H 05/20/23 08:45 Fine Granular Casts 0-4 /lpf H 05/20/23 08:45 Urine Mucus 1+ /hpf 05/20/23 08:45 Vancomycin Trough 6.2 ug/mL (10-15) L 05/24/23 07:05 Coronavirus 229E (PCR) Not detected (NOT DETECT) 05/20/23 07:03 Influenza Type A Ag negative (Negative) 05/20/23 07:03 Influenza Type B Ag negative (Negative) 05/20/23 07:03 RSV Antigen Positive (Negative) H 05/20/23 07:03 RSV Type A (PCR) Not detected (NOT DETECT) 05/20/23 09:19 RSV Type B (PCR) Detected (NOT DETECT) A 05/20/23 09:19 SARS-CoV-2 (PCR) Not detected (NOT DETECT) 05/20/23 07:03 MRSA (PCR) Not detected (NOT DETECTED) 05/22/23 11:40 Vitals Last Vital Signs Temp 97.8 F 05/25/23 07:42 Pulse 104 H 05/25/23 12:05 Resp 25 H 05/25/23 12:05 BP 148/121 05/25/23 12:05 Pulse Ox 94 05/25/23 08:00 O2 Del Method Room Air 05/25/23 08:00 O2 Flow Rate 2 05/24/23 09:19 FiO2 4 05/21/23 12:00 Discharge Plan Discharge Patient Disposition: Xfer SNF Condition: Stable Prescriptions: New amoxicillin-pot clavulanate 875-125 mg tablet 1 tab PO BID Qty: 10 0RF diltiazem HCl 60 mg capsule,extended release 12 hr 60 mg PO BID Qty: 180 0RF Continued lactulose 10 gram/15 mL solution 10 g PO DAILY PRN (Reason: constipation) Qty: 473 0RF sennosides-docusate sodium [Stool Softener-Laxative] 8.6-50 mg tablet 1 tab PO BID@09,21 magnesium citrate Solution 150 ml PO BID PRN (Reason: constipation) Qty: 296 0RF polyethylene glycol 3350 [Purelax] 17 gram/dose powder 17 g PO DAILY Qty: 119 0RF vitamin C55-pmmml acid 0.5-1 mg Tablet See Rx Instructions .ROUTE .COMPLEX Rx Instructions: 1 tab orally MON, , THURSDAY Fleet Enema 19-7 gram/118 mL Enema 118 ml [place] DAILY PRN (Reason: Constipation) lisinopril 20 mg Tablet 20 mg PO BIDWMEAL 30 Days Qty: 60 3RF magnesium hydroxide [Milk of Magnesia] 400 mg/5 mL Suspension 30 ml PO DAILY PRN (Reason: Constipation) bisacodyl [Dulcolax (bisacodyl)] 10 mg Suppository 10 mg [place] DAILY PRN (Reason: Constipation) escitalopram oxalate [Lexapro] 10 mg Tablet 10 mg PO DAILY memantine [Namenda] 5 mg Tablet 5 mg PO BID TwoCal HN 0.08-2 gram-kcal/mL Liquid 30 ea PO BID potassium chloride 20 mEq Tablet Extended Release 40 meq PO DAILY metoprolol tartrate 25 mg Tablet 12.5 mg PO BID@0900,2100 Qty: 60 0RF Aspir-81 81 mg Tablet,Delayed Release (Dr/Ec) 81 mg PO DAILY alprazolam 0.25 mg Tablet 0.25 mg PO TID PRN (Reason: BEHAVIOR) acetaminophen 325 mg tablet 650 mg PO Q6H PRN (Reason: Pain) Changed quetiapine [Seroquel] 100 mg Tablet 50 mg PO QPM Qty: 1 0RF Discontinued quetiapine 50 mg tablet 75 mg PO QAM Discharge Orders: Discharge Order (Routine); Ordered 05/25/23 Ordered By: Camilo Dumont Referrals: [facility] [Outside] Grant Arias MD [Primary Care Provider] - 4-7 days Discharge Diet: As Directed Patient Instructions: Dysphagia (GEN), Aspiration Precautions (GEN), RSV (Respiratory Syncytial Virus) Infection (GEN) Activity Restrictions/Additional Instructions: Continue dysphagia level 4 diet, extremely thick/pur?ed. Aspiration precautions. Continue follow-up with speech therapy. Assist with meals, encourage oral intake is tolerating. Add protein shakes/supplements to meals. In case of lack of improvement in oral intake consider further goals of care, options including possibly hospice. Maintain fall precautions. Reassess after RSV infection, pneumonia. Aspiration pneumonia. Quetiapine dose has been decreased. Adjust as appropriate to avoid oversedation. Discharge Attestations Time Spent in Discharge Care*: greater than 30 min Quality Metrics Clinical Quality Measures [ No reported AMI, CVA or VTE this stay] Coding Level of Care Code 54604 Total time (in minutes) for Discharge: 40 Diagnoses Atrial fibrillation with RVR I48.91 Hypoxia R09.02 RSV (respiratory syncytial virus infection) B33.8 Hypertension I10 Dementia F03.90 Fall W19.XXXA Encounter type: initial encounter Acute encephalopathy G93.40
[2023-05-25] MEDS: dilTIAZem 30 mg Tablet PO (12:55)
[2023-05-25] MEDS: potassium chloride ER 20 mEq Tablet 40 MEQ PO (12:55)
--- NOTE | 2023-05-25 13:41 | PC.NURSE ---
report called to [facility]
--- NOTE | 2023-05-25 14:10 | PC.NURSE ---
dieter sharp here for a transport to snf notified snf that she is on her way to snf.
== END 2023-05-25 14:10 | disposition skilled nursing facility (03) | DRG 193 ==
LOC: ER 12:13 → ER IP 20:24 → CSU 22:14
PROVIDERS: Student in an Organized Health Care Education/Training Program; Admitting Provider Internal Medicine; Emergency Provider Family Medicine; PCP Family Medicine; Visit Provider Internal Medicine
DX: J12.1 Respiratory syncytial virus pneumonia (principal); G93.41 Metabolic encephalopathy; F03.911 Unspecified dementia, unspecified severity, with agitation; I48.20 Chronic atrial fibrillation, unspecified; J15.9 Unspecified bacterial pneumonia; R09.02 Hypoxemia; I10 Essential (primary) hypertension; Z86.73 Personal history of transient ischemic attack (TIA), and cerebral infarction without residual deficits; I25.2 Old myocardial infarction; Z91.81 History of falling; Z66 Do not resuscitate; I27.20 Pulmonary hypertension, unspecified
CPT/HCPCS: 36415; 70450; 71045; 71250; 80048; 80053; 80061; 80202; 81001; 82607; 82746; 83036; 83540; 83550; 83605; 83735; 84145; 84443; 84484; 85025; 87040; 87635; 87641; 87801; 87804; 87899; 92526; 92610; 93005; 94640; 94799; 96365; 96372; 96375; 96376; 97110; 97161; 97530; 99291; J1650; J2060; J2543; J3370; J3490; J7030; J7050; J7626